=== PATIENT | male | born 1950 | race Caucasian/White ===

== ENCOUNTER 2017-02-02 16:06 | Outpatient (POV) | payer MEDICARE, SELFPAY | END 2017-02-02 16:52 | disposition home or self-care (01) | PROVIDERS: Visit Provider Podiatrist | DX: E11.621 Type 2 diabetes mellitus with foot ulcer (principal); E11.40 Type 2 diabetes mellitus with diabetic neuropathy, unspecified; M79.672 Pain in left foot; L97.522 Non-pressure chronic ulcer of other part of left foot with fat layer exposed | CPT/HCPCS: 11042; 99212 ==

== ENCOUNTER 2017-02-21 08:30 | Outpatient (RCR) | payer MEDICARE, SELFPAY | END 2017-02-21 23:59 | LOC: PT 08:30 | PROVIDERS: Visit Provider Podiatrist | DX: E11.621 Type 2 diabetes mellitus with foot ulcer (principal) | CPT/HCPCS: G8990; G8991; G8992; 97161; 97597; 97760 ==

== ENCOUNTER 2017-03-01 15:30 | Outpatient (RCR) | payer MEDICARE, SELFPAY | END 2017-03-01 23:59 | LOC: PT 15:30 | PROVIDERS: PCP Internal Medicine Adolescent Medicine; Visit Provider Podiatrist | DX: E11.621 Type 2 diabetes mellitus with foot ulcer (principal) ==

== ENCOUNTER → 2018-01-29 13:29 | Outpatient (CLI) | payer MEDICARE, SELFPAY ==
--- NOTE | 2018-01-29 13:33 | US_ITS ---
US Arterial Ankle Brachial Ind History: Rest pain, diabetes, previous smoker ITS.REASON: Skin Changes ORDERING PHYSICIAN: Sara Ruiz DPM PATIENT AGE: 67 years TECHNIQUE: Segmental pressures obtained of both right and left leg. These are compared to brachial blood pressure to yield index at each level sampled including summary LÁZARO. The data sheets from the procedure are available in PACS FINDINGS Rest study only performed today No prior studies available for comparison. Blood pressures reported are in millimeters mercury. RIGHT LEG LÁZARO = 1.27. RIGHT LEG TBI=1.06 Brachial BP: 150 Thigh BP: 176 Calf BP: 185 Ankle PT: 200 Ankle DP : 142 Digit =167 LEFT LEG LÁZARO = 1.16 LEFT LEG TBI= 0.87 Brachial BPD: 158 Thigh BP: 181 Calf BP: 181 Ankle PT:183 Ankle DP: 166 Digit = 137 Pulses and waveforms: Normal IMPRESSION: The ABIs as reported above are within normal limits. Waveforms and pulses are also unremarkable. TBI's are within normal limits
== END ==
PROVIDERS: PCP Internal Medicine Adolescent Medicine; Visit Provider Podiatrist
DX: R09.89 Other specified symptoms and signs involving the circulatory and respiratory systems (principal)
CPT/HCPCS: 93922

== ENCOUNTER → 2018-02-22 12:16 | Outpatient (CLI) | payer MEDICARE, SELFPAY | PROVIDERS: Visit Provider Urology | DX: R39.89 Other symptoms and signs involving the genitourinary system (principal) | CPT/HCPCS: 87086; 87088; 87186 ==

== ENCOUNTER 2019-05-22 12:16 | Observation (INO) ==
[2019-05-22 13:15] LABS: Basophils % 0.3 % (0.1-2.0); Eosinophils # 0.1 K/mm3 (0.0-0.4); Eosinophils % 0.6 % (0.1-12.0); Hematocrit 52.9 % (42.0-52.0); Hemoglobin 16.9 g/dL (14.1-18.0); Lymphocytes # 1.7 K/mm3 (0.7-4.5); Lymphocytes % 12.6 % (10-50); Mean Corpuscular HGB Conc 31.9 g/dL (31.8-35.4); Mean Platelet Volume 7.8 fl (7.4-10.4); Monocytes # 0.5 K/mm3 (0.1-1.0); Monocytes % 3.7 % (1.7-9.3); Neutrophils # 11.1 K/mm3 (1.8-7.8); Neutrophils % 82.6 % (37.0-80.0); Platelet Count 211 K/mm3 (142-424); Red Blood Count 5.24 M/mm3 (4.60-6.20); Red Cell Distribution Width 13.9 % (11.5-17.5); White Blood Count 13.4 K/mm3 (4.8-10.8)
[2019-05-22 13:24] LABS: Albumin/Globulin Ratio 1.3 (1.1-1.8); Bilirubin,Total 0.6 mg/dl (0.2-1.3); Calcium 9.2 mg/dl (8.4-10.2)
--- NOTE | 2019-05-22 15:50 | History & Physical Report ---
*Admission Date: 05/22/19 *Chief complaint: Fall on 05/21/19 with inability to walk *History of present illness: 69 yo M who presents with a chief complaint of left sided body pain after a fall from standing that occured last night when he tripped over a rug at his home. He states he syncopized after falling but "came to" shortly afterwards. He is currently complaining of left hip/groin and shoulder pain that is worse with movement and has not allowed him to do any weight bearing his LUE or LLE. He is accompanied by his daughter in law who states he is in his normal state of health other than his musculoskeletal complaints. Patient denies headache, vision changes, and focal neurologic signs. [facility] History I have reviewed the patient's past medical history: Yes Medical History: Reports:: Chronic Obstructive Pulmonary Disease (COPD), Diabetes Mellitus Type 2, Hypertension, MRSA (foot ulcer, unsure if it was mrsa) Denies:: Cancer *Have you ever received a pneumonia vaccine?: Yes *Have you received a flu vaccine this season?: Yes Other Medical History: Reports: Arthritis, Thyroid Disease Comment:: Chronic opiod use. Parkinsons Disease. Chronic peripheral neuropathy. 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 Laterality Cases: Left: Total Hip Replacement, Bilateral: Carpal Tunnel Release Other Surgeries: Yes: Cholecystectomy, Other Amputation: No Fractures: Yes - *Social History Educational Level: Completed High School Smoking Status: Current every day smoker # Packs/Day (cigarettes): 1 Alcohol Intake: never Alcohol Intake Frequency:: other Substance Use Type: denies use *Occupational Status:: retired Housing: apartment *Travel in the last 8 weeks: None Family Hx:: Heart Attack, Stroke Review of Systems - Review of Systems Review of systems:: pertinent systems reviewed and negative unless documented below - Constitutional Reports weakness - ENT Reports poor balance, Reports dizziness - *Cardiovascular Denies chest pain, Denies leg pain with activity, Denies shortness of breath with activity - *Respiratory Denies change in phlegm color, Denies shortness of breath Meds Home Medications Medication Instructions Recorded Confirmed Type dicyclomine 20 mg tablet PO 15 Days tab 01/23/18 05/03/18 History ferrous sulfate 325 mg (65 mg PO 30 Days tab 01/23/18 05/03/18 History iron) tablet fluoxetine 20 mg capsule PO 30 Days cap 01/23/18 05/03/18 History furosemide 40 mg tablet PO 30 Days tab 01/23/18 05/03/18 History gabapentin 300 mg capsule 900 mg PO TID 30 Days #270 cap 01/23/18 05/03/18 History loratadine 10 mg capsule 10 mg PO DAILY 01/23/18 05/03/18 History morphine 15 mg tablet,extended PO 30 Days tab 01/23/18 05/03/18 History release pantoprazole 40 mg tablet,delayed PO 30 Days tab 01/23/18 05/03/18 History release quetiapine 200 mg tablet PO 90 Days tab 01/23/18 05/03/18 History rasagiline 1 mg tablet PO 30 Days tab 01/23/18 05/03/18 History sucralfate 1 gram tablet PO 30 Days tab 01/23/18 05/03/18 History morphine 15 mg immediate release PO 30 Days tab 04/03/18 05/03/18 History tablet Allergies Allergy/AdvReac Type Severity Reaction Status Date / Time aspirin [ASPIRIN] Allergy Unknown S-DIFF. Verified 05/03/18 11:08 BREATHING Exam Vital signs and Labs for Last 24 Hours: Temp Pulse Resp BP Pulse Ox 98.2 F 74 18 124/73 94 L 05/22/19 15:17 05/22/19 15:17 05/22/19 15:17 05/22/19 15:17 05/22/19 15:17 Laboratory Results - last 24 hr 05/22/19 12:50: WBC 13.4 H, RBC 5.24, Hgb 16.9, Hct 52.9 H, MCV 101.0 H, MCH 32.3 H, MCHC 31.9, RDW 13.9, Plt Count 211, MPV 7.8, Neut % (Auto) 82.6 H, Lymph % (Auto) 12.6, [place] % (Auto) 3.7, Eos % (Auto) 0.6, Baso % (Auto) 0.3, Neut # (Auto) 11.1 H, Lymph # (Auto) 1.7, [place] # (Auto) 0.5, Eos # (Auto) 0.1, Baso # (Auto) 0.0 05/22/19 12:50: Sodium 140, Potassium 4.0, Chloride 107, Carbon Dioxide 29, Anion Gap 8.0, BUN 27 H, Creatinine 1.20, Estimated Creat Clear 79, Estimated GFR 60, Est GFR ( Amer) 72, Glucose 177 H, Calcium 9.2, Total Bilirubin 0.6, AST 23, ALT 19, Alkaline Phosphatase 75, Total Protein 7.0, Albumin 4.0, Globulin 3.0, Albumin/Globulin Ratio 1.3 I & O for Last 24 hours: Intake & Output 05/20/19 05/21/19 05/22/19 05/23/19 11:59 11:59 11:59 11:59 Output Total 625 / 625 Balance -625 / -625 Weight 214 lb 9 oz - Constitutional no acute distress - *Routine HEENT Exam Head: Present: normocephalic Eye: Present: EOMI, PERRL ENT: Present: mucous membranes moist - *Routine Neck Exam Present: supple. Absent: lymphadenopathy - *Routine Respiratory Exam Present: CTA bilaterally - *Routine Cardiovascular Exam Present: RRR - *Routine Abdominal Exam Present: soft, normoactive bowel sounds. Absent: tenderness - *Routine Extremities Exam Present: cyanosis, edema Comments: 1+ edema of bilateral lower extremities, pain with any movement of LLE, neurovascularly intact in LLE. Unable to abduct LUE past 90 degrees, mild vague tenderness to palpation of clavicle. Neurovascularly intact. - *Routine Skin Exam Present: warm. Absent: rash - *Routine Neurological Exam Present: alert Stiffness and rigidity from parkinsons. Face symmetric Assessment and Plan (1) Parkinson disease Current visit: Yes Status: Acute Category: Medical Code(s): G20 - Parkinson's disease (2) Fall at home Current visit: Yes Status: Acute Category: Medical Code(s): W19.XXXA - Unspecified fall, initial encounter; Y92.009 - Unspecified place in unspecified non-institutional (private) residence as the place of occurrence of the external cause (3) Ataxia Current visit: Yes Status: Acute Category: Medical Code(s): R27.0 - Ataxia, unspecified (4) Depression Current visit: Yes Status: Acute Category: Medical Code(s): F32.9 - Major depressive disorder, single episode, unspecified (5) Left hip pain Current visit: Yes Status: Acute Category: Medical Code(s): M25.552 - Pain in left hip (6) Diabetes mellitus Current visit: No Status: Acute Category: Medical Code(s): E11.9 - Type 2 diabetes mellitus without complications - Assessment and plan all Dx Assessment and Plan for all problems:: Fall with high risk of fx based on PE. Admt to [facility] - xrays, labs, ortho eval
--- NOTE | 2019-05-22 15:59 | Consult Report ---
*Admission Date: 05/22/19 *Reason for consult:: Left hip injury *History of present illness: Patient is a 69-year-old male admitted from Dr. Parker's office with LEFT hip pain and possible left hip fracture. Patient says he fell at home yesterday after tripping over a rug. He says following the injury he could not walk and crawled into bed. He was admitted to hospital for further evaluation and management. Patient says he lives by himself and normally walks a few miles every day independently. He says he did not have any pain in his hip prior to the fall yesterday. He is also complaining of some pain in his left shoulder. Patient denies any dizziness, headache, chest or neck pain. He denies loss of consciousness, chest pain and shortness of breath. He reports chronic paresthesias in both lower extremities secondary to diabetes. His past medical history includes diabetes mellitus, COPD, hypertension, Parkinson's disease, ataxia, peripheral neuropathy and depression. He says he previously fractured his left hip and had surgery in [place] about 9 years ago. Review of Systems - Review of Systems Review of systems:: pertinent systems reviewed and negative unless documented below - Constitutional Reports body ache(s), Reports weakness - Eyes Denies change in vision - ENT Reports poor balance, Reports dizziness - *Cardiovascular Denies chest pain, Denies chest pain with activity - *Respiratory Denies chest congestion, Denies cough, Denies shortness of breath - *Gastrointestinal Denies abdominal pain - *Musculoskeletal Reports abnormal walking, Reports joint pain - *Neurologic Reports dizziness [facility] History I have reviewed the patient's past medical history: Yes Medical History: Reports:: Chronic Obstructive Pulmonary Disease (COPD), Diabetes Mellitus Type 2, Hypertension, MRSA (foot ulcer, unsure if it was mrsa) Denies:: Cancer *Have you ever received a pneumonia vaccine?: Yes *Have you received a flu vaccine this season?: Yes Other Medical History: Reports: Arthritis Laterality Cases: Left: Total Hip Replacement, Bilateral: Carpal Tunnel Release Other Surgeries: Yes: No Previous Surgery, Cholecystectomy, Other Amputation: No Fractures: Yes - *Social History Educational Level: Completed High School Smoking Status: Current every day smoker # Packs/Day (cigarettes): 1 Alcohol Intake: never Alcohol Intake Frequency:: other Substance Use Type: denies use *Occupational Status:: retired Housing: apartment *Travel in the last 8 weeks: None Family Hx:: Heart Attack, Stroke Meds Home Medications Medication Instructions Recorded Confirmed Type dicyclomine 20 mg tablet PO 15 Days tab 01/23/18 05/03/18 History ferrous sulfate 325 mg (65 mg PO 30 Days tab 01/23/18 05/03/18 History iron) tablet fluoxetine 20 mg capsule PO 30 Days cap 01/23/18 05/03/18 History furosemide 40 mg tablet PO 30 Days tab 01/23/18 05/03/18 History gabapentin 300 mg capsule 900 mg PO TID 30 Days #270 cap 01/23/18 05/03/18 History loratadine 10 mg capsule 10 mg PO DAILY 01/23/18 05/03/18 History morphine 15 mg tablet,extended PO 30 Days tab 01/23/18 05/03/18 History release pantoprazole 40 mg tablet,delayed PO 30 Days tab 01/23/18 05/03/18 History release quetiapine 200 mg tablet PO 90 Days tab 01/23/18 05/03/18 History rasagiline 1 mg tablet PO 30 Days tab 01/23/18 05/03/18 History sucralfate 1 gram tablet PO 30 Days tab 01/23/18 05/03/18 History morphine 15 mg immediate release PO 30 Days tab 04/03/18 05/03/18 History tablet Allergies Allergy/AdvReac Type Severity Reaction Status Date / Time aspirin [ASPIRIN] Allergy Unknown S-DIFF. Verified 05/03/18 11:08 BREATHING Exam Vital signs and Labs for Last 24 Hours: Temp Pulse Resp BP Pulse Ox 98.2 F 74 18 124/73 94 L 05/22/19 15:17 05/22/19 15:17 05/22/19 15:17 05/22/19 15:17 05/22/19 15:17 Laboratory Results - last 24 hr 05/22/19 12:50: WBC 13.4 H, RBC 5.24, Hgb 16.9, Hct 52.9 H, MCV 101.0 H, MCH 32.3 H, MCHC 31.9, RDW 13.9, Plt Count 211, MPV 7.8, Neut % (Auto) 82.6 H, Lymph % (Auto) 12.6, [place] % (Auto) 3.7, Eos % (Auto) 0.6, Baso % (Auto) 0.3, Neut # (Auto) 11.1 H, Lymph # (Auto) 1.7, [place] # (Auto) 0.5, Eos # (Auto) 0.1, Baso # (Auto) 0.0 05/22/19 12:50: Sodium 140, Potassium 4.0, Chloride 107, Carbon Dioxide 29, Anion Gap 8.0, BUN 27 H, Creatinine 1.20, Estimated Creat Clear 79, Estimated GFR 60, Est GFR ( Amer) 72, Glucose 177 H, Calcium 9.2, Total Bilirubin 0.6, AST 23, ALT 19, Alkaline Phosphatase 75, Total Protein 7.0, Albumin 4.0, Globulin 3.0, Albumin/Globulin Ratio 1.3 I & O for Last 24 hours: Intake & Output 05/20/19 05/21/19 05/22/19 05/23/19 11:59 11:59 11:59 11:59 Output Total 625 / 625 Balance -625 / -625 Weight 214 lb 9 oz - Constitutional no acute distress, cooperative - *Routine HEENT Exam Head: Present: normocephalic, atraumatic Eye: Present: EOMI ENT: Present: mucous membranes moist - *Routine Neck Exam Present: supple, full ROM, trachea midline. Absent: lymphadenopathy - *Routine Respiratory Exam Present: CTA bilaterally. Absent: respiratory distress - *Routine Cardiovascular Exam Present: RRR, Normal S1, Normal S2 - *Routine Extremities Exam Comments: Left hip: On examination of the lower extremities, the limb lengths are equal and alignment is neutral. On examination of the LEFT hip the skin is intact. He has well-healed surgical scars over the lateral aspect of the hip, proximal and distal thigh from previous surgery. There is mild ecchymosis over the greater trochanteric area. He is tender over the is tender over the LEFT hip greater trochanter. Movements of the left hip are somewhat limited with pain. He is not able to actively straight leg raise. Nontender over the distal thigh and knee joint; nontender over the left leg, foot and ankle. Thigh and calf are soft and nontender. Dorsalis pedis and posterior tibial pulses are palpable 1+ bilaterally. Baseline decreased sensation over both feet secondary to peripheral neuropathy. He has good range of foot, ankle and toe movements. Diagnostic imaging: X-rays of his pelvis/left hip, left femur performed at [facility] reviewed along with radiologist report. PROCEDURE: XR HIP LT 2-3V W/PELVIS CLINICAL INDICATION: fall, hip pain COMPARISON: No exams were available for comparison FINDINGS: There is no acute fracture or dislocation. Intramedullary rudi with compression screw is seen in the proximal left femur. Bony hypertrophy is seen in the soft tissues superior to the greater trochanter. IMPRESSION: No acute findings. Dictated by: Akash Sales 05/22/2019 14:08 PROCEDURE: XR FEMUR LT 2V CLINICAL INDICATION: fall, leg pain COMPARISON: No exams were available for comparison FINDINGS: No fracture or dislocation. No lytic or blastic change. There is normal mineralization. Intramedullary rudi with distal transfixing screws is seen in the femur. Com pression screw is seen in the proximal femur. There is bony hypertrophy in the soft tissues superior to the greater trochanter. There is mild osteoarthritis at the medial compartment joint space of the knee. IMPRESSION: No acute findings. Dictated by: Akash Sales 05/22/2019 14:11 Left shoulder: On examination of the left shoulder, skin is intact; no ulcerations or lacerations evident. He has minimal tenderness over the glenohumeral and AC joints. He demonstrates good range of active and passive shoulder movements. No crepitation noted with shoulder movements. Clinically the clavicle is intact. Neurovascular status is grossly intact; radial and ulnar pulses 2+ distally. Capillary refill is brisk; intact sensation to light touch throughout. Axillary nerve is intact and deltoid is porfirio well. He has bilateral Dupuytren's contracture in the hands with fixed contracture of the left fifth digit. Diagnostic Imaging: X-rays of the left shoulder performed at [facility] reviewed along with the radiologist's report- PROCEDURE: XR SHOULDER LT MIN 2V CLINICAL INDICATION: fall, hip pain COMPARISON: No exams were available for comparison FINDINGS: There is no acute fracture or dislocation. Mild acromioclavicular joint arthropathy is noted. IMPRESSION: No acute findings. Dictated by: Akash Sales 05/22/2019 14:09 I have reviewed the x-rays myself and did not find evidence of any fracture, dislocation or other acute bony injury. - *Routine Skin Exam Present: intact, warm, normal turgor - *Routine Neurological Exam Present: alert, oriented X3 - Routine Psychiatric Exam Present: normal affect, cooperative Results - Labs Result Diagrams: 05/22/19 12:50 05/22/19 12:50 Labs: Abnormal lab results 05/22/19 05/22/19 Range/Units 12:50 12:50 WBC 13.4 H (4.8-10.8) K/mm3 Hct 52.9 H (42.0-52.0) % MCV 101.0 H (80-94) fl MCH 32.3 H (27.0-31.2) pg Neut % (Auto) 82.6 H (37.0-80.0) % Neut # (Auto) 11.1 H (1.8-7.8) K/mm3 BUN 27 H (9-20) mg/dl Glucose 177 H (74-100) mg/dl H & H 05/22/19 Range/Units 12:50 Hgb 16.9 (14.1-18.0) g/dL Hct 52.9 H (42.0-52.0) % Assessment and Plan (1) Fall at home Current visit: Yes Status: Acute Category: Medical Code(s): W19.XXXA - Unspecified fall, initial encounter; Y92.009 - Unspecified place in unspecified non-institutional (private) residence as the place of occurrence of the external cause (2) Left hip pain Current visit: Yes Status: Acute Category: Medical Code(s): M25.552 - Pain in left hip (3) Soft tissue injury of left hip Current visit: Yes Status: Acute Category: Medical Code(s): S79.912A - Unspecified injury of left hip, initial encounter (4) Soft tissue injury of left shoulder Current visit: Yes Status: Acute Category: Medical Code(s): S49.92XA - Unspecified injury of left shoulder and upper arm, initial encounter - Assessment and plan all Dx Assessment and Plan for all problems:: I have reviewed the clinical and x-ray findings with the patient. Clinically and radiologically there is no evidence of any acute fracture, dislocation or other bony injuries. He previously had a left hip fracture treated with a cephalo-medullary nailing and the nail is in place and appears stable. There is some heterotopic bone formation at the top of the greater trochanter and also there are minor degenerative changes in the hip joint. He is also complaining of pain in his left shoulder following the fall but x-rays again are not showing any acute injuries. Recommend conservative management for soft tissue injuries including rest, activity modification, regular icing, as needed pain medication and mobilization with physical therapy as comfortable. He can be mobilized with physical therapy using assistive devices as needed and weightbearing as tolerated. There is no need for any surgical intervention at this stage and patient can be discharged as appropriate from medical standpoint. I have explained the same to the patient and answered all his questions. Follow-up in my office in couple of weeks time as needed. Thank you for the opportunity to participate in the care of this very pleasant gentleman.
--- NOTE | 2019-05-22 16:36 | Electrocardiograph Report ---
APPROVED REPORT Exam: Resting ECG HR:77 bpm ECG Measurements Heart Rate 77 AXES AK 224 P 8 QRSd 150 QRS 66 QT 414 T246 QTc 468 <Conclusion> Sinus rhythm with 1st degree AV block Nonspecific intraventricular block Abnormal ECG Electronically signed by : Abel Parker, 05/22/2019 16:35:49
--- NOTE | 2019-05-23 07:24 | Pharmacy Consult Notes ---
[facility] Pharmacy VTE Monitoring - Patient Demographics Admission date: 05/23/19 Report Date: 05/23/19 Time: 07:23 Allergies/Adverse Reactions: Patient Allergies aspirin [ASPIRIN] Allergy (Unknown, Verified 05/03/18 11:08) S-DIFF. BREATHING Height: 1.88 m Weight: 96.36 kg Patient Problems: Current Active Problems Parkinson disease (Acute) Fall at home (Acute) Ataxia (Acute) Depression (Acute) Left hip pain (Acute) Soft tissue injury of left hip (Acute) Soft tissue injury of left shoulder (Acute) - VTE Risk Labs: VTE Related Lab Results Hgb 16.9 g/dL (14.1-18.0) 05/22/19 12:50 Hct 52.9 % (42.0-52.0) H 05/22/19 12:50 Plt Count 211 K/mm3 (142-424) 05/22/19 12:50 BUN 27 mg/dl (9-20) H 05/22/19 12:50 Creatinine 1.20 mg/dl (0.66-1.25) 05/22/19 12:50 Estimated Creat Clear 79 mL/min (50-200) 05/22/19 12:50 Was VTE Risk Assessment Performed: Yes VTE Score: 9 VTE Risk Level: Moderate Risk Clinical Trial Participant: No - Prophylaxis VTE Prophylaxis Ordered?: Yes Types of VTE Prophylaxis: TEDS Knee High (TO UNAFFECTED LEG)
--- NOTE | 2019-05-23 08:14 | Progress Note ---
Internal Medicine - PN: Subj *Date: 05/23/19 *Time: 08:12 Interval history: Patient continues to complain of pain. Nursing reports a cough but no fever. Patient is pleasant and alert. Exam Vital signs and Labs for Last 24 Hours: Temp Pulse Resp BP Pulse Ox 98.9 F 81 20 186/76 H 92 L 05/23/19 07:37 05/23/19 07:37 05/23/19 07:37 05/23/19 07:37 05/23/19 07:37 Laboratory Results - last 24 hr 05/22/19 12:50: WBC 13.4 H, RBC 5.24, Hgb 16.9, Hct 52.9 H, MCV 101.0 H, MCH 32.3 H, MCHC 31.9, RDW 13.9, Plt Count 211, MPV 7.8, Neut % (Auto) 82.6 H, Lymph % (Auto) 12.6, [place] % (Auto) 3.7, Eos % (Auto) 0.6, Baso % (Auto) 0.3, Neut # (Auto) 11.1 H, Lymph # (Auto) 1.7, [place] # (Auto) 0.5, Eos # (Auto) 0.1, Baso # (Auto) 0.0 05/22/19 12:50: Sodium 140, Potassium 4.0, Chloride 107, Carbon Dioxide 29, Anion Gap 8.0, BUN 27 H, Creatinine 1.20, Estimated Creat Clear 79, Estimated GFR 60, Est GFR ( Amer) 72, Glucose 177 H, Calcium 9.2, Total Bilirubin 0.6, AST 23, ALT 19, Alkaline Phosphatase 75, Total Protein 7.0, Albumin 4.0, Globulin 3.0, Albumin/Globulin Ratio 1.3 05/22/19 16:53: POC Glucose 141 H 05/22/19 20:06: POC Glucose 214 H 05/23/19 05:31: POC Glucose 168 H I & O for Last 24 hours: Intake & Output 05/20/19 05/21/19 05/22/19 05/23/19 11:59 11:59 11:59 11:59 Intake Total 1884 / 1884 Output Total 3500 / 3500 Balance -1616 / -1616 Weight 212 lb 7 oz Narrative: Loose rhonchi in the anterior and posterior lower lung polk. No crackles. Heart rate regular. Oropharynx clear. Patient is alert. Oriented. Neurologic exam noted for his parkinsonism features with masked facial features and rigidity but no cogwheeling. He is able to move his left leg slightly better than yesterday but continues to have significant pain when he flexes the hip on the left side. Warm and well-perfused extremities. Abdomen soft nontender. Assessment and Plan (1) Fall at home Current visit: Yes Status: Acute Category: Medical Code(s): W19.XXXA - Unspecified fall, initial encounter; Y92.009 - Unspecified place in unspecified non-institutional (private) residence as the place of occurrence of the external cause (2) Left hip pain Current visit: Yes Status: Acute Category: Medical Code(s): M25.552 - Pain in left hip (3) Soft tissue injury of left hip Current visit: Yes Status: Acute Category: Medical Code(s): S79.912A - Unspecified injury of left hip, initial encounter (4) Soft tissue injury of left shoulder Current visit: Yes Status: Acute Category: Medical Code(s): S49.92XA - Unspecified injury of left shoulder and upper arm, initial encounter (5) Cough Current visit: Yes Status: Acute Category: Medical Code(s): R05 - Cough - Assessment and plan all Dx Assessment and Plan for all problems:: Appreciate orthopedic consult. PT/OT evaluation today. Given patient's parkinsonism and significant mobility issues he would seemingly qualify for a short-term correction care stay depending on how he responds to physical therapy. Continue current pain regimen. Blood pressure is slightly high this morning but he has been normal otherwise. No change in management. Home medications have been restarted as reviewed by me. Cough is loose, without fever. Repeat chest x-ray today.
--- NOTE | 2019-05-24 08:02 | Discharge Summary ---
General - General Admission date:: 05/22/19 Discharge date: 05/24/19 HPI HPI: 69 yo M who presents with a chief complaint of left sided body pain after a fall from standing that occured last night when he tripped over a rug at his home. He states he syncopized after falling but "came to" shortly afterwards. He is currently complaining of left hip/groin and shoulder pain that is worse with movement and has not allowed him to do any weight bearing his LUE or LLE. He is accompanied by his daughter in law who states he is in his normal state of health other than his musculoskeletal complaints. Patient denies headache, vision changes, and focal neurologic signs. Hospital Course Hospital Course: Patient was admitted. Interestingly x-rays did not show any evidence of fracture. Patient was in significant pain over the next 12 hours, orthopedic consult was obtained, agreed with x-ray interpretation. Physical therapy was consulted and they worked well with the patient and enabled him to ambulate 25 feet with his walker with minimal pain. Over the next 24 hours his pain levels improved nicely. Injury pattern and response more consistent with sprain/strain. This morning patient is great, ambulating independently with his walker, and he will be discharged home. Objective Vital signs: Temp Pulse Resp BP Pulse Ox 98.3 F 77 18 144/74 H 93 L 05/24/19 04:00 05/24/19 04:00 05/24/19 04:00 05/24/19 04:00 05/24/19 04:00 Narrative: Patient is pleasant. Parkinsonism features of face and peripheral neurologic exam as previously noted. Extremities warm and well-perfused. Breathing easily, lungs clear, heart rate regular. Abdomen soft nontender. ENT exam clear. Results Labs on day of discharge: Labs from last 24 hours 05/24/19 05/23/19 05/23/19 05:21 21:13 16:07 POC Glucose 170 H 183 H 173 H NT-Pro-B Natriuret Pep 05/23/19 05/23/19 13:58 10:59 POC Glucose 192 H NT-Pro-B Natriuret Pep 426 H Preliminary micro results at discharge 05/23/19 12:30 Sputum Culture - Preliminary Sputum - Expectorated Sputum DS: Diagnosis - Discharge Diagnosis (1) Fall at home Status: Acute (2) Left hip pain Status: Acute (3) Soft tissue injury of left hip Status: Acute (4) Soft tissue injury of left shoulder Status: Acute (5) Cough Status: Acute Discharge Plan - Patient Discharge Instructions ACTIVITY: Continue current activity DIET: continue same diet Patient Instructions: How to Prevent Falls - Follow up Plan Follow up with: Abel Parker MD [Primary Care Provider] - 05/27/19 Unknown provider or service follow up:: 05/24/19 08:00 Care management evaluation for PT/OT evaluation for PT/OT/home health evaluation/medication safety. Please note I performed a [id number] examination today and patient is unable leave his home without a great deal of difficulty, pain and immobility. Disposition: Home Health Service Home Medications: Home Medications Medication Instructions Recorded Confirmed Type dicyclomine 20 mg tablet 10 - 20 mg PO QIDP PRN 15 Days tab 01/23/18 05/23/19 History ferrous sulfate 325 mg (65 mg 325 mg PO BIDWM 30 Days tab 01/23/18 05/23/19 History iron) tablet fluoxetine 20 mg capsule 20 mg PO DAILY 30 Days cap 01/23/18 05/23/19 History furosemide 40 mg tablet 40 mg PO BID 30 Days tab 01/23/18 05/23/19 History gabapentin 300 mg capsule 900 mg PO TID 30 Days #270 cap 01/23/18 05/23/19 History loratadine 10 mg capsule 10 mg PO DAILY 01/23/18 05/23/19 History pantoprazole 40 mg tablet,delayed 80 mg PO DAILY 30 Days tab 01/23/18 05/23/19 History release quetiapine 200 mg tablet 200 mg PO HS 90 Days tab 01/23/18 05/23/19 History sucralfate 1 gram tablet 1 gm PO ACHS 30 Days tab 01/23/18 05/23/19 History morphine 15 mg immediate release 15 mg PO BID 30 Days tab 04/03/18 05/23/19 History tablet Prescriptions/Medication Reconciliation: Continued furosemide 40 mg tablet 40 mg PO BID 30 Days tab dicyclomine 20 mg tablet 10 - 20 mg PO QIDP PRN 15 Days tab PRN Reason: Abdominal Pain ferrous sulfate 325 mg (65 mg iron) tablet 325 mg PO BIDWM 30 Days tab fluoxetine 20 mg capsule 20 mg PO DAILY 30 Days cap gabapentin 300 mg capsule 900 mg PO TID 30 Days #270 cap quetiapine 200 mg tablet 200 mg PO HS 90 Days tab loratadine 10 mg capsule 10 mg PO DAILY sucralfate 1 gram tablet 1 gm PO ACHS 30 Days tab pantoprazole 40 mg tablet,delayed release 80 mg PO DAILY 30 Days tab morphine 15 mg immediate release tablet 15 mg PO BID 30 Days tab - Problem Reconciliation Problems Reviewed?: Yes
--- NOTE | 2019-05-24 11:34 | Cardiology Report ---
APPROVED REPORT EXAM: Comprehensive 2D, Doppler, and color-flow Echocardiogram Autism Specialist: Adore Rock CRT Ht: 6 ft 2 in Wt: 212lbs BSA: 2.23 BP: 186/76 mmHg Indications: HIP FX,PLEURAL EFFUSION,PARKINSONS M-Mode Dimensions RVDd 2.65 cm (0.9-2.6)LVDd 5.21 cm (3.5-5.7) LVDs 4.12 cm (3.5-5.7)IVSd 1.73 cm (0.6-1.1) PWd 0.89 cm (0.6-1.1)EF (Teich) 42.30% FS 20.90% EDV (Teich) 130.10 mL ESV (Teich) 75.10 mL LV Diastology E/A Ratio 0.56 Mitral Valve MV A Velocity 67.00 (40-130 cm/s) Left Ventricle Left atrium is mildly enlarged, left ventricle is normal size, mild concentric left ventricular hypertrophy, visually estimated ejection fraction 55% with no regional wall motion abnormality. Grade 1 diastolic dysfunction seen without tissue Doppler evidence of raise left atrial pressure. Right Ventricle Right atrium right ventricular normal size and contractility. Aortic Valve Aortic valve is minimally thickened and fibrosed, there is no aortic stenosis or aortic insufficiency. Mitral Valve Mitral valve is grossly normal, there is mild mitral regurgitation. Tricuspid Valve Tricuspid valve is grossly normal, there is mild tricuspid regurgitation, tricuspid regurgitation jet velocity is inadequate for calculation of the right ventricular systolic pressure. Pulmonic Valve Pulmonic valve is poorly visualized. Great Vessels Aortic root is normal size. Pericardium No significant pericardial effusion noted. Conclusion 1. Mildly enlarged left atrium, normal left ventricular size, visually estimated ejection fraction 55% with no regional wall motion abnormality, grade 1 diastolic dysfunction seen without tissue Doppler evidence of raise left atrial pressure. 2. Mild mitral and tricuspid regurgitation. 3. No significant pericardial effusion noted. Electronically signed by : Mitesh Casey, 05/24/2019 11:33:43
== END 2019-05-24 09:55 | disposition home health service (06) ==
LOC: 2ND 12:18 → INTOOBSV 12:18
PROVIDERS: ADMIT Internal Medicine Adolescent Medicine; ATTEND Internal Medicine Adolescent Medicine
CPT/HCPCS: 36415; 71020; 71046; 73030; 73502; 73552; 80053; 82962; 83880; 85025; 87070; 87205; 93005; 93306; 97116; 97161; 97165; G0378

== ENCOUNTER → 2019-11-13 15:23 | Outpatient (CLI) | payer MEDICARE, SELFPAY ==
--- NOTE | 2019-11-13 15:29 | CA_ITS ---
APPROVED REPORT Left Lower Extremity Venous Study for DVT. Government Teacher: SAAD PrattT Indications Lower Extremity Pain: Left Lower Extremity Edema: Left SWELLING AND REDNESS LLE X SEVERAL WKS Vein Imaging CFV (L): Partially Compressible, Thrombus FEM (L): Non-Compressible, Thrombus POP (L): Thrombus, Non-Compressible PTV (L): Compressible GSV (L): Compressible Peroneals (L):Compressible GAS (L): Compressible Findings Study suggests DVT of the left common femoral, femoral and politeal vein. Remaining deep veins of the left lower extremity are normal. Study suggests no evidence of SVT of the left lower extremity. Conclusion Study suggests DVT of the left common femoral, femoral and politeal vein. Remaining deep veins of the left lower extremity are normal. Study suggests no evidence of SVT of the left lower extremity. Critical Notification Critical Value: Yes Physician Notified Date: 11/13/2019 Time: 15:54 Physician Name: Dr Parker Electronically signed by : Stanley Crystal MD 11/13/2019 17:20:18
[2019-11-13 16:36] LABS: Basophils % 0.3 % (0.1-2.0); Eosinophils # 0.3 K/mm3 (0.0-0.4); Eosinophils % 2.5 % (0.1-12.0); Hematocrit 46.6 % (42.0-52.0); Lymphocytes # 2.7 K/mm3 (0.7-4.5); Lymphocytes % 23.5 % (10-50); Mean Corpuscular HGB Conc 32.3 g/dL (31.8-35.4); Mean Corpuscular Hemoglobin 33.6 pg (27.0-31.2); Mean Corpuscular Volume 103.9 fl (80-94); Monocytes # 0.6 K/mm3 (0.1-1.0); Neutrophils # 7.9 K/mm3 (1.8-7.8); Neutrophils % 68.7 % (37.0-80.0); Platelet Count 231 K/mm3 (142-424); Red Blood Count 4.48 M/mm3 (4.60-6.20); Red Cell Distribution Width 15.5 % (11.5-17.5); White Blood Count 11.5 K/mm3 (4.8-10.8)
[2019-11-13 16:42] LABS: Chloride 105 mmol/L (98-107); Sodium 142 mmol/L (136-145)
[2019-11-13 16:43] LABS: Potassium 5.1 mmoL/L (3.5-5.1)
[2019-11-13 16:45] LABS: Alanine Aminotransferase 11 U/L (12-78); Albumin/Globulin Ratio 1.4 (1.1-1.8); Alkaline Phosphatase 92 U/L (38-126); Anion Gap 12.1 mEq/L (5-15); Aspartate Amino Transferase 18 U/L (17-59); Bilirubin,Total 0.3 mg/dl (0.2-1.3); Blood Urea Nitrogen 28 mg/dl (9-20); Calcium 9.8 mg/dl (8.4-10.2); Carbon Dioxide 30 mmol/L (22.0-30.0); Estimated Glomerular Filt Rate 55 ml/min (>60); GFR (African American) 66 ML/MIN (>60); Globulin 2.9 g/dL (1.3-3.2); Glucose 175 mg/dl (74-100); Total Protein,Serum 6.9 g/dl (6.3-8.2)
[2019-11-13 17:16] LABS: Thyroid Stimulating Hormone 1.42 uIU/mL (0.465-4.68)
== END ==
PROVIDERS: PCP Internal Medicine Adolescent Medicine; Visit Provider Internal Medicine Adolescent Medicine
DX: E03.9 Hypothyroidism, unspecified (principal); R60.0 Localized edema; M79.605 Pain in left leg
CPT/HCPCS: 36415; 80053; 84443; 85025; 85378; 93971

== ENCOUNTER 2020-10-17 16:29 | Inpatient (IN) | payer MEDICARE, SELFPAY ==
[2020-10-17 16:29] VITALS: BP 158/75; PULSE 88; RESP 18; TEMP 36.8; O2SAT 96; BMI 27.4
--- NOTE | 2020-10-17 16:43 | CT_ITS ---
PROCEDURE INFORMATION: Exam: CT Head Without Contrast Exam date and time: 10/17/2020 4:43 PM Age: 70 years old Clinical indication: Injury or trauma; Fall TECHNIQUE: Imaging protocol: Computed tomography of the head without contrast. Radiation optimization: All CT scans at this facility use at least one of these dose optimization techniques: automated exposure control; mA and/or kV adjustment per patient size (includes targeted exams where dose is matched to clinical indication); or iterative reconstruction. COMPARISON: HDWO CT HEAD W/O CONTRAST 07/17/2016 12:24 AM FINDINGS: Brain: No hemorrhage, mass effect or midline shift. Age-related atrophy and chronic white matter ischemic changes, with no evidence of an acute intracranial abnormality. Cerebral ventricles: No ventriculomegaly. Paranasal sinuses: Mucosal thickening noted within both maxillary sinuses. Mastoid air cells: Visualized mastoid air cells are well aerated. Vasculature: The vasculature demonstrates diffuse mild atherosclerotic calcification. Bones/joints: No acute fracture. Soft tissues: Right posterior parietal soft tissue swelling. IMPRESSION: 1. No hemorrhage, mass effect or midline shift. 2. Age-related atrophy and chronic white matter ischemic changes, with no evidence of an acute intracranial abnormality. 3. Right posterior parietal soft tissue swelling.
--- NOTE | 2020-10-17 16:43 | XR_ITS ---
PROCEDURE INFORMATION: Exam: XR Right Shoulder Exam date and time: 10/17/2020 4:43 PM Age: 70 years old Clinical indication: Injury or trauma; Fall; Blunt trauma (contusions or hematomas); Shoulder; Right TECHNIQUE: Imaging protocol: XR Right shoulder. Views: 2 or more views. COMPARISON: CR XR CHEST 2V 05/23/2019 8:52 AM FINDINGS: Bones/joints: There is a mildly displaced oblique fracture through the right clavicle. It extends from the mid clavicular shaft toward the sternum. Age indeterminate right lateral rib fractures are seen. Soft tissues: Normal. Other findings: No malalignment. IMPRESSION: Mildly displaced oblique fracture through the right clavicle
--- NOTE | 2020-10-17 16:43 | XR_ITS ---
PROCEDURE INFORMATION: Exam: XR Chest Exam date and time: 10/17/2020 4:43 PM Age: 70 years old Clinical indication: Injury or trauma; Fall; Blunt trauma (contusions or hematomas) TECHNIQUE: Imaging protocol: XR of the chest. Views: 1 view. COMPARISON: CR XR CHEST 2V 05/23/2019 8:52 AM FINDINGS: Lungs: Unremarkable. No consolidation. Pleural spaces: Costophrenic angle blunting on the left suggest possible effusion. Heart/Mediastinum: Unremarkable. No cardiomegaly. Bones/joints: Multiple age indeterminate rib fractures are seen on the right laterally. They were not present in May 2019. IMPRESSION: 1. Several age indeterminate nondisplaced rib fractures on the right. 2. Tiny left pleural effusion suspected.
--- NOTE | 2020-10-17 16:46 | PC.NURSE ---
Notified Rad of xray and CT
--- NOTE | 2020-10-17 16:53 | CT_ITS ---
PROCEDURE INFORMATION: Exam: CT Cervical Spine Without Contrast Exam date and time: 10/17/2020 4:53 PM Age: 70 years old Clinical indication: Injury or trauma; Fall TECHNIQUE: Imaging protocol: Computed tomography images of the cervical spine without contrast. Radiation optimization: All CT scans at this facility use at least one of these dose optimization techniques: automated exposure control; mA and/or kV adjustment per patient size (includes targeted exams where dose is matched to clinical indication); or iterative reconstruction. COMPARISON: CT HEAD/BRAIN WO CON 10/17/2020 5:03 PM FINDINGS: Bones/joints: The facet joints demonstrate mild degenerative hypertrophy and sclerosis. There is no evidence of acute fracture. Discs/Spinal canal/Neural foramina: The cervical spine demonstrates mild degenerative changes at multiple levels. Lungs: Mild apical pleural thickening noted on the right. Soft tissues: There are no soft tissue masses or fluid collections. IMPRESSION: 1. The cervical spine demonstrates mild degenerative changes at multiple levels. 2. No evidence of acute fracture.
--- NOTE | 2020-10-17 16:54 | XR_ITS ---
PROCEDURE INFORMATION: Exam: XR Pelvis Exam date and time: 10/17/2020 4:54 PM Age: 70 years old Clinical indication: Injury or trauma; Fall; Blunt trauma (contusions or hematomas); Bilateral; Hip TECHNIQUE: Imaging protocol: XR pelvis. Views: 1 or 2 view. COMPARISON: CR XR HIP LT 2-3V W/PELVIS 05/22/2019 1:24 PM FINDINGS: Bones/joints: Slight rotation. Left femoral hardware noted. Bilateral degenerative changes are seen. Soft tissues: Unremarkable. IMPRESSION: Limited study reveals no definite fracture. Follow-up with improved positioning to include additional views of the effected side is recommended. If there is high clinical concern for fracture, CT could be performed instead.
--- NOTE | 2020-10-17 16:58 | ECG_ITS ---
APPROVED REPORT Exam: Resting ECG HR:85 bpm ECG Measurements Heart Rate 85 AXES CA 228 P QRSd 150 QRS -7 QT 400 T 129 QTc 476 Conclusion Sinus rhythm with 1st degree AV block Left bundle branch block Abnormal ECG Electronically signed by : Abel Parker MD 10/18/2020 17:06:40
--- NOTE | 2020-10-17 17:25 | XR_ITS ---
PROCEDURE INFORMATION: Exam: XR Right Hip Exam date and time: 10/17/2020 5:25 PM Age: 70 years old Clinical indication: Injury or trauma; Fall; Blunt trauma (contusions or hematomas); Right; Hip TECHNIQUE: Imaging protocol: XR Right hip. Views: 2 or 3 views hip with pelvis when performed. COMPARISON: CR XR PELVIS 1-2V 10/17/2020 5:18 PM FINDINGS: Bones/joints: Suboptimal position. Right femoral neck fracture not excluded. Soft tissues: Unremarkable. IMPRESSION: A right femoral neck fracture is suspected. CT recommended for confirmation.
[2020-10-17 18:03] VITALS: BP 186/89; PULSE 86; RESP 18; O2SAT 93
[2020-10-17 18:15] LABS: Coronavirus 19, PCR Not Detected (NotDetected); Influenza A, PCR Not Detected (NotDetected); Influenza B, PCR Not Detected (NotDetected)
--- NOTE | 2020-10-17 18:19 | CT_ITS ---
PROCEDURE INFORMATION: Exam: CT Chest Without Contrast; Diagnostic Exam date and time: 10/17/2020 6:19 PM Age: 70 years old Clinical indication: Injury or trauma; Fall; Blunt trauma (contusions or hematomas); Injury date: 10/17/2020; Injury details: Fell FX RT ribs; Additional info: Fall rib FX TECHNIQUE: Imaging protocol: Diagnostic computed tomography of the chest without contrast. 3D rendering (Not supervised by radiologist): MIP and/or 3D reconstructed images were created by the technologist. Total images: 319 Radiation optimization: All CT scans at this facility use at least one of these dose optimization techniques: automated exposure control; mA and/or kV adjustment per patient size (includes targeted exams where dose is matched to clinical indication); or iterative reconstruction. COMPARISON: CR XR CHEST PORTABLE 10/17/2020 5:18 PM FINDINGS: Thyroid: The visualized thyroid gland is unremarkable. Lungs: Mild age indeterminate bilateral bronchial wall thickening suggesting an element of bronchitis or bronchial edema, with no evidence of bronchiectasis or bronchial occlusions. Patchy mild bilateral faint alveolar attenuation which is nonspecific but may be related to hypoventilatory changes, versus changes of chronic bronchitis/bronchiolitis with mild intermixed air trapping and subsegmental atelectasis, versus patchy mild edema or pneumonitis. 8 mm noncalcified pulmonary nodule in the juxtapleural posterior right base on series 3, image 69. This is unchanged from 09/08/2014 and does not require further evaluation. Pleural spaces: No pleural effusions. No pneumothorax. Heart: Heart size normal. Mediastinal space: Small hiatal hernia. Mild-moderate distal esophageal wall thickening suspicious for esophagitis. Consider follow-up esophagram or endoscopic assessment as clinically indicated. Granulomatous calcification and local scarring in the anterolateral left apex. Pulmonary arteries: Mildly dilated central pulmonary arteries suggesting mild pulmonary arterial hypertension. Aorta: Mild aortic ectasia/tortuosity and mild calcific atherosclerosis. No mediastinal hematoma. Lymph nodes: No supraclavicular or axillary adenopathy. No mediastinal or hilar adenopathy. Gallbladder and bile ducts: Prior cholecystectomy with no significant dilatation of the common bile duct. Pancreas: Moderate pancreatic atrophy without acute abnormality. No pancreatic ductal dilatation. Spleen: Granulomatous calcifications in the spleen without acute splenic abnormality. Kidneys and ureters: There is a low-density circumscribed left renal cortical lesion suggesting renal cyst. No further imaging evaluation is required. Bones/joints: Acute fracture of the right clavicle with longitudinal oblique fracture in the medial clavicle demonstrating about 5 mm superior displacement of the superior cortical fragment, with nondisplaced intra-articular extension at the sternoclavicular joint. The fracture extends laterally to the region of the conoid tubercle. The distal right clavicle is visualized. There are multiple chronic appearing right lateral rib fractures involving the 3rd, 4th, 5th, 6th, and 7th ribs with no definite acute rib fractures identified. Chronic fracture of the left anterolateral 2nd, 3rd, and 4th ribs, and chronic healed fractures of the left lateral 5th through 7th ribs. Soft tissues: Mild asymmetric subcutaneous soft tissue swelling/stranding in the right lateral chest wall suggesting soft tissue contusion. No hematoma or foreign body. IMPRESSION: 1. Acute right clavicle fracture. There is articular involvement at the sternoclavicul
--- NOTE | 2020-10-17 18:21 | CT_ITS ---
PROCEDURE INFORMATION: Exam: CT Right Lower Extremity Without Contrast, Hip Exam date and time: 10/17/2020 6:21 PM Age: 70 years old Clinical indication: Injury or trauma; Fall; Blunt trauma; Right; Injury date: 10/17/2020; Patient HX: Fell pain RT hip possible FX hip TECHNIQUE: Imaging protocol: CT of the Right lower extremity without contrast was performed. Exam focused on the hip. 3D rendering (Not supervised by radiologist): MIP and/or 3D reconstructed images were created by the technologist. Total images: 303 Radiation optimization: All CT scans at this facility use at least one of these dose optimization techniques: automated exposure control; mA and/or kV adjustment per patient size (includes targeted exams where dose is matched to clinical indication); or iterative reconstruction. COMPARISON: CR XR HIP RT 2-3V W/PELVIS 10/17/2020 5:27 PM FINDINGS: Bones/joints: Acute subcapital fracture of the right femoral neck with 12 mm impaction at the medial margin of the fracture interface producing mild varus angulation. There is also about 5 mm posterior displacement of the femoral head fragment on the axial images with mild apex anterior angulation. No intertrochanteric extension. No pelvic/acetabular fractures within the scan range. Soft tissues: Lateral subcutaneous soft tissue swelling at the level of the hip suggesting soft tissue contusion. No hematoma or foreign body. Bowel: Small fatty right inguinal hernia with no associated bowel herniation or evidence of strangulation. Moderate diverticulosis involving the distal colon without evidence of acute diverticulitis. Moderate stool throughout the visualized colon suggesting constipation. Urinary bladder: The urinary bladder is partially visualized without gross abnormality. IMPRESSION: 1. Acute subcapital fracture of the right femoral neck as detailed above. No intertrochanteric extension. No visualized pelvic/acetabular fractures within the scan range. 2. Soft tissue contusion in the right lateral subcutaneous fat. No hematoma or foreign body. 3. Additional nonemergent findings detailed above.
[2020-10-17 18:27] LABS: Microscopic, Urine URINE MICROSCOPIC (MICROSCOPIC)
[2020-10-17 18:29] LABS: Basophils # 0.1 K/mm3 (0-0.2); Basophils % 0.3 % (0.1-2.0); Eosinophils # 0.1 K/mm3 (0.0-0.4); Eosinophils % 0.5 % (0.1-12.0); Hematocrit 49.6 % (42.0-52.0); Hemoglobin 16.3 g/dL (14.1-18.0); Lymphocytes # 1.7 K/mm3 (0.7-4.5); Mean Corpuscular HGB Conc 32.8 g/dL (31.8-35.4); Mean Corpuscular Hemoglobin 34.7 pg (27.0-31.2); Mean Corpuscular Volume 105.7 fl (80-94); Mean Platelet Volume 8.6 fl (7.4-10.4); Monocytes # 0.6 K/mm3 (0.1-1.0); Monocytes % 3.6 % (1.7-9.3); Neutrophils # 14.2 K/mm3 (1.8-7.8); Neutrophils % 85.5 % (37.0-80.0); Platelet Count 207 K/mm3 (142-424); Red Blood Count 4.69 M/mm3 (4.60-6.20); Red Cell Distribution Width 13.7 % (11.5-17.5); White Blood Count 16.6 K/mm3 (4.8-10.8)
[2020-10-17 18:30] LABS: Appearance,Urine SL CLOUDY (Clear); Bilirubin,Urine Negative (Negative); Blood, Urine Negative (Negative); Color,Urine YELLOW (Yellow); Glucose,Urine (UA) Negative (Negative); Ketones,Urine Negative (Negative); Leukocyte Esterase,Urine Negative (Negative); Nitrate,Urine Negative (Negative); Protein,Urine Negative (Negative); Specific Gravity, Urine 1.015 (1.005-1.030); Urobilinogen,Urine 0.2 EU/dl (0.2)
[2020-10-17 18:35] LABS: Chloride 104 mmol/L (98-107); MANUAL DIFFERENTIAL MANUAL DIFFERENTIAL (MANUAL DIFF); Potassium 4.5 mmoL/L (3.5-5.1); Sodium 142 mmol/L (136-145)
[2020-10-17 18:38] LABS: Alanine Aminotransferase 26 U/L (12-78); Albumin Level 4.5 g/dl (3.5-5.0); Albumin/Globulin Ratio 1.4 (1.1-1.8); Alkaline Phosphatase 95 U/L (38-126); Anion Gap 13.5 mEq/L (5-15); Aspartate Amino Transferase 33 U/L (17-59); Bilirubin,Total 0.4 mg/dl (0.2-1.3); Blood Urea Nitrogen 31 mg/dl (9-20); Calcium 9.9 mg/dl (8.4-10.2); Carbon Dioxide 29 mmol/L (22.0-30.0); Creatinine Clearance Estimated 70 mL/min (50-200); Estimated Glomerular Filt Rate 54 ml/min (>60); GFR (African American) 66 ML/MIN (>60); Globulin 3.3 g/dL (1.3-3.2); Glucose 169 mg/dl (74-100); Total Protein,Serum 7.8 g/dl (6.3-8.2)
[2020-10-17 18:44] LABS: Squamous Epithelial Cell,Urine Occasional #/hpf (0-5); WBC,Urine Occasional #/hpf (0-3)
--- NOTE | 2020-10-17 18:48 | PC.NURSE ---
Dr ferris speaking with Dr Ruth
[2020-10-17 18:57] LABS: Eosinophils % 1 % (0-3); Hypersegmented Neutrophils 1+; Lymphocytes % 8 % (10-50); Macrocytosis 2+; Monocytes % 3 % (2-9); Neutrophils % 86 % (42-76); Platelet Estimate Normal; Total Cells Counted 100
--- NOTE | 2020-10-17 21:20 | PC.NURSE ---
Daughter called, gave update on admission status and POC.
[2020-10-17 21:50] VITALS: BP 154/74; PULSE 65; RESP 18; TEMP 37.3; O2SAT 94; BMI 27.6
--- NOTE | 2020-10-17 21:50 | PC.NURSE ---
PT ARRIVED TO FLOOR VIA STRETCHER FROM ED W/STAFF AT 2150
[2020-10-17 21:53] VITALS: BP 167/77; PULSE 87; RESP 20; TEMP 37.2; O2SAT 95
[2020-10-17 22:25] VITALS: O2SAT 98
--- NOTE | 2020-10-17 22:27 | PC.NURSE ---
UNABLE TO RECONCILE MEDS. PATIENT STATES LIST IS AT HOME.
[2020-10-18 04:00] VITALS: BP 136/66; PULSE 93; RESP 18; TEMP 37.2; O2SAT 90
--- NOTE | 2020-10-18 04:30 | PC.NURSE ---
A&OX4. PT HAS C/O CONTINUOUS PAIN TO R HIP, DOWN THROUGH LEG. MORPHINE WAS NOT TOUCHING PAIN. CONTACTED ON [facility] MD [facility]ANCO. GAVE DILAUDID PER APR. THIS HAD GOOD EFFECT. PT HAS BEEN RESTING IN BED SINCE, NO OTHER C/O. USING URINAL. DOES NEED ASSISTANCE MOVING. NO OTHER C/O AT THIS TIME, VSS WILL CONTINUE TO MONITOR.
[2020-10-18 05:37] VITALS: BMI 27.4
[2020-10-18 07:41] LABS: Basophils % 0.2 % (0.1-2.0); Chloride 103 mmol/L (98-107); Eosinophils # 0.2 K/mm3 (0.0-0.4); Hematocrit 47.7 % (42.0-52.0); Hemoglobin 15.8 g/dL (14.1-18.0); Lymphocytes # 1.8 K/mm3 (0.7-4.5); Lymphocytes % 11.7 % (10-50); Mean Corpuscular HGB Conc 33.1 g/dL (31.8-35.4); Mean Corpuscular Hemoglobin 34.9 pg (27.0-31.2); Mean Corpuscular Volume 105.4 fl (80-94); Mean Platelet Volume 8.4 fl (7.4-10.4); Monocytes # 0.7 K/mm3 (0.1-1.0); Monocytes % 4.7 % (1.7-9.3); Neutrophils # 12.9 K/mm3 (1.8-7.8); Neutrophils % 82.3 % (37.0-80.0); Platelet Count 213 K/mm3 (142-424); Red Blood Count 4.52 M/mm3 (4.60-6.20); Red Cell Distribution Width 13.7 % (11.5-17.5); Sodium 141 mmol/L (136-145); White Blood Count 15.7 K/mm3 (4.8-10.8)
[2020-10-18 07:42] LABS: Potassium 5.1 mmoL/L (3.5-5.1)
[2020-10-18 07:45] LABS: Anion Gap 12.1 mEq/L (5-15); Blood Urea Nitrogen 31 mg/dl (9-20); Calcium 9.4 mg/dl (8.4-10.2); Carbon Dioxide 31 mmol/L (22.0-30.0); Creatinine Clearance Estimated 69 mL/min (50-200); Estimated Glomerular Filt Rate 54 ml/min (>60); GFR (African American) 66 ML/MIN (>60); Glucose 166 mg/dl (74-100)
--- NOTE | 2020-10-18 07:53 | [facility].HP ---
*Admission Date: 10/17/20 *Chief complaint: fall, hip pain *History of present illness: Mr. Krueger is a 70-year-old male with multiple comorbidities including remote history of skin cancer, Parkinson's disease, history of DVT in left lower extremity, hypertension, chronic pain. Reports being at the [employer] yesterday when he fell. He was visiting the [place] from his [facility] ([facility]) where he lives in the assisted living quarters. On arrival to the ER, he was complaining of pain in his right upper chest and right hip. X-ray and exam noted to have right hip fracture, shortening of right leg. Also noted to have a right clavicle fracture. Some old rib fractures noted on x-ray. Patient admitted for management of pain, and orthopedic consult for right hip surgery. On assessment this morning, patient continues to complain of pain. Denies nausea, vomiting. Had a hard time sleeping last night. No shortness of breath or cardiac chest pain. [facility] History I have reviewed the patient's past medical history: Yes Medical History: Reports:: Chronic Obstructive Pulmonary Disease (COPD), Diabetes Mellitus Type 2, Hypertension, MRSA (foot ulcer, unsure if it was mrsa) Denies:: Cancer *Have you ever received a pneumonia vaccine?: Yes *Have you received a flu vaccine this season?: Yes Other Medical History: Reports: Arthritis, Thyroid Disease Laterality Cases: Left: Total Hip Replacement, Bilateral: Carpal Tunnel Release Other Surgeries: Yes: No Previous Surgery, Cholecystectomy, Other Amputation: No Fractures: Yes - *Social History Smoking Status: Current every day smoker # Packs/Day (cigarettes): 1 Alcohol Intake: never Alcohol Intake Frequency:: other Substance Use Type: denies use *Occupational Status:: retired Housing: apartment *Travel in the last 8 weeks: None Family Hx:: No significant family history Review of Systems - Review of Systems Review of systems:: pertinent systems reviewed and negative unless documented below (14 point review of systems performed, pertinent positives and negatives as per HPI) Meds Home Medications Medication Instructions Recorded Confirmed Type ferrous sulfate 325 mg (65 mg 325 mg PO BIDWM 30 Days tab 01/23/18 10/17/20 History iron) tablet furosemide 40 mg tablet 40 mg PO BID 30 Days tab 01/23/18 10/17/20 History loratadine 10 mg capsule 10 mg PO DAILY 01/23/18 10/17/20 History pantoprazole 40 mg tablet,delayed 40 mg PO BID 30 Days tab 01/23/18 10/18/20 History release quetiapine 200 mg tablet 200 mg PO HS 90 Days tab 01/23/18 10/17/20 History Apixaban [Eliquis 2.5mg tab] 2.5 mg PO BID 10/17/20 10/18/20 History Atorvastatin Calcium [Lipitor 40mg 40 mg PO HS 10/17/20 10/17/20 History Tab] Celecoxib [CeleBREX 100mg Capsule] 100 mg PO BID 10/18/20 10/18/20 History Fluoxetine HCl [Prozac] 40 mg PO DAILY 10/18/20 10/18/20 History Gabapentin [Neurontin 600mg 600 mg PO 5XDAY 10/18/20 History tablet] Oxycodone HCl/Acetaminophen 1 each PO QID 10/18/20 History [Oxycodone-Acetaminophn 7.5-325] Ropinirole HCl [Requip 1mg Tablet] 3 mg PO HS 10/18/20 10/18/20 History Allergies Allergy/AdvReac Type Severity Reaction Status Date / Time aspirin [ASPIRIN] Allergy Unknown S-DIFF. Verified 05/03/18 11:08 BREATHING Exam Vital signs and Labs for Last 24 Hours: Temp Pulse Resp BP Pulse Ox 99.0 F 93 H 18 136/66 90 L 10/18/20 04:00 10/18/20 04:00 10/18/20 04:00 10/18/20 04:00 10/18/20 04:00 Laboratory Results - last 24 hr 10/17/20 18:00: SARS-CoV-2 (PCR) Not detected, Influenza A Untype (PCR) Not detected, Influenza Type B (PCR) Not detected 10/17/20 18:20: WBC 16.6 H, RBC 4.69, Hgb 16.3, Hct 49.6, MCV 105.7 H, MCH 34.7 H, MCHC 32.8, RDW 13.7, Plt Count 207, MPV 8.6, Neut % (Auto) 85.5 H, Lymph % (Auto) 10.0, Kidder % (Auto) 3.6, Eos % (Auto) 0.5, Baso % (Auto) 0.3, Neut # (Auto) 14.2 H, Lymph # (Auto) 1.7, Kidder # (Auto) 0.6, Eos # (Auto) 0.1, Ba
[2020-10-18 08:00] VITALS: BP 143/70; PULSE 84; RESP 20; TEMP 36.8; O2SAT 90
[2020-10-18 08:12] LABS: MANUAL DIFFERENTIAL MANUAL DIFFERENTIAL (MANUAL DIFF)
[2020-10-18 10:50] LABS: Eosinophils % 3 % (0-3); Lymphocytes % 8 % (10-50); Macrocytosis 1+; Monocytes % 4 % (2-9); Neutrophils % 83 % (42-76); Platelet Estimate Normal; Total Cells Counted 100
--- NOTE | 2020-10-18 12:55 | HMH.EDFALL ---
ED Disposition Clinical Impression: Renal insufficiency, Esophagitis Hip fracture Qualifiers: Encounter type: initial encounter Fracture type: closed Laterality: right Qualified Code(s): S72.001A - Fracture of unspecified part of neck of right femur, initial encounter for closed fracture Clavicular fracture Qualifiers: Encounter type: initial encounter Clavicle location: unspecified part of clavicle Fracture type: closed Fracture alignment: nondisplaced Laterality: right Qualified Code(s): S42.001A - Fracture of unspecified part of right clavicle, initial encounter for closed fracture Rib fractures Qualifiers: Encounter type: initial encounter Fracture type: closed Laterality: bilateral Qualified Code(s): S22.43XA - Multiple fractures of ribs, bilateral, initial encounter for closed fracture Fall Qualifiers: Encounter type: initial encounter Qualified Code(s): W19.XXXA - Unspecified fall, initial encounter Concussion without loss of consciousness Qualifiers: Encounter type: initial encounter Qualified Code(s): S06.0X0A - Concussion without loss of consciousness, initial encounter Disposition: Admitted As Inpatient Condition on Discharge: Good - Critical Care Critical Care Time: No Attestation: On 10/17/20, the high probability of a clinically significant, sudden or life threatening deterioration of the following system(s) required my full and direct attention, intervention and personal management. The time I documented below is in addition to time spent performing reported procedures but includes the following listed in this critical care notation. Medical Decision Making - Medical Records Medical records reviewed: Yes: I reviewed the patient's medical records. - Waylon Inquiry Pt receiving controlled substance: No Vital Signs: 10/17/20 16:29 10/17/20 18:03 10/17/20 20:00 Temperature 98.3 F Temperature Source Oral Pulse Rate 86 Pulse Rate [Left Radial] 88 Respiratory Rate 18 18 Blood Pressure 186/89 H Blood Pressure [Left Arm] 158/75 H Blood Pressure Mean 121 Blood Pressure Mean [Left Arm] 102 Blood Pressure Source [Left Arm] Automatic Cuff Blood Pressure Position [Left Arm] Sitting 02 Sat by Pulse Oximetry 96 93 L Oxygen Delivery Method Room Air Room Air 10/17/20 21:50 10/17/20 21:53 Temperature 99.1 F 98.9 F Temperature Source Oral Oral Pulse Rate 87 Pulse Rate [Left Radial] 65 Respiratory Rate 18 20 Blood Pressure 167/77 H Blood Pressure [Left Arm] 154/74 H Blood Pressure Mean Blood Pressure Mean [Left Arm] 100 Blood Pressure Source [Left Arm] Automatic Cuff Blood Pressure Position [Left Arm] 02 Sat by Pulse Oximetry 94 L Oxygen Delivery Method Room Air Room Air - Lab Data Lab results reviewed: Yes: I reviewed the patient's lab results. Lab Results 10/17/20 18:00: SARS-CoV-2 (PCR) Not detected, Influenza A Untype (PCR) Not detected, Influenza Type B (PCR) Not detected 10/17/20 18:20: WBC 16.6 H, RBC 4.69, Hgb 16.3, Hct 49.6, MCV 105.7 H, MCH 34.7 H, MCHC 32.8, RDW 13.7, Plt Count 207, MPV 8.6, Neut % (Auto) 85.5 H, Lymph % (Auto) 10.0, Mclennan % (Auto) 3.6, Eos % (Auto) 0.5, Baso % (Auto) 0.3, Neut # (Auto) 14.2 H, Lymph # (Auto) 1.7, Mclennan # (Auto) 0.6, Eos # (Auto) 0.1, Baso # (Auto) 0.1, Total Counted 100, Neutrophils % (Manual) 86 H, Band Neutrophils % 2.0, Lymphocytes % (Manual) 8 L, Monocytes % (Manual) 3, Eosinophils % (Manual) 1, Hypersegmented Neuts 1+, Platelet Estimate Normal, Macrocytosis 2+ 10/17/20 18:20: Sodium 142, Potassium 4.5, Chloride 104, Carbon Dioxide 29, Anion Gap 13.5, BUN 31 H, Creatinine 1.30 H, Estimated Creat Clear 70, Estimated GFR 54 L, Est GFR ( Amer) 66, Glucose 169 H, Calcium 9.9, Total Bilirubin 0.4, AST 33, ALT 26, Alkaline Phosphatase 95, Total Protein 7.8, Albumin 4.5, Globulin 3.3 H, Albumin/Globulin Ratio 1.4 10/17/20 18:20: Urine Color Yellow, Urine Appearance Sl cloudy, Urine pH 6.0, Ur Specific [place] 1.015,
--- NOTE | 2020-10-18 13:39 | P.CONPHA_ITS ---
[facility] Pharmacy VTE Monitoring - Patient Demographics Admission date: 10/17/20 Report Date: 10/18/20 Time: 13:39 Allergies/Adverse Reactions: Patient Allergies aspirin [ASPIRIN] Allergy (Unknown, Verified 05/03/18 11:08) S-DIFF. BREATHING Height: 1.85 m Weight: 94.007 kg Patient Problems: Current Active Problems Parkinson disease (Acute) Depression (Acute) Hip fracture (Acute) Clavicular fracture (Acute) Rib fractures (Acute) History of DVT of lower extremity (Acute) Fall (Acute) Concussion without loss of consciousness (Acute) Renal insufficiency (Acute) Esophagitis (Acute) Diabetes mellitus (Acute) - VTE Risk Labs: VTE Related Lab Results Hgb 15.8 g/dL (14.1-18.0) 10/18/20 07:07 Hct 47.7 % (42.0-52.0) 10/18/20 07:07 Plt Count 213 K/mm3 (142-424) 10/18/20 07:07 BUN 31 mg/dl (9-20) H 10/18/20 07:07 Creatinine 1.30 mg/dl (0.66-1.25) H 10/18/20 07:07 Estimated Creat Clear 69 mL/min (50-200) 10/18/20 07:07 Was VTE Risk Assessment Performed: Yes VTE Risk Level: Moderate Risk Clinical Trial Participant: No - Prophylaxis VTE Prophylaxis Ordered?: Yes Types of VTE Prophylaxis: TEDS Knee High Location of Applied Device: Left Leg Pharmacologic Type: Other (WAS ON LOVENOX PRIOR TO SURGERY, PLAN PER DR. FRANCO IS TO RESTART ELIQUIS POST SURGERY.)
--- NOTE | 2020-10-18 13:40 | HMH.PHAINT ---
MEDICATION RECONCILIATION COMPLETE USING EXTERNAL PHARMACY FILL HISTORY. WILL FOLLOW UP WITH MD OFFICE TO CONFIRM PERCOCET AND GABAPENTIN DOSES 10/19/20
[2020-10-18 16:00] VITALS: BP 142/54; PULSE 73; RESP 22; TEMP 36.6; O2SAT 92
[2020-10-18 20:00] VITALS: BP 157/65; PULSE 75; RESP 20; TEMP 36.9; O2SAT 96
[2020-10-18 21:39] LABS: POC Glucose,Bedside 169 (70-110)
[2020-10-19] VITALS (19 sets, daily range): BP systolic 110–145; BP diastolic 54–66; PULSE 74–91; RESP 14–20; TEMP 36.2–43; O2SAT 90–96; BMI 27.4
[2020-10-19 01:01] LABS: POC Glucose,Bedside 151 (70-110)
[2020-10-19 01:01] LABS: POC Glucose,Bedside 234 (70-110)
--- NOTE | 2020-10-19 04:50 | PC.NURSE ---
Pt is A/O x4. Pt has c/o of pain in right hip t/o shift, gave meds per MAR with relief. Pt is using urinal to void clear, yellow, urine. Pt denies any N/V. call light within reach, will continue to monitor.
[2020-10-19 06:54] LABS: Basophils % 0.2 % (0.1-2.0); Eosinophils # 0.2 K/mm3 (0.0-0.4); Eosinophils % 1.1 % (0.1-12.0); Hematocrit 47.3 % (42.0-52.0); Hemoglobin 15.1 g/dL (14.1-18.0); Lymphocytes # 1.5 K/mm3 (0.7-4.5); Lymphocytes % 10.4 % (10-50); Mean Corpuscular Hemoglobin 34.3 pg (27.0-31.2); Mean Corpuscular Volume 107.3 fl (80-94); Mean Platelet Volume 8.9 fl (7.4-10.4); Monocytes # 0.6 K/mm3 (0.1-1.0); Monocytes % 4.4 % (1.7-9.3); Neutrophils # 11.7 K/mm3 (1.8-7.8); Neutrophils % 83.9 % (37.0-80.0); Platelet Count 197 K/mm3 (142-424); Red Blood Count 4.41 M/mm3 (4.60-6.20); Red Cell Distribution Width 13.6 % (11.5-17.5)
[2020-10-19 06:56] LABS: Chloride 100 mmol/L (98-107); Sodium 138 mmol/L (136-145)
[2020-10-19 06:59] LABS: Activated Partial Thrombo Time 28.7 seconds (22.8-30.6); Alanine Aminotransferase 23 U/L (12-78); Albumin Level 3.9 g/dl (3.5-5.0); Albumin/Globulin Ratio 1.3 (1.1-1.8); Alkaline Phosphatase 77 U/L (38-126); Aspartate Amino Transferase 46 U/L (17-59); Bilirubin,Total 0.9 mg/dl (0.2-1.3); Blood Urea Nitrogen 34 mg/dl (9-20); Calcium 9.2 mg/dl (8.4-10.2); Carbon Dioxide 29 mmol/L (22.0-30.0); Creatinine Clearance Estimated 75 mL/min (50-200); Estimated Glomerular Filt Rate 60 ml/min (>60); GFR (African American) 72 ML/MIN (>60); Glucose 213 mg/dl (74-100); Magnesium 2.2 mg/dl (1.6-2.3); Prothrombin Time 11.5 seconds (10.1-12.5); Total Protein,Serum 6.9 g/dl (6.3-8.2)
[2020-10-19 07:44] LABS: INR 0.97 (0.9-1.1)
--- NOTE | 2020-10-19 08:14 | HMH.ACPN2 ---
Internal Medicine - PN: Subj *Date: 10/19/20 *Time: 08:14 Interval history: Overnight patient did well. He is awake, anxiously awaiting his surgery and is insistent that he does not require skilled care or any kind of rehabilitation after surgery because several years ago I went home the next day after I had hip surgery. Exam Vital signs and Labs for Last 24 Hours: Temp Pulse Resp BP Pulse Ox 98.3 F 86 20 117/61 90 L 10/19/20 08:00 10/19/20 08:00 10/19/20 08:00 10/19/20 08:00 10/19/20 08:00 Laboratory Results - last 24 hr 10/18/20 07:07: Total Counted 100, Neutrophils % (Manual) 83 H, Band Neutrophils % 1.0, Lymphocytes % (Manual) 8 L, Atypical Lymphs % 1.0, Monocytes % (Manual) 4, Eosinophils % (Manual) 3, Platelet Estimate Normal, Macrocytosis 1+ 10/18/20 11:05: POC Glucose 151 H 10/18/20 16:26: POC Glucose 234 H 10/18/20 19:52: POC Glucose 169 H 10/19/20 06:08: WBC 14.0 H, RBC 4.41 L, Hgb 15.1, Hct 47.3, MCV 107.3 H, MCH 34.3 H, MCHC 32.0, RDW 13.6, Plt Count 197, MPV 8.9, Neut % (Auto) 83.9 H, Lymph % (Auto) 10.4, Stephenson % (Auto) 4.4, Eos % (Auto) 1.1, Baso % (Auto) 0.2, Neut # (Auto) 11.7 H, Lymph # (Auto) 1.5, Stephenson # (Auto) 0.6, Eos # (Auto) 0.2, Baso # (Auto) 0.0 10/19/20 06:08: PT 11.5, INR 0.97, APTT 28.7 10/19/20 06:08: Sodium 138, Potassium 4.0 D, Chloride 100, Carbon Dioxide 29, Anion Gap 13.0, BUN 34 H, Creatinine 1.20, Estimated Creat Clear 75, Estimated GFR 60, Est GFR ( Amer) 72, Glucose 213 H D, Calcium 9.2, Magnesium 2.2, Total Bilirubin 0.9, AST 46 D, ALT 23, Alkaline Phosphatase 77, Total Protein 6.9, Albumin 3.9 D, Globulin 3.0, Albumin/Globulin Ratio 1.3 I & O for Last 24 hours: Intake & Output 10/16/20 10/17/20 10/18/20 10/19/20 11:59 11:59 11:59 11:59 Intake Total 1080 / 1080 Output Total 1350 / 1350 880 / 880 Balance -1350 / -1350 200 / 200 Weight 207 lb 4 oz 207 lb Narrative: Patient is awake, alert. Fixated on going back to his apartment after surgery. Anterior lung polk are clear, heart rate regular, abdomen soft, leg is shortened as previously noted. Good distal pulses. No neurologic deficits other than his significant rigidity and previously noted parkinsonism problems Assessment and Plan (1) History of DVT of lower extremity Status: Acute Category: Medical Code(s): Z86.718 - Personal history of other venous thrombosis and embolism (2) Clavicular fracture Status: Acute Qualifiers: Encounter type: initial encounter Clavicle location: unspecified part of clavicle Fracture type: closed Fracture alignment: nondisplaced Laterality: right Qualified Code(s): S42.001A - Fracture of unspecified part of right clavicle, initial encounter for closed fracture Category: Medical Code(s): S42.009A - Fracture of unspecified part of unspecified clavicle, initial encounter for closed fracture (3) Hip fracture Status: Acute Qualifiers: Encounter type: initial encounter Fracture type: closed Laterality: right Qualified Code(s): S72.001A - Fracture of unspecified part of neck of right femur, initial encounter for closed fracture Category: Medical Code(s): S72.009A - Fracture of unspecified part of neck of unspecified femur, initial encounter for closed fracture (4) Rib fractures Status: Acute Qualifiers: Encounter type: initial encounter Fracture type: closed Laterality: bilateral Qualified Code(s): S22.43XA - Multiple fractures of ribs, bilateral, initial encounter for closed fracture Category: Medical Code(s): S22.49XA - Multiple fractures of ribs, unspecified side, initial encounter for closed fracture (5) Depression Status: Acute Category: Medical Code(s): F32.9 - Major depressive disorder, single episode, unspecified (6) Diabetes mellitus Status: Acute Category: Medical Code(s): E11.9 - Type 2 diabetes mellitus without complications (7) Parkinson disease Status: Acute Category
--- NOTE | 2020-10-19 08:27 | P.PN_ITS ---
[facility] Anesthesia Checklist - Patient Identification Patient Identification: Arm Band, Verbal (Name & ) - Structural Data Admitted From: Inpatient Planned Operative Procedure/s: hip Consent for Planned Operative Procedure(s) Verified: Yes Verified Documents: History and Physical - NPO Status Verified Time NPO: 00:00 - Additional verifications Patient : No Anesthesia Reactions: No Hx Blood Transfusions: No Blood Transfusion Reaction: No Cephalosporin Allergy: No Previous Colonoscopy: No - Cardiovascular Assessment Heart Sounds: S1 & S2 Pulse Strength: Baseline Pulse Rhythm: Regular Peripheral Edema: No - Airway Assessment C-Spine Mobility Assessed: Yes TMJ Mobility Assessed: Yes Dentition: Poor Dentition - Neurological Assessment Level of Consciousness: Awake, Alert, Appropriate Hx Seizures: No Numbness or tingling in extremities: No - Anesthesia Plan Anesthesia Risk discussed: Yes Anesthesia Plan: Verified ASA Class: III Anesthesia Type: General [facility] History I have reviewed the patient's past medical history: Yes Medical History: Reports:: Chronic Obstructive Pulmonary Disease (COPD), Diabetes Mellitus Type 2, Hypertension, MRSA (foot ulcer, unsure if it was mrsa) Denies:: Cancer *Have you ever received a pneumonia vaccine?: Yes *Have you received a flu vaccine this season?: Yes Other Medical History: Reports: Arthritis, Thyroid Disease Anesthesia experience/problems:: none Laterality Cases: Left: Total Hip Replacement, Bilateral: Carpal Tunnel Release Other Surgeries: Yes: No Previous Surgery, Cholecystectomy, Other Amputation: No Fractures: Yes - *Social History Smoking Status: Current every day smoker # Packs/Day (cigarettes): 1 Alcohol Intake: never Alcohol Intake Frequency:: other Substance Use Type: denies use *Occupational Status:: retired Housing: apartment *Travel in the last 8 weeks: None Family Hx:: No significant family history
--- NOTE | 2020-10-19 10:46 | HMH.ORTHOCON ---
*Admission Date: 10/17/20 *Reason for consult:: Fracture neck of femur, right hip *History of present illness: Mr. Krueger is a 70-year-old male with multiple comorbidities including remote history of skin cancer, Parkinson's disease, history of DVT in left lower extremity, hypertension, diabetes mellitus, ataxia and chronic pain with history with drug dependence. Patient fell down couple of days ago, from a standing height while visiting the rudi run from his senior living ([facility]) where he lives in the assisted living quarters. Evaluation in the ER confirmed a displaced right hip fracture and nondisplaced right clavicle fracture. Patient is admitted to medical services on 10/17/2020 and I was asked to see the patient on my return, for orthopedic management. He is also complaining of right shoulder pain and noted to have a nondisplaced clavicle fracture on the x-rays. He previously had cephalomedullary nailing for left proximal femur fracture few years ago. Patient says he normally mobilizes using a rolling walker. He says he is fairly independent. On assessment on the floor, patient is complaining of right hip and right shoulder pain. He says the pain is worse with any attempted movements of the right shoulder or right hip. No history of any distal tingling or numbness. No history of nausea, vomiting, chest pain or shortness of breath. [facility] History I have reviewed the patient's past medical history: Yes Medical History: Reports:: Chronic Obstructive Pulmonary Disease (COPD), Diabetes Mellitus Type 2, Hypertension, MRSA (foot ulcer, unsure if it was mrsa) Denies:: Cancer, Seizures *Have you ever received a pneumonia vaccine?: Yes *Have you received a flu vaccine this season?: Yes Other Medical History: Reports: Arthritis, Thyroid Disease. Denies: Blood Transfusion Reaction Anesthesia experience/problems:: none Laterality Cases: Left: Total Hip Replacement, Bilateral: Carpal Tunnel Release Other Surgeries: Yes: No Previous Surgery, Cholecystectomy, Other Amputation: No Fractures: Yes - *Social History Smoking Status: Current every day smoker # Packs/Day (cigarettes): 1 Alcohol Intake: never Alcohol Intake Frequency:: other Substance Use Type: denies use *Occupational Status:: retired Housing: apartment *Travel in the last 8 weeks: None Family Hx:: No significant family history Review of Systems - Review of Systems Review of systems:: pertinent systems reviewed and negative unless documented below - Constitutional Denies chills, Denies fever(s) - Eyes Denies change in vision - ENT Denies abnormal hearing - *Cardiovascular Denies chest pain, Denies shortness of breath - *Respiratory Denies chest congestion, Denies cough - *Gastrointestinal Denies abdominal pain - *Musculoskeletal Reports abnormal walking, Reports joint pain, Reports deformity, Reports limited joint movement - *Neurologic Reports abnormal walking, Reports abnormal movements, Reports frequent falls, Denies localized weakness, Denies seizure-like activity - Endocrine Denies cold intolerance, Denies heat intolerance Meds Home Medications Medication Instructions Recorded Confirmed Type ferrous sulfate 325 mg (65 mg 325 mg PO BIDWM 30 Days tab 01/23/18 10/19/20 History iron) tablet furosemide 40 mg tablet 40 mg PO BID 30 Days tab 01/23/18 10/19/20 History loratadine 10 mg capsule 10 mg PO DAILY 01/23/18 10/19/20 History pantoprazole 40 mg tablet,delayed 40 mg PO BID 30 Days tab 01/23/18 10/19/20 History release quetiapine 200 mg tablet 200 mg PO HS 90 Days tab 01/23/18 10/19/20 History Atorvastatin Calcium [Lipitor 40mg 40 mg PO HS 10/17/20 10/19/20 History Tab] RX: Apixaban [Eliquis 2.5mg tab] 2.5 mg PO BID 10/17/20 10/19/20 History Celecoxib [CeleBREX 100mg Capsule] 100 mg PO BID 10/18/20 10/19/20 History Fluoxetine HCl [Prozac] 40 mg PO DAILY 10/18/20 10/19/20 History Gabapentin [Neurontin 600mg 900 mg PO 0900,1
[2020-10-19 11:14] LABS: POC Glucose,Bedside 220 (70-110)
[2020-10-19 12:29] LABS: POC Glucose,Bedside 185 (70-110)
--- NOTE | 2020-10-19 17:06 | XR_ITS ---
PROCEDURE: XR HIP RT 2-3V W/PELVIS CLINICAL INDICATION: post surgery COMPARISON: No exams were available for comparison FINDINGS: S/p right hip hemiarthroplasty with good alignment of the femoral prosthesis. No evidence of dislocation. Postsurgical gas is present. There is a Tejada catheter noted. There has been a prior ORIF of the left hip with gamma nail and intramedullary rudi with heterotopic ossification along the superior aspect of the intramedullary rudi IMPRESSION: Good alignment status post right hip hemiarthroplasty Dictated by: Stanley Crystal MD 10/20/2020 08:06 Stanley Crystal MD in OV 10/20/2020 08:06
--- NOTE | 2020-10-19 17:12 | P.PN_ITS ---
[facility] Anesthesia Record Part I Intake, IV Amount: 1,000 Estimated blood loss (mL): 200 Urine output (mL): 400 Blood Products used (#): none Blood Pressure: 141/60 SaO2: 96 Pulse Rate: 85 Respiratory Rate: 16 Temperature: 97.2 F Patient is:: Drowsy, Nasal O2, Stable Stable to PACU at:: 17:04
[2020-10-19 17:42] LABS: POC Glucose,Bedside 275 (70-110)
--- NOTE | 2020-10-19 17:46 | HMH.OPNOTE ---
Date of procedure: 10/19/20 Pre-op Diagnosis:: Closed, displaced fracture neck of femur, right hip Post-op Diagnosis:: Same Procedure performed:: Uncemented bipolar hemiarthroplasty, right hip Surgeon:: Tin Lopez MD Packing And Final Assembly Supervisor(s):: Tiera Victor SENIOR ACCOUNTANT ANALYST:: Other (Benjie Hurtado) Anesthesia: GETA Estimated blood loss (mL): 200 Clinical Note:: Patient is a 70-year-old male who sustained a displaced intracapsular fracture neck of right femur following a fall. Patient has multiple medical comorbidities including remote history of skin cancer, Parkinson's disease, history of DVT in left lower extremity, hypertension, diabetes mellitus, depression, chronic pain with history of drug dependence. He lives in the assisted living quarters of a local [place] health care facility and uses a rolling walker to mobilize with. A hemiarthroplasty is indicated to relieve pain and restore function. The operation is clinically indicated and is the standard of care for this type of fracture. He also sustained a nondisplaced right clavicle fracture which is being treated nonoperatively. Please refer to my consult note for full details. Operative findings:: Displaced sub capital femoral neck fracture of the right hip as noted on the preoperative imaging. The articular cartilage of the acetabulum is well preserved without evidence of significant arthritis. The proximal femur bone quality is good. Operative note:: On the day of the procedure the patient was met on the floor, and a physical examination was performed. The operating side and site were marked and initialed by me. I reviewed the diagnosis, natural history and management options in detail including both the nonsurgical and surgical. Given the nature of the fracture, I have recommended surgery in the form of a hemiarthroplasty of the right hip. I have discussed the procedure, risks and benefits, alternatives, potential complications and expected outcomes with the patient. The complications discussed include but are not limited to infection, injury to nerves and blood vessels, DVT and PE, femur fracture, limb length inequality, dislocation, implant failure, loosening, acetabular wear, osteolysis, periprosthetic femur fracture, heterotopic ossification, abductor weakness and a limp, incomplete relief of pain, incomplete return of function or motion, likely need for further surgery in future including revision, anesthetic/medical complications including heart attack, stroke, transfusion reactions and even . We discussed how any of these events can be devastating. We have discussed nonsurgical alternatives as well. We also discussed the postoperative course including the rehab and physical therapy required. Patient understood the risks, agreed to proceed with surgery, signed the consent form and no guarantees or assurances were given or implied. The patient was brought to the operating room and a general anesthesia was administered by the window systems administrator. The patient was then transferred onto the operating table and positioned in the left lateral decubitus position with the right hip facing upwards. All the bony prominences were well-padded. The right lower extremity was then prepped and draped in the usual sterile fashion. The entire operative team used isolation suits and room traffic was controlled. The surgical landmarks and incision was marked over the skin with a marking pen. Ioban sterile drape was used to cover the operative site and isolate the perineum completely from the operative field. Administration of prophylactic IV antibiotics (Ancef and vancomycin) was confirmed with the window systems administrator. A preprocedure timeout was performed as per hospital protocol. A posterior approach was used to the hip joint. An electrocautery was used for hemostasis. The skin incision was made centering over the posterior border of the greater trochanter extending posteriorly in a curvilinear fashion across the buttock. The dissection was carried through sub
--- NOTE | 2020-10-19 18:07 | SUR.PHASEI ---
171- blood sugar via finger stick is 275. JASIEL Grimm notified of this result, and stated that he wanted the pt's primary doctor to be notified of this result. I passed this along to swapnil lopez on [facility] floor. 1739- detailed report called to swapnil lopez on [facility] by swapnil colmenares. 1743- pt left in stable condition with swapnil lopez on [facility] floor by swapnil colmenares.
[2020-10-19 18:31] LABS: Microscopic,Cath URINE MICROSCOPIC (MICROSCOPIC)
[2020-10-19 18:43] LABS: Appearance,Urine/Cath CLEAR (Clear); Bilirubin,Cath Negative (Negative); Blood, Urine/Cath Negative (Negative); Color,Urine/Cath YELLOW (Yellow); Glucose,Urine/Cath (UA) Negative (Negative); Ketones,Urine/Cath Negative (Negative); Leukocyte Esterase,Cath Negative (Negative); Nitrate,Cath Negative (Negative); Protein,Urine/Cath Negative (Negative); Urobilinogen,Cath 0.2 EU/dl (0.2)
[2020-10-19 19:20] LABS: Transitional Epi Cells,Ur/Cath OCC #/lpf (0-3)
[2020-10-19 21:20] LABS: POC Glucose,Bedside 248 (70-110)
[2020-10-20] VITALS (7 sets, daily range): BP systolic 115–137; BP diastolic 51–68; PULSE 74–90; RESP 16–20; TEMP 36.4–36.8; O2SAT 92–98; BMI 27.4
--- NOTE | 2020-10-20 07:10 | HMH.ACPN2 ---
Internal Medicine - PN: Subj *Date: 10/20/20 *Time: 08:32 Interval history: 70-year-old male, status post surgery to fix right hip fracture yesterday afternoon. Tolerated surgery well. Alert and oriented this morning on exam. Extensive discussion about placement needs and rehab to achieve independent living again. Patient is adamant about getting back to living by himself but amenable to referral to [facility], [facility], and may be seen to [place]. Continues to complain of pain, discussed how this is going to be hard to treat given his chronic opiate dependence and previous history of high-dose opiate use. We will continue to make slight adjustments for improvement in pain. Clear discussion that we cannot make the pain go away completely. Afebrile, normotensive. Tolerating p.o. intake. No bowel movement in over 24 hours. Exam Vital signs and Labs for Last 24 Hours: Temp Pulse Resp BP Pulse Ox 98.0 F 81 20 119/51 L 93 L 10/20/20 00:35 10/20/20 00:35 10/20/20 00:35 10/20/20 00:35 10/20/20 00:35 Laboratory Results - last 24 hr 10/19/20 06:08: PT 11.5, INR 0.97, APTT 28.7 10/19/20 06:17: POC Glucose 220 H 10/19/20 11:10: Blood Type O Negative, Antibody Screen Negative 10/19/20 11:58: POC Glucose 185 H 10/19/20 14:30: Urine Color Yellow, Urine Appearance Clear, Urine pH 6.0, Ur Specific [place] 1.020, Urine Protein Negative, Urine Glucose (UA) Negative, Urine Ketones Negative, Urine Blood Negative, Urine Nitrate Negative, Urine Bilirubin Negative, Urine Urobilinogen 0.2, Ur Leukocyte Esterase Negative, Urine RBC None, Urine WBC None, Ur Squamous Epith Cells None, Ur Transition Epith Cell Occ, Urine Bacteria None 10/19/20 17:28: POC Glucose 275 H 10/19/20 20:50: POC Glucose 248 H I & O for Last 24 hours: Intake & Output 10/17/20 10/18/20 10/19/20 10/20/20 23:59 23:59 23:59 23:59 Intake Total 720 / 1080 1360 / 1360 Output Total 1750 / 2230 480 / 480 Balance -1030 / -1150 880 / 880 Weight 94.517 kg 94.007 kg 94 kg 93.979 kg - Constitutional no acute distress, chronically ill appearing - *Routine HEENT Exam Head: Present: normocephalic Eye: Present: EOMI, PERRL ENT: Present: mucous membranes moist Comments: Right side temporal scar from history of skin cancer, lesion on posterior parietal region. - *Routine Neck Exam Present: supple. Absent: lymphadenopathy - *Routine Respiratory Exam Present: CTA bilaterally - *Routine Cardiovascular Exam Present: RRR - *Routine Abdominal Exam Present: soft, normoactive bowel sounds. Absent: tenderness - *Routine Extremities Exam Absent: cyanosis, clubbing, edema Comments: Right lower extremity equal length the left. Surgical site clean dry and intact, no significant bruising. - *Routine Skin Exam Present: warm. Absent: rash - *Routine Neurological Exam Present: alert, oriented X3 Assessment and Plan (1) Hip fracture Status: Acute Qualifiers: Encounter type: initial encounter Fracture type: closed Laterality: right Qualified Code(s): S72.001A - Fracture of unspecified part of neck of right femur, initial encounter for closed fracture Category: Medical Code(s): S72.009A - Fracture of unspecified part of neck of unspecified femur, initial encounter for closed fracture (2) History of DVT of lower extremity Status: Acute Category: Medical Code(s): Z86.718 - Personal history of other venous thrombosis and embolism (3) Clavicular fracture Status: Acute Qualifiers: Encounter type: initial encounter Clavicle location: unspecified part of clavicle Fracture type: closed Fracture alignment: nondisplaced Laterality: right Qualified Code(s): S42.001A - Fracture of unspecified part of right clavicle, initial encounter for closed fracture Category: Medical Code(s): S42.009A - Fracture of unspecified part of unspecified clavicle, initial encounter for closed fracture (4) Rib fracture
[2020-10-20 07:17] LABS: Basophils % 0.1 % (0.1-2.0); Eosinophils % 0.1 % (0.1-12.0); Hematocrit 40.5 % (42.0-52.0); Hemoglobin 13.1 g/dL (14.1-18.0); Lymphocytes # 1.2 K/mm3 (0.7-4.5); Lymphocytes % 8.4 % (10-50); Mean Corpuscular HGB Conc 32.3 g/dL (31.8-35.4); Mean Corpuscular Volume 108.5 fl (80-94); Mean Platelet Volume 8.8 fl (7.4-10.4); Monocytes # 0.6 K/mm3 (0.1-1.0); Monocytes % 4.1 % (1.7-9.3); Neutrophils # 12.3 K/mm3 (1.8-7.8); Neutrophils % 87.3 % (37.0-80.0); Platelet Count 157 K/mm3 (142-424); Red Blood Count 3.73 M/mm3 (4.60-6.20); Red Cell Distribution Width 13.7 % (11.5-17.5)
[2020-10-20 07:23] LABS: MANUAL DIFFERENTIAL MANUAL DIFFERENTIAL (MANUAL DIFF)
[2020-10-20 07:37] LABS: Chloride 104 mmol/L (98-107); Potassium 4.3 mmoL/L (3.5-5.1); Sodium 141 mmol/L (136-145)
[2020-10-20 07:39] LABS: Alanine Aminotransferase 29 U/L (12-78); Aspartate Amino Transferase 76 U/L (17-59); Blood Urea Nitrogen 37 mg/dl (9-20); Creatinine Clearance Estimated 75 mL/min (50-200); Estimated Glomerular Filt Rate 60 ml/min (>60); GFR (African American) 72 ML/MIN (>60)
[2020-10-20 07:40] LABS: Albumin Level 3.7 g/dl (3.5-5.0); Albumin/Globulin Ratio 1.3 (1.1-1.8); Alkaline Phosphatase 64 U/L (38-126); Anion Gap 12.3 mEq/L (5-15); Bilirubin,Total 0.5 mg/dl (0.2-1.3); Calcium 9.1 mg/dl (8.4-10.2); Carbon Dioxide 29 mmol/L (22.0-30.0); Globulin 2.8 g/dL (1.3-3.2); Glucose 198 mg/dl (74-100); Total Protein,Serum 6.5 g/dl (6.3-8.2)
[2020-10-20 07:49] LABS: Anisocytosis 1+; Lymphocytes % 10 % (10-50); Macrocytosis 1+; Monocytes % 4 % (2-9); Neutrophils % 86 % (42-76); Platelet Estimate Normal; Total Cells Counted 100
--- NOTE | 2020-10-20 09:05 | P.PN_ITS ---
[facility] Anesthesia Record Part II Discharge Time: 17:34 Destination: Surgical Day Care (OP Surgery) PACU nurse assessment reviewed?: Yes Patient Condition:: Good Anesthesia Complications:: None Swallowing reflex intact?: Yes Cyanosis?: No Blood Pressure: 115/55 Pulse Rate: 74 Temperature: 98.0 F Mental Status: Alert & Oriented Pain level:: 0 Nausea and/or vomitting:: None Intake, IV Amount: 50
--- NOTE | 2020-10-20 09:35 | PC.NURSE ---
Late entry: Pt. c/o several episodes of pain starting around 0000. No c/o n/v/d, dizziness or soa. Pt. on 1.5l nc with o2 sats 93-95%, attempted a ra sat with o2 88-90%. R hip dsg c/d/i with ice pack in place. bilat. pedal pulses, strength, temp and movement equal.
--- NOTE | 2020-10-20 09:52 | SW/DCPLANNER ---
Addendum entered by Shanita Duarte 10/21/20 07:53: PATIENT WAS APPROVED BY [employer] TO DISCHARGE TO [facility] FOR SKILLED REHAB SERVICES TODAY.. PATIENTS FAMILY IS AWARE AND IN AGREEMENT ALONG WITH PATIENT..PATIENT WILL NEED TO GO VIA AMBULANCE.. Original Note: PATIENT PRESENTED INTO THE ACUTE HOSPITAL AFTER BEING AT THE [facility] ON SAT AND SUSTAINING A FALL THAT RESULTED IN A RIGHT HIP AND CLAVICLE FRACTURE..PATIENT IS A RESIDENT OF THE ASSISTED LIVING COMPLEX AT [facility]...[facility] DOES NOT HAVE A CONTRACT WITH HIS [employer] SO I SENT IT TO [facility] PER HIS REQUEST.. WAITING TO HEAR BACK TO WHETHER HIS INSURANCE WILL DO A APPROVAL... ONCE MEDICALLY CLEARED BY MD AND INSURANCE APPROVAL PATIENT CAN DISCHARGE...
--- NOTE | 2020-10-20 09:55 | HMH.PTEV ---
Physical Therapy Evaluation Rehab PT IP Evaluation Start: 10/19/20 17:37 Freq: ONCE Status: Active Protocol: Document 10/20/20 09:31 [facility]ORCARMEN (Rec: 10/20/20 09:55 PHORNE [id number]) Subjective/History History History Pt is 70 year old male admitted to [facility] s/p R hip hemiarthroplasty. Pt also has R clavicle fracture and multiple fractured ribs secondary to fall. Pt reports living in an assisted living facility with no stairs and use of a rolling walker prior to admittance at [facility]. Subjective Subjective Pt reports having some pain in R hip and R clavicle this morning. Eval completed by ISRAEL Green. Rehab PT IP Eval Objective Appearance Patient Behavior Appropriate,Cooperative Patient Orientation Place,Name,Birthday Difficulty following instructions none Speech Pattern Clear,Appropriate,Coherent Ambulation Patient Able to Ambulate Yes Ambulation Observation IP General Gait Pattern Observation Wide Based Gait,Shuffling Step Ambulation Distance (feet) 3 Ambulation Assistive Device None Ambulation Ability Moderate x 2 (50% assist) Balance Ability to Arise Able, uses arms to help Sitting Balance Steady, safe Standing Balance Steady, wide stance Dynamic Sitting Balance Ability Good Dynamic Standing Balance Ability Fair Transfers Bed Transfer Ability Minimal x 2 (25% assist) Sit to Stand Bed Transfer Ability Minimal x 2 (25% assist) ROM All Extremities PT ROM Status WFL MMT All Extremities PT MMT WFL Rehab PT IP prob,goals,plan Problems Date of Evaluation: 10/20/20 PT IP Problems Bed Mobility,Transfers,Gait, Safety Rehab Potential Rehab Potential Good Equipment Needs Assistive Devices Rolling / Wheeled Walker Plan PT Intervention Plan Bed Mobility,Transfers,Gait, Therapeutic Exercise PT Plan Frequency BID Duration LOS Discharge Goals Bed Transfer Ability Minimal x 1 (25% assist) Sit to Stand Chair Transfer Ability Minimal x 1 (25% assist) Ambulation Assistive Device Rolling Walker Ambulation Distance (feet) 10 Discharge Plan PT Discharge Plan Pt would benefit from return to assisted living facility
--- NOTE | 2020-10-20 09:58 | HMH.OTEV ---
OT Inpatient Evaluation Rehab OT IP Evaluation Start: 10/19/20 17:37 Freq: ONCE Status: Complete Protocol: Document 10/20/20 09:50 [facility] (Rec: 10/20/20 09:58 [facility] [id number]) Rehab OT IP Assessment Subjective History Pt oriented x 3 on arrival. Pt agreeable to engage in therapy evaluation. Pt was admitted via ED on 10/17/20 after a fall with injury to right hip and shoulder. Pt was at the [facility] and was going up a hill with his walker when he tried to take a break and sit down on walker. He fell resulting in a right hip fx and right clavicle fx. Pt had an uncemented bipolar hemiarthroplasty to right hip on 10/19/20. Pt has a past medical history of Chronic Obstructive Pulmonary Disease (COPD), Diabetes Mellitus Type 2, Hypertension, MRSA (foot ulcer, unsure if it was mrsa). Pt reports he lived at [facility] prior to his fall. He claims he was independent with all ADLs. He was able to cook small meals in his microwave at his apartment. However, the facility does have meals for him when he wants them. Staff does his cleaning. He uses a rollator at all times. His daughter does his grocery shopping for him. Subjective I can do what I need to. Objective Patient Orientation Person,Place,Birthday Upper Extremity Gross ROM WFL Bed Mobility bed mobility-scooting,bed mobility - supine/sit,bed mobility - rolling Assist Level Contact Guard/Hand Hold Transfer Training Sit/Stand Transfer Assist Level Minimal x 2 (25% assist) Chair Transfer Ability Minimal x 2 (25% assist), Moderate x 2 (50% assist) Chair Transfer Technique Sit to/from Ambulatory Rehab OT IP prob,goals,plan Problems Date of Evaluation:
--- NOTE | 2020-10-20 13:32 | P.PN_ITS ---
Subjective Date: 10/20/20 Time: 10:00 Principal diagnosis: Status post hemiarthroplasty, right hip Interval history: Patient is status post right hip hemiarthroplasty, post op day #1. Patient is sitting out in the chair and says he is doing well. Patient has right hip pain and says it's well-controlled with as needed medication. No history of any nausea or vomiting. No history of any cough, chest pain, shortness of breath or palpitations. Patient says he is eating and drinking well. PN: Obj Ex Vital signs: Temp Pulse Resp BP Pulse Ox 98.0 F 74 18 115/55 L 93 L 10/20/20 09:09 10/20/20 09:09 10/20/20 12:17 10/20/20 09:09 10/20/20 00:35 Narrative: Laboratory Results - last 24 hr 10/20/20 06:54: Sodium 141, Potassium 4.3, Chloride 104, Carbon Dioxide 29, Anion Gap 12.3, BUN 37 H, Creatinine 1.20, Estimated Creat Clear 75, Estimated GFR 60, Est GFR ( Amer) 72, Glucose 198 H, Calcium 9.1, Total Bilirubin 0.5, AST 76 H D, ALT 29 D, Alkaline Phosphatase 64, Total Protein 6.5, Albumin 3.7, Globulin 2.8, Albumin/Globulin Ratio 1.3 10/20/20 06:54: WBC 14.0 H, RBC 3.73 L, Hgb 13.1 L, Hct 40.5 L, MCV 108.5 H, MCH 35.0 H, MCHC 32.3, RDW 13.7, Plt Count 157, MPV 8.8, Neut % (Auto) 87.3 H, Lymph % (Auto) 8.4 L, [place] % (Auto) 4.1, Eos % (Auto) 0.1, Baso % (Auto) 0.1, Neut # (Auto) 12.3 H, Lymph # (Auto) 1.2, [place] # (Auto) 0.6, Eos # (Auto) 0.0, Baso # (Auto) 0.0, Total Counted 100, Neutrophils % (Manual) 86 H, Lymphocytes % (Manual) 10, Monocytes % (Manual) 4, Platelet Estimate Normal, Anisocytosis 1+, Macrocytosis 1+ Exam: General appearance: alert, active, awake, no acute distress Cardiovascular: regular rate & rhythm, palpable peripheral pulses Respiratory: No respiratory distress noted, speaks in full sentences ABD: soft and non tender Neuro: alert, awake, oriented x 3 Psych: Appropriate mood and affect Genitourinary: Catheter in situ. On examination of the lower extremities the limb lengths are equal. Thigh and calf are soft and nontender. On examination of the LEFT hip the dressings are clean, dry and intact. No evidence of any bleeding noted. Distal pulses are 1+. Paresthesias in both lower extremities at baseline unchanged. No motor deficits noted distally. - Urinary Catheter Management Coude Cath placed during this visit: no Progress Note: A&P (1) Hip fracture Status: Acute (2) History of DVT of lower extremity Status: Acute (3) Clavicular fracture Status: Acute (4) Rib fractures Status: Acute (5) Depression Status: Acute (6) Diabetes mellitus Status: Acute (7) Parkinson disease Status: Acute (8) Chronic pain with drug dependence Status: Chronic Assessment and Plan for All Diagnoses:: I have reviewed the clinical findings and progress with the patient. Patient is doing well and reports no postoperative problems. Patient started mobilizing weightbearing as tolerated on the LEFT side with the help of physical therapy and to continue the same. His mobilization is going to be somewhat complicated because of right clavicle fracture which is being treated nonoperatively. Continue DVT prophylaxis-recommend DVT prophylaxis for 6 weeks postop. Continue abduction pillow when in bed and continue standard precautions for the posterior approach hip replacement. Discontinue IV fluids and the urinary catheter. Case management looking into discharge planning. Continue medical management as per Dr. Ruth.
--- NOTE | 2020-10-21 05:16 | PC.NURSE ---
Pt has slept well this shift. C/O discomfort x1 early in shift. Medicated per apr. VSS. Abductor pillow in place. No concerns at this time. Will continue to monitor.
[2020-10-21 05:39] VITALS: BMI 27.3
[2020-10-21 06:46] LABS: Basophils % 0.3 % (0.1-2.0); Eosinophils # 0.2 K/mm3 (0.0-0.4); Eosinophils % 1.3 % (0.1-12.0); Hematocrit 38.3 % (42.0-52.0); Hemoglobin 12.6 g/dL (14.1-18.0); Lymphocytes % 16.3 % (10-50); Mean Corpuscular Hemoglobin 34.7 pg (27.0-31.2); Mean Corpuscular Volume 105.1 fl (80-94); Mean Platelet Volume 8.7 fl (7.4-10.4); Monocytes # 0.7 K/mm3 (0.1-1.0); Neutrophils # 9.3 K/mm3 (1.8-7.8); Neutrophils % 76.1 % (37.0-80.0); Platelet Count 176 K/mm3 (142-424); Red Blood Count 3.64 M/mm3 (4.60-6.20); Red Cell Distribution Width 14.1 % (11.5-17.5); White Blood Count 12.3 K/mm3 (4.8-10.8)
[2020-10-21 07:04] LABS: Anion Gap 10.1 mEq/L (5-15); Blood Urea Nitrogen 34 mg/dl (9-20); Calcium 8.9 mg/dl (8.4-10.2); Carbon Dioxide 34 mmol/L (22.0-30.0); Chloride 101 mmol/L (98-107); Creatinine Clearance Estimated 90 mL/min (50-200); Estimated Glomerular Filt Rate 83 ml/min (>60); GFR (African American) 101 ML/MIN (>60); Glucose 183 mg/dl (74-100); Magnesium 2.2 mg/dl (1.6-2.3); Potassium 4.1 mmoL/L (3.5-5.1); Sodium 141 mmol/L (136-145)
[2020-10-21 07:52] VITALS: BP 158/84; PULSE 67; RESP 18; TEMP 37.2; O2SAT 95
--- NOTE | 2020-10-21 07:55 | HMH.DCSUM ---
General - General Admission date:: 10/17/20 Discharge date: 10/21/20 HPI HPI: Mr. Krueger is a 70-year-old male with multiple comorbidities including remote history of skin cancer, Parkinson's disease, history of DVT in left lower extremity, hypertension, chronic pain. Reports being at the [employer] yesterday when he fell. He was visiting the [facility] from his assisted [facility]) where he lives in the assisted living quarters. On arrival to the ER, he was complaining of pain in his right upper chest and right hip. X-ray and exam noted to have right hip fracture, shortening of right leg. Also noted to have a right clavicle fracture. Some old rib fractures noted on x-ray. Patient admitted for management of pain, and orthopedic consult for right hip surgery. On assessment this morning, patient continues to complain of pain. Denies nausea, vomiting. Had a hard time sleeping last night. No shortness of breath or cardiac chest pain. Hospital Course Hospital Course: Patient was admitted, hip fracture was repaired by Dr. Lopez. No complications ensued. Patient transitioned well out of the OR back to the floor. Clavicle fracture was deemed appropriate to heal by secondary intention. Patient's pain was fairly well controlled on his current dose of Percocet with very minimal adjunct p.o. medication. Patient was initially resistant to skilled placement but given his significant need, parkinsonism, neuropathy, clavicle fracture and hip fracture he finally realized his need for at least a couple of weeks of skilled care and care management promptly and professionally found a bed for the patient at [facility]. He will be transferred there today. He will need PT/OT evaluation. Speech therapy evaluation would be also a great idea given his Parkinson disease. He will need a CBC and BMP in 3 days. Ongoing medications are as noted on his discharge reconciliation form. Objective Vital signs: Temp Pulse Resp BP Pulse Ox 98.9 F 67 18 158/84 H 95 10/21/20 07:52 10/21/20 07:52 10/21/20 07:52 10/21/20 07:52 10/21/20 07:52 no acute distress - *Routine HEENT Exam Head: Present: normocephalic Eye: Present: EOMI, PERRL ENT: Present: mucous membranes moist - *Routine Neck Exam Present: supple - *Routine Respiratory Exam Present: CTA bilaterally - *Routine Cardiovascular Exam Present: RRR - *Routine Abdominal Exam Present: soft, normoactive bowel sounds. 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 This is baseline. Hip scar looks good. Perfusion is good. Sensory loss is noted from previous exams. - *Routine Skin Exam Present: warm. Absent: rash - *Routine Neurological Exam Present: alert, oriented X3 Patient has masked facies and rigidity from his parkinsonism. - Detailed Eye Exam Eyelids: Bilateral normal inspection Results Labs on day of discharge: Labs from last 24 hours 10/21/20 10/21/20 06:16 06:16 WBC 12.3 H RBC 3.64 L Hgb 12.6 L Hct 38.3 L MCV 105.1 H MCH 34.7 H MCHC 33.0 RDW 14.1 Plt Count 176 MPV 8.7 Neut % (Auto) 76.1 Lymph % (Auto) 16.3 [place] % (Auto) 6.0 Eos % (Auto) 1.3 Baso % (Auto) 0.3 Neut # (Auto) 9.3 H Lymph # (Auto) 2.0 [place] # (Auto) 0.7 Eos # (Auto) 0.2 Baso # (Auto) 0.0 Sodium 141 Potassium 4.1 Chloride 101 Carbon Dioxide 34 H Anion Gap 10.1 BUN 34 H Creatinine 0.90 D Estimated Creat Clear 90 Estimated GFR 83 Est GFR ( Amer) 101 D Glucose 183 H Calcium 8.9 Magnesium 2.2 DS: Diagnosis - Discharge Diagnosis (1) Hip fracture Status: Acute (2) History of DVT of lower extremity Status: Acute (3) Clavicular fracture Status: Acute (4) Rib fractures Status: Acute (5) Depression St
[2020-10-21 09:27] VITALS: O2SAT 93
== END 2020-10-21 10:30 | DRG 522 ==
LOC: ER 17:50 → 2ND 21:56
PROVIDERS: Emergency Medicine; Orthopaedic Surgery; Admitting Provider Internal Medicine Adolescent Medicine; Emergency Provider Emergency Medicine; PCP Internal Medicine Adolescent Medicine; Visit Provider Internal Medicine Adolescent Medicine
PROC: 0SRR0JA Replacement of Right Hip Joint, Femoral Surface with Synthetic Substitute, Uncemented, Open Approach (ICD-10-PCS; CPT 27130; principal; 2020-10-19 13:00)
DX: S72.011A Unspecified intracapsular fracture of right femur, initial encounter for closed fracture (principal); S22.43XA Multiple fractures of ribs, bilateral, initial encounter for closed fracture; F19.20 Other psychoactive substance dependence, uncomplicated; Z20.822 Contact with and (suspected) exposure to COVID-19; S42.001A Fracture of unspecified part of right clavicle, initial encounter for closed fracture; F32.9 Major depressive disorder, single episode, unspecified; G20 Parkinson's disease; G89.29 Other chronic pain; E11.40 Type 2 diabetes mellitus with diabetic neuropathy, unspecified; J44.9 Chronic obstructive pulmonary disease, unspecified; Z86.14 Personal history of Methicillin resistant Staphylococcus aureus infection; F17.210 Nicotine dependence, cigarettes, uncomplicated; Z85.828 Personal history of other malignant neoplasm of skin; M19.90 Unspecified osteoarthritis, unspecified site; Z96.642 Presence of left artificial hip joint; Z86.718 Personal history of other venous thrombosis and embolism; I12.9 Hypertensive chronic kidney disease with stage 1 through stage 4 chronic kidney disease, or unspecified chronic kidney disease; E11.22 Type 2 diabetes mellitus with diabetic chronic kidney disease; N18.9 Chronic kidney disease, unspecified
CPT/HCPCS: 27125; 36415; 70450; 71045; 71250; 72125; 72170; 73030; 73502; 73700; 80048; 80053; 81001; 82962; 83735; 85007; 85025; 85610; 85730; 86850; 93005; 97110; 97162; 97166; 97530; 99284; C1713; C1776; J2405; J3370; U0003

== ENCOUNTER → 2020-11-03 12:07 | Outpatient (CLI) | payer MEDICARE, SELFPAY ==
--- NOTE | 2020-11-03 12:12 | XR_ITS ---
PROCEDURE: XR CLAVICLE RT CLINICAL INDICATION: right clavicle fx COMPARISON: No exams were available for comparison FINDINGS: Severe osteoarthritic changes are present involving the acromioclavicular joint with loss of joint space and bony spurring. No fracture or dislocation. No lytic or blastic change. 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 Dictated by: Stanley Crystal MD 11/03/2020 14:05 Stanley Crystal MD in [place] 11/03/2020 14:05
--- NOTE | 2020-11-03 12:12 | XR_ITS ---
PROCEDURE: XR HIP RT 2-3V W/PELVIS CLINICAL INDICATION: sp right bipolar hemiarthroplasty, sx 10/19/20 COMPARISON: CR XR HIP RT 2-3V W/PELVIS from 10/19/2020 FINDINGS: AP view of the pelvis shows a bipolar prosthesis present in good position within the right hip. No prosthesis malfunction apparent. There is a left femoral decompression screw with I am rudi also noted. IMPRESSION: Postsurgical changes which appear stable as described above Dictated by: Stanley Crystal MD 11/03/2020 14:08 Stanley Crystal MD in [facility] 11/03/2020 14:08
== END ==
PROVIDERS: PCP Internal Medicine Adolescent Medicine; Visit Provider Orthopaedic Surgery
DX: Z09 Encounter for follow-up examination after completed treatment for conditions other than malignant neoplasm (principal); S42.001A Fracture of unspecified part of right clavicle, initial encounter for closed fracture; S72.001A Fracture of unspecified part of neck of right femur, initial encounter for closed fracture
CPT/HCPCS: 73000; 73502

== ENCOUNTER → 2020-12-01 13:25 | Outpatient (CLI) | payer MEDICARE, SELFPAY ==
--- NOTE | 2020-12-01 13:29 | XR_ITS ---
PROCEDURE: XR HIP RT 2-3V W/PELVIS CLINICAL INDICATION: sp bipolar hemiarthroplasty, SX 10/19/20 COMPARISON: CR XR HIP RT 2-3V W/PELVIS from 11/03/2020 FINDINGS: Status post right hip hemiarthroplasty with good alignment of the prosthesis and no evidence of orthopedic complication. No fracture or dislocation. No lytic or blastic change. Left hip gamma nail with I am rudi and heterotopic ossification along the superior aspect of the rudi once again noted. IMPRESSION: Status post right hip hemiarthroplasty with no acute finding Dictated by: Stanley Crystal MD 12/01/2020 14:30 Stanley Crystal MD in [facility] 12/01/2020 14:30
--- NOTE | 2020-12-01 13:29 | XR_ITS ---
PROCEDURE: XR CLAVICLE RT CLINICAL INDICATION: right clavicle fracture COMPARISON: CR XR SHOULDER RT MIN 2V from 10/17/2020 CR XR CLAVICLE RT from 11/03/2020 FINDINGS: The previously noted fracture involving the medial aspect and central aspect of the clavicle is not well delineated due to bony overlap the ribs. Moderate osteoarthritic changes are present at the acromioclavicular joint with osteophyte formation. There is subacromial stenosis. Other findings:None. IMPRESSION: The fracture of the central medial aspect of the right clavicle is not well delineated which in part could be due to healing but also may be related to the bony overlap of the ribs. Shoulder films may actually show the fracture better. Dictated by: Stanley Crystal MD 12/01/2020 14:26 Stanley Crystal MD in [facility] 12/01/2020 14:26
== END ==
PROVIDERS: PCP Internal Medicine Adolescent Medicine; Visit Provider Orthopaedic Surgery
DX: Z09 Encounter for follow-up examination after completed treatment for conditions other than malignant neoplasm (principal); S42.009A Fracture of unspecified part of unspecified clavicle, initial encounter for closed fracture
CPT/HCPCS: 73000; 73502

== ENCOUNTER → 2020-12-17 09:01 | Outpatient (CLI) | payer MEDICARE, SELFPAY ==
--- NOTE | 2020-12-17 09:02 | XR_ITS ---
PROCEDURE: XR DEXA AXIAL SKELETON CLINICAL HISTORY: screening for osteoporosis COMPARISON: No exams were available for comparison FINDINGS: Radius 33 percent density is 0.625 with a T-score of -3.6 The lumbar spine BMD is 1.107 with a T-score of 0.1. IMPRESSION: This patient is considered osteoporotic according to the World Health Organization criteria. Fracture risk is high. Treatment is advised. Based on these results a follow-up exam is recommended in 1 year. Dictated by: Stanley Crystal MD 12/21/2020 07:21 Stanley Crystal MD in [facility] 12/21/2020 07:21
== END ==
PROVIDERS: PCP Internal Medicine Adolescent Medicine; Visit Provider Orthopaedic Surgery
DX: M81.0 Age-related osteoporosis without current pathological fracture (principal); S42.009A Fracture of unspecified part of unspecified clavicle, initial encounter for closed fracture; S72.009A Fracture of unspecified part of neck of unspecified femur, initial encounter for closed fracture; Z13.820 Encounter for screening for osteoporosis
CPT/HCPCS: 77080

== ENCOUNTER → 2021-01-28 12:30 | Outpatient (CLI) | payer MEDICARE, SELFPAY ==
[2021-01-28 12:56] LABS: Basophils # 0.1 K/mm3 (0-0.2); Basophils % 0.6 % (0.1-2.0); Eosinophils # 0.2 K/mm3 (0.0-0.4); Eosinophils % 2.4 % (0.1-12.0); Hematocrit 46.5 % (42.0-52.0); Hemoglobin 15.6 g/dL (14.1-18.0); Lymphocytes # 2.1 K/mm3 (0.7-4.5); Lymphocytes % 22.3 % (10-50); Mean Corpuscular HGB Conc 33.5 g/dL (31.8-35.4); Mean Corpuscular Volume 101.6 fl (80-94); Mean Platelet Volume 8.1 fl (7.4-10.4); Monocytes # 0.6 K/mm3 (0.1-1.0); Monocytes % 6.3 % (1.7-9.3); Neutrophils # 6.3 K/mm3 (1.8-7.8); Neutrophils % 68.4 % (37.0-80.0); Platelet Count 198 K/mm3 (142-424); Red Blood Count 4.58 M/mm3 (4.60-6.20); Red Cell Distribution Width 14.4 % (11.5-17.5); White Blood Count 9.2 K/mm3 (4.8-10.8)
[2021-01-28 13:51] LABS: Alanine Aminotransferase 22 U/L (12-78); Albumin Level 4.3 g/dl (3.5-5.0); Albumin/Globulin Ratio 1.7 (1.1-1.8); Alkaline Phosphatase 97 U/L (38-126); Anion Gap 8.5 mEq/L (5-15); Aspartate Amino Transferase 27 U/L (17-59); Bilirubin,Total 0.2 mg/dl (0.2-1.3); Blood Urea Nitrogen 43 mg/dl (9-20); Calcium 9.8 mg/dl (8.4-10.2); Carbon Dioxide 32 mmol/L (22.0-30.0); Chloride 104 mmol/L (98-107); Estimated Glomerular Filt Rate 54 ml/min (>60); GFR (African American) 66 ML/MIN (>60); Globulin 2.5 g/dL (1.3-3.2); Glucose 168 mg/dl (74-100); Potassium 5.5 mmoL/L (3.5-5.1); Sodium 139 mmol/L (136-145); Total Protein,Serum 6.8 g/dl (6.3-8.2)
[2021-01-28 14:21] LABS: Thyroid Stimulating Hormone 1.73 uIU/mL (0.465-4.68)
[2021-01-28 14:59] LABS: Vitamin B12 716 pg/mL (239-931)
[2021-01-28 19:40] LABS: Hemoglobin A1C 7.2 % (4.0-6.0)
== END ==
PROVIDERS: Visit Provider Nurse Practitioner Family
DX: E11.40 Type 2 diabetes mellitus with diabetic neuropathy, unspecified (principal); Z79.84 Long term (current) use of oral hypoglycemic drugs
CPT/HCPCS: 36415; 80053; 82607; 83036; 84443; 85025

== ENCOUNTER 2022-06-01 02:45 | Emergency (ER) | payer MEDICARE, SELFPAY ==
[2022-06-01 02:44] VITALS: BMI 22.4
--- NOTE | 2022-06-01 02:44 | CT_ITS ---
PROCEDURE INFORMATION: Exam: CT Head Without Contrast Exam date and time: 06/01/2022 2:52 AM Age: 72 years old Clinical indication: Injury or trauma; Fall; Blunt trauma (contusions or hematomas) TECHNIQUE: Imaging protocol: Computed tomography of the head without contrast. Radiation optimization: All CT scans at this facility use at least one of these dose optimization techniques: automated exposure control; mA and/or kV adjustment per patient size (includes targeted exams where dose is matched to clinical indication); or iterative reconstruction. REPORTING DATA: Count of CT and Cardiac NM exams in prior 12 months: This patient has received [address] and 0 known cardiac nuclear medicine studies in the 12 months prior to the current study. COMPARISON: CT HEAD/BRAIN WO CON 10/17/2020 5:03 PM FINDINGS: Brain: There is no evidence of acute parenchymal hemorrhage, extra-axial collection, or acute infarction. There is no mass effect, midline shift, or downward herniation. Cerebral ventricles: No ventriculomegaly. Paranasal sinuses: There is mild paranasal sinus disease. Mastoid air cells: Visualized mastoid air cells are well aerated. Bones/joints: Unremarkable. No acute fracture. Soft tissues: Unremarkable. IMPRESSION: No evidence of acute intracranial process.
--- NOTE | 2022-06-01 02:44 | CT_ITS ---
PROCEDURE INFORMATION: Exam: CT Cervical Spine Without Contrast Exam date and time: 06/01/2022 2:52 AM Age: 72 years old Clinical indication: Injury or trauma; Fall; Blunt trauma TECHNIQUE: Imaging protocol: Computed tomography of the cervical spine without contrast. Radiation optimization: All CT scans at this facility use at least one of these dose optimization techniques: automated exposure control; mA and/or kV adjustment per patient size (includes targeted exams where dose is matched to clinical indication); or iterative reconstruction. REPORTING DATA: Count of CT and Cardiac NM exams in prior 12 months: This patient has received [address] and 0 known cardiac nuclear medicine studies in the 12 months prior to the current study. COMPARISON: CT CERVICAL SPINE WO CON 10/17/2020 5:06 PM FINDINGS: Bones/joints: No acute fracture. Normal alignment. There is mild multilevel degenerative disc disease and spondylosis. Lungs: Lung apices are normal. Soft tissues: Unremarkable. IMPRESSION: No acute findings.
--- NOTE | 2022-06-01 02:50 | PC.NURSE ---
PT TO CT SCAN
[2022-06-01 02:51] VITALS: BP 143/70; PULSE 78; RESP 14; TEMP 36.5; O2SAT 96; BMI 25.0
[2022-06-01 02:52] LABS: Basophils # 0.1 K/mm3 (0-0.2); Basophils % 0.3 % (0.1-2.0); Eosinophils # 0.3 K/mm3 (0.0-0.4); Hemoglobin 14.4 g/dL (14.1-18.0); Lymphocytes # 4.4 K/mm3 (0.7-4.5); Lymphocytes % 33.2 % (10-50); Mean Corpuscular HGB Conc 31.4 g/dL (31.8-35.4); Mean Corpuscular Hemoglobin 34.1 pg (27.0-31.2); Mean Corpuscular Volume 108.7 fl (80-94); Mean Platelet Volume 8.5 fl (7.4-10.4); Monocytes # 0.5 K/mm3 (0.1-1.0); Monocytes % 3.7 % (1.7-9.3); Neutrophils # 8.1 K/mm3 (1.8-7.8); Neutrophils % 60.7 % (37.0-80.0); Platelet Count 219 K/mm3 (142-424); Red Blood Count 4.23 M/mm3 (4.60-6.20); White Blood Count 13.3 K/mm3 (4.8-10.8)
[2022-06-01 02:58] LABS: Alanine Aminotransferase 16 U/L (12-78); Albumin Level 3.8 g/dl (3.5-5.0); Albumin/Globulin Ratio 1.5 (1.1-1.8); Alkaline Phosphatase 66 U/L (38-126); Anion Gap 6.3 mEq/L (5-15); Aspartate Amino Transferase 19 U/L (17-59); Bilirubin,Total 0.4 mg/dl (0.2-1.3); Blood Urea Nitrogen 41 mg/dl (9-20); Calcium 9.1 mg/dl (8.4-10.2); Carbon Dioxide 28 mmol/L (22.0-30.0); Chloride 106 mmol/L (98-107); Estimated Glomerular Filt Rate 50 ml/min (>60); GFR (African American) 60 ML/MIN (>60); Globulin 2.5 g/dL (1.3-3.2); Glucose 129 mg/dl (74-100); Potassium 4.3 mmoL/L (3.5-5.1); Sodium 136 mmol/L (136-145); Total Protein,Serum 6.3 g/dl (6.3-8.2)
--- NOTE | 2022-06-01 02:59 | PC.NURSE ---
PATIENT BACK FROM CT.
[2022-06-01 03:00] LABS: Creatinine Clearance Estimated 56 mL/min (50-200)
[2022-06-01 03:25] LABS: Troponin I < 0.01 ng/ml (0.00-0.034)
--- NOTE | 2022-06-01 03:55 | HMH.EDGENADL ---
Discharge Plan Disposition Patient Disposition: Home, Self-Care Condition: Good Chief Complaint: Fall Prescriptions Prescriptions: No Action furosemide 40 mg tablet 40 mg PO BID 30 Days quetiapine 200 mg tablet 200 mg PO HS 90 Days loratadine 10 mg capsule 10 mg PO DAILY ferrous sulfate 325 mg (65 mg iron) tablet 325 mg PO BIDWM 30 Days pantoprazole 40 mg tablet,delayed release (DR/EC) 40 mg PO BID 30 Days atorvastatin 40 MG tablet 40 mg PO HS apixaban 2.5 MG tablet 2.5 mg PO BID fluoxetine 40 MG capsule 40 mg PO DAILY gabapentin 600 MG tablet 900 mg PO 0900,1300 ropinirole 1 MG tablet 3 mg PO HS gabapentin 600 MG tablet 1,200 mg PO HS Referrals Follow up/Referrals: Andria Narayan APRN [Primary Care Provider] - See instructions Clinical Impressions Clinical Impression: Scalp lesion Instructions Patient Instructions: How to Prevent Falls Discharge ED Provider: Anahi (ED),Dwight Barber General Adult HPI General Chief complaint: Fall Stated complaint: weakness Time Seen by Provider: 06/01/22 03:00 Mode of Arrival: EMS Source of Information: Patient, EMS and Medical Record Limitations: No Limitations Description of Symptoms (Recalled from ER Triage Doc. by RN): 72 YO MALE PRESENTS AFTER BEING FOUND IN HIS ASSISTED LIVING APARTMENT WITH BLOOD AROUND HIS HEAD. ACCORDING TO EMS, HE WAS THOUGHT TO HAVE FALLEN BUT WAS UNWITNESSED IF SO. NSG STAFF ON SCENE OFFERED LITTLE INFORMATION. PATIENT STATES HE WOKE UP FROM SLEEP THINKING HE HAD VOIDED ON HIMSELF, AND CALLED OUT FOR ASSISTANCE AND NURSING FOUND HIM LAYING IN BED IN A PUDDLE OF BLOOD. PATIENT IS ALERT, AWARE OF HIS LOCATION, BUT APPEARS FOGGY OF SITUATION. MOVES EXTREMITIES APPROPRIATELY TO HIS BASELINE PER PAST MED HX NOTES. MED HX: PARKINSONS, MULTIPLE FALLS,DIABETES; NO NEW RECENT ILLNESS. AFEBRILE. PATIENT CURRENTLY TAKING ELIQUIS BID. PUPILS REACTIVE HOWEVER, LEFT PUPIL MEASURES 2 MM, AND RIGHT PUPIL MEASURES 4 MM. 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 - no fall reported Onset (ago): hour(s) Location: head Severity: moderate Associated symptoms: denies other symptoms Related Data Home Medications Medication Instructions Recorded Confirmed ferrous sulfate 325 mg (65 mg 325 mg PO BIDWM Supplement 30 days 01/23/18 06/01/22 iron) tablet furosemide 40 mg tablet 40 mg PO BID Fluid 30 days 01/23/18 06/01/22 loratadine 10 mg capsule 10 mg PO DAILY Allergy symptoms 01/23/18 06/01/22 pantoprazole 40 mg tablet,delayed 40 mg PO BID GERD 30 days 01/23/18 06/01/22 release quetiapine 200 mg tablet 200 mg PO HS Insomnia 90 days 01/23/18 06/01/22 apixaban 2.5 mg tablet 2.5 mg PO BID Blood thinner 10/17/20 06/01/22 atorvastatin 40 mg tablet 40 mg PO HS hld 10/17/20 06/01/22 fluoxetine 40 mg capsule 40 mg PO DAILY Depression 10/18/20 06/01/22 gabapentin 600 mg tablet 900 mg PO 0900,1300 Pain 10/18/20 06/01/22 ropinirole 1 mg tablet 3 mg PO HS Restless leg 10/18/20 06/01/22 gabapentin 600 mg tablet 1,200 mg PO HS NEUROPATHY 10/19/20 06/01/22 Allergies Allergy/AdvReac Type Severity Reaction Status Date / Time aspirin [ASPIRIN] Allergy Unknown S-DIFF. Verified 12/01/20 14:21 [facility] Disclaimer: The information contained in this section may have been updated after the patient was seen, as this information can be updated by other users. Social History Smoking Status: Current some day smoker alcohol intake: never substance use type: denies use current occupational status: retired Travel in the last 8 weeks: None housing: apartment ROS Obtained: Yes All systems reviewed & no additional complaints except as documented Physical Exam General General appearance: alert Head Head exam: normocephalic and
[2022-06-01 04:10] LABS: POC Glucose,Bedside 141 (70-110)
[2022-06-01 04:21] LABS: Ethyl Alcohol < 10 mg/dl (0-10)
[2022-06-01 05:04] VITALS: BP 142/70; PULSE 73; RESP 15; TEMP 36.8; O2SAT 98
== END 2022-06-01 05:16 | disposition home or self-care (01) ==
PROVIDERS: Emergency Provider Emergency Medicine; PCP Nurse Practitioner Family
DX: S01.00XA Unspecified open wound of scalp, initial encounter (principal); F17.200 Nicotine dependence, unspecified, uncomplicated; Z79.01 Long term (current) use of anticoagulants; W19.XXXA Unspecified fall, initial encounter
CPT/HCPCS: 70450; 72125; 80053; 82962; 84484; 85025; 93005; 99285

== ENCOUNTER → 2022-06-21 15:01 | Outpatient (POV) | payer MEDICARE, SELFPAY | PROVIDERS: Visit Provider Dermatology | DX: Z00.00 Encounter for general adult medical examination without abnormal findings (principal) ==

== ENCOUNTER 2022-07-03 15:39 | Observation (INO) | payer MEDICARE, SELFPAY ==
[2022-07-03] VITALS (7 sets, daily range): BP systolic 101–145; BP diastolic 58–76; PULSE 65–83; RESP 15–18; TEMP 36.6–37.1; O2SAT 94–98; BMI 29.7; BMI 25.2
--- NOTE | 2022-07-03 15:46 | PC.NURSE ---
seizure pads placed on bed rails
--- NOTE | 2022-07-03 16:05 | PC.NURSE ---
checked on pt he asleep in bed,tap suggs at bedside
--- NOTE | 2022-07-03 16:09 | CT_ITS ---
PROCEDURE INFORMATION: Exam: CT Head Without Contrast Exam date and time: 07/03/2022 4:23 PM Age: 72 years old Clinical indication: Other: Seizure TECHNIQUE: Imaging protocol: Computed tomography of the head without contrast. Radiation optimization: All CT scans at this facility use at least one of these dose optimization techniques: automated exposure control; mA and/or kV adjustment per patient size (includes targeted exams where dose is matched to clinical indication); or iterative reconstruction. REPORTING DATA: Count of CT and Cardiac NM exams in prior 12 months: This patient has received 2 known CTs and 0 known cardiac nuclear medicine studies in the 12 months prior to the current study. COMPARISON: CT HEAD/BRAIN WO CON 06/01/2022 2:52 AM FINDINGS: Brain: No intracranial hemorrhage. Generalized atrophic changes of the ventricles and subarachnoid spaces. Chronic small-vessel ischemic changes noted. No mass, mass effect or midline shift. Cerebral ventricles: See Brain finding. Paranasal sinuses: Mucous retention cysts in the maxillary sinuses redemonstrated. Mastoid air cells: Visualized mastoid air cells are well aerated. Bones/joints: Unremarkable. No acute fracture. Soft tissues: A nonspecific scalp soft tissue lesion noted superior to the calvarium in the midline measuring 20 mm on sagittal image 32 and is similar to previous.. IMPRESSION: 1. Stable noncontrast CT brain with chronic changes. No acute intracranial abnormality. 2. Incidental superior scalp soft tissue thickening or swelling in the midline of uncertain etiology and can be correlated clinically.
--- NOTE | 2022-07-03 16:09 | XR_ITS ---
PROCEDURE INFORMATION: Exam: XR Chest Exam date and time: 07/03/2022 4:32 PM Age: 72 years old Clinical indication: Condition or disease; Other: Concern for pneumonia TECHNIQUE: Imaging protocol: Radiologic exam of the chest. Views: 1 view. COMPARISON: CT CHEST WO CON 10/17/2020 6:28 PM and x-ray 10/09/2020 FINDINGS: Lungs: Unremarkable. No consolidation. Pleural spaces: Unremarkable. No pleural effusion. No pneumothorax. Heart/Mediastinum: Unremarkable. No cardiomegaly. Bones/joints: Unremarkable. IMPRESSION: Stable chest x-ray with no acute disease.
--- NOTE | 2022-07-03 16:09 | ECG_ITS ---
APPROVED REPORT Exam: Resting ECG HR:78 bpm ECG Measurements Heart Rate 78 AXES [place] 246 P 266 QRSd 154 QRS 4 QT 398 T 84 QTc 431 Conclusion ECTOPIC ATRIAL RHYTHM WITH FIRST DEGREE AV BLOCK LEFT BUNDLE BRANCH BLOCK [120+ ms QRS DURATION, 80+ ms Q/S IN V1/V2, 85+ ms R IN I/aVL/V5/V6] ABNORMAL ECG UNCONFIRMED REPORT Electronically signed by : Abel Parker MD 07/04/2022 21:17:20
[2022-07-03 16:24] LABS: Basophils % 0.3 % (0.1-2.0); Eosinophils # 0.2 K/mm3 (0.0-0.4); Eosinophils % 1.9 % (0.1-12.0); Hematocrit 45.6 % (42.0-52.0); Hemoglobin 14.5 g/dL (14.1-18.0); Lymphocytes # 2.9 K/mm3 (0.7-4.5); Lymphocytes % 29.7 % (10-50); Mean Corpuscular HGB Conc 31.8 g/dL (31.8-35.4); Mean Corpuscular Hemoglobin 34.7 pg (27.0-31.2); Mean Corpuscular Volume 108.8 fl (80-94); Mean Platelet Volume 8.4 fl (7.4-10.4); Monocytes # 0.5 K/mm3 (0.1-1.0); Monocytes % 4.8 % (1.7-9.3); Neutrophils # 6.1 K/mm3 (1.8-7.8); Neutrophils % 63.3 % (37.0-80.0); Platelet Count 238 K/mm3 (142-424); Red Blood Count 4.19 M/mm3 (4.60-6.20); Red Cell Distribution Width 13.5 % (11.5-17.5); White Blood Count 9.6 K/mm3 (4.8-10.8)
[2022-07-03 16:28] LABS: Alanine Aminotransferase 20 U/L (12-78); Albumin Level 4.1 g/dl (3.5-5.0); Albumin/Globulin Ratio 1.6 (1.1-1.8); Alkaline Phosphatase 82 U/L (38-126); Anion Gap 15.3 mEq/L (5-15); Aspartate Amino Transferase 32 U/L (17-59); Bilirubin,Total 0.3 mg/dl (0.2-1.3); Blood Urea Nitrogen 36 mg/dl (9-20); Calcium 9.6 mg/dl (8.4-10.2); Carbon Dioxide 33 mmol/L (22.0-30.0); Chloride 98 mmol/L (98-107); Creatinine Clearance Estimated 71 mL/min (50-200); Estimated Glomerular Filt Rate 54 ml/min (>60); GFR (African American) 65 ML/MIN (>60); Globulin 2.5 g/dL (1.3-3.2); Glucose 153 mg/dl (74-100); Potassium 4.3 mmoL/L (3.5-5.1); Sodium 142 mmol/L (136-145); Total Protein,Serum 6.6 g/dl (6.3-8.2)
[2022-07-03 16:33] LABS: C-Reactive Protein 0.6 mg/L (0-4)
--- NOTE | 2022-07-03 16:38 | PC.NURSE ---
pt given urinal for collection of sample
--- NOTE | 2022-07-03 16:45 | HMH.EDGENADL ---
Discharge Plan Disposition Patient Disposition: Admitted As Inpatient Clinical Impressions Clinical Impression: Seizure-like activity Discharge ED Provider: Jorge Huber General Adult HPI General Chief complaint: Seizure Stated complaint: weakness Time Seen by Provider: 07/03/22 15:45 Mode of Arrival: EMS Source of Information: Patient and EMS Limitations: No Limitations Description of Symptoms (Recalled from ER Triage Doc. by RN): 72 M presents to ED via EMS. EMS was called to pts apartment due to possible seizure. pt has hx of parkinsons but no history of seizures. pt was sitting outside with a friend, the friend told EMS pt hands flung up in the air and pt had seizure. pt reports that he does not remember what happened. seizure pads placed on bedrails for safety History of Present Illness HPI narrative: Patient is a 72-year-old male with a past medical history of Parkinson's who presents with concern for seizure-like activity. Reported that the patient was sitting outside of his apartment when a friend that was sitting with him reports that he brought his hands into the air and had 3 [id number] seizures. They report that he slowly returned to baseline following this. No history of seizure-like activity. He says that he has felt warm recently. Denies any chest or abdominal pain. No sputum production. Denies any headache. Denies any numbness or tingling to his extremities. Related Data Home Medications Medication Instructions Recorded Confirmed apixaban 2.5 mg tablet (Eliquis) 2.5 mg PO BID Blood thinner 07/03/22 07/03/22 atorvastatin 40 mg tablet 40 mg PO DAILY Cholesterol 07/03/22 07/03/22 celecoxib 100 mg capsule 100 mg PO BID Arthritis 07/03/22 07/03/22 duloxetine 30 mg capsule,delayed 30 mg PO DAILY Mood 07/03/22 07/03/22 release ferrous sulfate 325 mg (65 mg 325 mg PO DAILY Supplement 07/03/22 07/03/22 iron) tablet (FeroSul) furosemide 40 mg tablet 40 mg PO BID Fluid 07/03/22 07/03/22 gabapentin 600 mg tablet 600 mg PO 5XDAY Pain 07/03/22 07/03/22 metformin 1,000 mg tablet 1,000 mg PO BID Diabetes 07/03/22 07/03/22 oxycodone-acetaminophen 7.5 mg-325 1 tab PO QID Pain 07/03/22 07/03/22 mg tablet pantoprazole 40 mg tablet,delayed 40 mg PO AM Acid reflux 07/03/22 07/03/22 release quetiapine 200 mg tablet 200 mg PO DAILY Mood 07/03/22 07/03/22 ropinirole 1 mg tablet 2 mg PO HS RLS 07/03/22 07/03/22 Allergies Allergy/AdvReac Type Severity Reaction Status Date / Time aspirin [ASPIRIN] Allergy Unknown S-DIFF. Verified 12/01/20 14:21 [facility] Disclaimer: The information contained in this section may have been updated after the patient was seen, as this information can be updated by other users. Social History Smoking Status: Current every day smoker alcohol intake: never substance use type: denies use current occupational status: retired Travel in the last 8 weeks: None housing: apartment ROS Obtained: Yes All systems reviewed & no additional complaints except as documented Physical Exam General General appearance: alert and in no apparent distress Head Head exam: atraumatic, normocephalic and normal inspection Eye Eye exam: Present normal appearance and PERRL ENT ENT exam: Present normal exam, mucous membranes moist and normal external ear exam Neck Neck exam: Present normal inspection and trachea midline Chest Chest inspection: Present normal inspection and symmetric chest wall rise Respiratory Respiratory exam: Present normal lung sounds bilaterally; Absent respiratory distress Cardiovascular Cardiovascular exam: Present regular rate and normal rhythm Abdominal Exam Abdominal exam: Present soft; Absent distention, tenderness or guarding Extremities Exam Extremities exam: Present normal inspection and other (Left lower extremity swelling); Absent edema Neurological Exam Neurological exam: Present alert and oriented X3 Psychiatric Psychiatric ex
--- NOTE | 2022-07-03 16:56 | PC.NURSE ---
pt given meal tray
[2022-07-03 17:03] LABS: Microscopic, Urine URINE MICROSCOPIC (MICROSCOPIC)
[2022-07-03 17:23] LABS: Appearance,Urine CLEAR (Clear); Bilirubin,Urine Negative (Negative); Blood, Urine Negative (Negative); Color,Urine YELLOW (Yellow); Glucose,Urine (UA) Negative (Negative); Ketones,Urine Negative (Negative); Leukocyte Esterase,Urine Negative (Negative); Nitrate,Urine Negative (Negative); PH,Urine 6.5 (5.0-8.5); Protein,Urine Negative (Negative); Urobilinogen,Urine 0.2 EU/dl (0.2)
[2022-07-03 17:43] LABS: Squamous Epithelial Cell,Urine Occasional #/hpf (0-5)
[2022-07-03 17:44] LABS: WBC,Urine Occasional #/hpf (0-3)
--- NOTE | 2022-07-03 17:57 | PC.NURSE ---
pt is resting in bed, tap suggs at bedside
[2022-07-03 18:33] LABS: Lactic Acid 1.5 mmol/L (0.7-2.1)
--- NOTE | 2022-07-03 18:45 | PC.NURSE ---
HS aware of admission
--- NOTE | 2022-07-03 18:47 | PC.NURSE ---
covid swab sent to lab
--- NOTE | 2022-07-03 18:49 | PC.NURSE ---
checked on pt no complaints at this time,tap suggs at bedside
[2022-07-03 18:52] LABS: Coronavirus 19, PCR Not Detected (NotDetected); Influenza A, PCR Not Detected (NotDetected); Influenza B, PCR Not Detected (NotDetected)
--- NOTE | 2022-07-03 19:09 | PC.NURSE ---
Report to Yumiko ROUSE
--- NOTE | 2022-07-03 19:09 | EXP.HP ---
History of Present Illness *Admission Date: 07/03/22 *Reason for visit:: Passed out *History of present illness: This is a 72-year-old male that presents to [facility] emergency department after passing out this afternoon. He reports a similar experience back in 2020. His past medical history significant for Parkinson's disease, peripheral vascular disease, diabetes and chronic kidney disease 3A. He reports chronic pain and is chronically prescribed opioids. Currently he reports do not know what happened. My legs hurt and I need my pain medicine. ED MD evaluated the patient for possible seizure with no identified tonic-clonic movements, postictal state or loss of bowel or bladder function. CT imaging of the head identified no acute disease. His labs are stable. ECG identified a normal QTc. Echo from 2019 identified EF 55%. [facility] Medical History (Updated 07/03/22 @ 20:09 by Butch Castaneda MD) Chronic kidney disease, stage 3a Chronic pain with drug dependence Depression Diabetes mellitus Parkinson disease Peripheral vascular disease Surgical History (Updated 07/03/22 @ 20:03 by Butch Castaneda MD) History of total left hip replacement S/P carpal tunnel release S/P cholecystectomy Family History (Updated 07/03/22 @ 20:03 by Butch Castaneda MD) Other Coronary artery disease Diabetes Social History (Updated 07/03/22 @ 20:03 by Butch Castaneda MD) Smoking Status: Current every day smoker years smoked: 55 quit status: not considering quitting alcohol intake: never substance use type: denies use current occupational status: retired Travel in the last 8 weeks: None housing: apartment Review of Systems Review of Systems Review of systems:: pertinent systems reviewed and negative unless documented below Constitutional Constitutional: Reports frequent falls and Denies headache(s) Eyes Eyes: Denies blurry vision and Denies change in vision ENT Ears, Nose, Mouth, and Throat: Reports dizziness, Denies headache(s) and Reports vertigo *Cardiovascular Cardiovascular: Denies chest pain, Denies chest pain at rest, Denies dyspnea, Denies edema, Denies irregular heart rhythm and Denies palpitations *Respiratory Respiratory: Denies dyspnea and Denies hemoptysis *Gastrointestinal Gastrointestinal: Denies loose stools, Denies nausea and Denies vomiting *Genitourinary Genitourinary: Denies dysuria *Musculoskeletal Musculoskeletal: Reports back pain, Reports limited range of motion and Reports myalgias *Neurologic Neurologic: Denies abnormal speech, Denies confusion, Reports dizziness, Reports frequent falls, Denies headache(s) and Reports vertigo Psychiatric Psychiatric: Denies confusion Endocrine Endocrine: Denies palpitations Meds Home Medications and Allergies Home Medications Medication Instructions Recorded Confirmed Type apixaban 2.5 mg tablet (Eliquis) 2.5 mg PO BID Blood thinner 07/03/22 07/03/22 History atorvastatin 40 mg tablet 40 mg PO DAILY Cholesterol 07/03/22 07/03/22 History celecoxib 100 mg capsule 100 mg PO BID Arthritis 07/03/22 07/03/22 History duloxetine 30 mg capsule,delayed 30 mg PO DAILY Mood 07/03/22 07/03/22 History release ferrous sulfate 325 mg (65 mg 325 mg PO DAILY Supplement 07/03/22 07/03/22 History iron) tablet (FeroSul) furosemide 40 mg tablet 40 mg PO BID Fluid 07/03/22 07/03/22 History gabapentin 600 mg tablet 600 mg PO 5XDAY Pain 07/03/22 07/03/22 History metformin 1,000 mg tablet 1,000 mg PO BID Diabetes 07/03/22 07/03/22 History oxycodone-acetaminophen 7.5 mg-325 1 tab PO QID Pain 07/03/22 07/03/22 History mg tablet pantoprazole 40 mg tablet,delayed 40 mg PO AM Acid reflux 07/03/22 07/03/22 History release quetiapine 200 mg tablet 200 mg PO DAILY Mood 07/03/22 07/03/22 History ropinirole 1 mg tablet 2 mg PO HS RLS 07/03/22 07/03/22 History New Prescriptions to Start Prescriptions: Allergies Allergy/AdvReac Type Severity Maribel
--- NOTE | 2022-07-03 19:10 | PC.NURSE ---
Pt called out. When at BS pt stated that he wanted his night time medications. RN made aware.
[2022-07-03 19:17] LABS: Barbiturates Screen,Urine Negative ng/ml (<200)
[2022-07-03 19:18] LABS: Benzodiazepines Screen,Urine Negative ng/ml (<200)
[2022-07-03 19:19] LABS: Amphetamine/Metha Screen,Urine Negative ng/ml (<1000); Cannabinoid Screen,Urine Negative ng/ml (<50)
[2022-07-03 19:20] LABS: Cocaine Screen,Urine Negative ng/ml (<300); Methadone Screen,Urine Negative ng/ml (<300)
--- NOTE | 2022-07-03 19:20 | PC.NURSE ---
Pt called out. He advised at this time he wanted to go home. PADMA Root to BS at this time.
[2022-07-03 19:21] LABS: Opiate Screen,Urine Negative ng/ml (<300)
[2022-07-03 19:22] LABS: Phencyclidine Screen,Urine Negative ng/ml (<25)
--- NOTE | 2022-07-03 19:32 | PC.NURSE ---
Pt. arrived to floor at this time.
[2022-07-03 20:48] LABS: POC Glucose,Bedside 151 (70-110)
[2022-07-04 04:00] VITALS: BP 128/64; PULSE 68; RESP 16; TEMP 36.8; O2SAT 98; BMI 25.2
[2022-07-04 05:17] LABS: POC Glucose,Bedside 98 (70-110)
[2022-07-04 06:47] LABS: Blood Urea Nitrogen 31 mg/dl (9-20); Calcium 9.3 mg/dl (8.4-10.2); Carbon Dioxide 30 mmol/L (22.0-30.0); Chloride 102 mmol/L (98-107); Creatinine Clearance Estimated 79 mL/min (50-200); Estimated Glomerular Filt Rate 73 ml/min (>60); GFR (African American) 89 ML/MIN (>60); Glucose 88 mg/dl (74-100); Magnesium 2.1 mg/dl (1.6-2.3); Sodium 140 mmol/L (136-145)
[2022-07-04 07:34] VITALS: BP 134/71; PULSE 65; RESP 18; TEMP 37.1; O2SAT 97
--- NOTE | 2022-07-04 08:15 | HMH.PHAINT1 ---
Pharmacy Intervention Comments: HOME MEDICATION LIST VERIFIED BY LIST FROM OUTSIDE PHARMACY.
[2022-07-04 08:42] LABS: Hemoglobin A1C 5.7 % (4.0-6.0)
--- NOTE | 2022-07-04 09:56 | HMH.OTEV ---
OT Inpatient Evaluation Rehab OT IP Evaluation Start: 07/04/22 09:00 Freq: ONCE Status: Active Protocol: Document 07/04/22 09:52 [facility] (Rec: 07/04/22 09:56 [facility] [id number]) Rehab OT IP Assessment Subjective History Pt oriented x 4 on arrival. Pt agreeable to engage in therapy evaluation. Pt is a 72 year old male who was admitted on 07/03/22 due to syncope episode. Prior to being in the hospital, pt lived at home alone. Pt reports he was independent with all ADLs and IADLs prior to being in the hopsital. Pt did use a rollator during functional transfers. Pt no longer drives; family would do his grocery shopping for him. Pt has a past medical history of: Chronic kidney disease, stage 3a Chronic pain with drug dependence Depression Diabetes mellitus Parkinson disease Peripheral vascular disease Subjective I can do whatever I need to. Objective Patient Orientation Person,Place,Birthday,Year Upper Extremity Gross ROM WFL Transfer Training Sit/Stand Transfer Assist Level Supervision/Stand by Chair Transfer Ability Supervision/Stand by Chair Transfer Technique Sit to/from Ambulatory Chair Transfer Assistive Devices Rolling Walker Lower Body Dressing Ability Standby Assistance Performing Toilet Hygiene Ability Standby Assistance Overall Commode/Toilet Transfer Ability Standby Assistance Commode/Toilet Transfer Technique Sit to/from Ambulatory Rehab OT IP prob,goals,plan Problems Date of Evaluation: 07/04/22 Rehab Potential Rehab Potential Innapropriate for Skilled Therapy Equipment Needs Assistive Devices Rolling / Wheeled Walker Discharge Plan OT Discharge Plan At this time, pt appears to be at his baseline with functional transfers and ADL independence. Pt can return home once medically stable per physician. Eval Complexity Eval Charge Codes
--- NOTE | 2022-07-04 10:12 | HMH.PTEV ---
Physical Therapy Evaluation Rehab PT IP Evaluation Start: 07/04/22 09:00 Freq: ONCE Status: Active Protocol: Document 07/04/22 10:07 [facility] (Rec: 07/04/22 10:12 [facility] [id number]) Subjective/History History History [address] [facility] with syncopal event. Hx of parkinson's disease, PAD, DM, CKD. He reports he is generally independent with all mobility using RW and he lives alone without steps to enter the home. Subjective Subjective Currently he has no c/o other than baseline generalized LE pain. Rehab PT IP Eval Objective Appearance Patient Behavior Appropriate Patient Orientation Person,Place,Time Difficulty following instructions none Speech Pattern Clear Ambulation Patient Able to Ambulate Yes Ambulation Observation IP General Gait Pattern Observation No Deviations/Normal Ambulation Distance (feet) 100 Ambulation Assistive Device Rolling Walker Ambulation Ability Independent Balance Ability to Arise Able, uses arms to help Sitting Balance Steady, safe Standing Balance Steady, wide stance Dynamic Sitting Balance Ability Good Dynamic Standing Balance Ability Good Transfers Bed Transfer Ability Independent Chair Transfer Ability Independent Sit to Stand Bed Transfer Ability Independent Sit to Stand Chair Transfer Ability Independent ROM All Extremities PT ROM Status WFL MMT All Extremities PT MMT WFL Rehab PT IP prob,goals,plan Problems Date of Evaluation: 07/04/22 Discharge Plan PT Discharge Plan Pt is currently at baseline for all mobility, no inpatient therapy needs, he is appropriate to return home once medically stable. G -code Required No Eval Complexity Eval Charge Codes 42603 - Moderate Complexity PHYSICIAN CERTIFICATION: I certify the specified therapy services for Alan Krueger are required, authorized, and reviewed every 30 days.
--- NOTE | 2022-07-04 11:31 | EXP.DC.SUM ---
General Admission date:: 07/03/22 Discharge date: 07/04/22 HPI HPI HPI: This is a 72-year-old male that presents to [facility] emergency department after passing out this afternoon. He reports a similar experience back in 2020. His past medical history significant for Parkinson's disease, peripheral vascular disease, diabetes and chronic kidney disease 3A. He reports chronic pain and is chronically prescribed opioids. Currently he reports do not know what happened. My legs hurt and I need my pain medicine. ED MD evaluated the patient for possible seizure with no identified tonic-clonic movements, postictal state or loss of bowel or bladder function. CT imaging of the head identified no acute disease. His labs are stable. ECG identified a normal QTc. Echo from 2019 identified EF 55%. Hospital Course Hospital Course Hospital Course: 72-year-old male with history of chronic pain on chronic opioid therapy with concerns for seizure versus syncopal episode.? Prior hospital admissions for similar episodes noted.? Problems addressed as follows: Episode of syncope Parkinson's disease Chronic opioid therapy Admitted for observation. Monitored on telemetry. Orthostatic blood pressures obtained, no hypotension. EKG was obtained with normal QTc. CT of head with no acute abnormalities or signs of stroke. PT and OT evaluated patient, he is at baseline function and ambulatory. Monitored overnight. No further episodes. Given his creatinine was 1.3 on admission and BUN was elevated, suspect he was dry and had an event due to mild dehydration. Responded well to fluids and tolerating p.o. intake. Kidney function normalized by day of discharge. Recommend follow-up with PCP in the coming weeks for further evaluation. Patient's diuretic was held at discharge. Diabetes Routine blood sugar monitoring. A1c 5.7 on admission. Diabetic diet initiated. Continued home metformin. No issues during admission Peripheral vascular disease Continued home Eliquis and statin. Received ropinirole nightly for restless leg. Chronic kidney disease stage IIIa Baseline creatinine 1, patient was 1.3 on admission. Improved with fluids and monitoring. 1.0 on day of discharge. Caution with nephrotoxins. Stable for discharge home. Recommend close follow-up with reevaluation of medication regimen Exam Data for Last 24 hours Vital signs and Labs for Last 24 Hours: Temp Pulse Resp BP Pulse Ox 98.8 F 65 18 134/71 97 07/04/22 07:34 07/04/22 07:34 07/04/22 07:34 07/04/22 07:34 07/04/22 07:34 Laboratory Results - last 24 hr 07/03/22 15:45: WBC 9.6, RBC 4.19 L, Hgb 14.5, Hct 45.6, MCV 108.8 H, MCH 34.7 H, MCHC 31.8, RDW 13.5, Plt Count 238, MPV 8.4, Neut % (Auto) 63.3, Lymph % (Auto) 29.7, Park % (Auto) 4.8, Eos % (Auto) 1.9, Baso % (Auto) 0.3, Neut # (Auto) 6.1, Lymph # (Auto) 2.9, Park # (Auto) 0.5, Eos # (Auto) 0.2, Baso # (Auto) 0.0 07/03/22 15:45: Sodium 142, Potassium 4.3, Chloride 98, Carbon Dioxide 33 H, Anion Gap 15.3 H, BUN 36 H, Creatinine 1.30 H, Estimated Creat Clear 71, Estimated GFR 54 L, Est GFR ( Amer) 65, Glucose 153 H, Calcium 9.6, Total Bilirubin 0.3, AST 32, ALT 20, Alkaline Phosphatase 82, C-Reactive Protein 0.6, Total Protein 6.6, Albumin 4.1, Globulin 2.5, Albumin/Globulin Ratio 1.6 07/03/22 16:50: Urine Color Yellow, Urine Appearance Clear, Urine pH 6.5, Ur Specific Breeding 1.010, Urine Protein Negative, Urine Glucose (UA) Negative, Urine Ketones Negative, Urine Blood Negative, Urine Nitrate Negative, Urine Bilirubin Negative, Urine Urobilinogen 0.2, Ur Leukocyte Esterase Negative, Urine RBC None, Urine WBC Occasional, Ur Squamous Epith Cells Occasional, Urine Bacteria None 07/03/22 16:50: Urine Opiates Screen Negative, Urine Methadone Screen Negative, Ur Barbituates Screen Negative, Ur Phencyclidine Scrn Negative, Ur Amphetamines Screen Negative, U Benzodiazepines Scrn Negative, Urine Cocaine Screen Negative,
[2022-07-04 11:36] LABS: POC Glucose,Bedside 93 (70-110)
--- NOTE | 2022-07-04 11:58 | HMH.PHAINT1 ---
Pharmacy Intervention Comments: DISCHARGE MEDICATION COUNSELING PROVIDED. DISCUSSED CHANGE ON THE FUROSEMIDE FROM TWICE DAILY TO DAILY. PATIENT VERBALIZED UNDERSTANDING AND NO QUESTIONS AT THIS TIME.
[2022-07-04 12:00] VITALS: BP 119/66; PULSE 71; RESP 20; TEMP 36.6; O2SAT 97
--- NOTE | 2022-07-06 13:02 | CARE MANAGER ---
Attempted to contact patient related to hospital discharge x2 and left message.
== END 2022-07-04 12:34 | disposition home or self-care (01) ==
LOC: ER 16:06 → 2ND 19:29
PROVIDERS: Admitting Provider Family Medicine; Emergency Provider Student in an Organized Health Care Education/Training Program; PCP Internal Medicine Adolescent Medicine; Visit Provider Family Medicine
DX: R55 Syncope and collapse (principal); F17.210 Nicotine dependence, cigarettes, uncomplicated; Z79.899 Other long term (current) drug therapy; Z79.84 Long term (current) use of oral hypoglycemic drugs; Z79.01 Long term (current) use of anticoagulants; G20 Parkinson's disease; G89.29 Other chronic pain; E11.9 Type 2 diabetes mellitus without complications; N18.31 Chronic kidney disease, stage 3a; Z20.822 Contact with and (suspected) exposure to COVID-19
CPT/HCPCS: G0378; 36415; 70450; 71045; 80048; 80053; 80305; 81001; 82962; 83036; 83605; 83735; 85025; 86140; 87635; 87636; 93005; 97162; 97165; 99285; C9803; J1953; U0003; U0005

== ENCOUNTER → 2022-07-26 09:43 | Outpatient (CLI) | payer MEDICARE, SELFPAY ==
--- NOTE | 2022-07-26 09:45 | CA_ITS ---
FINAL REPORT CLINICAL HISTORY: SYNCOPE FINDINGS: RIGHT CAROTID: CCA PSV -84-93 cm/sec ICA PSV 71-120.8 cm/sec ICA/CCA PSV ratio 1.3 Comments: Mild plaque disease is noted. LEFTCAROTID: CCA PSV 67 - 71.6. cm/sec ICA PSV 70.6- 112.3. cm/sec ICA/CCA PSV ratio 1.6 Comments: Mild plaque disease is noted. Antegrade flow is seen within the vertebral arteries. IMPRESSION: No evidence of hemodynamically significant stenosis. Findings compatible with less than 50% stenosis bilaterally. Reviewed, Interpreted and Dictated by Jane Foreman MD Transcribed by Mecca Xiao Authenticated and [facility]
== END ==
PROVIDERS: PCP Nurse Practitioner Family; Visit Provider Nurse Practitioner Family
DX: R55 Syncope and collapse (principal)
CPT/HCPCS: 93880

== ENCOUNTER → 2022-08-16 11:04 | Outpatient (CLI) | payer MEDICARE, SELFPAY ==
--- NOTE | 2022-08-16 11:30 | ECG_ITS ---
APPROVED REPORT Exam: Resting ECG HR:67 bpm ECG Measurements Heart Rate 67 AXES [place] 236 P 58 QRSd 157 QRS -21 QT 439 T 120 QTc 454 Conclusion SINUS RHYTHM WITH FIRST DEGREE AV BLOCK WITH OCCASIONAL SUPRAVENTRICULAR PREMATURE COMPLEXES LEFT BUNDLE BRANCH BLOCK [120+ ms QRS DURATION, 80+ ms Q/S IN V1/V2, 85+ ms R IN I/aVL/V5/V6] ABNORMAL ECG UNCONFIRMED REPORT Electronically signed by : Abel Parker MD 08/25/2022 21:19:34
[2022-08-16 13:19] LABS: Thyroid Stimulating Hormone 1.67 uIU/mL (0.465-4.68)
--- NOTE | 2022-08-16 13:45 | CA_ITS ---
FINAL REPORT TECHNIQUE: Ultrasound images of the deep venous system were obtained from the left groin to the calf veins. CLINICAL HISTORY: eval for dvt, EDEMA, PT ON ELIQUIS, + SMOKER 11/19/19 LLE DVT CFV, SFV, POP vein. Edema in Left Leg > 1 year. FINDINGS: The deep venous system is normally compressible. Normal flow is identified. IMPRESSION: No evidence of left lower extremity DVT. Reviewed, Interpreted and Dictated by Obie Del Real III, MD Transcribed by Brett Peoples Authenticated and [facility]
[2022-08-16 13:54] LABS: Vitamin B12 681 pg/mL (239-931)
[2022-08-16 13:58] LABS: Folate > 20.00 ng/mL
[2022-08-16 15:34] LABS: Ferritin 51.7 ng/ml (17.9-464)
== END ==
PROVIDERS: PCP Nurse Practitioner Family; Visit Provider Nurse Practitioner Family
DX: R55 Syncope and collapse (principal); E11.9 Type 2 diabetes mellitus without complications; N18.31 Chronic kidney disease, stage 3a; M79.89 Other specified soft tissue disorders; Z79.84 Long term (current) use of oral hypoglycemic drugs
CPT/HCPCS: 36415; 82607; 82728; 82746; 84443; 93005; 93225; 93226; 93971

== ENCOUNTER → 2022-08-26 09:29 | Outpatient (CLI) | payer MEDICARE, SELFPAY ==
--- NOTE | 2022-08-26 09:29 | MR_ITS ---
FINAL REPORT CLINICAL HISTORY: eval 4 mets, atrophy, ischemia, cva 19 ML PROHANCE GIVEN FINDINGS: Multiplanar MR imaging of the brain was performed without and with contrast. There is mild age-appropriate atrophy. Scattered foci of increased T2 signal are seen in the cerebral white matter that have a nonspecific appearance but likely represent mild chronic ischemic/gliotic changes. There is no evidence of intracranial hemorrhage or mass. No abnormal ventricular dilatation is identified. There is no evidence of shift of the midline structures. No abnormal extra-axial fluid collection is seen. No area of abnormal restricted diffusion is identified. The posterior fossa and brainstem have an unremarkable appearance. No abnormal contrast enhancement is seen. Normal major vessel vascular flow voids are seen. Retention cyst or polyps are seen in the maxillary sinuses IMPRESSION: Mild atrophy and chronic ischemic/gliotic changes. No acute intracranial abnormality. Reviewed, Interpreted and Dictated by Obie Del Real III, MD Transcribed by Jeanine Pate Authenticated and [facility][1]
[2022-08-26 10:40] LABS: Blood Urea Nitrogen 28 mg/dl (9-20); Estimated Glomerular Filt Rate 54 ml/min (>60); GFR (African American) 65 ML/MIN (>60)
== END ==
LOC: RAD 09:29
PROVIDERS: PCP Nurse Practitioner Family; Visit Provider Nurse Practitioner Family
DX: R55 Syncope and collapse (principal); Z85.828 Personal history of other malignant neoplasm of skin
CPT/HCPCS: 36415; 70553; 82565; 84520; A9576

== ENCOUNTER 2022-08-29 04:29 | Emergency (ER) | payer MEDICARE, SELFPAY ==
[2022-08-29 04:30] VITALS: BP 161/84; PULSE 96; RESP 18; TEMP 37.4; O2SAT 94; BMI 27.0
[2022-08-29 04:48] VITALS: BMI 27.0
--- NOTE | 2022-08-29 04:49 | CT_ITS ---
PROCEDURE INFORMATION: Exam: CT Abdomen And Pelvis With Contrast Exam date and time: 08/29/2022 5:18 AM Age: 72 years old Clinical indication: Abdominal pain; Additional info: Abd pain TECHNIQUE: Imaging protocol: Computed tomography of the abdomen and pelvis with contrast. Radiation optimization: All CT scans at this facility use at least one of these dose optimization techniques: automated exposure control; mA and/or kV adjustment per patient size (includes targeted exams where dose is matched to clinical indication); or iterative reconstruction. Contrast material: ISOVUE; Contrast volume: 75 ml; Contrast route: IV; REPORTING DATA: Count of CT and Cardiac NM exams in prior 12 months: This patient has received 3 known CTs and 0 known cardiac nuclear medicine studies in the 12 months prior to the current study. COMPARISON: CR XR HIP RT 2-3V W/PELVIS 12/01/2020 1:43 PM FINDINGS: Lungs: Lingular atelectasis or fibrosis and gravity dependent subpleural ground-glass interstitial change is noted in the lower lobes. Mediastinal space: There is mild mural thickening of the visualized portion of the distal esophagus with slight distention just above the gastroesophageal junction. Please correlate endoscopically or fluoroscopically. Liver: Normal. No mass. Gallbladder and bile ducts: Surgical clips are noted in the gallbladder fossa compatible with a prior cholecystectomy. Pancreas: Normal. No ductal dilation. Spleen: Numerous tiny calcific granulomas are noted within the spleen. Adrenal glands: A too small to characterize 6 x 5 mm hypodense right adrenal nodule is noted. There may be a 7 x 8 mm left adrenal nodule, also too small to characterize. Kidneys and ureters: The kidneys enhance symmetrically and there is no hydronephrosis. The left kidney is diminutive with multifocal scarring and a punctate nonobstructing calculus near the lower pole. Tiny exophytic cortical cysts arise from lateral aspect of the left kidney measuring up to 11 x 12 mm for which no further imaging follow-up is necessary. Stomach and bowel: There is moderate to large stool noted throughout the colon with scattered diverticula noted. Appendix: No evidence of appendicitis. Intraperitoneal space: There is small ascites noted in the pelvis. Vasculature: Unremarkable. No abdominal aortic aneurysm. Lymph nodes: Shotty subcentimeter retroperitoneal lymph nodes are noted, nonspecific. No enlarged lymph nodes. Urinary bladder: The urinary bladder is moderately distended. Reproductive: The prostate is obscured by beam hardening artifact related to indwelling metallic orthopedic hardware. Bones/joints: The patient is post right total hip arthroplasty and internal fixation left proximal femur. Degenerative changes are noted bone. No acute fracture. Soft tissues: Unremarkable. IMPRESSION: Constipation. Colonic diverticulosis. Small ascites. Left renal atrophy, cortical scarring, nonobstructing nephrolithiasis, tiny cysts. Query subcentimeter adrenal nodules, too small to accurately characterize. Granulomatous disease, spleen. Query mild mural thickening/distention of the distal esophagus. Please correlate endoscopically or fluoroscopically with the esophagram.
[2022-08-29 04:55] LABS: Microscopic, Urine URINE MICROSCOPIC (MICROSCOPIC)
[2022-08-29 04:56] LABS: Basophils % 0.4 % (0.1-2.0); Eosinophils # 0.1 K/mm3 (0.0-0.4); Eosinophils % 1.2 % (0.1-12.0); Hemoglobin 13.8 g/dL (14.1-18.0); Lymphocytes # 2.4 K/mm3 (0.7-4.5); Lymphocytes % 22.4 % (10-50); Mean Corpuscular HGB Conc 30.7 g/dL (31.8-35.4); Mean Corpuscular Hemoglobin 31.4 pg (27.0-31.2); Mean Corpuscular Volume 102.2 fl (80-94); Mean Platelet Volume 8.5 fl (7.4-10.4); Monocytes # 0.5 K/mm3 (0.1-1.0); Monocytes % 4.8 % (1.7-9.3); Neutrophils # 7.4 K/mm3 (1.8-7.8); Neutrophils % 71.2 % (37.0-80.0); Platelet Count 272 K/mm3 (142-424); Red Blood Count 4.41 M/mm3 (4.60-6.20); Red Cell Distribution Width 14.2 % (11.5-17.5); White Blood Count 10.5 K/mm3 (4.8-10.8)
[2022-08-29 05:02] LABS: Appearance,Urine SL CLOUDY (Clear); Bilirubin,Urine Negative (Negative); Blood, Urine Negative (Negative); Color,Urine YELLOW (Yellow); Glucose,Urine (UA) Negative (Negative); Ketones,Urine Negative (Negative); Leukocyte Esterase,Urine Negative (Negative); Nitrate,Urine Negative (Negative); Occult Blood,Stool Positive (Negative); Protein,Urine Negative (Negative); Urobilinogen,Urine 0.2 EU/dl (0.2)
[2022-08-29 05:03] LABS: Alanine Aminotransferase 27 U/L (12-78); Albumin Level 4.1 g/dl (3.5-5.0); Albumin/Globulin Ratio 1.4 (1.1-1.8); Alkaline Phosphatase 87 U/L (38-126); Amylase 52 U/L (30-110); Anion Gap 12.4 mEq/L (5-15); Aspartate Amino Transferase 41 U/L (17-59); Bilirubin,Total 0.4 mg/dl (0.2-1.3); Blood Urea Nitrogen 24 mg/dl (9-20); Calcium 9.6 mg/dl (8.4-10.2); Carbon Dioxide 30 mmol/L (22.0-30.0); Chloride 104 mmol/L (98-107); Creatinine Clearance Estimated 67 mL/min (50-200); Estimated Glomerular Filt Rate 54 ml/min (>60); GFR (African American) 65 ML/MIN (>60); Glucose 151 mg/dl (74-100); Lipase 47 U/L (23-300); Potassium 4.4 mmoL/L (3.5-5.1); Sodium 142 mmol/L (136-145); Total Protein,Serum 7.1 g/dl (6.3-8.2)
[2022-08-29 05:12] LABS: Lactic Acid 2.4 mmol/L (0.7-2.1)
--- NOTE | 2022-08-29 05:15 | HMH.EDABDPAI ---
Discharge Plan Disposition Patient Disposition: Home, Self-Care Prescriptions Prescriptions: No Action atorvastatin 40 mg tablet 40 mg PO DAILY gabapentin 600 mg tablet 600 mg PO 5XDAY ropinirole 1 mg tablet 3 mg PO HS quetiapine 200 mg tablet 200 mg PO DAILY pantoprazole 40 mg tablet,delayed release (DR/EC) 40 mg PO BID ferrous sulfate [FeroSul] 325 mg (65 mg iron) tablet 325 mg PO BID metformin 1,000 mg tablet 1,000 mg PO BID oxycodone-acetaminophen 7.5-325 mg tablet 1 tab PO QID celecoxib 100 mg capsule 100 mg PO BID duloxetine 30 mg capsule,delayed release(DR/EC) 30 mg PO BID Eliquis 2.5 mg tablet 2.5 mg PO BID furosemide 40 mg tablet 40 mg PO DAILY 30 Days Qty: 0 0RF Referrals Follow up/Referrals: Andria Ryan APRN [Primary Care Provider] - See instructions Clinical Impressions Clinical Impression: PRB (rectal bleeding), Constipation, External hemorrhoids Instructions Patient Instructions: DI for Constipation Discharge ED Provider: Anahi (ED)Dwight Abdominal Pain HPI General Chief Complaint: Abdominal Pain Stated Complaint: abdominal pain Time Seen by Provider: 08/29/22 05:00 Mode of Arrival: Ambulatory Source of Information: Patient and Medical Record Limitations: No Limitations Description of Symptoms (Recalled from ER Triage Doc. by RN): pt c/o abd pain with constipation x 8 days but this am began having bright red blood from rectum. History of Present Illness HPI narrative: pt with feeling of abd pain and constipation magno - complaint: abdominal pain Onset (ago): day(s) Consistency: intermittent Severity: moderate Associated symptoms: denies other symptoms Related Data Home Medications Medication Instructions Recorded Confirmed apixaban 2.5 mg tablet (Eliquis) 2.5 mg PO BID Blood thinner/hx DVT 07/03/22 08/29/22 atorvastatin 40 mg tablet 40 mg PO DAILY Cholesterol 07/03/22 08/29/22 celecoxib 100 mg capsule 100 mg PO BID Arthritis 07/03/22 08/29/22 duloxetine 30 mg capsule,delayed 30 mg PO BID Mood 07/03/22 08/29/22 release ferrous sulfate 325 mg (65 mg 325 mg PO BID Supplement 07/03/22 08/29/22 iron) tablet (FeroSul) gabapentin 600 mg tablet 600 mg PO 5XDAY Pain 07/03/22 08/29/22 metformin 1,000 mg tablet 1,000 mg PO BID Diabetes 07/03/22 08/29/22 oxycodone-acetaminophen 7.5 mg-325 1 tab PO QID Pain 07/03/22 08/29/22 mg tablet pantoprazole 40 mg tablet,delayed 40 mg PO BID Acid reflux 07/03/22 08/29/22 release quetiapine 200 mg tablet 200 mg PO DAILY Mood 07/03/22 08/29/22 ropinirole 1 mg tablet 3 mg PO HS Restless leg syndrome 07/03/22 08/29/22 Previous Rx's Medication Instructions Recorded furosemide 40 mg tablet 40 mg PO DAILY Fluid 30 days #0 07/04/22 tabs Allergies Allergy/AdvReac Type Severity Reaction Status Date / Time aspirin [ASPIRIN] Allergy Unknown S-DIFF. Verified 08/16/22 09:14 [facility] Disclaimer: The information contained in this section may have been updated after the patient was seen, as this information can be updated by other users. Medical History (Updated 08/29/22 @ 06:25 by Dwight Christian MD (ED)) Chronic kidney disease, stage 3a Chronic pain with drug dependence Clavicular fracture Depression Diabetes mellitus Fall at home History of DVT of lower extremity Parkinson disease Peripheral vascular disease Rib fractures Surgical History (Updated 07/03/22 @ 20:03 by Butch Castaneda MD) History of total left hip replacement S/P carpal tunnel release S/P cholecystectomy Family History (Updated 07/03/22 @ 20:03 by Butch Castaneda MD) Other Coronary artery disease Diabetes Social History (Updated 08/16/22 @ 09:16 by Bambi Bolden) Smoking Status: Current every day smoker tobacco type: cigars years smoked: 55 quit status: not considering quitting alcohol intake: never substance use type: denies use
[2022-08-29 05:18] LABS: Amorphous Sediment,Urine 1+ /lpf; Bacteria,Urine 2+ /lpf
[2022-08-29 05:22] LABS: Procalcitonin 0.083 ng/mL (0.0-2.0)
[2022-08-29 05:30] VITALS: BP 143/70; PULSE 78; RESP 16; O2SAT 95
--- NOTE | 2022-08-29 05:32 | PC.NURSE ---
Dr. Christian at
[2022-08-29 05:46] LABS: Erythrocyte Sedimentation Rate 18 mm/hr (0-20)
[2022-08-29 06:12] VITALS: BP 161/81; PULSE 74; RESP 16; TEMP 37.1; O2SAT 96
--- NOTE | 2022-08-29 06:23 | PC.NURSE ---
contacted pt's daughter to notified that pt is ready for discharge.
[2022-08-29 08:53] LABS: Reflex Lactic Add Lactic Reflex
== END 2022-08-29 06:49 | disposition home or self-care (01) ==
PROVIDERS: Emergency Provider Emergency Medicine; PCP Nurse Practitioner Family
DX: R10.9 Unspecified abdominal pain (principal); K59.00 Constipation, unspecified; K64.4 Residual hemorrhoidal skin tags; E11.22 Type 2 diabetes mellitus with diabetic chronic kidney disease; E11.51 Type 2 diabetes mellitus with diabetic peripheral angiopathy without gangrene; G20 Parkinson's disease; F32.A Depression, unspecified; F17.290 Nicotine dependence, other tobacco product, uncomplicated
CPT/HCPCS: 74177; 80053; 81001; 82150; 82272; 83605; 83690; 84145; 85025; 85651; 86140; 87086; 96361; 96374; 96375; 99284; 99285; G0328; J2405; Q9967

== ENCOUNTER → 2022-10-12 14:55 | Outpatient (CLI) | payer MEDICARE, SELFPAY | PROVIDERS: PCP Internal Medicine Adolescent Medicine; Visit Provider Nurse Practitioner Family | DX: R06.02 Shortness of breath (principal) | CPT/HCPCS: 94762 ==

== ENCOUNTER 2022-10-22 18:01 | Inpatient (IN) | payer MEDICARE, SELFPAY ==
[2022-10-22] VITALS (28 sets, daily range): BP systolic 94–154; BP diastolic 43–99; PULSE 27–101; RESP 14–24; TEMP 36.7–36.8; O2SAT 90–100; BMI 25.7
--- NOTE | 2022-10-22 | ECG_ITS ---
APPROVED REPORT Exam: Resting ECG HR:97 bpm ECG Measurements Heart Rate 97 AXES CA 218 P -52 QRSd 154 QRS -48 QT 419 T 106 QTc 474 Conclusion SINUS RHYTHM WITH FIRST DEGREE AV BLOCK INTRAVENTRICULAR CONDUCTION DELAY [130+ ms QRS DURATION] ABNORMAL ECG UNCONFIRMED REPORT Electronically signed by : Abel Parker MD 10/24/2022 15:52:21
--- NOTE | 2022-10-22 18:01 | XR_ITS ---
PROCEDURE INFORMATION: Exam: XR Chest Exam date and time: 10/22/22 06:03 PM Age: 72 years old Clinical indication: Dyspnea TECHNIQUE: Imaging protocol: Radiologic exam of the chest. Views: 1 view. COMPARISON: CR XR CHEST PORTABLE 07/03/22 04:32 PM FINDINGS: Lungs: Unremarkable. No consolidation. Pleural spaces: Unremarkable. No pleural effusion. No pneumothorax. Heart/Mediastinum: Unremarkable. No cardiomegaly. Bones/joints: Unremarkable. IMPRESSION: No acute findings.
--- NOTE | 2022-10-22 18:05 | PC.NURSE ---
Dr. Craft paged. Advised Dr. Craft was not web production designer. Attempted to page Dr. Boucher who is web production designer for cardiology received no answer. I advised registration to continue trying to page [facility]
--- NOTE | 2022-10-22 18:08 | PC.NURSE ---
RAD At for CXR
--- NOTE | 2022-10-22 18:11 | ECG_ITS ---
APPROVED REPORT Exam: Resting ECG HR:39 bpm ECG Measurements Heart Rate 39 AXES QRSd 126 QRS 119 QT 450 T 148 QTc 376 Conclusion SINUS RHYTHM WITH HIGH GRADE AV BLOCK POSSIBLE RIGHT VENTRICULAR HYPERTROPHY [SOME/ALL OF: PROMINENT R IN V1, LATE TRANSITION, RAD, SIL, SSS] ST DEVIATION AND MODERATE T-WAVE ABNORMALITY, CONSIDER ANTEROLATERAL ISCHEMIA [-0.1+ mV T-WAVE IN V3-V6] CRITICAL TEST RESULT UNCONFIRMED REPORT Electronically signed by : Abel Parker MD 10/24/2022 15:53:02
--- NOTE | 2022-10-22 18:17 | HMH.EDGENADL ---
Discharge Plan Disposition Patient Disposition: Admitted Prescriptions Prescriptions: No Action atorvastatin 40 mg tablet 40 mg PO DAILY gabapentin 600 mg tablet 600 mg PO 5XDAY ropinirole 1 mg tablet 3 mg PO HS quetiapine 200 mg tablet 200 mg PO DAILY pantoprazole 40 mg tablet,delayed release (DR/EC) 40 mg PO BID ferrous sulfate [FeroSul] 325 mg (65 mg iron) tablet 325 mg PO BID metformin 1,000 mg tablet 1,000 mg PO BID oxycodone-acetaminophen 7.5-325 mg tablet 1 tab PO QID celecoxib 100 mg capsule 100 mg PO BID duloxetine 30 mg capsule,delayed release(DR/EC) 30 mg PO BID Eliquis 2.5 mg tablet 2.5 mg PO BID furosemide 40 mg tablet 40 mg PO DAILY 30 Days Qty: 0 0RF Referrals Follow up/Referrals: Abel Parker MD [Primary Care Provider] - See instructions Clinical Impressions Clinical Impression: Third degree heart block, AV dissociation Discharge ED Provider: Florentino Marrufo General Adult HPI General Chief complaint: Fall Stated complaint: Bradycardic Time Seen by Provider: 10/22/22 18:11 Mode of Arrival: Ambulatory Source of Information: Patient and EMS Limitations: No Limitations Description of Symptoms (Recalled from ER Triage Doc. by RN): PT BROUGHT VIA EMS FOR FALL AT HOME STRIKING HIS HEAD. EMS REPORTS HR IN 40'S . PT ALERT AND ORIENTED. C/O HEADACHE AND LEFT SHOULDER PAIN History of Present Illness HPI narrative: Patient is a 72-year-old man brought in by EMS for being altered and disoriented. He complains of headache and may have fallen and hit his head at home. He has a known history of a left bundle branch block with a first-degree AV block and was found to be bradycardic by EMS in the 30s and 40s. They gave him atropine without any significant improvement and then had him on transcutaneous pacing which they claimed improved his symptoms to some extent. The patient's daughter is also at the bedside and she states that his mental status is worse than normal. No other preceding symptoms that we are aware of. From chart review has a history of chronic kidney disease but is not on any beta-blockers or calcium channel blockers that we are aware of. Related Data Home Medications Medication Instructions Recorded Confirmed apixaban 2.5 mg tablet (Eliquis) 2.5 mg PO BID Blood thinner/hx DVT 07/03/22 10/22/22 atorvastatin 40 mg tablet 40 mg PO DAILY Cholesterol 07/03/22 08/29/22 celecoxib 100 mg capsule 100 mg PO BID Arthritis 07/03/22 08/29/22 duloxetine 30 mg capsule,delayed 30 mg PO BID Mood 07/03/22 10/22/22 release ferrous sulfate 325 mg (65 mg 325 mg PO BID Supplement 07/03/22 10/22/22 iron) tablet (FeroSul) gabapentin 600 mg tablet 600 mg PO 5XDAY Pain 07/03/22 10/22/22 metformin 1,000 mg tablet 1,000 mg PO BID Diabetes 07/03/22 10/22/22 oxycodone-acetaminophen 7.5 mg-325 1 tab PO QID Pain 07/03/22 10/22/22 mg tablet pantoprazole 40 mg tablet,delayed 40 mg PO BID Acid reflux 07/03/22 10/22/22 release quetiapine 200 mg tablet 200 mg PO DAILY Mood 07/03/22 08/29/22 ropinirole 1 mg tablet 3 mg PO HS Restless leg syndrome 07/03/22 10/22/22 Previous Rx's Medication Instructions Recorded furosemide 40 mg tablet 40 mg PO DAILY Fluid 30 days #0 07/04/22 tabs Allergies Allergy/AdvReac Type Severity Reaction Status Date / Time aspirin [ASPIRIN] Allergy Unknown S-DIFF. Verified 08/16/22 09:14 [facility] Disclaimer: The information contained in this section may have been updated after the patient was seen, as this information can be updated by other users. Medical History (Updated 10/22/22 @ 18:23 by Florentino Marrufo MD) Chronic kidney disease, stage 3a Chronic pain with drug dependence Clavicular fracture Depression Diabetes mellitus Fall at home History of DVT of lower extremity Parkinson disease Peripheral vascular disease Rib fractures Surgical History (Updated
--- NOTE | 2022-10-22 18:18 | CT_ITS ---
PROCEDURE INFORMATION: Exam: CT Head Without Contrast Exam date and time: 10/22/22 06:28 PM Age: 72 years old Clinical indication: Altered mental status/memory loss; Additional info: Fall, AMS, on eliquis TECHNIQUE: Imaging protocol: Computed tomography of the head without contrast. Radiation optimization: All CT scans at this facility use at least one of these dose optimization techniques: automated exposure control; mA and/or kV adjustment per patient size (includes targeted exams where dose is matched to clinical indication); or iterative reconstruction. REPORTING DATA: Count of CT and Cardiac NM exams in prior 12 months: This patient has received 4 known CTs and 0 known cardiac nuclear medicine studies in the 12 months prior to the current study. COMPARISON: MR HEAD/BRAIN WO/W CON 08/26/22 10:51 AM FINDINGS: Brain: Normal. No hemorrhage. Unremarkable white matter. No mass effect. Cerebral ventricles: No ventriculomegaly. Paranasal sinuses: Visualized sinuses are unremarkable. No fluid levels. Mastoid air cells: Visualized mastoid air cells are well aerated. Bones/joints: Unremarkable. No acute fracture. Soft tissues: Unremarkable. IMPRESSION: No acute traumatic intracranial abnormality.
--- NOTE | 2022-10-22 18:19 | PC.NURSE ---
called respiratory to let them know we had a vbg on pt and it was in the lab
--- NOTE | 2022-10-22 18:22 | PC.NURSE ---
Pt gone to RAD via stretcher. Carroll Pedro with pt.
[2022-10-22 18:27] LABS: Chloride 108 mmol/L (98-107); Sodium 141 mmol/L (136-145)
[2022-10-22 18:28] LABS: Basophils % 0.2 % (0.1-2.0); Eosinophils # 0.1 K/mm3 (0.0-0.4); Eosinophils % 1.1 % (0.1-12.0); Hematocrit 51.1 % (42.0-52.0); Hemoglobin 15.7 g/dL (14.1-18.0); Lymphocytes % 18.1 % (10-50); Mean Corpuscular HGB Conc 30.7 g/dL (31.8-35.4); Mean Corpuscular Hemoglobin 31.4 pg (27.0-31.2); Mean Corpuscular Volume 102.4 fl (80-94); Mean Platelet Volume 8.1 fl (7.4-10.4); Monocytes # 0.6 K/mm3 (0.1-1.0); Neutrophils # 8.5 K/mm3 (1.8-7.8); Neutrophils % 75.6 % (37.0-80.0); Platelet Count 176 K/mm3 (142-424); Potassium 5.2 mmoL/L (3.5-5.1); Red Blood Count 4.99 M/mm3 (4.60-6.20); Red Cell Distribution Width 16.4 % (11.5-17.5); White Blood Count 11.2 K/mm3 (4.8-10.8)
[2022-10-22 18:30] LABS: Alanine Aminotransferase 20 U/L (12-78); Albumin Level 3.9 g/dl (3.5-5.0); Albumin/Globulin Ratio 1.5 (1.1-1.8); Alkaline Phosphatase 76 U/L (38-126); Anion Gap 11.2 mEq/L (5-15); Aspartate Amino Transferase 24 U/L (17-59); Bilirubin,Total 0.4 mg/dl (0.2-1.3); Blood Urea Nitrogen 39 mg/dl (9-20); Calcium 10.1 mg/dl (8.4-10.2); Carbon Dioxide 27 mmol/L (22.0-30.0); Creatinine Clearance Estimated 65 mL/min (50-200); Estimated Glomerular Filt Rate 59 ml/min (>60); GFR (African American) 72 ML/MIN (>60); Globulin 2.6 g/dL (1.3-3.2); Glucose 169 mg/dl (74-100); Total Protein,Serum 6.5 g/dl (6.3-8.2)
--- NOTE | 2022-10-22 18:30 | PC.NURSE ---
on phone with DR. Boucher
[2022-10-22 18:31] LABS: Magnesium 2.2 mg/dl (1.6-2.3)
--- NOTE | 2022-10-22 18:31 | PC.NURSE ---
PT RETURNED FROM CT
[2022-10-22 18:32] LABS: VBG Base Excess -0.9 mmol/L (-2.4-2.3); VBG HCO3 24.8 mmol/L (23-30); VBG Oxygen Saturation 59.2 % (50-70); VBG PCO2 47.1 mmol/L (35-51); VBG PH 7.34 mmol/L (7.31-7.41); VBG PO2 26.4 mmol/L (28-40); VBG Total CO2 26.3 mmol/L (23-27)
--- NOTE | 2022-10-22 18:37 | PC.NURSE ---
PHP WEB DEVELOPER NOTIFIED THAT PT WILL BE GOING TO POWER CHISEL OPERATOR AT 2029, WILL NOTIFY POWER CHISEL OPERATOR STAFF
--- NOTE | 2022-10-22 18:48 | PC.NURSE ---
NC applied RA was 93, 2L NC oxygen at 97. Family at bs aware
[2022-10-22 18:49] LABS: Troponin I < 0.01 ng/ml (0.00-0.034)
--- NOTE | 2022-10-22 18:49 | PC.NURSE ---
Pt changed into a gown, groin and wrists shaved, all belongings placed in pt bag and label placed on bag.
--- NOTE | 2022-10-22 18:59 | PC.NURSE ---
Dr. Marrufo speaking with Dr. Reza
--- NOTE | 2022-10-22 19:01 | PC.NURSE ---
on the phone with
--- NOTE | 2022-10-22 19:03 | PC.NURSE ---
BSSR from Tiera Mejia RN
--- NOTE | 2022-10-22 19:19 | IR_ITS ---
APPROVED REPORT [facility] Community Relations: BELKIS Dewitt RT (R) PROCEDURES Left heart cath with left ventriculogram Right radial artery access Right internal jugular vein cannulation Temporary pacemaker insertion INDICATION Patient was admitted with symptomatic complete heart block. Patient is not on any AV sreedhar ta agent or antiarrhythmic medicines., Patient's heart rate dropped to 20s with blood pressure 80s and patient was unresponsive., He was being paced transcutaneously., He was taken to Gauge Controller urgently for temporary pacemaker insertion followed by left heart cath., Abnormal EKG suggestive of ischemia SCAI INDICATION As above Informed consent was obtained prior to the procedure. COMPLICATIONS None Estimated Blood Loss: Less than 10 ML TECHNIQUE Right neck was prepped and draped. Right internal jugular venous access was obtained with ultrasound guidance. 5 Burmese sheath was inserted in the right intrajugular vein. Temporary pacemaker was inserted as per standard technique. Temporary pacemaker parameters were set. Normal functioning temporary pacemaker. One percent lidocaine used to anesthetize the right anterior aspect of the wrist. The right radial artery was accessed via the Seldinger technique. A 6 Burmese sheath was placed in the right radial artery. 200 mcg of nitroglycerin and 5000 U Heparin were given through the arterial sheath. The Trap catheter was also used to perform left heart catheterization and selective coronary angiogram. Left ventriculogram was performed with pigtail catheter. At the end of the procedure the sheath was removed good hemostasis was achieved using Traclet band, patient was transferred to the postop holding area in stable condition. ANGIOGRAPHIC RESULTS The left main artery Patent The left anterior descending artery Proximal 30% stenosis. Rest of the vessel and diagonal branches seem patent The circumflex artery Codominant and patent The right coronary artery Codominant. Proximal right coronary artery has 40 to 50% stenosis. The VIERA ventriculogram reveals 40 to 45% The left ventricular end-diastolic pressure 22 mmHg IMPRESSION Nonobstructive coronary artery disease Mild to moderate LV dysfunction Complete heart block Status post temporary pacemaker insertion PLAN 1. Aspirin and statin 2. Scheduled for permanent pacemaker tomorrow 3. Close ICU monitoring for now Electronically signed by : Umberto Boucher, 10/22/2022 21:37:34
--- NOTE | 2022-10-22 19:23 | PC.NURSE ---
Rounded on patient and family; patient is mentating A&O x4. Family instructed to notify staff if patient begins to become altered or is unresponsive to notify staff immediately.
--- NOTE | 2022-10-22 21:45 | XR_ITS ---
PROCEDURE INFORMATION: Exam: XR Chest Exam date and time: 10/22/22 10:07 PM Age: 72 years old Clinical indication: Device placement; Cardiac pacemaker lead placement or adjustment; Additional info: Post transcutaneous pm TECHNIQUE: Imaging protocol: Radiologic exam of the chest. Views: 1 view. COMPARISON: CR XR CHEST PORTABLE 10/22/22 06:03 PM FINDINGS: Tubes, catheters and devices: Right IJ triple-lumen catheter over the SVC. Lungs: Unremarkable. No consolidation. Pleural spaces: Unremarkable. No pleural effusion. No pneumothorax. Heart/Mediastinum: Unremarkable. No cardiomegaly. Bones/joints: Unremarkable. IMPRESSION: Right IJ triple-lumen catheter over the SVC.
[2022-10-22 22:59] LABS: Troponin I 0.03 ng/ml (0.00-0.034)
[2022-10-22 23:29] LABS: POC Glucose,Bedside 111 (70-110)
[2022-10-23] VITALS (31 sets, daily range): BP systolic 123–161; BP diastolic 57–82; PULSE 63–750; RESP 12–25; TEMP 36.3–36.8; O2SAT 92–100; BMI 27.7
--- NOTE | 2022-10-23 | CA_ITS ---
APPROVED REPORT EXAM: Comprehensive 2D, Doppler, and color-flow Echocardiogram Breaker Engineer: Adore Rock CRT Ht: 5 ft 10 in Wt: 197lbs BSA: 2.07 BP: 110/56 mmHg Indications: 3rd degree block, pre pacer/AICD M-Mode Dimensions RVDd 2.66 cm (0.9-2.6) LVDd 4.79 cm (3.5-5.7) LVDs 4.14 cm (3.5-5.7) IVSd 1.90 cm (0.6-1.1) PWd 1.18 cm (0.6-1.1) EF (Teich) 29.10% FS 13.60% EDV (Teich) 107.00 mL ESV (Teich) 75.90 mL Other Information Study Quality: Fair Conclusion This is a limited TTE to evaluate for LVEF and gross cardiac abnormalities in the setting of complete heart block prior to device implant. Grossly, the LV appears normal in size and function. There is increased LV wall thickness. The basal to mid septal LV lindsey appear hypokinetic relative to the remaining lindsey. LVEF is 55%. The RV appears normal in size and function. The left and right atria appear normal in size. The mitral valve and aortic valve are opening well. The tricuspid valve appears thin and pliable. The pulmonic valve is not visualized. Electronically signed by : Erika Dotson, 10/23/2022 17:35:39
[2022-10-23 02:20] LABS: Troponin I 0.03 ng/ml (0.00-0.034)
--- NOTE | 2022-10-23 03:54 | PC.NURSE ---
Late Entry: Patient become unresponsive at 20:02 with MD and nursing at bedside with 20 seconds of sinus pause. No chest compressions began. Patient came back to and was oriented. Patient placed on external pacing pads at 20ma and titrated up to 74ma for capture. Patient tolerating this mostly okay. Verbal order for 25mcg of Fentanyl and 1mg of Atropine administered-- see MAR. Patient VSS after pacing capture. Patient transported with documenting RN, Adult Daycare Coordinator, Cary ROUSE, and Yasmani ROUSE at 202910/22/2022 and handed off to Special Agent In Charge staff with referral rn present.
--- NOTE | 2022-10-23 08:38 | PC.NURSE ---
Telephone consent received from pt daughter Shanita sadler by Babita Eason and Gabrielle Rich [phone]
--- NOTE | 2022-10-23 09:02 | PC.NURSE ---
0850 pt left unit with Vincenzo Caceres RN for pacemaker insertion
--- NOTE | 2022-10-23 09:05 | IR_ITS ---
APPROVED REPORT Patient Location: Inpatient Screw Down: BELKIS Dewitt RT (R) PROCEDURES 1. Pocket formation for biventricular pacemaker generator with cardiac resynchronization/defibrillator therapy. 2. Placement of atrial sensing and pacing lead into the right atrial appendage. 3. Placement of a right ventricular sensing, pacing and shocking lead in the right ventricular apex. 4. Placement of left ventricular sensing pacing lead via the coronary sinus. 5. Permanent cardiac resynchronization therapy with ICD implantation/biventricular pacemaker. 6. Removal of temporary pacemaker. INDICATION Third degree AV block., Systolic congestive heart failure., Ejection fraction 30-35% Informed consent was obtained prior to the procedure. COMPLICATIONS None Estimated Blood Loss: Less than 10 ML TECHNIQUE 1% Lidocaine with epinephrine used to anesthetized the left anterior aspect of the chest. Scalpel was used to make the initial cutaneous incision while electrocautery was used to dissect down tinto the fascia. The fascia was lifted off the pectoralis muscle and digitally manipulated creating a pocket for the defibrillator. The patient was then placed in Trendelenburg position and the subclavian vein was accessed 3 times via the Selinger technique. A 8 [place] sheath was placed under fluoroscopic guidance into the subclavian vein. The dilator was removed from the sheath. Using fluoroscopic guidance, the ventricular lead was placed into the right ventricular apex, screwed and secured into place. Electronic interrogation proved acceptable thresholds and voltage within the lead. Using 3-0 silk, the ventricular lead was then secured into place and sheath peeled away. Following this, a 9.5 [place] sheath and dilator was then placed over one of the wires while keeping the other wire in place within the subclavian vein. The dilator was removed from the sheath. Using fluoroscopic guidance, contrast was used to visualize the coronary sinus, the left ventricular lead was placed into the coronary sinus. Electronic interrogation proved acceptable thresholds and voltage within the lead. Using 3-0 silk, the left ventricular lead was then secured into place and sheath peeled away.An additional 6 [place] fresh sheath and dilator was placed over the existing wire. Using fluoroscopic guidance, the atrial lead was then placed into the right atrial appendage and screwed and secured in place. Electrical interrogation demonstrated acceptable thresholds and voltage number. The atrial lead was then secured into place using 3-0 silk and sheath peeled away. 1 gram of Ancef was used to flush the pocket. All 3 leads were connected to generator and tested via computer. The defibrillator then secured to the fascia. Monocryl was used to close the subcutaneous layers while gurinder were used to close the cutaneous layer. Temporary pacemaker removed. 5 FR sheath removed and hemostasis achieved with manual compression. Dressing applied to site. A pressure dressing was placed and the patient was transferred to the postop holding area in stable condition for postoperative care. INTERROGATION Generator Model number: IKOR METERING HF [id number] EMBOSSOGRAPH OPERATOR-D Generator Serial number: [id number] Atrial lead model number: Tendril STS [id number] Atrial lead serial number: [id number] P-wave: 4.5 mV Impedence: 460 Ohms Threshold: 1.25V@0.5ms Right Ventricular lead model number: Optisure [id number] Right Ventricular lead serial number: [id number] R-wave: 11.8 mV Impedence: 530 Ohms Threshold: 0.5V @ 0.5ms Left Ventricular lead model number: Quartet [id number] Left Ventricular lead serial number: [id number] R-wave: Impedence: 1625 Ohms Threshold: 3.75V @ 1.5ms Shock Impedence: 40 Ohms Pacing Parameters:
--- NOTE | 2022-10-23 09:14 | DIET.NUTRFU ---
RD consulted secondary to jacinda score of 13, nutrition inadequate due to NPO. Will reassess as diet advances
--- NOTE | 2022-10-23 09:32 | EXP.ANES.CKL ---
[facility] Disclaimer: The information contained in this section may have been updated after the patient was seen, as this information can be updated by other users. Medical History Chronic kidney disease, stage 3a Chronic pain with drug dependence Clavicular fracture Depression Diabetes mellitus Fall at home History of DVT of lower extremity Parkinson disease Peripheral vascular disease Rib fractures Surgical History History of total left hip replacement S/P carpal tunnel release S/P cholecystectomy Family History (Updated 07/03/22 @ 20:03 by Butch Castaneda MD) Other Coronary artery disease Diabetes Social History (Updated 08/16/22 @ 09:16 by Bambi Bolden) Smoking Status: Current every day smoker tobacco type: cigars years smoked: 55 quit status: not considering quitting alcohol intake: never substance use type: denies use current occupational status: retired Travel in the last 8 weeks: None household members: other housing: apartment marital status: [facility] Anesthesia Checklist Patient Identification Patient Identification: Arm Band Structural Data Admitted From: Inpatient Planned Operative Procedure/s: Dual Chamber Pacemaker Consent for Planned Operative Procedure(s) Verified: Yes Verified Documents: Surgical Consent and History and Physical NPO Status Verified Time NPO: 00:00 Additional verifications Anesthesia Reactions: No Hx Blood Transfusions: No Blood Transfusion Reaction: No Airway Assessment Mallampati Score:: Class III C-Spine Mobility Assessed: Yes TMJ Mobility Assessed: Yes Dentition: Edentulous Neurological Assessment Level of Consciousness: Awake and Alert Anesthesia Plan Anesthesia Risk discussed: Yes Anesthesia Plan: Verified ASA Class: IV Anesthesia Type: MAC
--- NOTE | 2022-10-23 11:11 | XR_ITS ---
PROCEDURE INFORMATION: Exam: XR Chest Exam date and time: 10/23/2022 12:19 PM Age: 72 years old Clinical indication: Other: Confirm pacemaker; Additional info: Confirm pacemaker/aid placement TECHNIQUE: Imaging protocol: Radiologic exam of the chest. Views: 1 view. COMPARISON: CR XR CHEST PORTABLE 10/22/2022 10:07 PM FINDINGS: Tubes, catheters and devices: Transvenous pacemaker leads in the heart . Curvilinear device overlying the left ventricle is newly seen Lungs: No focal consolidation.. Pleural spaces: Unremarkable. No pleural effusion. No pneumothorax. Heart/Mediastinum: Unremarkable. No cardiomegaly. Bones/joints: Healed right rib fractures IMPRESSION: No focal consolidation..
--- NOTE | 2022-10-23 11:37 | EXP.HP ---
[facility] Disclaimer: The information contained in this section may have been updated after the patient was seen, as this information can be updated by other users. Medical History Chronic kidney disease, stage 3a Chronic pain with drug dependence Clavicular fracture Depression Diabetes mellitus Fall at home History of DVT of lower extremity Parkinson disease Peripheral vascular disease Rib fractures Surgical History History of total left hip replacement S/P carpal tunnel release S/P cholecystectomy Family History (Updated 07/03/22 @ 20:03 by Butch Castaneda MD) Other Coronary artery disease Diabetes Social History (Updated 08/16/22 @ 09:16 by Bambi Bolden) Smoking Status: Current every day smoker tobacco type: cigars years smoked: 55 quit status: not considering quitting alcohol intake: never substance use type: denies use current occupational status: retired Travel in the last 8 weeks: None household members: other housing: apartment marital status: Meds Home Medications and Allergies Home Medications Medication Instructions Recorded Confirmed Type apixaban 2.5 mg tablet (Eliquis) 2.5 mg PO BID Blood thinner/hx DVT 07/03/22 10/22/22 History atorvastatin 40 mg tablet 40 mg PO DAILY Cholesterol 07/03/22 10/22/22 History celecoxib 100 mg capsule 100 mg PO BID Arthritis 07/03/22 10/22/22 History duloxetine 30 mg capsule,delayed 30 mg PO BID Mood 07/03/22 10/22/22 History release ferrous sulfate 325 mg (65 mg 325 mg PO BID Supplement 07/03/22 10/22/22 History iron) tablet (FeroSul) gabapentin 600 mg tablet 600 mg PO 5XDAY Pain 07/03/22 10/22/22 History metformin 1,000 mg tablet 1,000 mg PO BID Diabetes 07/03/22 10/22/22 History oxycodone-acetaminophen 7.5 mg-325 1 tab PO QID Pain 07/03/22 10/22/22 History mg tablet pantoprazole 40 mg tablet,delayed 40 mg PO BID Acid reflux 07/03/22 10/22/22 History release quetiapine 200 mg tablet 200 mg PO DAILY Mood 07/03/22 10/22/22 History ropinirole 1 mg tablet 3 mg PO HS Restless leg syndrome 07/03/22 10/22/22 History furosemide 40 mg tablet 40 mg PO DAILY Fluid 30 days #0 07/04/22 10/22/22 Rx tabs New Prescriptions to Start Prescriptions: Allergies Allergy/AdvReac Type Severity Reaction Status Date / Time aspirin [ASPIRIN] Allergy Unknown S-DIFF. Verified 08/16/22 09:14 BREATHING Exam Data for Last 24 hours Vital signs and Labs for Last 24 Hours: Temp Pulse Resp BP Pulse Ox O2 Del Method O2 Flow Rate 97.9 F 71 18 137/64 94 L Nasal Cannula 2 10/23/22 11:05 10/23/22 11:15 10/23/22 11:15 10/23/22 11:15 10/23/22 11:15 10/23/22 11:15 10/23/22 11:15 Laboratory Results - last 24 hr 10/22/22 18:04: WBC 11.2 H, RBC 4.99, Hgb 15.7, Hct 51.1, MCV 102.4 H, MCH 31.4 H, MCHC 30.7 L, RDW 16.4, Plt Count 176, MPV 8.1, Neut % (Auto) 75.6, Lymph % (Auto) 18.1, [place] % (Auto) 5.0, Eos % (Auto) 1.1, Baso % (Auto) 0.2, Neut # (Auto) 8.5 H, Lymph # (Auto) 2.0, [place] # (Auto) 0.6, Eos # (Auto) 0.1, Baso # (Auto) 0.0, Sodium 141, Potassium 5.2 H, Chloride 108 H, Carbon Dioxide 27, Anion Gap 11.2, BUN 39 H, Creatinine 1.20, Estimated Creat Clear 65, Estimated GFR 59, Est GFR ( Amer) 72, Glucose 169 H, Calcium 10.1, Magnesium 2.2, Total Bilirubin 0.4, AST 24, ALT 20, Alkaline Phosphatase 76, Troponin I < 0.01, Total Protein 6.5, Albumin 3.9, Globulin 2.6, Albumin/Globulin Ratio 1.5 10/22/22 18:12: VBG pH 7.34, VBG pCO2 47.1, VBG pO2 26.4 L, VBG HCO3 24.8, VBG Total CO2 26.3, VBG O2 Saturation 59.2, VBG Base Excess -0.9 10/22/22 22:30: Troponin I 0.03 10/22/22 23:22: POC Glucose 111 H 10/23/22 01:20: Troponin I 0.03 I & O for Last 24 hours: Intake & Output 10/20/22 10/21/22 10/22/22 10/23/22 23:59 23:59 23:59 23:59 Intake Total 360 / 360 Output Total 2425 / 2425 Balance -2064 / -
[2022-10-23 13:15] LABS: POC Glucose,Bedside 120 (70-110)
--- NOTE | 2022-10-23 13:50 | EXP.HP ---
History of Present Illness *Admission Date: 10/23/22 *Reason for visit:: shortness of breath *History of present illness: Mr. Krueger is a 72 year old male with a past medical history of LBBB, 1st degree AV block, Parkinson's disease, peripheral vascular disease, diabetes mellitus, CKD stage 3a and chronic opioid therapy for chronic pain. The patient was brought in by EMS yesterday after being found to be altered and with HR in the 30s and 40s; EMS provided atropine without any significant improvement and then started transcutaneous pacing. EKG obtained in the ER revealed HR of 39 and a complete heart block. The patient was taken to quality lab technician and had a temporary pacemaker inserted and a left heart catheterization with left ventriculogram which revealed nonobstructive CAD and mild to moderate LV dysfunction Earlier this morning the patient had a biventricular pacemaker and ICD placed. Currently he is asymptomatic. He denies chest pain and shortness of breath. [facility] Disclaimer: The information contained in this section may have been updated after the patient was seen, as this information can be updated by other users. Medical History Chronic kidney disease, stage 3a Chronic pain with drug dependence Clavicular fracture Depression Diabetes mellitus Fall at home History of DVT of lower extremity Parkinson disease Peripheral vascular disease Rib fractures Surgical History History of total left hip replacement S/P carpal tunnel release S/P cholecystectomy Family History (Updated 07/03/22 @ 20:03 by Butch Castaneda MD) Other Coronary artery disease Diabetes Social History (Updated 08/16/22 @ 09:16 by Bambi Bolden) Smoking Status: Current every day smoker tobacco type: cigars years smoked: 55 quit status: not considering quitting alcohol intake: never substance use type: denies use current occupational status: retired Travel in the last 8 weeks: None household members: other housing: apartment marital status: Review of Systems Review of Systems Review of systems:: pertinent systems reviewed and negative unless documented below Meds Home Medications and Allergies Home Medications Medication Instructions Recorded Confirmed Type apixaban 2.5 mg tablet (Eliquis) 2.5 mg PO BID Blood thinner/hx DVT 07/03/22 10/22/22 History atorvastatin 40 mg tablet 40 mg PO HS Cholesterol 07/03/22 10/23/22 History celecoxib 100 mg capsule 100 mg PO BID Arthritis 07/03/22 10/22/22 History duloxetine 30 mg capsule,delayed 30 mg PO BID Mood 07/03/22 10/22/22 History release ferrous sulfate 325 mg (65 mg 325 mg PO BID Supplement 07/03/22 10/22/22 History iron) tablet (FeroSul) gabapentin 600 mg tablet 600 mg PO 5XDAY Pain 07/03/22 10/22/22 History metformin 1,000 mg tablet 1,000 mg PO BID Diabetes 07/03/22 10/22/22 History oxycodone-acetaminophen 7.5 mg-325 1 tab PO QID Pain 07/03/22 10/22/22 History mg tablet pantoprazole 40 mg tablet,delayed 40 mg PO BID Acid reflux 07/03/22 10/22/22 History release quetiapine 200 mg tablet 200 mg PO HS Mood 07/03/22 10/23/22 History ropinirole 1 mg tablet 3 mg PO HS Restless leg syndrome 07/03/22 10/22/22 History furosemide 40 mg tablet 40 mg PO DAILY Fluid 30 days #0 07/04/22 10/22/22 Rx tabs New Prescriptions to Start Prescriptions: Allergies Allergy/AdvReac Type Severity Reaction Status Date / Time aspirin [ASPIRIN] Allergy Unknown S-DIFF. Verified 08/16/22 09:14 BREATHING Exam Data for Last 24 hours Vital signs and Labs for Last 24 Hours: Temp Pulse Resp BP Pulse Ox O2 Del Method O2 Flow Rate 97.9 F 63 20 142/77 H 97 Room Air 2 10/23/22 11:05 10/23/22 13:00 10/23/22 13:00 10/23/22 13:00 10/23/22 13:00 10/23/22 13:00 10/23/22 11:30 Laboratory Results - last 24 hr 10/22/22 18:04: WBC 11.2 H, RBC
--- NOTE | 2022-10-23 14:05 | PC.NURSE ---
1554 spoke face to face with ar Moya to transfer pt out of ICU to [facility]
--- NOTE | 2022-10-23 14:09 | PC.NURSE ---
[address] Benjamin face to face to order pt nicotine patch as he smokes several cigars a day. also notified md that pt needed VTE order
--- NOTE | 2022-10-23 15:28 | PC.NURSE ---
Pt has been stable since returning from cath lab technologist this am. temp pacer site is cdi. pacer site on l chest is cdi. lung sounds are clear throughout. bowel sounds are active in all quads. pt states last bm was day before yesterday (10/21). pt is alert to self place and time.unsure of situation. nad noted.
[2022-10-23 16:43] LABS: POC Glucose,Bedside 188 (70-110)
[2022-10-24] VITALS: PULSE 70
--- NOTE | 2022-10-24 03:44 | ECG_ITS ---
APPROVED REPORT Exam: Resting ECG HR:74 bpm ECG Measurements Heart Rate 74 AXES WI 207 P 57 QRSd 147 QRS 87 QT 407 T -9 QTc 435 Conclusion ELECTRONIC VENTRICULAR PACEMAKER ABNORMAL RHYTHM ECG UNCONFIRMED REPORT Electronically signed by : Abel Parker MD 10/24/2022 15:49:30
[2022-10-24 04:00] VITALS: BP 160/88; PULSE 70; PULSE 75; RESP 20; TEMP 36.7; O2SAT 95; BMI 28.2
--- NOTE | 2022-10-24 05:39 | PC.NURSE ---
Pt c/o leg pain r/t RLS this shift. Pt medicated PRN per APR. Pt has had no other complaints. Pt has been paced on telemetry in 70's. Remains on RA and tolerates well. All dressings/incision sites c/d/i. Pt voided per urinal this shift. Pt oriented to self, place, situation. Pt states overall he feels better, and is asking about being d/c from hospital. Was notified from desk of pts tele reading HR as 18 around 3:30 this morning. Documenting RN immediately assessed pt, no changes noted and pt had no complaints or change in mental status. Radial pulse 70. EKG performed and showed paced rhythm. Tele strip was printed and showed artifact.
[2022-10-24 07:40] LABS: POC Glucose,Bedside 139 (70-110)
[2022-10-24 07:40] LABS: POC Glucose,Bedside 107 (70-110)
[2022-10-24 08:00] VITALS: BP 174/79; PULSE 80; PULSE 82; RESP 20; TEMP 36.8; O2SAT 97
[2022-10-24 08:24] LABS: Basophils % 0.2 % (0.1-2.0); Eosinophils # 0.2 K/mm3 (0.0-0.4); Eosinophils % 1.9 % (0.1-12.0); Hematocrit 49.2 % (42.0-52.0); Hemoglobin 15.2 g/dL (14.1-18.0); Lymphocytes # 1.7 K/mm3 (0.7-4.5); Lymphocytes % 18.7 % (10-50); Mean Corpuscular HGB Conc 30.9 g/dL (31.8-35.4); Mean Corpuscular Hemoglobin 31.6 pg (27.0-31.2); Mean Platelet Volume 8.2 fl (7.4-10.4); Monocytes # 0.5 K/mm3 (0.1-1.0); Monocytes % 5.8 % (1.7-9.3); Neutrophils # 6.6 K/mm3 (1.8-7.8); Neutrophils % 73.4 % (37.0-80.0); Platelet Count 155 K/mm3 (142-424); Red Blood Count 4.82 M/mm3 (4.60-6.20); Red Cell Distribution Width 16.3 % (11.5-17.5); White Blood Count 9.1 K/mm3 (4.8-10.8)
[2022-10-24 08:39] LABS: Anion Gap 12.2 mEq/L (5-15); Blood Urea Nitrogen 27 mg/dl (9-20); Calcium 9.3 mg/dl (8.4-10.2); Carbon Dioxide 30 mmol/L (22.0-30.0); Chloride 102 mmol/L (98-107); Creatinine Clearance Estimated 77 mL/min (50-200); Estimated Glomerular Filt Rate 66 ml/min (>60); GFR (African American) 79 ML/MIN (>60); Glucose 158 mg/dl (74-100); Potassium 4.2 mmoL/L (3.5-5.1); Sodium 140 mmol/L (136-145)
--- NOTE | 2022-10-24 08:57 | EXP.DC.SUM ---
General Admission date:: 10/22/22 Discharge date: 10/24/22 HPI HPI HPI: Mr. Krueger is a 72 year old male with a past medical history of LBBB, 1st degree AV block, Parkinson's disease, peripheral vascular disease, diabetes mellitus, CKD stage 3a and chronic opioid therapy for chronic pain. The patient was brought in by EMS yesterday after being found to be altered and with HR in the 30s and 40s; EMS provided atropine without any significant improvement and then started transcutaneous pacing. EKG obtained in the ER revealed HR of 39 and a complete heart block. The patient was taken to kiln labourer and had a temporary pacemaker inserted and a left heart catheterization with left ventriculogram which revealed nonobstructive CAD and mild to moderate LV dysfunction. The following morning the patient had a biventricular pacemaker and ICD placed by Dr. Craft. Currently he is asymptomatic. He denies chest pain and shortness of breath. Hospital Course Hospital Course Hospital Course: The patient's HR ranged 60-80. On the day of discharge he did not have any chest pain, shortness of breath, lightheadedness, blurry vision or confusion. I discussed the case with Dr. Craft who agreed that the patient could be discharged with a follow up in 1 week. Exam Data for Last 24 hours Vital signs and Labs for Last 24 Hours: Temp Pulse Resp BP Pulse Ox O2 Del Method O2 Flow Rate 98.2 F 82 20 174/79 H 97 Room Air 2 10/24/22 08:00 10/24/22 08:00 10/24/22 08:00 10/24/22 08:00 10/24/22 08:00 10/24/22 08:53 10/23/22 11:30 Laboratory Results - last 24 hr 10/23/22 13:03: POC Glucose 120 H 10/23/22 16:19: POC Glucose 188 H 10/23/22 21:07: POC Glucose 139 H 10/24/22 05:29: POC Glucose 107 10/24/22 08:16: WBC 9.1, RBC 4.82, Hgb 15.2, Hct 49.2, MCV 102.0 H, MCH 31.6 H, MCHC 30.9 L, RDW 16.3, Plt Count 155, MPV 8.2, Neut % (Auto) 73.4, Lymph % (Auto) 18.7, [place] % (Auto) 5.8, Eos % (Auto) 1.9, Baso % (Auto) 0.2, Neut # (Auto) 6.6, Lymph # (Auto) 1.7, [place] # (Auto) 0.5, Eos # (Auto) 0.2, Baso # (Auto) 0.0, Sodium 140, Potassium 4.2, Chloride 102, Carbon Dioxide 30, Anion Gap 12.2, BUN 27 H D, Creatinine 1.10, Estimated Creat Clear 77, Estimated GFR 66, Est GFR ( Amer) 79, Glucose 158 H, Calcium 9.3 I & O for Last 24 hours: Intake & Output 10/21/22 10/22/22 10/23/22 10/24/22 23:59 23:59 23:59 23:59 Intake Total 600 / 600 240 / 240 Output Total 2725 / 2725 1600 / 1600 Balance -2125 / -2125 -1360 / -1360 Weight 83.915 kg 89.9 kg 91.535 kg Constitutional Constitutional: no acute distress *Routine HEENT Exam Head: Present normocephalic Eye: Present EOMI and PERRL ENT: Present mucous membranes moist *Routine Neck Exam Neck: Present supple; Absent lymphadenopathy *Routine Respiratory Exam Respiratory: Present CTA bilaterally *Routine Cardiovascular Exam Cardiovascular: Present RRR *Routine Abdominal Exam Abdominal: Present soft and normoactive bowel sounds; Absent tenderness *Routine Extremities Exam Extremities: Absent cyanosis, clubbing or edema *Routine Skin Exam Skin: Present warm; Absent rash Comments: dressing on left upper chest c/d/i *Routine Neurological Exam Neurological: Present alert and oriented X3 Results Data Completed and Pending Labs on day of discharge: Labs from last 24 hours 10/24/22 10/24/22 10/23/22 08:16 05:29 21:07 WBC 9.1 RBC 4.82 Hgb 15.2 Hct 49.2 MCV 102.0 H MCH 31.6 H MCHC 30.9 L RDW 16.3 Plt Count 155 MPV 8.2 Neut % (Auto) 73.4 Lymph % (Auto) 18.7 [place] % (Auto) 5.8 Eos % (Auto) 1.9 Baso % (Auto) 0.2 Neut # (Auto) 6.6 Lymph # (Auto) 1.7 [place] # (Auto) 0.5 Eos # (Auto) 0.2 Baso # (Auto) 0.0 Sodium 140 Potassium 4.2 Chloride 102 Carbon Dioxide 30 Anion Gap 12.2 BUN 27 H D Creatinine 1.10 Estimated Creat Clear 77 Estimated GFR 66 Est GFR ( Amer) 79 Glucose 158 H PO
--- NOTE | 2022-10-24 09:30 | PC.NURSE ---
Family notified of pt's DC orders
[2022-10-24 11:51] LABS: POC Glucose,Bedside 147 (70-110)
--- NOTE | 2022-10-27 11:11 | CARE MANAGER ---
Attempted to contact patient related to hospital dischage x2. No VM option. PADMA Morales
== END 2022-10-24 11:54 | disposition home or self-care (01) | DRG 225 ==
LOC: ER 18:23 → 2ND 19:40 → CATHLAB 20:51 → 2ND 21:43
PROVIDERS: Internal Medicine; Internal Medicine Interventional Cardiology; Admitting Provider Internal Medicine; Emergency Provider Student in an Organized Health Care Education/Training Program; PCP Internal Medicine Adolescent Medicine; Referring Provider Family Medicine; Visit Provider Internal Medicine
PROC: 0JH609Z Insertion of Cardiac Resynchronization Defibrillator Pulse Generator into Chest Subcutaneous Tissue and Fascia, Open Approach (ICD-10-PCS; principal; 2022-10-22 20:30)
DX: I44.2 Atrioventricular block, complete (principal); I50.20 Unspecified systolic (congestive) heart failure; I25.10 Atherosclerotic heart disease of native coronary artery without angina pectoris; E11.22 Type 2 diabetes mellitus with diabetic chronic kidney disease; E11.51 Type 2 diabetes mellitus with diabetic peripheral angiopathy without gangrene; Z86.718 Personal history of other venous thrombosis and embolism; F32.A Depression, unspecified; N18.31 Chronic kidney disease, stage 3a; G20 Parkinson's disease; Z96.642 Presence of left artificial hip joint; F17.290 Nicotine dependence, other tobacco product, uncomplicated; G89.29 Other chronic pain
CPT/HCPCS: 33249; 36415; 70450; 71045; 80048; 80053; 82803; 82962; 83735; 84484; 85025; 93005; 93308; 93458; 99291; C1725; C1769; C1882; C1894; C1895; C1898; C1900; J0131; J1610; J1644; J2405; Q9967

== ENCOUNTER → 2022-11-01 11:12 | Outpatient (CLI) | payer MEDICARE, SELFPAY ==
--- NOTE | 2022-11-01 | XR_ITS ---
FINAL REPORT CLINICAL HISTORY: SOA,recent heart attack COMPARISON: 10/23/2022 FINDINGS: CHEST 2 VIEWS PA AND LATERAL The heart is normal in size. The mediastinum is unremarkable. Left subclavian ICD is present. The lungs are clear. There is no pneumothorax. There are moderate degenerative changes of the thoracic spine. IMPRESSION: No acute process. Reviewed, Interpreted and Dictated by Obie Del Real III, MD Transcribed by Sylvia Marvin Authenticated and [facility]
--- NOTE | 2022-11-01 11:41 | XR_ITS ---
FINAL REPORT CLINICAL HISTORY: PAIN, no recent injury FINDINGS: RIGHT SHOULDER Three views were obtained. There is no fracture or dislocation. There is mild AC joint degenerative change. Multiple chronic right lateral rib fractures are identified. No soft tissue abnormality is identified. IMPRESSION: No acute process. Reviewed, Interpreted and Dictated by Obie Del Real III, MD Transcribed by Sylvia Marvin Authenticated and [facility]
--- NOTE | 2022-11-01 11:41 | XR_ITS ---
FINAL REPORT CLINICAL HISTORY: PAIN NECK, no recent injury FINDINGS: THORACIC SPINE Three views were obtained. There is no acute fracture. There are moderate degenerative changes of the thoracic spine with multilevel osteophytes. There is no malalignment. IMPRESSION: Moderate degenerative changes. Reviewed, Interpreted and Dictated by Obie Del Real III, MD Transcribed by Sylvia Marvin Authenticated and [facility]
--- NOTE | 2022-11-01 11:42 | XR_ITS ---
FINAL REPORT CLINICAL HISTORY: NECK PAIN, no recent injury FINDINGS: CERVICAL SPINE 5 views were obtained. There is no acute fracture. There is no malalignment. There are mild and moderate degenerative changes. IMPRESSION: Mild and moderate degenerative changes. Reviewed, Interpreted and Dictated by Obie Del Real III, MD Transcribed by Brett Peoples Authenticated and . [facility]
== END ==
PROVIDERS: PCP Internal Medicine Adolescent Medicine; Visit Provider Nurse Practitioner Family
DX: R06.02 Shortness of breath (principal); M54.2 Cervicalgia; M54.6 Pain in thoracic spine; M25.511 Pain in right shoulder
CPT/HCPCS: 71046; 72050; 72072; 73030

== ENCOUNTER → 2022-12-23 12:59 | Outpatient (POV) | payer MEDICARE, SELFPAY ==
[2022-12-23 13:03] VITALS: BP 105/64; PULSE 87; RESP 18; O2SAT 95; BMI 26.1
--- NOTE | 2022-12-23 13:26 | EXP.PAIN.OV ---
HPI Data of Consult Patient: new to practice Consult date: 12/23/22 Requesting Physician: Lizette Poe APRN Primary Care Provider: Abel Parker MD Consult Narrative Reason for consult: Low back pain, bilateral leg pain History of present illness: Mr. Krueger is a 72 year old male who presents today as a new patient. He is a referral from [facility]. He rates his pain today a 10 out of 10. Patient states his pain is all in his low back with radiating symptoms to his lower extremities. Patient states his pain has been going on for years and progressively worsened over time. Patient does state that he has a longstanding history of multiple falls and injuries however there is not one specific trauma that initially led to his symptoms. He does describe his symptoms as a constant achy sensation with numbness and tingling into his lower extremities. Patient has had previous left hip surgery with pins placed. Patient has tried [id number] Tylenol along with heat and ice and topicals with minimal improvement. Patient has had physical therapy however it did not make any additional change to his symptoms. He denies any previous back surgery or injection history. Patient is currently on morphine and being weaned off this medication along with gabapentin. He states this makes no difference to his pain symptoms. His Waylon does show gabapentin 600 mg 5 times a day and Percocet 7.5 mg 4 times a day. Patient did have a recent fall back on October 29 related to a third-degree heart block and was hospitalized with a pacemaker placed. Patient does see Dr. Craft for his cardiac needs. His Waylon has been reviewed and is appropriate. CC: Lizette Poe APRN [facility] Disclaimer: The information contained in this section may have been updated after the patient was seen, as this information can be updated by other users. Medical History Cardiac pacemaker in situ Cardiac resynchronization therapy defibrillator (SQUILGEER-D) in place Chronic kidney disease, stage 3a Chronic pain with drug dependence Clavicular fracture Coronary artery disease Depression Diabetes mellitus Fall at home HFrEF (heart failure with reduced ejection fraction) History of DVT of lower extremity HLD (hyperlipidemia) HTN (hypertension) Parkinson disease Paroxysmal A-fib Peripheral vascular disease Rib fractures Surgical History AICD (automatic cardioverter/defibrillator) present implant OCT 2022. History of total left hip replacement S/P carpal tunnel release S/P cholecystectomy Family History Other Coronary artery disease Diabetes Social History (Updated 12/23/22 @ 13:07 by Marylou Walter RN) Smoking Status: Current every day smoker tobacco type: cigars years smoked: 55 quit status: not considering quitting alcohol intake: never substance use type: denies use current occupational status: retired Travel in the last 8 weeks: None household members: other housing: apartment marital status: Review of Systems Review of Systems Review of systems:: pertinent systems reviewed and negative unless documented below Review of systems (narrative): Review of Systems: General: No recent weight changes, no fever, no sleep disturbances Respiratory: No cough, no shortness of air, no recurring pulmonary infections Cardiovascular/peripheral vascular: No chest pain, no palpitations, no edema, no shortness of breath Gastrointestinal: No new onset incontinence, normal bowel movements reported Genitourinary: No new onset incontinence Musculoskeletal: Low back pain, bilateral leg pain Psychiatric: [Normal mood/affect] Neurological: [Denies weakness in extremities], [denies balance issues] Meds Home Medications and Allergies Home Medications Medication Instructions R
== END ==
PROVIDERS: PCP Internal Medicine Adolescent Medicine; Visit Provider Nurse Practitioner Family
DX: M50.30 Other cervical disc degeneration, unspecified cervical region (principal); M51.34 Other intervertebral disc degeneration, thoracic region; M51.16 Intervertebral disc disorders with radiculopathy, lumbar region
CPT/HCPCS: 99202; G0463

== ENCOUNTER 2023-01-31 09:06 | Day surgery (SDC) | payer MEDICARE, SELFPAY ==
[2023-01-31 09:19] VITALS: BP 102/55; PULSE 77; RESP 16; TEMP 36.3; O2SAT 93; BMI 26.1
[2023-01-31 09:34] VITALS: BP 110/40; PULSE 76; RESP 20; O2SAT 93
[2023-01-31 09:36] VITALS: BP 110/40; PULSE 73; O2SAT 94
[2023-01-31 09:39] VITALS: BP 118/56; PULSE 74; RESP 16; O2SAT 93
--- NOTE | 2023-01-31 11:10 | EXP.PAIN.PRO ---
Procedure Date: 01/31/23 Time: 11:00 Anesthesiologist:: Corby Gonsalez CRNA Complications:: None Pre-procedure Diagnosis:: Degenerative disc lumbar spine multilevels. Lumbar radiculopathy. Post-procedure Diagnosis:: Same. Indications for Procedure:: Patient is a very pleasant 72-year-old male that comes our clinic today for lumbar epidural steroid injection at the L4-5 level. Patient complains of low back pain as well as bilateral hip and leg pain. He rates his pain 7/10. Patient presents today on a walker due to unstable gait. Procedure Details:: Procedure: Lumbar epidural steroid injection under fluoroscopy Informed consent was obtained and the risks and benefits of the procedure were explained to the patient. The patient was taken to the procedure room and noninvasive monitors placed, including noninvasive blood pressure cuff and pulse oximeter. The back was viewed using C-arm Fluoroscopy and prepped using Chloraprep as a cleansing solution and the L4-L5 interspace was palpated. Skin and subcutaneous tissues were anesthetized using lidocaine 1.5% and a 25-gauge needle. After this, an 18-gauge Touhy epidural needle was placed into the L4-L5 interspace and advanced using fluoroscopic guidance and loss of resistance to air until the epidural space was encountered. After confirmation of needle placement in the epidural space, with dye, a solution containing normal saline, 3 mL and Depo-Medrol 80 mg were incrementally injected into the lumbar epidural space. The patient tolerated the procedure well with no complications. The patient was observed in the Pain Clinic and then discharged home neurologically intact. Plan and Disposition:: Patient was discharged without incident.
== END 2023-01-31 09:39 | disposition home or self-care (01) ==
PROVIDERS: PCP Internal Medicine Adolescent Medicine; Visit Provider Nurse Anesthetist, Certified Registered
DX: M51.16 Intervertebral disc disorders with radiculopathy, lumbar region (principal)
CPT/HCPCS: 62323; J1040

== ENCOUNTER → 2023-02-23 13:31 | Outpatient (POV) | payer MEDICARE, SELFPAY ==
[2023-02-23 14:11] VITALS: BP 97/75; PULSE 86; RESP 18; O2SAT 96; BMI 27.0
--- NOTE | 2023-02-23 14:21 | A.OFFVIS_ITS ---
[facility] Pain Management SOAP Note Subjective:: Patient is a pleasant 72-year-old male who presents today for follow-up of lumbar epidural steroid injection on 01/31/2023 of L4-L5. We are currently treating the patient for low back pain with bilateral lower extremity pain, lumbar radiculopathy, degenerative disc disease of cervical and thoracic spine. Today he rates his pain a 10 out of 10. Patient states he had no improvement following this injection. He states he still continues to have constant achy pain with numbness and tingling into his lower extremities along with weakness. Patient states that he does have to use a walker to help with ambulation. Patient denies any recent imaging of his lumbar spine. Patient is currently managed with gabapentin 600 mg 5 times a day and Percocet 7.5 mg 4 times a day from his PCP. Patient denies have cardiac history and does see Dr. Craft. His Waylon has been reviewed and is appropriate. Review of Systems: General: No recent weight changes, no fever, no sleep disturbances Respiratory: No cough, no shortness of air, no recurring pulmonary infections Cardiovascular/peripheral vascular: No chest pain, no palpitations, no edema, no shortness of breath Gastrointestinal: No new onset incontinence, normal bowel movements reported Genitourinary: No new onset incontinence Musculoskeletal: Low back pain, bilateral leg pain/weakness Psychiatric: [Normal mood/affect] Neurological: [Denies weakness in extremities], [denies balance issues] Objective:: Physical Exam: General: Alert and oriented x3, no acute distress, pleasant and cooperative Lungs: Respirations even and unlabored, symmetrical chest expansion Eyes: PERRL Musculoskeletal: Flexion and extension of lumbar [spine] somewhat guarded secondary to pain, [antalgic gait noted] Neurological: Speech clear, no gross sensory deficit Assessment:: Low back pain with lumbar radiculopathy, degenerative disc disease of cervical and thoracic spine, chronic pain syndrome Plan:: Patient continues to experience significant pain in his low back and legs with weakness and limited range of motion. I have discussed with the patient that I will order updated imaging including x-ray of his lumbar spine and MRI without contrast. Patient does state that he had a new pacemaker placed in November from Dr. Craft's office. I have counseled the patient that I will call to confirm that this is a MRI conditional device and if so most likely he would still have to have the MRI imaging done at [place]. If this pacemaker is not MRI conditional then we will plan on changing the order to CT without contrast. Will also order the patient home health physical therapy for his low back and bilateral leg pain and weakness. Patient will return to clinic in 1 month for reevaluation of symptoms and plan of care. Patient did request pain medication however he is currently being prescribed Percocet 7.5 mg 4 times a day from Dr. Parker's office. I have counseled the patient that where he is a newer patient that we do not write scheduled medications for new patients. Patient does also have a heart history and is not recommended to be on any NSAIDs and I have counseled the patient regarding this. Patient has been instructed to contact the clinic with any concerns before the next appointment. Dr. Peace has reviewed this note and agrees with this plan of care. This note was dictated using voice recognition software and make contain errors or omissions. [facility] Disclaimer: The information contained in this section may have been updated after the patient was seen, as this information can be updated by other users. 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 History of total left hip replacement S/P carpal tunnel release S/P cholecystectomy Family History Other Coronary artery disease Diabetes Social History Smoking Status: Current every day smoker tobacco type: cigars years smoked: 55 quit status: not considering quitting alcohol intake: never substance use type: denies use current occupational status: retired Travel in the last 8 weeks: None household members: other housing: apartment marital status:
== END ==
LOC: SC.PAIN 13:31
PROVIDERS: PCP Internal Medicine Adolescent Medicine; Visit Provider Nurse Practitioner Family
DX: M54.16 Radiculopathy, lumbar region (principal); M50.30 Other cervical disc degeneration, unspecified cervical region; M51.34 Other intervertebral disc degeneration, thoracic region; G89.4 Chronic pain syndrome
CPT/HCPCS: 99212; G0463

== ENCOUNTER 2023-03-09 10:33 | Outpatient (CLI) | payer MEDICARE, SELFPAY ==
[2023-03-09 11:14] LABS: Basophils % 0.3 % (0.1-2.0); Eosinophils # 0.2 K/mm3 (0.0-0.4); Eosinophils % 2.9 % (0.1-12.0); Hematocrit 46.5 % (42.0-52.0); Hemoglobin 15.2 g/dL (14.1-18.0); Lymphocytes # 2.6 K/mm3 (0.7-4.5); Lymphocytes % 32.2 % (10-50); Mean Corpuscular HGB Conc 32.6 g/dL (31.8-35.4); Mean Corpuscular Hemoglobin 36.1 pg (27.0-31.2); Mean Corpuscular Volume 110.8 fl (80-94); Mean Platelet Volume 8.8 fl (7.4-10.4); Monocytes # 0.4 K/mm3 (0.1-1.0); Monocytes % 5.5 % (1.7-9.3); Neutrophils # 4.7 K/mm3 (1.8-7.8); Neutrophils % 59.2 % (37.0-80.0); Platelet Count 177 K/mm3 (142-424); Red Cell Distribution Width 13.6 % (11.5-17.5)
[2023-03-09 11:37] LABS: Chloride 106 mmol/L (98-107); Sodium 141 mmol/L (136-145)
[2023-03-09 11:38] LABS: Potassium 4.9 mmoL/L (3.5-5.1)
[2023-03-09 11:40] LABS: Alanine Aminotransferase 19 U/L (12-78); Albumin Level 4.3 g/dl (3.5-5.0); Alkaline Phosphatase 67 U/L (38-126); Anion Gap 10.9 mEq/L (5-15); Aspartate Amino Transferase 28 U/L (17-59); Bilirubin,Direct 0.2 mg/dl (0.0-0.4); Bilirubin,Indirect 0.3 mg/dL (0.0-0.9); Bilirubin,Total 0.5 mg/dl (0.2-1.3); Bilirubin,Unconjugated 0.4 mg/dL (0.0-1.1); Blood Urea Nitrogen 50 mg/dl (9-20); Calcium 10.1 mg/dl (8.4-10.2); Carbon Dioxide 29 mmol/L (22.0-30.0); Chol/HDL Ratio 4.3 (1-3.5); Cholesterol 108 mg/dl (140-200); Estimated Glomerular Filt Rate 37 ml/min (>60); GFR (African American) 45 ML/MIN (>60); Glucose 123 mg/dl (74-100); HDL Cholesterol 25 mg/dl (40-60); Magnesium 2.3 mg/dl (1.6-2.3); Total Protein,Serum 6.9 g/dl (6.3-8.2); Triglycerides 208 mg/dl (30-150); VLDL Cholesterol 42 mg/dL (0-40)
[2023-03-09 11:52] LABS: Direct LDL Cholesterol 55.24 mg/dL (100-129)
[2023-03-09 12:16] LABS: Thyroid Stimulating Hormone 2.42 uIU/mL (0.465-4.68)
[2023-03-09 12:44] LABS: Hemoglobin A1C 6.3 % (4.0-6.0)
[2023-03-09 14:30] LABS: Free T4 (Free Thyroxine) 0.91 ng/dl (0.78-2.19)
== END 2023-03-09 23:59 ==
LOC: LAB 10:34
PROVIDERS: PCP Nurse Practitioner Family; Visit Provider Nurse Practitioner Family
DX: R73.01 Impaired fasting glucose (principal); E78.5 Hyperlipidemia, unspecified; I11.0 Hypertensive heart disease with heart failure; I25.10 Atherosclerotic heart disease of native coronary artery without angina pectoris; I48.0 Paroxysmal atrial fibrillation; I50.20 Unspecified systolic (congestive) heart failure; I73.9 Peripheral vascular disease, unspecified; N18.31 Chronic kidney disease, stage 3a; Z95.810 Presence of automatic (implantable) cardiac defibrillator; F17.290 Nicotine dependence, other tobacco product, uncomplicated
CPT/HCPCS: 36415; 80048; 80061; 80076; 83036; 83735; 84439; 84443; 85025

== ENCOUNTER 2023-03-23 07:25 | Outpatient (CLI) | payer MEDICARE, SELFPAY ==
--- NOTE | 2023-03-23 07:28 | CT_ITS ---
FINAL REPORT CLINICAL HISTORY: H/O TOBACCO USE 1/2 ppd x 60 yrs COMPARISON: 10/17/2020 FINDINGS: CT CHEST LOW DOSE SCREENING HISTORY: Screening exam for lung cancer. 71-year-old male, Current smoker, 30 pack year smoking history DOSE: CTDIvol: 2.9 mGy, DLP: 98.73 mGy*cm COMPARISON: 10/17/2020. TECHNIQUE: Axial CT without IV contrast administration using low dose protocol FINDINGS: No acute lung disease is present . The 8 mm right lower lobe nodule in the posterior costophrenic angle seen on the prior CT examination of 2020 remained stable in appearance. Changes of emphysema are present. There is mild scarring in the left lung base. No pleural or pericardial effusion is seen . No adenopathy or mass lesion is present . IMPRESSION: Stable right lower lobe nodule in the posterior costophrenic angle since 2020. LUNG RADS CATEGORY 2 RECOMMENDATION: 12 month LDCT follow up Reviewed, Interpreted and Dictated by Jane Foreman MD Transcribed by Mecca Xiao Authenticated and [facility]
== END 2023-03-23 23:59 ==
LOC: RAD 07:25
PROVIDERS: PCP Nurse Practitioner Family; Visit Provider Nurse Practitioner Family
DX: Z12.2 Encounter for screening for malignant neoplasm of respiratory organs; Z87.891 Personal history of nicotine dependence
CPT/HCPCS: 71271

== ENCOUNTER 2023-08-29 12:53 | Outpatient (CLI) | payer MEDICARE, SELFPAY ==
--- NOTE | 2023-08-29 12:58 | XR_ITS ---
FINAL REPORT CLINICAL HISTORY: NON PRESSURE CHRONIC ULCER OF OTHER PART OF LEFT FOOT FINDINGS: Left foot Three views were obtained. There is no acute fracture or dislocation. There are moderate to severe degenerative changes. There is lateral subluxation of the 1st distal phalanx at the interphalangeal joint. Note is made of calcaneal spurs. IMPRESSION: Degenerative changes with subluxation as detailed above. Reviewed, Interpreted and Dictated by Obie Del Real III, MD Transcribed by Sylvia Marvin Authenticated and [facility]
== END 2023-08-29 23:59 | disposition home or self-care (01) ==
LOC: RAD 12:55
PROVIDERS: PCP Nurse Practitioner Family; Visit Provider Physician Assistant
DX: L97.529 Non-pressure chronic ulcer of other part of left foot with unspecified severity (principal)
CPT/HCPCS: 73630

== ENCOUNTER 2023-10-02 12:16 | Outpatient (CLI) | payer MEDICARE, SELFPAY ==
--- NOTE | 2023-10-02 12:19 | XR_ITS ---
FINAL REPORT CLINICAL HISTORY: edema, HFrEF FINDINGS: 2 views of the chest were obtained . The heart is normal in size. There is a left subclavian ICD. The mediastinum is within normal limits. The lungs are clear. There is no pneumothorax. Osseous structures demonstrate moderate degenerative changes of the thoracic spine. IMPRESSION: No acute cardiopulmonary process. Reviewed, Interpreted and Dictated by Obie Del Real III, MD Transcribed by Ranjana Hutton Authenticated and . [facility]
[2023-10-02 13:09] LABS: Basophils % 0.4 % (0.1-2.0); Eosinophils # 0.2 K/mm3 (0.0-0.4); Eosinophils % 2.2 % (0.1-12.0); Hematocrit 53.2 % (42.0-52.0); Hemoglobin 16.3 g/dL (14.1-18.0); Lymphocytes # 1.6 K/mm3 (0.7-4.5); Lymphocytes % 20.8 % (10-50); Mean Corpuscular HGB Conc 30.6 g/dL (31.8-35.4); Mean Corpuscular Volume 114.2 fl (80-94); Mean Platelet Volume 8.6 fl (7.4-10.4); Monocytes # 0.4 K/mm3 (0.1-1.0); Monocytes % 5.8 % (1.7-9.3); Neutrophils # 5.3 K/mm3 (1.8-7.8); Neutrophils % 70.7 % (37.0-80.0); Platelet Count 188 K/mm3 (142-424); Red Blood Count 4.66 M/mm3 (4.60-6.20); Red Cell Distribution Width 14.1 % (11.5-17.5); White Blood Count 7.5 K/mm3 (4.8-10.8)
[2023-10-02 13:45] LABS: Alanine Aminotransferase 19 U/L (12-78); Albumin Level 4.1 g/dl (3.5-5.0); Alkaline Phosphatase 70 U/L (38-126); Anion Gap 10.7 mEq/L (5-15); Aspartate Amino Transferase 25 U/L (17-59); Bilirubin,Direct 0.1 mg/dl (0.0-0.4); Bilirubin,Indirect 0.4 mg/dL (0.0-0.9); Bilirubin,Total 0.5 mg/dl (0.2-1.3); Bilirubin,Unconjugated 0.5 mg/dL (0.0-1.1); Blood Urea Nitrogen 56 mg/dl (9-20); Calcium 10.1 mg/dl (8.4-10.2); Carbon Dioxide 28 mmol/L (22.0-30.0); Chloride 107 mmol/L (98-107); Cholesterol 86 mg/dl (140-200); Estimated Glomerular Filt Rate 35 ml/min (>60); GFR (African American) 42 ML/MIN (>60); Glucose 106 mg/dl (74-100); HDL Cholesterol 29 mg/dl (40-60); Magnesium 2.4 mg/dl (1.6-2.3); Potassium 5.7 mmoL/L (3.5-5.1); Sodium 140 mmol/L (136-145); Total Protein,Serum 6.7 g/dl (6.3-8.2); Triglycerides 196 mg/dl (30-150); VLDL Cholesterol 39 mg/dL (0-40)
[2023-10-02 13:56] LABS: NT Pro Brain Natriuretic Pep. 533 pg/mL (0-125)
[2023-10-02 13:57] LABS: Direct LDL Cholesterol 31.71 mg/dL (100-129)
[2023-10-02 14:04] LABS: Free T4 (Free Thyroxine) 0.86 ng/dl (0.78-2.19)
[2023-10-02 14:17] LABS: Thyroid Stimulating Hormone 2.08 uIU/mL (0.465-4.68)
== END 2023-10-02 23:59 | disposition home or self-care (01) ==
LOC: LAB 15:35
PROVIDERS: PCP Nurse Practitioner Family; Visit Provider Physician Assistant
DX: R60.9 Edema, unspecified (principal); I50.20 Unspecified systolic (congestive) heart failure; I95.9 Hypotension, unspecified
CPT/HCPCS: 36415; 71046; 80048; 80061; 80076; 83735; 83880; 84439; 84443; 85025

== ENCOUNTER 2023-10-31 15:07 | Outpatient (CLI) | payer MEDICARE, SELFPAY ==
--- NOTE | 2023-10-31 15:11 | CA_ITS ---
APPROVED REPORT EXAM: Comprehensive 2D, Doppler, and color-flow Echocardiogram Wireless Communications Engineer: KASSIDY Manuel, RVS Ht: 6 ft 1 in Wt: 207lbs BSA: 2.18 BP: 107/55 mmHg Indications: HFrEF, AICD, Hx-CM=35%-10/22/22, Afib, CAD 2D Dimensions Left Atrium 2.85 cm M: 3.0 - 4.0 LA Volume 43.60 mL LA Volume Index 19.91 mL/m2 (M/F) 16-34 M-Mode Dimensions RVDd 2.54 cm (0.9-2.6) LA Diam 3.58 cm (1.9-4.0) LVDd 5.41 cm (3.5-5.7) LVDs 3.44 cm (3.5-5.7) IVSd 1.13 cm (0.6-1.1) PWd 0.93 cm (0.6-1.1) EF (Teich) 63.10% EPSs 1.29 cm FS 34.50% EDV (Teich) 132.40 mL TAPSE 1.70 (<1.7) ESV (Teich) 48.80 mL LV Diastology E Decel Time 113 (160-240 msec) E/A Ratio 0.73 MED A' 10.90 cm/s LAT A' 12.90 cm/s Aortic Valve JULIETA Index 1.19 cm2/m2 AoV Peak Abner. 101.0 (50-130 cm/s) AO Peak GR. 4.10 mmHg AO Mean GR. 2.00 (<5 mmHg) AO VTI 17.9 (18-25 cm) JULIETA (VTI) 2.66 (2.5-4.5 cm2) Mitral Valve MV A Velocity 62.0 (40-130 cm/s) E/A Ratio 0.73 Pulmonary Valve PV Peak Velocity 91.0 (50-150 cm/s) Tricuspid Valve TR P. Velocity 252.00 cm/s RAP Estimate 10.00 mmHg RVSP 35.40 mmHg Left Ventricle The left ventricle is normal size. The left ventricular systolic function is normal. The left ventricular ejection fraction is within the normal range. There is normal left ventricular wall thickness. There is normal LV segmental wall motion. The left ventricular diastolic function is normal. LVEF is 55%. Right Ventricle Right ventricle is mildly dilated. The right ventricular systolic function is normal. There is a device lead in the right ventricle. Atria The left atrium size is normal. Right atrium is mildly dilated. There is no Doppler evidence of interatrial shunt. Aortic Valve The aortic valve opens well. There is no aortic valvular stenosis. No aortic regurgitation is present. Mitral Valve The mitral valve is normal in structure. No evidence of mitral valve stenosis. Trace mitral regurgitation. Tricuspid Valve The tricuspid valve leaflets are thin and pliable. Mild tricuspid regurgitation. RVSP is 20???25 mmHg. Pulmonic Valve The pulmonary valve is normal in structure. Trace pulmonic regurgitation. Great Vessels The aortic root is normal in size. The ascending aorta is normal in size. IVC is normal in size and collapses >50% with inspiration. Pericardium There is no pericardial effusion. Other Information Study Quality: Fair Conclusion Normal biventricular systolic function. Mild RV dilation. Mild RA dilation. Mild TR. Compared to prior study from 2022, the LVEF is now normal. Electronically signed by : Erika Dotson MD 11/06/2023 13:22:14
== END 2023-10-31 23:59 | disposition home or self-care (01) ==
LOC: RT 15:08
PROVIDERS: PCP Nurse Practitioner Family; Visit Provider Physician Assistant
DX: I51.7 Cardiomegaly (principal); I50.20 Unspecified systolic (congestive) heart failure; R60.9 Edema, unspecified
CPT/HCPCS: 93306

== ENCOUNTER 2024-02-10 16:46 | Emergency (ER) | payer MEDICARE, SELFPAY ==
[2024-02-10 16:47] VITALS: BP 133/60; PULSE 97; RESP 20; TEMP 36.9; O2SAT 99; BMI 28.2
[2024-02-10 17:16] VITALS: BP 133/60; PULSE 99; O2SAT 90
--- NOTE | 2024-02-10 17:22 | XR_ITS ---
PROCEDURE INFORMATION: Exam: XR Right Knee Exam date and time: 02/10/2024 5:25 PM Age: 73 years old Clinical indication: Injury or trauma; Fall; Blunt trauma; Knee; Right; Additional info: Fell TECHNIQUE: Imaging protocol: Radiologic exam of the right knee. Views: 3 views. COMPARISON: CR XR ANKLE RT MIN 3V 02/10/2024 5:25 PM FINDINGS: Bones/joints: No fracture. Normal alignment. No effusion. Moderate degenerative changes of all 3 compartments. Osteopenia. Soft tissues: Normal. IMPRESSION: No acute findings.
--- NOTE | 2024-02-10 17:22 | XR_ITS ---
PROCEDURE INFORMATION: Exam: XR Left Ankle Exam date and time: 02/10/2024 5:25 PM Age: 73 years old Clinical indication: Injury or trauma; Fall; Blunt trauma; Ankle; Left; Additional info: Fell TECHNIQUE: Imaging protocol: Radiologic exam of the left ankle. Views: 3 or more views. COMPARISON: CR XR FOOT LT MIN 3V 08/29/2023 1:14 PM FINDINGS: Bones/joints: No fracture. Normal alignment. Inferior calcaneal spur. Osteopenia. Soft tissues: Normal. IMPRESSION: No acute findings.
--- NOTE | 2024-02-10 17:22 | XR_ITS ---
PROCEDURE INFORMATION: Exam: XR Left Knee Exam date and time: 02/10/2024 5:24 PM Age: 73 years old Clinical indication: Injury or trauma; Fall; Blunt trauma; Knee; Left; Additional info: Fell TECHNIQUE: Imaging protocol: Radiologic exam of the left knee. Views: 3 views. COMPARISON: CR XR KNEE LT 3V 02/10/2024 5:24 PM FINDINGS: Bones/joints: No fracture. Normal alignment. ORIF of distal fibula. Soft tissues: Normal. IMPRESSION: No acute findings.
--- NOTE | 2024-02-10 17:22 | XR_ITS ---
PROCEDURE INFORMATION: Exam: XR Right Ankle Exam date and time: 02/10/2024 5:25 PM Age: 73 years old Clinical indication: Injury or trauma; Fall; Blunt trauma; Ankle; Right; Additional info: Fell TECHNIQUE: Imaging protocol: Radiologic exam of the right ankle. Views: 3 or more views. COMPARISON: CR XR ANKLE RT MIN 3V 02/10/2024 5:25 PM FINDINGS: Bones/joints: No acute fracture. Normal alignment. No effusion. Osteopenia. Extensive dystrophic ossification of Achilles tendon. Soft tissues: Normal. IMPRESSION: 1. No acute findings. 2. Achilles tendinous ossification.
--- NOTE | 2024-02-10 17:27 | XR_ITS ---
PROCEDURE INFORMATION: Exam: XR Right Tibia and Fibula Exam date and time: 02/10/2024 5:25 PM Age: 73 years old Clinical indication: Injury or trauma; Fall; Blunt trauma; Lower leg; Right TECHNIQUE: Imaging protocol: Radiologic exam of the right tibia and fibula. Views: 2 views. COMPARISON: CR XR TIBIA FIBULA RT 2V 02/10/2024 5:25 PM FINDINGS: Bones/joints: No fracture. No dislocation. Osteopenia. Posterior calf tendinous ossification. Soft tissues: Normal. IMPRESSION: No acute findings. Dystrophic posterior calf tendinous ossification.
--- NOTE | 2024-02-10 17:52 | ED_ITS ---
<Statement entered by Florentino Marrufo MD - 02/10/24 23:24> I was consulted by the KAMRYN, and we discussed the complexity of the problems being addressed. I approved the treatment and management plan for this patient's care in the emergency department, thus performing a substantive portion of the medical decision making. Florentino Marrufo MD, KARUNA, FACEP Discharge Plan Disposition Patient Disposition: Home, Self-Care Condition: Good Prescriptions Prescriptions: No Action metoprolol succinate 25 mg tablet extended release 24 hr 25 mg PO QDAY Qty: 90 3RF furosemide 40 mg tablet 40 mg PO BID 30 Days Qty: 60 5RF valsartan 40 mg tablet See Rx Instructions .ROUTE .COMPLEX Qty: 180 3RF Dose Instruction: TAKE 1 TABLET BY MOUTH TWICE DAILY Rx Instructions: TAKE 1 TABLET BY MOUTH TWICE DAILY Eliquis 5 mg tablet See Rx Instructions .ROUTE .COMPLEX Qty: 180 3RF Dose Instruction: TAKE 1 TABLET BY MOUTH TWICE DAILY Rx Instructions: TAKE 1 TABLET BY MOUTH TWICE DAILY Jardiance 10 mg tablet See Rx Instructions .ROUTE .COMPLEX Qty: 90 3RF Dose Instruction: TAKE 1 TABLET BY MOUTH ONCE DAILY Rx Instructions: TAKE 1 TABLET BY MOUTH ONCE DAILY spironolactone 25 mg tablet See Rx Instructions .ROUTE .COMPLEX Qty: 90 3RF Dose Instruction: TAKE 1 TABLET BY MOUTH ONCE DAILY Rx Instructions: TAKE 1 TABLET BY MOUTH ONCE DAILY atorvastatin 40 mg tablet 40 mg PO HS quetiapine 200 mg tablet 200 mg PO HS pantoprazole 40 mg tablet,delayed release (DR/EC) 40 mg PO BID ferrous sulfate [FeroSul] 325 mg (65 mg iron) tablet 325 mg PO BID oxycodone-acetaminophen 7.5-325 mg tablet 1 tab PO QID celecoxib 100 mg capsule 100 mg PO BID duloxetine 30 mg capsule,delayed release(DR/EC) 30 mg PO BID metformin 1,000 mg tablet 500 mg PO BID ropinirole 1 mg tablet 3 mg PO TID gabapentin 600 mg tablet 600 mg PO TID Referrals Follow up/Referrals: Andria Ryan APRN [Primary Care Provider] - See instructions Activity Restrictions/Add. Instructions Additional Instructions/Restrictions: Please call your primary care on Monday morning. You may need further imaging including but not limited to an MRI. Take Tylenol for pain in your normal pain medications. If any worsening problems or concerns return to the ED Clinical Impressions Clinical Impression: Acute internal derangement of knee Instructions Patient Instructions: Sprain, DI for Knee Pain Print Language Print Language: Lao Discharge ED Provider: Florentino Marrufo General Adult HPI General Chief complaint: Extremity Injury, Lower Stated complaint: Fell one wk ago pain in both legs Time Seen by Provider: 02/10/24 17:14 Mode of Arrival: Wheelchair Source of Information: Patient Limitations: Physical Limitations Description of Symptoms (Recalled from ER Triage Doc. by RN): cristhian knee and leg pain after a fall. significant swelling noted to left leg History of Present Illness HPI narrative: This is a 73-year-old male who presents to the ED today for pain and both legs after a fall 1 week ago. He states that when he fell he fell with his right leg behind him injuring both legs. He has been walking with a rollator over the past week. He does have bruising on his right zhao area. He does have pain in both ankles and both knees. Right is worse than left. He does have swelling in his left leg and ankle but usually has swelling in that leg anyway. Daughter states that it is worse than it usually is. Related Data Home Medications ?Medication ?Instructions ?Recorded ?Confirmed atorvastatin 40 mg tablet 40 mg PO HS Cholesterol 07/03/22 10/02/23 celecoxib 100 mg capsule 100 mg PO BID Arthritis 07/03/22 10/02/23 duloxetine 30 mg capsule,delayed 30 mg PO BID Mood 07/03/22 10/02/23 release ferrous sulfate 325 mg (65 mg 325 mg PO BID Supplement 07/03/22 10/02/23 iron) tablet (FeroSul) oxycodone-acetaminophen 7.5 mg-325 1 tab PO QID Pain 07/03/22 10/02/23 mg tablet pantoprazole 40 mg tablet,delayed 40 mg PO BID Acid reflux 07/03/22 10/02/23 release quetiapine 200 mg tablet 200 mg PO HS Mood 07/03/22 10/02/23 metformin 1,000 mg tablet 500 mg PO BID Diabetes 11/23/22 10/02/23 ropinirole 1 mg tablet 3 mg PO TID Restless leg syndrome 11/23/22 10/02/23 gabapentin 600 mg tablet 600 mg PO TID Pain 02/22/23 10/02/23 Previous Rx's ?Medication ?Instructions ?Recorded metoprolol succinate 25 mg 25 mg PO QDAY #90 tabs 11/02/22 tablet,extended release 24 hr valsartan 40 mg tablet See Rx Instructions .Route 03/30/23 .COMPLEX #180 tabs apixaban 5 mg tablet (Eliquis) See Rx Instructions .Route 06/30/23 .COMPLEX #180 tabs furosemide 40 mg tablet 40 mg PO BID Fluid 30 days #60 tabs 10/02/23 empagliflozin 10 mg tablet See Rx Instructions .Route 01/29/24 (Jardiance) .COMPLEX #90 tabs spironolactone 25 mg tablet See Rx Instructions .Route 01/29/24 .COMPLEX #90 tabs Allergies Allergy/AdvReac Type Severity Reaction Status Date / Time aspirin (ASPIRIN) Allergy Unknown S-DIFF. Verified 10/02/23 11:26 [facility] Disclaimer: The information contained in this section may have been updated after the patient was seen, as this information can be updated by other users. Medical History (Updated 02/10/24 @ 19:34 by Aubrie August (ED), PATIENT SERVICES ASSISTANT) Dehydration Hypotension Edema Cardiac resynchronization therapy defibrillator (SALAD CHEF-D) in place HLD (hyperlipidemia) HTN (hypertension) HFrEF (heart failure with reduced ejection fraction) Paroxysmal A-fib Coronary artery disease Cardiac pacemaker in situ Chronic kidney disease, stage 3a Peripheral vascular disease Chronic pain with drug dependence History of DVT of lower extremity Rib fractures Clavicular fracture Depression Fall at home Parkinson disease Diabetes mellitus Surgical History AICD (automatic cardioverter/defibrillator) present S/P carpal tunnel release History of total left hip replacement S/P cholecystectomy Family History Other Coronary artery disease Diabetes Social History Smoking Status: Never smoker years smoked: 55 quit status: not considering quitting alcohol intake: never substance use type: denies use current occupational status: retired Travel in the last 8 weeks: None household members: other housing: apartment marital status: Have you lived/traveled outside [place] in past 30 days?: No Contact w/someone who lives/traveled outside US past 30 days?: No Exposure to someone with infectious disease in past 14 days?: No Do you have a fever (greater than 100.4 F or 38 C)?: No Have you tested positive for COVID-19: No Exposed to someone with COVID-19 in past 14 days?: No Do you have a sore throat?: No Do you have a cough?: No Do you have any weakness?: No Do you have any diarrhea?: No Are you experiencing any unusual bleeding?: No Do you have any muscle aches/pain?: No Do you have any abdominal pain?: No Are you experiencing loss of taste or smell?: No Other Medical History Have you received the Flu Vaccine for this season: No Have you received the Pneumonia Vaccine: Yes ROS Obtained: Yes Systems reviewed as appropriate & no additional complaints except as documented Constitutional Constitutional: Reports as per HPI Physical Exam General General appearance: alert Head Head exam: atraumatic and normocephalic Eye Eye exam: Present normal appearance, PERRL and EOMI ENT ENT exam: Present normal oropharynx and mucous membranes moist Neck Neck exam: Present normal inspection, full ROM and trachea midline Respiratory Respiratory exam: Present normal lung sounds bilaterally Cardiovascular Cardiovascular exam: Present regular rate, normal rhythm, normal heart sounds, +S1 and +S2 Extremities Exam Extremities exam: Present tenderness, normal capillary refill and edema (To left lower leg, +2 edema bilateral knees with edema) Neurological Exam Neurological exam: Present alert and oriented X3 Skin Skin exam: Present warm and erythema (To left leg and foot no drainage) Medical Decision Making Medical Records Screening: Per USPSTF and CDC recommendations, given the prevalence of disease in our region, it is our hospital?s policy to screen for HIV and viral Hepatitis for all patients aged 18 and over and those with ongoing risk factors. Waylon Inquiry Pt receiving controlled substance: No Waylon was queried for this patient: No Vital Signs: 02/10/24 16:47 02/10/24 17:16 02/10/24 18:00 Temperature 98.5 F Temperature Source Oral Pulse Rate 99 H 91 H Pulse Rate [Right] 97 H Respiratory Rate 20 Blood Pressure 133/60 112/64 Blood Pressure [Right Arm] 133/60 Blood Pressure Mean [Right Arm] 84 Blood Pressure Position 02 Sat by Pulse Oximetry 99 90 L 97 Oxygen Delivery Method Room Air Room Air 02/10/24 18:30 02/10/24 19:39 Temperature 98.2 F Temperature Source Pulse Rate 87 60 Pulse Rate [Right] Respiratory Rate 16 Blood Pressure 114/70 135/71 Blood Pressure [Right Arm] Blood Pressure Mean [Right Arm] Blood Pressure Position Supine 02 Sat by Pulse Oximetry 97 Oxygen Delivery Method Room Air Room Air Orders (Tests/Meds): ED MEDICATIONS Discontinued Medications Generic Name Dose Route Start Last Admin Trade Name Terryq PRN Reason Stop Dose Admin Hydrocodone Bitart/Acetaminophen 2 tab 02/10/24 19:15 02/10/24 19:38 Hydrocodone/Apap 5/325 Mg Tablet PO 02/10/24 19:16 2 tab ONCE ONE Administration ORDERS Category Date Time Status Knee XR right 3 views [XR knee RT 3V] Stat Exams 02/10/24 17:22 Completed Tibia/fibula XR right 2 views [XR tibia fibula RT 2V] Exams 02/10/24 17:27 Completed Stat XR ankle LT min 3V Stat Exams 02/10/24 17:22 Completed XR ankle RT min 3V Stat Exams 02/10/24 17:22 Completed XR knee LT 3V Stat Exams 02/10/24 17:22 Completed Medical Decision Narrative: Insert review patient is a 73-year-old male presenting to the emergency department for evaluation of bilateral knee pain. Patient is hemodynamically stable and nontoxic-appearing upon arrival, afebrile. Differential diagnosis includes sprain versus strain versus fractures among others. Workup will be conducted with specific imaging including plain films of bilateral knees and ankles. Initial inventions include pain medicine. Imaging informally interpreted by me and remarkable for no acute fractures Formal imaging read remarkable for calcifications but no acute injury or fractures. Upon repeat evaluation patient's pain is improved. Patient given pain medicine and asked to follow-up with his PCP which is Susan. Explained to patient that he may need an MRI or other imaging including but not limited to CT or MRI. He also may need physical therapy for his knee pain. All required before receiving an MRI. Explained to patient that he needs to follow-up with Susan this week. Patient is safe for discharge home using rollator Critical Care Critical Care Time Critical Care Time: No
[2024-02-10 18:00] VITALS: BP 112/64; PULSE 91; O2SAT 97
[2024-02-10 18:30] VITALS: BP 114/70; PULSE 87; O2SAT 97
[2024-02-10] MEDS: HYDROCODONE/APAP 5/325 MG TABLET 2 TAB PO (19:38)
[2024-02-10 19:39] VITALS: BP 135/71; PULSE 60; RESP 16; TEMP 36.8; O2SAT 92
== END 2024-02-10 19:46 | disposition home or self-care (01) ==
PROVIDERS: Emergency Provider Student in an Organized Health Care Education/Training Program; PCP Nurse Practitioner Family
DX: M23.90 Unspecified internal derangement of unspecified knee (principal); M79.604 Pain in right leg; M79.605 Pain in left leg; M25.561 Pain in right knee; M25.562 Pain in left knee; M25.571 Pain in right ankle and joints of right foot; M25.572 Pain in left ankle and joints of left foot; W19.XXXA Unspecified fall, initial encounter; Y93.9 Activity, unspecified; Y92.9 Unspecified place or not applicable
CPT/HCPCS: 73562; 73590; 73610; 99283

== ENCOUNTER 2024-04-14 17:45 | Emergency (ER) | payer MEDICARE, SELFPAY ==
[2024-04-14 17:45] VITALS: BP 126/78; PULSE 90; RESP 20; TEMP 37.2; O2SAT 98
--- NOTE | 2024-04-14 17:50 | ECG_ITS ---
APPROVED REPORT Exam: Resting ECG HR:91 bpm ECG Measurements Heart Rate 91 AXES HI 195 P 107 QRSd 150 QRS 135 QT 392 T 18 QTc 441 Conclusion ELECTRONIC VENTRICULAR PACEMAKER ABNORMAL RHYTHM ECG No STEMI Electronically signed by : HERBERT CASAS, 04/16/2024 06:47:20
--- NOTE | 2024-04-14 17:52 | CT_ITS ---
PROCEDURE INFORMATION: Exam: CTA Chest With Contrast Exam date and time: 04/14/2024 6:24 PM Age: 73 years old Clinical indication: Injury or trauma; Fall; Additional info: Syncope, confusion, cp TECHNIQUE: Imaging protocol: Computed tomographic angiography of the chest with contrast. Exam focused on the arteries. 3D rendering (Not supervised by radiologist): MIP and/or 3D reconstructed images were created by the technologist. Radiation optimization: All CT scans at this facility use at least one of these dose optimization techniques: automated exposure control; mA and/or kV adjustment per patient size (includes targeted exams where dose is matched to clinical indication); or iterative reconstruction. Contrast material: ISOVUE; Contrast volume: 80 ml; Contrast route: INTRAVENOUS (IV); COMPARISON: CT ANGIO CHEST 04/14/2024 6:24 PM FINDINGS: Limitations: Segmental and subsegmental pulmonary arteries are partially obscured by respiratory motion. Tubes, catheters and devices: Triple chamber pacemaker/cardioverter in appropriate position with lead tips in the right atrium, coronary sinus, and right ventricle. Pulmonary arteries: The pulmonary arteries are normal in course and caliber. Linear occlusive segmental and subsegmental pulmonary emboli in the left lower lobe (series 5, images 58-75). No other definitive pulmonary emboli, with the caveat that the segmental and subsegmental pulmonary arterial branches are partially obscured by motion. The pulmonary arteries are normal in course and caliber. Great vessels off aortic arch: Bovine aortic arch, with a common origin of the left common carotid and brachiocephalic arteries. Aorta: Mild diffuse calcific atherosclerosis of the aorta. No acute pathology in the aorta. No aortic aneurysms. Thyroid: The thyroid gland is normal. Trachea: Airways are patent. Lungs: Left lung calcified granuloma is benign. Subpleural atelectasis of the dependent portions of the lungs. No consolidations. Chronic lingular scarring/atelectasis. 7 mm nodule in the right lung base. Pleural spaces: No pleural effusions or pneumothorax. Heart: No cardiomegaly. No pericardial thickening or effusion. Heart RV/LV ratio: 0.8. Coronary arteries: There is no evidence of atherosclerotic coronary artery calcifications. Lymph nodes: There is no evidence of lymphadenopathy. Diaphragm: Small hiatal hernia. Bones/joints: Healed right mid clavicular fracture. There are healed right rib fractures. There are healed left rib fractures. Moderate multilevel degenerative changes of the spine. No acutely displaced fractures. No joint dislocation. Soft tissues: No acute soft tissue findings. IMPRESSION: 1. Linear occlusive segmental and subsegmental pulmonary emboli in the left lower lobe (series 5, images 58-75). 2. No evidence of right heart strain with an RV/LV ratio of less than 1. 3. 7 mm nodule in the right lung base. For patients at low risk (minimal or absent history of smoking and of other known risk factors), recommend CT Chest at 6-12 months, then consider CT Chest at 18-24 months. For patients at high risk (history of smoking or of other known risk factors), recommend CT Chest at 6-12 months, then CT Chest at 18-24 months. (Reference: An) 4. Incidental findings as above. COMMENTS: Please review abdomen and pelvic CT performed on the same date for other findings. REFERENCES: An Jc et al. Guidelines for Management of Incidental Pulmonary Nodules Detected on CT Images: From the Fleischner Society 2017. Radiology. 2017;284(1):228-243.
--- NOTE | 2024-04-14 17:53 | CT_ITS ---
PROCEDURE INFORMATION: Exam: CT Pelvis Without Contrast, Skeleton Exam date and time: 04/14/2024 6:18 PM Age: 73 years old Clinical indication: Injury or trauma; Fall; Additional info: Syncope, AMS, cp and abd pain. L hip pain TECHNIQUE: Imaging protocol: Computed tomography of the pelvis without contrast. Exam focused on the skeleton. Radiation optimization: All CT scans at this facility use at least one of these dose optimization techniques: automated exposure control; mA and/or kV adjustment per patient size (includes targeted exams where dose is matched to clinical indication); or iterative reconstruction. COMPARISON: 1. CT ABDOMEN PELVIS W CON 08/29/2022 5:18 AM 2. CR XR PELVIS 1-2V 04/14/2024 5:56 PM FINDINGS: Intestine: Diffuse colonic diverticulosis. Severe constipation. There is no evidence of intestinal obstruction. Appendix: A normal appendix is identified. Intraperitoneal space: There is no evidence of free intraperitoneal or pelvic fluid. No intraperitoneal fluid collections. Vasculature: Mild atherosclerotic calcification of the arterial vasculature. Bones/joints: Complete right hip arthroplasty without complications. Left femoral neck fixation. No evidence of hardware complications. Specifically, no evidence for hardware loosening or periprosthetic fractures. Mild osteoarthritis of the left hip joint. Stable chronic cortical irregularities in the left inferior pubic ramus since 2022. No acutely displaced fractures. No joint dislocation. No aggressive osseous lesions. No aggressive osseous lesions. Soft tissues: Nonobstructing fat containing right inguinal hernia. Nonobstructing fat containing left inguinal hernia. Fat containing umbilical hernia. Lymph nodes: 1.3 cm prominent left inguinal lymph node, and external left iliac chain lymph nodes with mild perivascular and anterior thigh fat stranding. IMPRESSION: 1. No acute skeletal pathology. 2. No hardware complications. Prior findings on the referenced pelvic x-ray were likely related to chronic changes or superimposition of structures. 3. 1.3 cm prominent left inguinal lymph node, and external left iliac chain lymph nodes with mild perivascular and anterior thigh fat stranding. Presumably reactive lymph nodes with mild adjacent perivascular and skin/subcutaneous inflammatory changes which are of unclear etiology. Chronic reactive nodes or distal acute left lower extremity pathology or DVT could present similar findings. Consider correlation with left lower extremity duplex ultrasound if warranted.
--- NOTE | 2024-04-14 17:53 | CT_ITS ---
PROCEDURE INFORMATION: Exam: CTA Head With Contrast, Arteriography Exam date and time: 04/14/2024 6:21 PM Age: 73 years old Clinical indication: Injury or trauma; Fall; Additional info: Syncope, confusion, cp TECHNIQUE: Imaging protocol: Computed tomographic angiography of the head with contrast. Exam focused on the arteries. 3D rendering (Not supervised by radiologist): MIP and/or 3D reconstructed images were created by the technologist. Radiation optimization: All CT scans at this facility use at least one of these dose optimization techniques: automated exposure control; mA and/or kV adjustment per patient size (includes targeted exams where dose is matched to clinical indication); or iterative reconstruction. Contrast material: ISOVUE; Contrast volume: 80 ml; Contrast route: INTRAVENOUS (IV); COMPARISON: CT HEAD/BRAIN WO CON 04/14/2024 6:09 PM FINDINGS: ANTERIOR CIRCULATION: Right internal carotid artery: Intracranial segment is patent with no significant stenosis. No aneurysm. Right middle cerebral artery: No occlusion or significant stenosis. No aneurysm. Right anterior cerebral artery: No occlusion or significant stenosis. No aneurysm. Left internal carotid artery: Moderate calcific atherosclerotic disease of the left intracranial ICA resulting in moderate stenosis of the cavernous segment. Left middle cerebral artery: No occlusion or significant stenosis. No aneurysm. Left anterior cerebral artery: No occlusion or significant stenosis. No aneurysm. POSTERIOR CIRCULATION: Right vertebral artery: No occlusion or significant stenosis. No aneurysm. Left vertebral artery: No occlusion or significant stenosis. No aneurysm. Basilar artery: No occlusion or significant stenosis. No aneurysm. Right posterior cerebral artery: No occlusion or significant stenosis. No aneurysm. Left posterior cerebral artery: No occlusion or significant stenosis. No aneurysm. Brain: No definite mass, mass effect, or midline shift. Cerebral ventricles: No ventriculomegaly. Bones/joints: Unremarkable. No acute fracture. Soft tissues: Unremarkable. IMPRESSION: Moderate calcific atherosclerotic disease of the left intracranial ICA resulting in moderate stenosis of the cavernous segment. PROCEDURE INFORMATION: Exam: CTA Neck With Contrast Exam date and time: 04/14/2024 6:21 PM Age: 73 years old Clinical indication: Injury or trauma; Fall; Additional info: Syncope, confusion, cp TECHNIQUE: Imaging protocol: Computed tomographic angiography of the neck with contrast. Exam focused on the cervical segments of the vasculature. 3D rendering (Not supervised by radiologist): MIP and/or 3D reconstructed images were created by the technologist. Radiation optimization: All CT scans at this facility use at least one of these dose optimization techniques: automated exposure control; mA and/or kV adjustment per patient size (includes targeted exams where dose is matched to clinical indication); or iterative reconstruction. COMPARISON: CT CERVICAL SPINE WO CON 04/14/2024 6:11 PM FINDINGS: Right common carotid artery: Mild calcific atherosclerotic disease of the right carotid bulb without stenosis. Right internal carotid artery: No stenosis of the extracranial segment. No dissection or occlusion. Right external carotid artery: No occlusion or stenosis of the origin. Left common carotid artery: Moderate mixed calcific and noncalcified atherosclerotic disease of the left carotid bulb resulting in moderate stenosis. Left internal carotid artery: No stenosis of the extracranial segment. No dissection or occlusion. Left external carotid artery: No occlusion or stenosis of the origin. Right vertebral artery: No stenosis. No dissection or occlusion. Left vertebral artery: No stenosis. No dissection or occlusion. Soft tissues: Normal. No significant soft tissue swelling. Bones/joints: Moderate loss of intervertebral disc space with degenerative changes involving C3 through C7. IMPRESSION: Moderate mixed calcific and noncalcified atherosclerotic disease of the left carotid bulb resulting in moderate stenosis. REFERENCES: NASCET CRITERIA. The degree of stenosis in the cervical segment of the internal carotid artery is based on NASCET criteria. Normal is no stenosis. Mild is less than 50% stenosis. Moderate is 50-69% stenosis. Severe is 70% to 99% stenosis. Total occlusion is no detectable patent lumen.
--- NOTE | 2024-04-14 17:53 | CT_ITS ---
PROCEDURE INFORMATION: Exam: CT Thoracic Spine Without Contrast Exam date and time: 04/14/2024 6:13 PM Age: 73 years old Clinical indication: Injury or trauma; Fall; Additional info: Syncope, AMS, cp and abd pain TECHNIQUE: Imaging protocol: Computed tomography of the thoracic spine without contrast. Radiation optimization: All CT scans at this facility use at least one of these dose optimization techniques: automated exposure control; mA and/or kV adjustment per patient size (includes targeted exams where dose is matched to clinical indication); or iterative reconstruction. COMPARISON: CT CERVICAL SPINE WO CON 04/14/2024 6:11 PM FINDINGS: Bones/joints: Mild and symmetric multilevel disc space narrowing. Large multilevel anterior osteophytes. Vertebral body heights are well preserved. Facet joints have mild degenerative hypertrophy and sclerosis. The spinal canal is patent. No bony neural foraminal stenosis is present. No acutely displaced fractures. No joint dislocation. Soft tissues: No acute soft tissue findings. Lungs: 7 mm solid nodule in the right lung base. Bilateral bronchial wall thickening. Gallbladder and biliary ducts: Cholecystectomy. Other findings: Small hiatal hernia. No acute findings in the included upper abdominal organs. IMPRESSION: 1. No acute skeletal pathology. 2. 7 mm solid nodule in the right lung base. For patients at low risk (minimal or absent history of smoking and of other known risk factors), recommend CT Chest at 6-12 months, then consider CT Chest at 18-24 months. For patients at high risk (history of smoking or of other known risk factors), recommend CT Chest at 6-12 months, then CT Chest at 18-24 months. (Reference: An) 3. Acute/chronic bronchitis or reactive airways disease. REFERENCES: An Jc et al. Guidelines for Management of Incidental Pulmonary Nodules Detected on CT Images: From the Fleischner Society 2017. Radiology. 2017;284(1):228-243.
--- NOTE | 2024-04-14 17:53 | CT_ITS ---
PROCEDURE INFORMATION: Exam: CT Cervical Spine Without Contrast Exam date and time: 04/14/2024 6:11 PM Age: 73 years old Clinical indication: Injury or trauma; Fall; Additional info: Syncope, AMS, cp and abd pain TECHNIQUE: Imaging protocol: Computed tomography of the cervical spine without contrast. Radiation optimization: All CT scans at this facility use at least one of these dose optimization techniques: automated exposure control; mA and/or kV adjustment per patient size (includes targeted exams where dose is matched to clinical indication); or iterative reconstruction. COMPARISON: CT CERVICAL SPINE WO CON 04/14/2024 6:11 PM FINDINGS: Bones: Moderate loss of intervertebral disc space with degenerative changes involving C3 through C7. The vertebral bodies are maintained in height and alignment. No evidence of acute osseous abnormality. Healed fracture of the right clavicle. Lungs: Lung apices are normal. Soft tissues: Unremarkable. IMPRESSION: No evidence of acute osseous abnormality.
--- NOTE | 2024-04-14 17:53 | CT_ITS ---
PROCEDURE INFORMATION: Exam: CT Lumbar Spine Without Contrast Exam date and time: 04/14/2024 6:16 PM Age: 73 years old Clinical indication: Injury or trauma; Fall; Additional info: Syncope, AMS, cp and abd pain TECHNIQUE: Imaging protocol: Computed tomography of the lumbar spine without contrast. Radiation optimization: All CT scans at this facility use at least one of these dose optimization techniques: automated exposure control; mA and/or kV adjustment per patient size (includes targeted exams where dose is matched to clinical indication); or iterative reconstruction. COMPARISON: CT THORACIC SPINE WO CON 04/14/2024 6:13 PM FINDINGS: Bones/joints: Mild and symmetric multilevel disc space narrowing. Large multilevel anterior osteophytes. Vertebral body heights are well preserved. Facet joints have moderate degenerative narrowing and sclerosis. The spinal canal is patent. Mild left bony neural foraminal stenosis at L5-S1. No acutely displaced fractures. No joint dislocation. No aggressive osseous lesions. There are mild degenerative changes of the sacroiliac joints. Lungs: 7 mm solid nodule in the right lung base. Soft tissues: Unremarkable. Other findings: No acute findings in the included segments of the retroperitoneum. IMPRESSION: 1. No acute skeletal pathology. 2. 7 mm solid nodule in the right lung base. For patients at low risk (minimal or absent history of smoking and of other known risk factors), recommend CT Chest at 6-12 months, then consider CT Chest at 18-24 months. For patients at high risk (history of smoking or of other known risk factors), recommend CT Chest at 6-12 months, then CT Chest at 18-24 months. (Reference: An)
[2024-04-14 17:54] LABS: Lactate Venous 1.7 mmol/L (0.4-2.0); VBG Base Excess 1.5 mmol/L (-2.4-2.3); VBG HCO3 27.3 mmol/L (23-30); VBG Oxygen Saturation 40.8 % (50-70); VBG PCO2 51.2 mmol/L (35-51); VBG PH 7.34 mmol/L (7.31-7.41); VBG PO2 22.2 mmol/L (28-40); VBG Total CO2 28.8 mmol/L (23-27)
--- NOTE | 2024-04-14 17:54 | XR_ITS ---
PROCEDURE INFORMATION: Exam: XR Pelvis Exam date and time: 04/14/2024 5:56 PM Age: 73 years old Clinical indication: Injury or trauma; Fall; Other: Pain; Additional info: Trauma, L hip pain TECHNIQUE: Imaging protocol: Radiologic exam of the pelvis. Views: 1 or 2 view. COMPARISON: 1. CT ABDOMEN PELVIS W CON 08/29/2022 5:18 AM 2. CR XR HIP RT 2-3V W/PELVIS 11/03/2020 12:20 PM FINDINGS: Bones/joints: Complete right hip arthroplasty without complications. Prior left femoral neck fixation. Periprosthetic lucency in the left femoral head superiorly, adjacent to the femoral neck screw head. No other acutely displaced skeletal fractures. No joint dislocation. There are mild degenerative changes of the sacroiliac joints. Soft tissues: No acute soft tissue findings. Vasculature: There are numerous benign phleboliths in the pelvis. IMPRESSION: Prior left femoral neck fixation. Periprosthetic lucency in the left femoral head superiorly, adjacent to the femoral neck screw head. Not previously present on October 2020, and raising concern for a acute periprosthetic fracture. Differential would include chronic changes. Correlation with noncontrast CT of the left hip (preferably with metal artifact reduction algorithm) is recommended for clarification.
--- NOTE | 2024-04-14 17:54 | CT_ITS ---
PROCEDURE INFORMATION: Exam: CTA Abdomen and Pelvis With Contrast Exam date and time: 04/14/2024 6:24 PM Age: 73 years old Clinical indication: Injury or trauma; Fall; Additional info: Syncope, AMS, cp and abd pain. L hip pain TECHNIQUE: Imaging protocol: Computed tomographic angiography of the abdomen and pelvis with contrast. Exam focused on the arteries. 3D rendering (Not supervised by radiologist): MIP and/or 3D reconstructed images were created by the technologist. Radiation optimization: All CT scans at this facility use at least one of these dose optimization techniques: automated exposure control; mA and/or kV adjustment per patient size (includes targeted exams where dose is matched to clinical indication); or iterative reconstruction. Contrast material: ISOVUE; Contrast volume: 80 ml; Contrast route: INTRAVENOUS (IV); COMPARISON: 1. CT BONY PELVIS 04/14/2024 6:[address] ABDOMEN PELVIS W CON 08/29/2022 5:18 AM FINDINGS: Limitations: Evaluation of the pelvis is significantly limited by streak artifact. Diaphragm: Moderate hiatal hernia. Aorta: Aorta is normal in course and caliber. No acute pathology in the aorta. Mild diffuse calcific atherosclerosis of the aorta. Celiac trunk and mesenteric arteries: Celiac trunk is patent and without stenosis, occlusion, or dissection. SMA is patent and without stenosis or occlusion. Inferior mesenteric artery is completely patent and without stenosis or occlusion. Renal arteries: No dissection, significant stenosis, or occlusion in the right renal artery. No dissection, significant stenosis, or occlusion in the left renal artery. Right iliac arteries: Right common iliac artery is patent and without stenosis or occlusion. Right external iliac artery is patent and without stenosis or occlusion. Right internal iliac artery is patent and without stenosis or occlusion. Right femoral/popliteal arteries: Right common femoral artery is patent and without stenosis or occlusion. Left iliac arteries: Left common iliac artery is patent and without stenosis or occlusion. Left external iliac artery is patent and without stenosis or occlusion. Left internal iliac artery is patent and without stenosis or occlusion. Fat stranding around the left iliac vessels. Left femoral/popliteal arteries: Left common femoral artery is patent and without stenosis or occlusion. Veins: Filling defect within the left common femoral vein. Liver: Liver is enlarged measuring 20 cm. Diffuse decrease in hepatic parenchymal density, consistent with fatty infiltration. Single calcified liver granuloma is benign. The liver is otherwise unremarkable. Gallbladder and biliary ducts: Cholecystectomy. There is no evidence of biliary ductal dilation. Pancreas: Benign fatty infiltration of the pancreas. There is no pancreatic duct dilation. Spleen: The spleen demonstrates punctate calcifications, consistent with remote granulomatous organism exposure. The spleen is otherwise unremarkable. Adrenal glands: Adrenal glands are normal. Kidneys and ureters: Multifocal areas of left renal cortical scarring. Multiple simple left renal cysts, largest measuring 1.5 cm. No follow-up recommended. The kidneys are otherwise unremarkable. No hydroureter. Stomach and bowel: Diffuse colonic diverticulosis. Severe constipation. No bowel thickening. There is no evidence of intestinal obstruction. Stomach is decompressed and difficult to evaluate. Duodenum is unremarkable. Appendix: A normal appendix is identified. Intraperitoneal space: There is no evidence of free intraperitoneal or pelvic fluid. No intraperitoneal fluid collections. Lymph nodes: 1.1 cm prominent left inguinal and external iliac chain lymph nodes. No other adenopathy. Urinary bladder: The bladder is normal. Reproductive: Reproductive organs are obscured by streak artifact. Bones/joints: Complete right hip arthroplasty and prior left femoral neck fixation hardware. No evidence of hardware complications. Specifically, no evidence for hardware loosening or periprosthetic fractures. Cortical irregularities in the left inferior pubic ramus have been stable since 2022 and are of chronic etiology. No acutely displaced fractures. No joint dislocation. No aggressive osseous lesions. Moderate multilevel degenerative changes of the spine. Soft tissues: Subcutaneous fat stranding in the anterior left thigh. Nonobstructing fat containing left inguinal hernia. Nonobstructing fat containing right inguinal hernia. Fat containing umbilical hernia. Remainder of the soft tissues are unremarkable. IMPRESSION: 1. Filling defect within the left common femoral vein. Could be related to artifact, however is very suspicious for DVT. Correlation with left lower extremity duplex ultrasound is recommended. 2. No acute arterial pathology. 3. 1.1 cm prominent left inguinal and external iliac chain lymph nodes. Presumably reactive. 4. No other acute pathology. 5. Incidental findings as above. COMMENTS: Please review chest CT performed concomitantly for other important findings.
--- NOTE | 2024-04-14 17:54 | CT_ITS ---
PROCEDURE INFORMATION: Exam: CT Head Without Contrast Exam date and time: 04/14/2024 6:09 PM Age: 73 years old Clinical indication: Injury or trauma; Fall; Additional info: Syncope, AMS, cp and abd pain TECHNIQUE: Imaging protocol: Computed tomography of the head without contrast. Radiation optimization: All CT scans at this facility use at least one of these dose optimization techniques: automated exposure control; mA and/or kV adjustment per patient size (includes targeted exams where dose is matched to clinical indication); or iterative reconstruction. COMPARISON: CT HEAD/BRAIN WO CON 04/14/2024 6:09 PM FINDINGS: Brain: There is moderate diffuse cerebral volume loss present. Multiple subcortical and deep hypoattenuating white matter foci are present, likely related to small vessel senescent changes and can also be seen with prior infectious / inflammatory insult, or prior traumatic events. No hyperattenuating foci are identified to suggest acute intracranial hemorrhage. Cerebral ventricles: No ventriculomegaly. Paranasal sinuses: Visualized sinuses are unremarkable. No fluid levels. Mastoid air cells: Visualized mastoid air cells are well aerated. Bones: Unremarkable. No acute fracture. Soft tissues: Unremarkable. IMPRESSION: 1. Multiple subcortical and deep hypoattenuating white matter foci are present, likely related to small vessel senescent changes and can also be seen with prior infectious / inflammatory insult, or prior traumatic events. 2. No hyperattenuating foci are identified to suggest acute intracranial hemorrhage.
--- NOTE | 2024-04-14 17:54 | XR_ITS ---
PROCEDURE INFORMATION: Exam: XR Chest Exam date and time: 04/14/2024 5:53 PM Age: 73 years old Clinical indication: Injury or trauma; Fall; Other: Pain; Additional info: Trauma, L chest wall pain TECHNIQUE: Imaging protocol: Radiologic exam of the chest. Views: 1 view. COMPARISON: CR XR CHEST 2V 10/02/2023 12:20 PM FINDINGS: Tubes, catheters and devices: Triple chamber pacemaker/cardioverter in appropriate position with lead tips in the right atrium, coronary sinus, and right ventricle. Airway: Airways are patent. Lungs: Lungs are clear. No consolidations. Pleural spaces: There is blunting of the left costophrenic angle. Right costophrenic angle is clear. There are no pleural effusions present. There is no evidence of pneumothorax. Heart/Mediastinum: No cardiomegaly. Bones/joints: There are healed right rib fractures. No acute skeletal abnormality or aggressive osseous lesion. IMPRESSION: There is blunting of the left costophrenic angle. Likely related to chronic scarring/atelectasis.
[2024-04-14 17:55] VITALS: BMI 29.5
[2024-04-14 18:02] LABS: Basophils % 0.1 % (0.1-2.0); Eosinophils % 0.2 % (0.1-12.0); Hematocrit 43.4 % (42.0-52.0); Hemoglobin 14.3 g/dL (14.1-18.0); Lymphocytes # 1.8 K/mm3 (0.7-4.5); Lymphocytes % 9.3 % (10-50); Mean Corpuscular HGB Conc 32.9 g/dL (31.8-35.4); Mean Corpuscular Hemoglobin 35.4 pg (27.0-31.2); Mean Corpuscular Volume 107.4 fl (80-94); Mean Platelet Volume 10.3 fl (7.4-10.4); Monocytes # 0.9 K/mm3 (0.1-1.0); Monocytes % 4.8 % (1.7-9.3); Neutrophils # 16.3 K/mm3 (1.8-7.8); Neutrophils % 85.2 % (37.0-80.0); Platelet Count 155 K/mm3 (142-424); Red Blood Count 4.04 M/mm3 (4.60-6.20); Red Cell Distribution Width 14.2 % (11.5-17.5); White Blood Count 19.2 K/mm3 (4.8-10.8)
--- NOTE | 2024-04-14 18:03 | ED_ITS ---
Discharge Plan Disposition Patient Disposition: Xfer Short-Term Hosp Prescriptions Prescriptions: No Action metoprolol succinate 25 mg tablet extended release 24 hr 25 mg PO QDAY Qty: 90 3RF furosemide 40 mg tablet 40 mg PO BID 30 Days Qty: 60 5RF Eliquis 5 mg tablet See Rx Instructions .ROUTE .COMPLEX Qty: 180 3RF Dose Instruction: TAKE 1 TABLET BY MOUTH TWICE DAILY Rx Instructions: TAKE 1 TABLET BY MOUTH TWICE DAILY Jardiance 10 mg tablet See Rx Instructions .ROUTE .COMPLEX Qty: 90 3RF Dose Instruction: TAKE 1 TABLET BY MOUTH ONCE DAILY Rx Instructions: TAKE 1 TABLET BY MOUTH ONCE DAILY spironolactone 25 mg tablet See Rx Instructions .ROUTE .COMPLEX Qty: 90 3RF Dose Instruction: TAKE 1 TABLET BY MOUTH ONCE DAILY Rx Instructions: TAKE 1 TABLET BY MOUTH ONCE DAILY valsartan 40 mg tablet See Rx Instructions .ROUTE .COMPLEX Qty: 180 2RF Dose Instruction: TAKE 1 TABLET BY MOUTH TWICE DAILY Rx Instructions: TAKE 1 TABLET BY MOUTH TWICE DAILY dicyclomine 20 mg tablet 20 mg PO QID montelukast 10 mg tablet 10 mg PO DAILY atorvastatin 40 mg tablet 40 mg PO HS quetiapine 200 mg tablet 200 mg PO HS pantoprazole 40 mg tablet,delayed release (DR/EC) 40 mg PO BID ferrous sulfate [FeroSul] 325 mg (65 mg iron) tablet 325 mg PO BID oxycodone-acetaminophen 7.5-325 mg tablet 1 tab PO QID celecoxib 100 mg capsule 100 mg PO BID duloxetine 30 mg capsule,delayed release(DR/EC) 30 mg PO BID metformin 1,000 mg tablet 500 mg PO BID ropinirole 1 mg tablet 3 mg PO TID gabapentin 600 mg tablet 600 mg PO TID Referrals Follow up/Referrals: Provider,Referral, MD [Primary Care Provider] - See instructions Clinical Impressions Clinical Impression: Sepsis, Cellulitis of left leg, Acute deep vein thrombosis (DVT) of femoral vein of left lower extremity, Pulmonary embolism with acute cor pulmonale, CHF exacerbation, BABAK (acute kidney injury), Rhabdomyolysis Print Language Print Language: Nicarag[place] Discharge ED Provider: Yared Suarez General Adult HPI General Stated complaint: Fall Time Seen by Provider: 04/14/24 17:52 History of Present Illness HPI narrative: Please note that above description of symptoms, in this electronic medical record under categorization of recalled from ER triage doctor by RN are reflective of an initial nursing assessment, however, is not reflective of my full history and physical exam that was personally taken and clarified. Consequentially, this preceding description of symptoms, which may include the patient's categorized chief complaint in the EMR, do not reflect my personal clinical impression, and the ultimate description of history of present illness and patient stated complaints should be deferred to this section of the note. Unless stated otherwise or congruent with this section of the note, additional signs, symptoms, or incongruence should be interpreted as inaccurate with my clinical impression. Related Data Home Medications ?Medication ?Instructions ?Recorded ?Confirmed atorvastatin 40 mg tablet 40 mg PO HS Cholesterol 07/03/22 04/14/24 celecoxib 100 mg capsule 100 mg PO BID Arthritis 07/03/22 04/14/24 duloxetine 30 mg capsule,delayed 30 mg PO BID Mood 07/03/22 04/14/24 release ferrous sulfate 325 mg (65 mg 325 mg PO BID Supplement 07/03/22 04/14/24 iron) tablet (FeroSul) oxycodone-acetaminophen 7.5 mg-325 1 tab PO QID Pain 07/03/22 04/14/24 mg tablet pantoprazole 40 mg tablet,delayed 40 mg PO BID Acid reflux 07/03/22 04/14/24 release quetiapine 200 mg tablet 200 mg PO HS Mood 07/03/22 04/14/24 metformin 1,000 mg tablet 500 mg PO BID Diabetes 11/23/22 04/14/24 ropinirole 1 mg tablet 3 mg PO TID Restless leg syndrome 11/23/22 04/14/24 gabapentin 600 mg tablet 600 mg PO TID Pain 02/22/23 04/14/24 dicyclomine 20 mg tablet 20 mg PO QID 04/14/24 04/14/24 montelukast 10 mg tablet 10 mg PO DAILY 04/14/24 04/14/24 Previous Rx's ?Medication ?Instructions ?Recorded metoprolol succinate 25 mg 25 mg PO QDAY #90 tabs 11/02/22 tablet,extended release 24 hr apixaban 5 mg tablet (Eliquis) See Rx Instructions .Route 06/30/23 .COMPLEX #180 tabs furosemide 40 mg tablet 40 mg PO BID Fluid 30 days #60 tabs 10/02/23 empagliflozin 10 mg tablet See Rx Instructions .Route 01/29/24 (Jardiance) .COMPLEX #90 tabs spironolactone 25 mg tablet See Rx Instructions .Route 01/29/24 .COMPLEX #90 tabs valsartan 40 mg tablet See Rx Instructions .Route 03/27/24 .COMPLEX #180 tabs Allergies Allergy/AdvReac Type Severity Reaction Status Date / Time aspirin (ASPIRIN) Allergy Unknown S-DIFF. Verified 10/02/23 11:26 BREATHING PFSH PFS Disclaimer: The information contained in this section may have been updated after the patient was seen, as this information can be updated by other users. Medical History (Updated 04/14/24 @ 20:54 by Yared Suarez MD) Dehydration Hypotension Edema Cardiac resynchronization therapy defibrillator (PRINTED CIRCUIT BOARDS STRIPPER ETCHER-D) in place HLD (hyperlipidemia) HTN (hypertension) HFrEF (heart failure with reduced ejection fraction) Paroxysmal A-fib Coronary artery disease Cardiac pacemaker in situ Chronic kidney disease, stage 3a Peripheral vascular disease Chronic pain with drug dependence History of DVT of lower extremity Rib fractures Clavicular fracture Depression Fall at home Parkinson disease Diabetes mellitus Surgical History AICD (automatic cardioverter/defibrillator) present S/P carpal tunnel release History of total left hip replacement S/P cholecystectomy Family History Other Coronary artery disease Diabetes Social History Smoking Status: Never smoker years smoked: 55 quit status: not considering quitting alcohol intake: never substance use type: denies use current occupational status: retired Travel in the last 8 weeks: None household members: other housing: apartment marital status: Have you lived/traveled outside US in past 30 days?: No Contact w/someone who lives/traveled outside US past 30 days?: No Exposure to someone with infectious disease in past 14 days?: No Do you have a fever (greater than 100.4 F or 38 C)?: No Have you tested positive for COVID-19: No Exposed to someone with COVID-19 in past 14 days?: No Do you have a sore throat?: No Do you have a cough?: No Do you have any weakness?: No Do you have any diarrhea?: No Are you experiencing any unusual bleeding?: No Do you have any muscle aches/pain?: No Do you have any abdominal pain?: No Are you experiencing loss of taste or smell?: No Other Medical History Have you received the Flu Vaccine for this season: No Have you received the Pneumonia Vaccine: Yes ROS Obtained: Yes unobtainable due to mental status Physical Exam General General appearance: alert Head Head exam: atraumatic and normocephalic Eye Eye exam: Present EOMI and other (Right pupil is ovoid, irregular, 4 mm and minimally reactive. Left pupil is 2 mm and reactive) ENT ENT exam: Present mucous membranes dry Neck Neck exam: Present trachea midline and other (C-collar in place) Chest Chest inspection: Present normal inspection and tenderness (Subjective tenderness on left side of chest wall with no outward signs of abnormality) Respiratory Respiratory exam: Present normal lung sounds bilaterally; Absent respiratory distress, wheezes, stridor, accessory muscle use or prolonged expiratory phase Cardiovascular Cardiovascular exam: Present regular rate, normal rhythm, Pacemaker/defibrillator and other (Pulses equal symmetric in upper and lower extremities) Abdominal Exam Abdominal exam: Present soft and tenderness; Absent distention, guarding, rebound, rigidity or pulsatile mass Abdominal tenderness: Present suprapubic and mild exam: Present normal inspection Extremities Exam Extremities exam: Present edema (Bilateral lower extremity edema, left greater than right. Right leg with chronic overlying skin changes, erythema and warmth.) Neurological Exam Neurological exam: Present alert and CN II-XII intact; Absent oriented X3 or motor sensory deficit Skin Skin exam: Present warm and dry; Absent diaphoresis Medical Decision Making Medical Records Medical records reviewed: Yes I reviewed the patient's medical records. Screening: Per USPSTF and CDC recommendations, given the prevalence of disease in our region, it is our hospital?s policy to screen for HIV and viral Hepatitis for all patients aged 18 and over and those with ongoing risk factors. [place] Inquiry Pt receiving controlled substance: No [place] was queried for this patient: No Vital Signs: 04/14/24 17:45 04/14/24 18:59 04/14/24 19:00 Temperature 98.9 F Temperature Source Oral Pulse Rate 59 L Pulse Rate [Right] 90 Respiratory Rate 20 13 13 Blood Pressure 113/63 119/57 L Blood Pressure [Right Arm] 126/78 Blood Pressure Mean Blood Pressure Mean [Right Arm] 94 Blood Pressure Source [Right Arm] Manual Cuff/ Doppler 02 Sat by Pulse Oximetry 98 96 96 Oxygen Delivery Method Nasal Cannula Oxygen Flow Rate (LPM) 2 04/14/24 19:30 04/14/24 20:01 Temperature Temperature Source Pulse Rate 88 90 Pulse Rate [Right] Respiratory Rate 14 15 Blood Pressure 130/70 143/69 H Blood Pressure [Right Arm] Blood Pressure Mean 91 Blood Pressure Mean [Right Arm] Blood Pressure Source [Right Arm] 02 Sat by Pulse Oximetry 100 98 Oxygen Delivery Method Nasal Cannula Oxygen Flow Rate (LPM) 2 Lab Data Lab Results 04/14/24 17:47: WBC 19.2 H, RBC 4.04 L, Hgb 14.3, Hct 43.4, MCV 107.4 H, MCH 35.4 H, MCHC 32.9, RDW 14.2, Plt Count 155, MPV 10.3, Neut % (Auto) 85.2 H, L ymph % (Auto) 9.3 L, [place] % (Auto) 4.8, Eos % (Auto) 0.2, Baso % (Auto) 0.1, N eut # (Auto) 16.3 H, Lymph # (Auto) 1.8, [place] # (Auto) 0.9, Eos # (Auto) 0.0, Baso # (Auto) 0.0, Total Counted 100, Neutrophils % (Manual) 85 H, Lymphocytes % (Manual) 10, Monocytes % (Manual) 4, Eosinophils % (Manual) 1, Platelet Estimate Normal, Macrocytosis 2+, PT 10.3, INR 0.93, APTT 27.5 04/14/24 17:47: APTT 27.3 L, Sodium 137, Potassium 5.3 H, Chloride 105, Carbon Dioxide 29, Anion Gap 8.3, BUN 57 H, Creatinine 2.70 H, Estimated Creat Clear 34, Estimated GFR 23 L, Est GFR ( Amer) 28 L, Glucose 120 H, Hemoglobin A1c 6.2 H, Lactate 1.5, Calcium 10.0, Magnesium 2.4 H, Total Bilirubin 0.7, AST 159 H, ALT 49, Alkaline Phosphatase 65, Total Creatine Kinase > 3200 H*, T roponin I 0.04 H, NT-Pro-B Natriuret Pep 2480 H, Total Protein 6.8, Albumin 4.0, Globulin 2.8, Albumin/Globulin Ratio 1.4, Lipase 35, Procalcitonin 1.72, TSH 0.61, Thyroxine (T4) 3.8 L, Salicylates < 1.0 L, Plasma/Serum Alcohol < 10 04/14/24 17:54: VBG pH 7.34, VBG pCO2 51.2 H, VBG pO2 22.2 L, VBG HCO3 27.3, VBG Total CO2 28.8 H, VBG O2 Saturation 40.8 L, VBG Base Excess 1.5, VBG Lactic Acid 1.7 04/14/24 17:55: Blood Type O Negative, Antibody Screen Negative 04/14/24 18:32: Ammonia < 9 L 04/14/24 17:47 04/14/24 17:47 Orders (Tests/Meds): ED MEDICATIONS Generic Name Dose Route Start Last Admin Trade Name Freq PRN Reason Stop Dose Admin Lactated Ringer's 2,960 mls @ 1,480 mls/hr 04/14/24 18:51 04/14/24 19:11 Lactated Ringer's 1000 Ml Bag 30 ml/kg infuse over 2 hr (2960 ml) 04/14/24 20:50 1,480 mls/hr IV Administration .Q2H ONE Vancomycin/PEG/NADA/Lysine/Water 1.75 gm in 350 mls @ 175 mls/hr 04/14/24 19:15 04/14/24 19:51 Vancomycin 1.75gm/350ml (Peg) Premix IV 04/14/24 21:14 175 mls/hr ONCE ONE Administration Heparin Sodium/Dextrose 500 mls @ 36 mls/hr 04/14/24 20:15 04/14/24 20:06 Heparin 25,000 Units In D5w 500ml Premix IV 05/14/24 20:14 36 mls/hr .[id number] LIZETH Administration 1,800 UNIT/HR Miscellaneous 1 each 04/14/24 19:00 04/14/24 19:11 Vancomycin Consult Request NOTAPPLIC 05/14/24 18:59 1 each CONSULT PHARMACY LIZETH Administration Miscellaneous 1 each 04/14/24 20:00 04/14/24 20:10 Heparin Drip Consult NOTAPPLIC 05/14/24 19:59 1 each CONSULT PHARMACY LIZETH Administration Discontinued Medications Generic Name Dose Route Start Last Admin Trade Name Freq PRN Reason Stop Dose Admin Heparin Sodium (Porcine) 5,000 unit 04/14/24 19:30 04/14/24 19:52 Heparin Sodium 5,000 Unit/Ml Vial IV 04/14/24 19:31 5,000 unit ONCE ONE Administration Cefepime HCl 2 gm/ Sodium 100 mls @ 200 mls/hr 04/14/24 18:52 04/14/24 19:17 Chloride IV 04/14/24 19:21 200 mls/hr ONCE ONE Administration Iopamidol 80 ml 04/14/24 18:10 04/14/24 18:21 Iopamidol-370 (76%);100ml Bottle IV 04/14/24 18:11 80 ml ONCE ONE Administration Iopamidol 80 ml 04/14/24 18:11 04/14/24 18:24 Iopamidol-370 (76%);100ml Bottle IV 04/14/24 18:12 80 ml ONCE ONE Administration Sodium Chloride 50 ml 04/14/24 18:10 04/14/24 18:21 0.9 % Sodium Chloride 50 Ml Vial IV 04/14/24 18:11 50 ml ONCE ONE Administration Sodium Chloride 10 ml 04/14/24 18:10 04/14/24 18:21 Sodium Chloride 0.9% 10ml Syr (Rad Only) IV 04/14/24 18:11 10 ml ONCE ONE Administration Sodium Chloride 50 ml 04/14/24 18:11 04/14/24 18:24 0.9 % Sodium Chloride 50 Ml Vial IV 04/14/24 18:12 50 ml ONCE ONE Administration Sodium Chloride 10 ml 04/14/24 18:11 04/14/24 18:24 Sodium Chloride 0.9% 10ml Syr (Rad Only) IV 04/14/24 18:12 10 ml ONCE ONE Administration ORDERS Category Date Time Status Type and Screen Stat BBK 04/14/24 17:[address] angio abdomen pelvis Stat Cat Scan 04/14/24 17:[address] angio head Stat Cat Scan 04/14/24 17:[address] angio neck Stat Cat Scan 04/14/24 17:[address] bony pelvis Stat Cat Scan 04/14/24 17:[address] cervical spine wo con Stat Cat Scan 04/14/24 17:[address] head/brain wo con Stat Cat Scan 04/14/24 17:[address] lumbar spine wo con Stat Cat Scan 04/14/24 17:[address] thoracic spine wo con Stat Cat Scan 04/14/24 17:53 Completed CTA Chest [CT angio chest - dissection] Stat Cat Scan 04/14/24 17:52 Completed POCUS Point of Care (ER Only) Stat Exams 04/14/24 17:54 Completed Pelvis XR 1-2 views [XR pelvis 1-2V] Stat Exams 04/14/24 17:54 Completed XR chest portable Stat Exams 04/14/24 17:54 Completed Ammonia Stat Lab 04/14/24 18:32 Completed CK [Creatine Kinase] Stat Lab 04/14/24 17:47 Completed Complete Blood Count Auto Diff Stat Lab 04/14/24 17:47 Completed Comprehensive Metabolic Panel Stat Lab 04/14/24 17:47 Completed Ethanol [Ethyl Alcohol] Stat Lab 04/14/24 17:47 Completed Hemoglobin A1C Stat Lab 04/14/24 17:47 Completed Heparin drip PTT [PTT Heparin (inpatient only)] Stat Lab 04/14/24 17:47 Completed Lactic Acid Stat Lab 04/14/24 17:47 Completed Lipase Stat Lab 04/14/24 17:47 Completed Magnesium Stat Lab 04/14/24 17:47 Completed NT Pro Brain Natriuretic Pep. Stat Lab 04/14/24 17:47 Completed PT INR [Prothrombin Time INR] Stat Lab 04/14/24 17:47 Completed PTT [Activated Partial Thrombo Time] Stat Lab 04/14/24 17:47 Completed Procalcitonin Stat Lab 04/14/24 17:47 Completed Salicylate Stat Lab 04/14/24 17:47 Completed T4 (Thyroxine) Stat Lab 04/14/24 17:47 Completed TSH [Thyroid Stimulating Hormone] Stat Lab 04/14/24 17:47 Completed Troponin I Q3H Lab 04/14/24 21:00 Ordered Troponin I Q3H Lab 04/15/24 00:00 Ordered Troponin I Stat Lab 04/14/24 17:47 Completed Urinalysis and Microscopic Stat Lab 04/14/24 17:55 Ordered Blood Culture Stat Micro 04/14/24 17:55 Received Venous Blood Gas Routine RT 04/14/24 17:54 Completed HEART Score History (anamnesis): Slightly suspicious ECG: Non-specific disturbance Age: >65 years Risk factors: 3 or more risk factors Troponin: 1-3x normal limit HEART Score: 6 Medical Decision Narrative: This is a 73-year-old male presenting as trauma alert after being found down. Patient has hypertension, hyperlipidemia, diabetes, Parkinson's disease, cardiomyopathy with pacemaker AICD in place and also on Eliquis, was found down short before arrival with last known normal around 3 PM today, 04/14. Patient arrived to the emergency department right around 5:45 PM. Confused, protecting airway, responding appropriately. Has complaints about left-sided chest wall pain, lower abdominal pain, left greater than right hip pain, lower extremity swelling. Oriented only to person, not place, time, or situation. On physical exam, patient has noted signs of outward trauma. Right pupil is 4 mm irregular and ovoid. Left pupil is 2 mm and normal. Left-sided chest wall tenderness, bilateral breath sounds. Patient has atraumatic upper and lower extremities. No abdominal tenderness on my exam, pelvis stable. Compartments are soft. Patient's lower extremities with 2+ pitting edema, left greater than right with chronic overlying skin changes. Red, warm. Differential includes intracranial hemorrhage, cervical spine injury, dissection, pneumonia, sepsis, soft tissue infection, intra-abdominal pathology, ACS, IN, rhabdomyolysis, kidney failure, among others Patient placed on continuous cardiac monitoring and continuous pulse ox with initial blood pressure 126/78, heart rate 90, saturation 98% on 2 L nasal cannula. [Independent interpretation of EKG shows] V paced rhythm 91 bpm with QRS 150, QTc 441. Rightward axis patient was given fluid bolus for symptomatic management[ and correction of underlying abnormalities]. Workup independently interpreted and significant for leukocytosis 19.2 with neutrophilia. Coags nonactionable, BG nonactionable. Patient's potassium level high at 5.3, creatinine elevated 2.7 and BUN 57 consistent with prerenal injury. Patient's CK undetectably high at greater than 3200. Troponin 0.04 and BNP nearly 2500. Tox labs negative. On independent interpretation of imaging, patient has no intracranial hemorrhage or cervical/thoracic/lumbar spine pathology. No traumatic abnormality in the chest abdomen or pelvis. However, patient does have subsegmental pulmonary emboli with what appears to be right heart strain right to left heart about 1-1. He does have lymphadenopathy in his left lower inguinal chain consistent with left lower extremity cellulitis. See radiology read for full review of final results. Radiology called to let me know that he also has left iliofemoral DVT. Patient already on heparin bolus and drip. Heart score 6. Patient was given fluid bolus, appears to be prerenal injury. [facility] contacted and case was discussed for transfer in the setting of DVT, submassive PE, sepsis, rhabdomyolysis and acute renal failure in the setting of prolonged downtime. Because patient high risk for clinical decompensation if discharged, deemed appropriate for transfer and inpatient admission. Results were relayed to patient who voiced understanding and patient was agreeable to transfer, inpatient admission, and management. Patient was graciously accepted and transferred to [facility] for further definitive management, under Dr. Mccartney. Electro Mechanical Solar Technician disclaimer Much of this encounter note is an electronic graduate assistant athletic trainer spoken language to printed text. Electronic graduate assistant athletic trainer of the spoken language may permit errors. Although I have reviewed the note, some errors may still exist. Procedures Limited Ultrasound Indication:: Limited EFAST ultrasound Indication: Found down, trauma Views: LUQ, RUQ, Pelvis, Limited Cardiac, Limited Thoracic Interpretation: Peritoneal Free Fluid: Absent Pericardial effusion: Absent Right thoracic free Fluid: Absent Left thoracic Free Fluid: Absent Right lung pneumothorax: Absent Left Lung pneumothorax: Absent Impression: Negative EFAST ultrasound Images were saved to permanent archive The study was technically adequate CPT 34812-58 (limited cardiac) 48676-90 (limited abdominal) 76171-53 (chest) This study was performed by me, and I personally interpreted all images/videos. Based on my clinical judgement, these images were adequate and did not necessitate further imaging Critical Care Critical Care Time Critical Care Time: Yes (traumatic, renal, ID, hematologic) Attestation: On 04/14/24, the high probability of a clinically significant, sudden or life threatening deterioration of the following system(s) required my full and direct attention, intervention and personal management. The time I documented below is in addition to time spent performing reported procedures but includes the following listed in this critical care notation. Total Time Total Critical Care Time: 120
[2024-04-14 18:04] LABS: MANUAL DIFFERENTIAL MANUAL DIFFERENTIAL (MANUAL DIFF)
--- NOTE | 2024-04-14 18:04 | PC.NURSE ---
BS IS 88 @6860.
--- NOTE | 2024-04-14 18:04 | PC.NURSE ---
MANUAL BLOOD PRESSURE WAS 126/78.
[2024-04-14 18:10] LABS: Activated Partial Thrombo Time 27.5 seconds (22.5-28.5)
[2024-04-14 18:11] LABS: INR 0.93 (0.9-1.1); Prothrombin Time 10.3 seconds (9.2-12.1)
[2024-04-14 18:13] LABS: Alanine Aminotransferase 49 U/L (12-78); Albumin/Globulin Ratio 1.4 (1.1-1.8); Alkaline Phosphatase 65 U/L (38-126); Anion Gap 8.3 mEq/L (5-15); Aspartate Amino Transferase 159 U/L (17-59); Bilirubin,Total 0.7 mg/dl (0.2-1.3); Blood Urea Nitrogen 57 mg/dl (9-20); Carbon Dioxide 29 mmol/L (22.0-30.0); Chloride 105 mmol/L (98-107); Creatinine Clearance Estimated 34 mL/min (50-200); Estimated Glomerular Filt Rate 23 ml/min (>60); GFR (African American) 28 ML/MIN (>60); Globulin 2.8 g/dL (1.3-3.2); Glucose 120 mg/dl (74-100); Potassium 5.3 mmoL/L (3.5-5.1); Sodium 137 mmol/L (136-145); Total Protein,Serum 6.8 g/dl (6.3-8.2)
[2024-04-14 18:14] LABS: Lactic Acid 1.5 mmol/L (0.7-2.1); Lipase 35 U/L (23-300); Magnesium 2.4 mg/dl (1.6-2.3)
[2024-04-14] MEDS: SODIUM CHLORIDE 0.9% 10ML SYR (RAD ONLY) 10 ML IV ×2 (18:21→18:24)
[2024-04-14] MEDS: 0.9 % SODIUM CHLORIDE 50 ML VIAL IV ×2 (18:21→18:24)
[2024-04-14] MEDS: IOPAMIDOL-370 (76%);100ML BOTTLE 80 ML IV ×2 (18:21→18:24)
[2024-04-14 18:22] LABS: Ethyl Alcohol < 10 mg/dl (0-10)
[2024-04-14 18:24] LABS: NT Pro Brain Natriuretic Pep. 2480 pg/mL (0-125)
[2024-04-14 18:26] LABS: Troponin I 0.04 ng/ml (0.00-0.034)
[2024-04-14 18:31] LABS: T4 (Thyroxine) 3.8 ug/dl (5.53-11.0)
[2024-04-14 18:32] LABS: Procalcitonin 1.72 ng/mL (0.0-2.0)
[2024-04-14 18:38] LABS: Hemoglobin A1C 6.2 % (4.0-6.0)
[2024-04-14 18:39] LABS: Creatine Kinase > 3200 U/L (55-170); Salicylate < 1.0 mg/dL (2.0-20.0)
[2024-04-14 18:44] LABS: Thyroid Stimulating Hormone 0.61 uIU/mL (0.465-4.68)
[2024-04-14 18:49] LABS: Ammonia < 9 umol/L (9-30)
--- NOTE | 2024-04-14 18:54 | PC.NURSE ---
1737hrs EMS contacted ED activating a trauma alert 1740hrs Trauma Alert paged overhead 1744hrs Arrival of patient 1748hrs 18ga IV established L AC 1750 EKG completed 1750hrs Type and Screen completed by pascual from lab 1752hrs RAD in room taking X-Rays 1803hrs patient to CT 1829hrs patient return from CT 1832hrs Ammonia collected and sent to lab.
--- NOTE | 2024-04-14 18:55 | PC.NURSE ---
ROUNDED ON THE PT. THE PT VOICES THAT HE DOES NOT NEED ANYTHING AT THIS TIME. CALL LIGHT IS WITHIN REACH OF THE PT. FAMILY MEMBER IS PRESENT AT THE BEDSIDE. MALE PW WAS PLACED FOR A URINE SAMPLE
[2024-04-14 18:59] VITALS: BP 113/63; RESP 13; O2SAT 96
[2024-04-14 19:00] VITALS: BP 119/57; PULSE 59; RESP 13; O2SAT 96
[2024-04-14] MEDS: VANCOMYCIN CONSULT REQUEST 1 EACH NOTAPPLIC (19:11)
--- NOTE | 2024-04-14 19:11 | PC.NURSE ---
1910hrs vancomycin consult on this patient, verified with christy from [facility]
[2024-04-14] MEDS: CEFEPIME HCL 2 GM in 0.9 % SODIUM CHLORIDE 100 ML IV (19:17)
--- NOTE | 2024-04-14 19:20 | PC.NURSE ---
Called [place] transfer center for a transfer to [facility]
[2024-04-14 19:30] VITALS: BP 130/70; PULSE 88; RESP 14; O2SAT 100
[2024-04-14 19:30] LABS: Eosinophils % 1 % (0-3); Lymphocytes % 10 % (10-50); Macrocytosis 2+; Monocytes % 4 % (2-9); Neutrophils % 85 % (42-76); Platelet Estimate Normal; Total Cells Counted 100
--- NOTE | 2024-04-14 19:30 | PC.NURSE ---
Called transfer center for a trauma transfer to
--- NOTE | 2024-04-14 19:43 | PC.NURSE ---
1940hrs secondary line administered for invasive treatment plan.
[2024-04-14] MEDS: VANCOMYCIN/WATER FOR INJ (PEG) 1.75 GM/350 ML PIGGYBACK IV (19:51)
[2024-04-14] MEDS: HEPARIN SODIUM 5,000 UNIT/ML VIAL 5000 UNIT IV (19:52)
--- NOTE | 2024-04-14 20:00 | PC.NURSE ---
1952hrs 5,000 units of heparin administered IV
[2024-04-14 20:01] VITALS: BP 143/69; PULSE 90; RESP 15; O2SAT 98
[2024-04-14 20:05] LABS: PTT Heparin (inpatient only) 27.3 Seconds (50-75)
[2024-04-14] MEDS: HEPARIN SODIUM,PORCINE/D5W 500 ML 36 UNIT IV (20:06)
[2024-04-14] MEDS: HEPARIN DRIP CONSULT 1 EACH NOTAPPLIC (20:10)
--- NOTE | 2024-04-14 20:11 | PC.NURSE ---
2009hrs As per the APR Heparin Drip started 1800units @ 36mL's/hr verified with Benjamin at [facility] and PADMA Freeman.
--- NOTE | 2024-04-14 20:26 | PC.NURSE ---
Contacted [facility] regarding status of this transfer Marisol stated that we would be the next case or potentially the case after that.
--- NOTE | 2024-04-14 20:36 | PC.NURSE ---
rounded on pt at this time. pt is Alert and oriented to person and place. Pt has no complaints at this time. remains on 2L NC. vanc, LR, and heparin gtt infusing. family at bedside. call light in reach.
--- NOTE | 2024-04-14 20:50 | PC.NURSE ---
[address] [facility] ED Dr. Mccartney
--- NOTE | 2024-04-14 20:53 | PC.NURSE ---
Attempted too contact [facility] twice with no answer, contacted [facility] dispatch for them to contact us.
--- NOTE | 2024-04-14 21:11 | PC.NURSE ---
report called to Gisele ROUSE at [facility]
[2024-04-14 21:42] VITALS: BP 143/69; PULSE 90; RESP 24; TEMP 36.9; O2SAT 98
--- NOTE | 2024-04-15 14:31 | PC.NURSE ---
faxed blood culture prelim to [place] where pt was [place]
--- NOTE | 2024-04-17 08:30 | PC.NURSE ---
BLOOD CULTURE RESULTS FAXED TO WHERE PT WAS TRANSFERRED,
== END 2024-04-14 21:43 | disposition short-term general hospital (02) ==
PROVIDERS: Emergency Provider Emergency Medicine
DX: A41.9 Sepsis, unspecified organism (principal); L03.116 Cellulitis of left lower limb; I82.412 Acute embolism and thrombosis of left femoral vein; I26.09 Other pulmonary embolism with acute cor pulmonale; I50.9 Heart failure, unspecified; N17.9 Acute kidney failure, unspecified; M62.82 Rhabdomyolysis; R41.82 Altered mental status, unspecified; R07.9 Chest pain, unspecified; R10.30 Lower abdominal pain, unspecified; M25.551 Pain in right hip; M25.552 Pain in left hip; R22.43 Localized swelling, mass and lump, lower limb, bilateral
CPT/HCPCS: 70450; 70496; 70498; 71045; 71275; 72125; 72128; 72131; 72170; 72192; 74174; 80053; 80320; 80329; 82140; 82550; 82803; 83036; 83605; 83690; 83735; 83880; 84145; 84436; 84443; 84484; 85007; 85025; 85027; 85610; 85730; 86850; 87040; 87077; 93005; 96361; 96365; 96366; 96374; 99291; 99292; G0480; J1644; J3372; J7120; Q9967

== ENCOUNTER 2024-05-22 10:22 | Outpatient (CLI) | payer MEDICARE, SELFPAY ==
[2024-05-22 11:11] LABS: PHA INR Fingerstick 2.5 (0.9-1.1)
== END 2024-05-22 11:15 ==
LOC: ACC 10:23
PROVIDERS: PCP Nurse Practitioner Family; Visit Provider Nurse Practitioner Family
DX: Z79.01 Long term (current) use of anticoagulants (principal); I48.0 Paroxysmal atrial fibrillation
CPT/HCPCS: 85610; G0463

== ENCOUNTER 2024-05-29 15:20 | Outpatient (CLI) | payer MEDICARE, SELFPAY ==
[2024-05-29 15:53] LABS: PHA INR Fingerstick 2.3 (0.9-1.1)
== END 2024-05-29 15:58 ==
PROVIDERS: PCP Nurse Practitioner Family; Visit Provider Nurse Practitioner Family
DX: Z79.01 Long term (current) use of anticoagulants (principal); Z86.711 Personal history of pulmonary embolism
CPT/HCPCS: 85610; 99211; G0463

== ENCOUNTER 2024-06-12 15:20 | Outpatient (CLI) | payer MEDICARE, SELFPAY ==
[2024-06-12 15:43] LABS: PHA INR Fingerstick 3.1 (0.9-1.1)
== END 2024-06-12 15:44 ==
LOC: ACC 15:21
PROVIDERS: PCP Nurse Practitioner Family; Visit Provider Nurse Practitioner Family
DX: Z79.01 Long term (current) use of anticoagulants (principal); Z95.2 Presence of prosthetic heart valve
CPT/HCPCS: 85610; 99211; G0463

== ENCOUNTER 2024-07-10 15:21 | Outpatient (CLI) | payer MEDICARE, SELFPAY ==
[2024-07-10 16:10] LABS: PHA INR Fingerstick 1.2 (0.9-1.1)
== END 2024-07-10 16:13 ==
LOC: ACC 15:21
PROVIDERS: PCP Nurse Practitioner Family; Visit Provider Nurse Practitioner Family
DX: Z79.01 Long term (current) use of anticoagulants (principal); Z86.711 Personal history of pulmonary embolism
CPT/HCPCS: 85610; 99211; G0463

== ENCOUNTER 2024-07-24 15:13 | Outpatient (CLI) | payer MEDICARE, SELFPAY ==
[2024-07-24 16:18] LABS: PHA INR Fingerstick 2.7 (0.9-1.1)
== END 2024-07-24 16:19 ==
LOC: ACC 15:13
PROVIDERS: PCP Nurse Practitioner Family; Visit Provider Nurse Practitioner Family
DX: Z79.01 Long term (current) use of anticoagulants (principal)
CPT/HCPCS: 85610; 99211; G0463

== ENCOUNTER 2024-08-21 15:21 | Outpatient (CLI) | payer MEDICARE, SELFPAY ==
--- OUTSIDE RECORDS SUMMARY | 2024-08-21 15:23 | XMS_ITS | Clinical Summary ---
Author Organization Healthcare Address [address] [place] [address] Care Team Providers Care Deicer Element Winder Machine Name Role Phone Abel Parker MD Primary Care Provider [phone] Allergies Active Allergy Reactions Criticality Noted Date Comments Aspirin Swelling High 10/20/2008 Medications atorvastatin (Lipitor) 40 MG tablet Take 1 tablet (40 mg) by mouth daily. 03/15/2024 Active DULoxetine (Cymbalta) [address] capsule Take 1 capsule (30 mg) by mouth 2 (two) times a day. 03/27/2024 Active Jardiance 10 MG Take 1 tablet (10 mg) by mouth daily. 03/13/2024 Active furosemide (Lasix) 40 MG tablet Take 0.5 tablets (20 mg) by mouth daily. 11/28/2023 Active levocetirizine (Xyzal) 5 MG tablet Take 1 tablet (5 mg) by mouth every evening. 03/27/2024 Active metFORMIN (Glucophage) 1000 MG tablet Take 0.5 tablets (500 mg) by mouth 2 (two) times a day with meals. 11/23/2023 Active montelukast (Singulair) 10 MG tablet Take 1 tablet (10 mg) by mouth nightly. 03/21/2024 Active valsartan (Diovan) 40 MG tablet Take 1 tablet (40 mg) by mouth 2 (two) times a day. 03/27/2024 Active spironolactone (Aldactone) 25 MG tablet Take 1 tablet (25 mg) by mouth daily. 01/29/2024 Active rOPINIRole (Requip) 1 MG tablet Take 1 tablet (1 mg) by mouth 3 (three) times a day. 03/27/2024 Active QUEtiapine (SEROquel) 200 MG tablet Take 1 tablet (200 mg) by mouth nightly. 01/29/2024 Active ferrous sulfate 325 (65 Fe) MG EC tablet Take 1 tablet (325 mg) by mouth 2 (two) times a day. Do not crush, chew, or split. Active pantoprazole (Protonix) 40 MG EC tablet Take 1 tablet (40 mg) by mouth daily. Do not crush, chew, or split. 04/20/2024 Active gabapentin (Neurontin) 600 MG tablet Take 1 tablet (600 mg) by mouth 3 (three) times a day for 7 days. 21 tablet 04/19/2024 Active Active Problems Problem Noted Date Diagnosed Date Multiple subsegmental pulmon kell emboli without acute cor pulmonale 04/17/2024 Acute kidney injury superimp osed on stage 3a chronic kidney disease 04/17/2024 Left leg cellulitis 04/15/2024 Social History Tobacco Use Types Packs/Day Years Used Date Smoking Tobacco: Never Assessed Humiliation, Afraid, Rape, and Kick questionnair e Answer Date Recorded Within the last year, have y ou been afraid of your partner or ex-partner? No 04/15/2024 Within the last year, have y ou been humiliated or emotionally abused in other ways by your partner or ex-partner? No Within the last year, have y ou been kicked, hit, slapped, or otherwise physically hurt by your partner or ex-partner? No 04/15/2024 Within the last year, have y ou been raped or forced to have any kind of sexual activity by your partner or ex-partner? No 04/15/2024 Overall Financial Resource Strain (CARDIA) Answe r Date Recorded How hard is it for you to pa y for the very basics like food, housing, medical care, and heating? Not hard at all 04/15/2024 Hunger Vital Sign Answer Date Recorded Within the past 12 months, y ou worried that your food would run out before you got the money to buy more. Never true 04/15/19 25 Within the past 12 months, t he food you bought just didn't last and you didn't have money to get more. Never true 04/15/2024 PRAPARE - Transportation Answer Date Re corded In the past 12 months, has l ack of transportation kept you from medical appointments or from getting medications? No 03/24 In the past 12 months, has l ack of transportation kept you from meetings, work, or from getting things needed for daily living? No 04/15/2024 Housing Stability Vital Sign Answer Rickey e Recorded In the last 12 months, was t here a time when you were not able to pay the mortgage or rent on time? No 04/15/2024 In the past 12 months, how m any times have you moved where you were living? 1 04/15/2024 At any time in the past 12 m [facility], were you homeless or living in a halfway (including now)? No 04/15/2024 Utilities Answer Date Recorded In the past 12 months has th e electric, gas, oil, or water company threatened to shut off services in your home? No 04/15/2024 Sex and Gender Information Value Date Recorded Sex Assigned at Not on file Legal Sex Male 8:04 PM EDT Gender Identity Not on file Sexual Orientation Not on file Last Filed Vital Signs Vital Sign Reading Time Taken Comments Blood Pressure 108/62 04/19/2024 12:17 PM EST Pulse 77 04/19/2024 12:17 PM EST Temperature 36.7 C (98.1 F) 04/19/2024 12:17 PM EST Respiratory Rate 16 04/19/2024 12:17 PM EST Oxygen Saturation 95% 04/19/2024 11:26 AM EST Inhaled Oxygen Concentration - - Weight 106 kg (234 lb 2.1 oz) 04/14/2024 10:53 P M EST Height 185.4 cm (6' 1 ) 04/14/2024 11:27 PM EST Body Mass Index 30.89 04/14/2024 10:53 PM EST Plan of Treatment Health Maintenance Due Date Last Done Comments [facility]-Depression Screening 1950 [facility]-Hepatitis C Screening 1950 [facility]-Medicare Annual Wellness (AWV) 1950 [facility]-/Child/Adol SDOH Screenings 1950 [facility]-DTaP,Tdap,and Td Vaccines (1 - Tdap) 1968 CT Colonography 1994 Colonoscopy 1994 FIT-DNA 1994 FIT 1994 FOBT 1994 Sigmoidoscopy 1994 [facility]-Colorectal Cancer Screening 1994 [facility]-Zoster Vaccines (1 of 2) 05/12/1999 [id number] Vaccine (2 - season) 2023 10/08/2020 [facility]-RSV Vaccine: 60+ Years or (1 - 1-dose 75+ series) 2024 [facility]- SDOH Screenings 10/13/2024 [facility]-Adult SDOH Screenings 10/13/2024 04/15/2024 [facility]-Pneumococcal Vaccine: 50+ Years Completed 01/26/2018, 01/11/2017 [facility]-Influenza Vaccine Completed 12/21/2023 , 01/28/2021, 11/13/2019, Additional history exists [facility]-Obesity Intervention Completed 04/14/2024 HPV Vaccines Aged Out No longer eligi ble based on patient's age to complete this topic [facility]-HIB Vaccines Aged Out No longer e ligible based on patient's age to complete this topic [facility]-Hepatitis A Vaccines Aged Out No longer eligible based on patient's age to complete this topic [facility]-IPV Vaccines Aged Out No longer e ligible based on patient's age to complete this topic [facility]Y-Rotavirus Vaccines Aged Out No lo nger eligible based on patient's age to complete this topic Additional Health Concerns Infection Onset Date Last Indicated MRSA 04/15/2024 04/15/2024 Insurance [address] [place], [place] [address] [facility] MEDICARE Advance Directives * Full Code (Latest Code Status on File) Date Activated Date Inactivated Comments 04/15/2024 4:26 AM 04/19/2024 3:59 PM Question Answer Comments Patient has decision-making capacity? Yes Care Teams Deicer Element Winder Machine Relationship Specialty Start Date End Date Abel Parker MD [address] [place] [address] PCP - General 07/03/20
--- OUTSIDE RECORDS SUMMARY | 2024-08-21 15:23 | XMS_ITS ---
Author Organization [facility] Care Team Providers Care Medical Transcription Name Role Phone Susan Narayan Unavailable Unavailable Keith Abel Unavailable Unavailable Allergies and adverse reactions Code CodeSystem Substance Reaction Severity StartDate Concern Status 1191 RXNORM Aspirin Unknown 10/21/2020 active Care Team Name Role Address Phone Organization Dates Abel Parker PCP [address], [address], [facility] (Office): : [place] 10/21/2020 - 11/06/2020 Susan Narayan [address], [address], [facility] (Office): : [place] 10/21/2020 - 11/06/2020 Goals Section Goals Description Status Target Date Resident psychosocial functi oning will not impair ability to interact with others. Active 11/05/2021 Resident will be free from s /sx of complications of poor circulation through the review date. Active 11/05/2021 Resident will have a normal bowel movement at least every 3rd day through the review date. Active 11/05/2021 Resident will maintain adequ ate nutrition AEB having a stable weight. Active 11/05/2021 Resident's Skin will remain intact through the n ext review. Active 11/05/2021 Residents Advanced Directive will be honored. Ac tive 11/05/2021 Skin Areas will heal and not display signs or symptoms of infection. Active 11/05/2021 The resident will be free fr om s/sx of complications of poor circulation through the review date. Active 11/05/2021 The resident will be free of injury through the review date. Active 11/05/2021 The resident will be free of signs and symptoms of COVID-19 through next review Active 11/05/2021 The resident will exhibit re duction of cardiac symptoms through the review date. Active 11/05/2021 The resident will have no co mplications related to diabetes through the review date. Active 11/05/2021 The resident will verbalize adequate relief of pain or ability to cope with incompletely relieved pain through the review date. Active 11/05/2021 Will have needs met by assistance of staff as camila leonardo. Active 11/05/2021 Immunizations Immunization Status Vaccine Details Vaccine Code CodeSystem Date Notes TB 2 Step Mantoux Skin Test completed tuberculin skin test; unspecified formulation Given 0.1 ml Left Forearm intradermally Step 2 of Multi-step with next step required 98 CVX created date: consent date: administe red date: info obtained from [facility] TB 2 Step Mantoux Skin Test completed tuberculin skin test; unspecified formulation Given 0.1 ml Left Forearm intradermally Step 1 of Multi-step with next step required 98 CVX created date: consent date: administe red date: 1 Educated by Carroll Montoya on 10/21/2020 info obtained from [facility] SARS-COV-2 (COVID-19) completed SARS-COV-2 (COVID-19) vaccine, vector non-replicating, recombinant spike protein-Ad26, preservative free, 0.5 mL lotNumber: [id number] Mfg: [employer] Step 1 of Multi-step 212 CVX created date: administe red date: 1 administered at [place] Mental Status Section Date Assessment Total Score Description 11/06/2020 BIMS 13 cognitively int act CAM 0 No delirium ind icated PHQ-9 12 moderate depres ning 10/23/2020 BIMS 15 cognitively int act CAM 0 No delirium ind icated PHQ-9 12 moderate depres ning Problems Problem # Description Date of onset Resolved Date Code CodeSystem Concern Status 1 AFTERCARE FOLLOWING JOINT REPLACEMENT SURGERY 10/21/[address] active 2 CARPAL TUNNEL SYNDROME, LEFT UPPER LIMB 10/21/[address] active 3 CARPAL TUNNEL SYNDROME, RIGHT UPPER LIMB 10/21/[address] active 4 CHRONIC KIDNEY DISEASE, UNSPECIFIED 10/21/[address] active 5 CHRONIC OBSTRUCTIVE PULMONARY DISEASE, UNSPECIFIED 10/21/[address] active 6 DISORDER OF THYROID, UNSPECIFIED 10/21/[address] active 7 ELEVATED WHITE BLOOD CELL COUNT, UNSPECIFIED 10/21/[address] active 8 ESOPHAGITIS, UNSPECIFIED WITHOUT BLEEDING 10/21/[address] active 9 ESSENTIAL (PRIMARY) HYPERTENSION 10/21/[address] active 10 FAMILY HISTORY OF MALIGNANT NEOPLASM OF OTHER ORGANS OR SYSTEMS 10/21/[address] active 11 FRACTURE OF UNSPECIFIED PART OF NECK OF RIGHT FEMUR, SUBSEQUENT ENCOUNTER FOR CLOSED FRACTURE WITH ROUTINE HEALING 10/21/[address] active 12 FRACTURE OF UNSPECIFIED PART OF RIGHT CLAVICLE, SUBSEQUENT ENCOUNTER FOR FRACTURE WITH ROUTINE HEALING 10/21/[address] active 13 CUSTODIAL (CURRENT) USE OF ANTICOAGULANTS 10/21/[address] active 14 CUSTODIAL (CURRENT) USE OF OPIATE ANALGESIC 10/21/[address] active 15 MAJOR DEPRESSIVE DISORDER, SINGLE EPISODE, UNSPECIFIED 10/21/[address] active 16 MULTIPLE FRACTURES OF RIBS, BILATERAL, SUBSEQUENT ENCOUNTER FOR FRACTURE WITH ROUTINE HEALING 10/21/[address] active 17 MUSCLE WEAKNESS (GENERALIZED) 10/21/[address] active 18 OTHER CHRONIC PAIN 10/21/[address] active 19 OTHER PSYCHOACTIVE SUBSTANCE DEPENDENCE, UNCOMPLICATED 10/21/[address] active 20 OTHER SPECIFIED ARTHRITIS, UNSPECIFIED SITE 10/21/[address] active 21 PARKINSON'S DISEASE 10/21/[address] T active 22 PERSONAL HISTORY OF OTHER VENOUS THROMBOSIS AND EMBOLISM 10/21/[address] active 23 PRESENCE OF LEFT ARTIFICIAL HIP JOINT 10/21/[address] active 24 PRESENCE OF RIGHT ARTIFICIAL HIP JOINT 10/21/[address] active 25 TYPE 2 DIABETES MELLITUS WITHOUT COMPLICATIONS 10/21/[address] active 26 UNSPECIFIED ABNORMALITIES OF GAIT AND MOBILITY 10/21/[address] active Reason for Referral No Reasons for Referral Entered Social History Social History Observation Description Start Date End Date Code Code System Current Smoking Status Tobacco smoking consumption unknown 363908943 SNOMED CT Sex Assigned At Male 1950 11507-7 [facility] Gender Identity Vital Signs Code Code System Vitals Name Values and Units Timing Information 93287-6 [facility] Pain Level Value=0.0 11/06/2020 9279-1 [facility] Respiratory Rate Value=16.0 Units=/m in 11/06/2020 8462-4 [facility] Blood Pressure-Diastolic Value=58 Un its=mmHg 11/06/2020 8480-6 [facility] Blood Pressure-Systolic Value=96 Uni ts=mmHg 11/06/2020 8310-5 [facility] Body Temperature Value=97.2 Units= F 11/06/2020 8867-4 [facility] Heart rate Value=80.0 Units=/min 79509-2 [facility] O2 % BldC Oximetry Value=93.0 Units= % 11/05/2020 82040-2 [facility] Weight Jcmct=384.0 Units=Lbs 12/2020 8302-2 [facility] Height Value=73.0 Units=Inches 10/22/2020
[2024-08-21 15:59] LABS: PHA INR Fingerstick 3.4 (0.9-1.1)
== END 2024-08-21 16:03 ==
LOC: ACC 15:21
PROVIDERS: PCP Nurse Practitioner Family; Visit Provider Nurse Practitioner Family
DX: Z79.01 Long term (current) use of anticoagulants (principal)
CPT/HCPCS: 85610; 99211; G0463

== ENCOUNTER 2024-09-17 15:27 | Outpatient (CLI) | payer MEDICARE, SELFPAY ==
--- OUTSIDE RECORDS SUMMARY | 2024-09-17 15:30 | XMS_ITS ---
Author Organization [facility] Care Team Providers Care Power Plant Mechanic Name Role Phone Susan Narayan Unavailable Unavailable Keith Abel Unavailable Unavailable Allergies and adverse reactions Code CodeSystem Substance Reaction Severity StartDate Concern Status 1191 RXNORM Aspirin Unknown 10/21/2020 active Care Team Name Role Address Phone Organization Dates Abel Parker PCP [address], [address], [facility] (Office): : [place] 10/21/2020 - 11/06/2020 Susan Narayan [address], [address], [facility] (Office): : [place] 10/21/2020 - 11/06/2020 Goals [...] date: administe red date: info obtained from [facility] TB 2 Step Mantoux Skin Test completed tuberculin skin test; unspecified formulation Given 0.1 ml Left Forearm intradermally Step 1 of Multi-step with next step required 98 CVX created date: consent date: administe red date: 1 Educated by Carroll Montoya on 10/21/2020 info obtained from [facility] SARS-COV-2 (COVID-19) completed SARS-COV-2 (COVID-19) vaccine, vector non-replicating, recombinant spike protein-Ad26, preservative free, 0.5 mL lotNumber: [id number] Mfg: [employer] Step 1 of Multi-step 212 CVX created date: administe red date: 1 administered at [place] Mental Status Section Date Assessment Total Score Description 11/06/2020 BIMS 13 cognitively int act CAM 0 No delirium ind icated PHQ-9 12 moderate depres ning 10/23/2020 BIMS 15 cognitively int act CAM 0 No delirium ind icated PHQ-9 12 moderate depres ning Problems Problem # Description Date of onset Resolved Date Code CodeSystem Concern Status 1 AFTERCARE FOLLOWING JOINT REPLACEMENT SURGERY 10/21/[address] active 2 CARPAL TUNNEL SYNDROME, LEFT UPPER LIMB 10/21/[address] active 3 CARPAL TUNNEL SYNDROME, RIGHT UPPER LIMB 10/21/[address] active 4 CHRONIC KIDNEY DISEASE, UNSPECIFIED 10/21/[address] active 5 CHRONIC OBSTRUCTIVE PULMONARY DISEASE, UNSPECIFIED 10/21/[address] active 6 DISORDER OF THYROID, UNSPECIFIED 10/21/[address] active 7 ELEVATED WHITE BLOOD CELL COUNT, UNSPECIFIED 10/21/[address] active 8 ESOPHAGITIS, UNSPECIFIED WITHOUT BLEEDING 10/21/[address] active 9 ESSENTIAL (PRIMARY) HYPERTENSION 10/21/[address] active 10 FAMILY HISTORY OF MALIGNANT NEOPLASM OF OTHER ORGANS OR SYSTEMS 10/21/[address] active 11 FRACTURE OF UNSPECIFIED PART OF NECK OF RIGHT FEMUR, SUBSEQUENT ENCOUNTER FOR CLOSED FRACTURE WITH ROUTINE HEALING 10/21/[address] active 12 FRACTURE OF UNSPECIFIED PART OF RIGHT CLAVICLE, SUBSEQUENT ENCOUNTER FOR FRACTURE WITH ROUTINE HEALING 10/21/[address] active 13 ASSISTED (CURRENT) USE OF ANTICOAGULANTS 10/21/[address] active 14 CLASS C DRIVER (CURRENT) USE OF OPIATE ANALGESIC 10/21/[address] active 15 MAJOR DEPRESSIVE DISORDER, SINGLE EPISODE, UNSPECIFIED 10/21/[address] active 16 MULTIPLE FRACTURES OF RIBS, BILATERAL, SUBSEQUENT ENCOUNTER FOR FRACTURE WITH ROUTINE HEALING 10/21/[address] active 17 MUSCLE WEAKNESS (GENERALIZED) 10/21/[address] active 18 OTHER CHRONIC PAIN 10/21/[address] active 19 OTHER PSYCHOACTIVE SUBSTANCE DEPENDENCE, UNCOMPLICATED 10/21/[address] active 20 OTHER SPECIFIED ARTHRITIS, UNSPECIFIED SITE 10/21/[address] active 21 PARKINSON'S DISEASE 10/21/[address] T active 22 PERSONAL HISTORY OF OTHER VENOUS THROMBOSIS AND EMBOLISM 10/21/[address] active 23 PRESENCE OF LEFT ARTIFICIAL HIP JOINT 10/21/[address] active 24 PRESENCE OF RIGHT ARTIFICIAL HIP JOINT 10/21/[address] active 25 TYPE 2 DIABETES MELLITUS WITHOUT COMPLICATIONS 10/21/[address] active 26 UNSPECIFIED ABNORMALITIES OF GAIT AND MOBILITY 10/21/[address] active Reason for Referral No Reasons for Referral Entered Social History Social History Observation Description Start Date End Date Code Code System Current Smoking Status Tobacco smoking consumption unknown 632808814 SNOMED CT Sex Assigned At Male 1950 29794-8 [facility] Gender Identity Vital Signs Code Code System Vitals Name Values and Units Timing Information 17273-2 [facility] Pain Level Value=0.0 11/06/2020 9279-1 [facility] Respiratory Rate Value=16.0 Units=/m in 11/06/2020 8462-4 [facility] Blood Pressure-Diastolic Value=58 Un its=mmHg 11/06/2020 8480-6 [facility] Blood Pressure-Systolic Value=96 Uni ts=mmHg 11/06/2020 8310-5 [facility] Body Temperature Value=97.2 Units= F 11/06/2020 8867-4 [facility] Heart rate Value=80.0 Units=/min 88083-0 [facility] O2 % BldC Oximetry Value=93.0 Units= % 11/05/2020 52823-8 [facility] Weight Lnrca=006.0 Units=Lbs 12/2020 8302-2 [facility] Height Value=73.0 Units=Inches 10/22/2020
--- OUTSIDE RECORDS SUMMARY | 2024-09-17 15:30 | XMS_ITS | Clinical Summary ---
Author Organization Healthcare Address [address] [place] [address] Care Team Providers Care Smoked Meat Preparer Name Role Phone Abel Parker MD Primary Care Provider [phone] Allergies Active Allergy Reactions Criticality Noted Date [...] any time in the past 12 m [facility], were you homeless or living in a longterm (including now)? No 04/15/2024 Utilities Answer Date [...] Screening 1950 [facility]-Medicare Annual Wellness (AWV) 1950 [facility]-Infant/Child/Adol SDOH Screenings 1950 [facility]-DTaP,Tdap,and Td Vaccines (1 - Tdap) 1968 CT Colonography 1994 Colonoscopy 1994 FIT-DNA 1994 FIT 1994 FOBT 1994 Sigmoidoscopy 1994 [facility]-Colorectal Cancer Screening 1994 [facility]-Zoster Vaccines (1 of 2) 05/12/1999 [id number] Vaccine (2 - season) 2023 10/08/2020 [facility]-RSV Vaccine: 60+ Years or (1 - 1-dose 75+ series) 2024 [facility]- SDOH Screenings 10/13/2024 [facility]-Adult SDOH Screenings 10/13/2024 04/15/2024 [facility]-Influenza Vaccine (#1) 10/21/202412/20, 01/28/2021, 11/13/2019, Additional history exists [facility]-Pneumococcal Vaccine: 50+ Years Completed 01/26/2018, 01/11/2017 [facility]-Obesity Intervention Completed 04/14/2024 HPV Vaccines Aged [...] 04/15/2024 04/15/2024 Insurance [address] [place] [address] [facility] MEDICARE Advance Directives * Full Code (Latest Code Status on File) Date Activated Date Inactivated Comments 04/15/2024 4:26 AM 04/19/2024 3:59 PM Question Answer Comments Patient has decision-making capacity? Yes Care Teams Smoked Meat Preparer Relationship Specialty Start Date End Date Abel Parker MD [address] [place] [address] PCP - General 07/03/20
--- OUTSIDE RECORDS SUMMARY | 2024-09-17 15:30 | XMS_ITS | Encounter Summary ---
[facility] Organization [facility] Address [address] [place] [address] Care Team Providers Care Parole Or Probation Officer Name Role Phone Provider, No Known Primary Care Provider Unavail able Encounter Details Date Type Department Care Team (Late st Contact Info) Description 10/31/2011 Conversion Encounter [facility] HISTORICAL CONV [address] [place] [address] Interface, See Report Social History Tobacco Use Types Packs/Day Years Used Date Smoking Tobacco: Never Assessed Sex and Gender Information Value Date Recorded Sex Assigned at Not on file Legal Sex Male 1:25 PM EDT Gender Identity Not on file Sexual Orientation Not on file documented as of this encounter H&P Notes * Interface, See Report - 10/31/2011 10:17 AM EDT Bhavin Stewart M.D. ' Yonathan Quick M.D. ' Berny Hall M.D. ' ZANA Hope M.D. ' Lucas Batres M.D. 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 HISTORY OF PRESENT ILLNESS: Mr. Krueger a very pleasant 61-year-old gentleman who I saw month ago with stage IIB superficial melanoma with 3.5 mm thickness with no lymph nodes involved. He had his parotid gland removed per Dr. Dodson at the time of the resection and clinically when I first saw him I was concerned about the weight loss that he was having. He was not a candidate for adjuvant interferon due to the size of the tumor and has considerable comorbidities and so he returns today four weeks after I initially saw him. He is actually doing remarkably well clinically. He is starting to eat better and his weight has actually increased. PHYSICAL EXAMINATION: VITAL SIGNS: Blood pressure 142/90, Pulse 107, pulse 98.9. Wt. 221. Respirations 20. GENERAL: A gentleman in no acute distress. Alert and oriented. His incision area appears to be healing fairly well with no areas of satellite lesions that I can see. CHEST: Clear. ABDOMEN: Soft, nontender. EXTREMITIES: Trace edema bilaterally. PASCALE KRUEGER : 1950 DATE OF VISIT: 11/22/2011 ASSESSMENT AND PLAN: 1. Stage IIB, superficial melanoma of the temporal region status post resection. He is doing remarkably well in the last month or so and I do not see a need to do imaging tests on him at this point. I will see him again in about in three months and he is to give me a call if there are any changes that occur at that time. Dameon Sorto M.D.* KATHARINE/jewell Doc. ID [id number] Rev. #0 cc: Michael Owens M.D.* . Asher Cruz Jr., M.D.* Page 2 of 2 Page 1 of 2 Authenticated by DAMEON SORTO MD On 11/23/2011 07:30:54 AM * Interface, See Report - 10/31/2011 10:17 AM EDT Bhavin Stewart M.D. ' Yonathan Quick M.D. ' Berny Hall M.D. ' Brooks Catherine, ZANA Salcedo M.D. ' Delmer Sorto M.D. ' Lucas Batres M.D. ' Rosa Zepeda APRN [facility], [facility] [address] [place] [address] [employer] OFFICE NOTE PASCALE KRUEGER : 1950 DATE OF VISIT: 02/27/2012 PROBLEM LIST: 1. 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 T3N0M0. HISTORY OF PRESENT ILLNESS: The patient is a 61 year old male with Stage IIB superficial melanoma with 3.5 mm thickness with no lymph node involvement. He returns today for follow up. He is doing well clinically. His scar looks well healed with no clinical sign of recurrence at this time. His appetite is good. He has had no focal areas of pain or other ongoing symptoms at this time. PHYSICAL EXAMINATION: Blood pressure 152/96, resp. 16, pulse 114, Temp. 98.6. GENERAL: No acute distress. Alert and oriented. He has a resting tremor. The right temporal area is well healed with no areas that would be concerning for recurrence. MEDICATIONS: Requip, Zofran, Percocet, trazodone, MS Contin, loratadine, baclofen, metformin, Lasix, Cymbalta. PASCALE KRUEGER : 1950 DATE OF VISIT: 02/27/2012 ASSESSMENT AND PLAN: 1. 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 Clinically doing well. No sign of recurrence at this time. He is being followed by Dr. Cruz and Dr. Owens. He does not need to follow up with me unless he is having significant symptoms or recurrence. I will leave a prn appointment open for him and if he needs to see me he can give us a call. Dameon Sorto M.D.* AP/rxteresa Doc. ID [id number] Rev. #0 cc: Michael Owens M.D.* Morris Cruz Jr., M.D.* Page 2 of 2 Page 1 of 2 Authenticated by DAMEON SORTO MD On 03/01/2012 11:18:20 AM documented in this encounter Plan of Treatment Not on file documented as of this encounter Visit Diagnoses Not on filedocumented in this encounter Care Teams Parole Or Probation Officer Relationship Specialty Start Date End Date Provider, [place] [address] PCP - General 11/18/16 documented as of this encounter
--- OUTSIDE RECORDS SUMMARY | 2024-09-17 15:30 | XMS_ITS | Clinical Summary ---
[facility] Address [address] [place] [address] Care Team Providers Care Trade Specialist Name Role Phone Provider, No Known Primary Care Provider Unavail able Social History Tobacco Use Types Packs/Day Years Used Date Smoking Tobacco: Never Assessed Abuse Screen Answer Date Recorded Unsafe at Home or Work/School Not on file Feels Threatened by Someone? Not on file 10/2022 Does Anyone Keep You from Co ntacting Others or Doint Things Outside the Home? Not on file 11/28/2022 Physical Sign of Abuse Present Not on file 1 Housing Stability Answer Date Recorded Current Living Arrangements Not on file 10/2022 Potentially Unsafe Housing Conditions Not on neeru e 11/28/2022 Family and Community Support Answer Rickey e Recorded Help with Day-to-Day Activities Not on file 11/28/2022 Lonely or Isolated Not on file 11/28/2022 Employment Answer Date Recorded Do you want help finding or keeping work or a otilia b? Not on file 11/28/2022 Disabilities Answer Date Recorded Concentrating, Remembering, or Making Decisions Difficulty Not on file 11/28/2022 Doing Errands Independently Difficulty Not on fi le 11/28/2022 Education Answer Date Recorded Help with school or training? Not on file Preferred Language Not on file 11/28/2022 Sex and Gender Information Value Date Recorded Sex Assigned at Not on file Legal Sex Male 1:25 PM EDT Gender Identity Not on file Sexual Orientation Not on file Plan of Treatment Health Maintenance Due Date Last Done Comments ANNUAL PHYSICAL 1950 HEPATITIS C SCREENING 1950 TDAP/TD VACCINES (1 - Tdap) 1968 COLOGUARD 1994 COLON CANCER SCREENING 5 YEAR SIGMOIDOSCOPY 1994 COLONOSCOPY [address] CANCER SCREENING 1994 CT COLONOGRAPHY 1994 FECAL OCCULT BLOOD TEST 1994 FIT Testing (1 year) 1994 Pneumococcal Vaccine 50+ (1 of 1 - PCV) 05/12/1999 ZOSTER VACCINE (1 of 2) 05/12/1999 AAA SCREEN ONCE 2014 COVID-19 Vaccine ( - 2023-25 season) 2023 RSV Vaccine - Adults (1 - 1-dose 75+ series) INFLUENZA VACCINE 11/20/2024 Insurance [employer] MEDICARE ADVANTAGE Care Teams Trade Specialist Relationship Specialty Start Date End Date Provider, No Known [facility] [place] [address] PCP - General 11/18/16
[2024-09-17 16:01] LABS: Hematocrit 49.0 % (42.0-52.0); Hemoglobin 16.5 g/dL (14.1-18.0); Immature Granulocytes % 0.8 %; Mean Corpuscular HGB Conc 33.7 g/dL (31.8-35.4); Mean Corpuscular Hemoglobin 34.2 pg (27.0-31.2); Mean Corpuscular Volume 101.4 fl (80-94); Nucleated Red Blood Cells % 0 %; Platelet Count 184 K/mm3 (142-424); Red Blood Count 4.83 M/mm3 (4.60-6.20); Red Cell Distribution Width-SD 51.4 fL; White Blood Count 8.5 K/mm3 (4.8-10.8)
[2024-09-17 16:07] LABS: INR 2.20 (0.9-1.1); Prothrombin Time 23.0 seconds (10.1-12.5)
[2024-09-17 16:14] LABS: Albumin Level 3.5 g/dl (3.5-5.0); Chloride 101 mmol/L (98-107); Potassium 4.6 mmoL/L (3.5-5.1); Sodium 133 mmol/L (136-145)
[2024-09-17 16:17] LABS: Alanine Aminotransferase 24 U/L (12-78); Albumin/Globulin Ratio 1.1 (1.1-1.8); Alkaline Phosphatase 95 U/L (38-126); Anion Gap 9.6 mEq/L (5-15); Aspartate Amino Transferase 25 U/L (17-59); Bilirubin,Total 0.3 mg/dl (0.2-1.3); Blood Urea Nitrogen 44 mg/dl (9-20); Calcium 9.7 mg/dl (8.4-10.2); Carbon Dioxide 27 mmol/L (22.0-30.0); Creatinine,Serum 1.50 mg/dl (0.66-1.25); Estimated Glomerular Filt Rate 46 ml/min (>60); GFR (African American) 55 ML/MIN (>60); Globulin 3.3 g/dL (1.3-3.2); Glucose 184 mg/dl (74-100); Total Protein,Serum 6.8 g/dl (6.3-8.2)
[2024-09-17 16:25] LABS: Hemoglobin A1C 7.3 % (4.0-6.0)
== END 2024-09-17 23:59 | disposition home or self-care (01) ==
LOC: LAB 15:28
PROVIDERS: PCP Nurse Practitioner Family; Visit Provider Nurse Practitioner Family
DX: E11.628 Type 2 diabetes mellitus with other skin complications (principal); I82.409 Acute embolism and thrombosis of unspecified deep veins of unspecified lower extremity
CPT/HCPCS: 36415; 80053; 83036; 85025; 85610

== ENCOUNTER 2024-10-08 15:56 | Outpatient (CLI) | payer MEDICARE, SELFPAY ==
--- OUTSIDE RECORDS SUMMARY | 2024-10-08 15:59 | XMS_ITS | Clinical Summary ---
Author Organization Healthcare Address [address] [place] [address] Care Team Providers Care Emergency Room Physician Assistant Name Role Phone Abel Parker MD Primary Care Provider [phone] Allergies Active Allergy Reactions Criticality Noted Date [...] any time in the past 12 m [facility], were you homeless or living in a fci (including now)? No 04/15/2024 Utilities Answer Date [...] 1994 UKY-Zoster Vaccines (1 of 2) 05/12/1999 [id number]-60 Vaccine (2 - season) 2023 10/08/2020 UKY-RSV [...] Insurance [address] [place] [address] [facility] MEDICARE Advance Directives * Full Code (Latest Code Status on File) Date Activated Date Inactivated Comments 04/15/2024 4:26 AM 04/19/2024 3:59 PM Question Answer Comments Patient has decision-making capacity? Yes Care Teams Emergency Room Physician Assistant Relationship Specialty Start Date End Date Abel Parker MD [address] [place] [address] PCP - General 07/03/20
--- OUTSIDE RECORDS SUMMARY | 2024-10-08 15:59 | XMS_ITS | Clinical Summary ---
[facility] Address [address] [place] [address] Care Team Providers Care Cellophane Tester Name Role Phone Provider, No Known Primary [...] 11/20/2024 Insurance [employer] MEDIC[employer] ADVANTAGE Care Teams Cellophane Tester Relationship Specialty Start Date End Date Provider, No Known [facility] [place] [address] PCP - General 11/18/16
--- OUTSIDE RECORDS SUMMARY | 2024-10-08 15:59 | XMS_ITS ---
Author Organization [facility] Care Team Providers Care Restaurant Maintenance Technician Name Role Phone Susan Narayan Unavailable Unavailable Keith Abel Unavailable Unavailable Allergies and adverse reactions Code CodeSystem Substance Reaction Severity StartDate Concern Status 1191 RXNORM Aspirin Unknown 10/21/2020 active Care Team Name Role Address Phone Organization Dates Abel Parker PCP [address], [address], [facility] (Office): : [place] 10/21/2020 - 11/06/2020 Susan Narayan [address], [address], [facility] (Office): : [place] 10/21/2020 - 11/06/2020 Goals [...] date: administe red date: info obtained from [facility] TB 2 Step Mantoux Skin Test completed tuberculin skin test; unspecified formulation Given 0.1 ml Left Forearm intradermally Step 1 of Multi-step with next step required 98 CVX created date: consent date: administe red date: 1 Educated by Carroll Montoya on 10/21/2020 info obtained from [facility] SARS-COV-2 (COVID-19) completed SARS-COV-2 (COVID-19) vaccine, vector non-replicating, recombinant spike protein-Ad26, preservative free, 0.5 mL lotNumber: [id number] Mfg: [employer] Step 1 of Multi-step 212 CVX created date: administe red date: 1 administered at [place] Mental Status Section Date Assessment Total Score Description 11/06/2020 BIMS 13 cognitively int act CAM 0 No delirium ind icated PHQ-9 12 moderate depres ning 10/23/2020 BIMS 15 cognitively int act CAM 0 No delirium ind icated PHQ-9 12 moderate depres ning Problems Problem # Description Date of onset Resolved Date Code CodeSystem Concern Status 1 AFTERCARE FOLLOWING JOINT REPLACEMENT SURGERY 10/21/[address] active 2 CARPAL TUNNEL SYNDROME, LEFT UPPER LIMB 10/21/[address] active 3 CARPAL TUNNEL SYNDROME, RIGHT UPPER LIMB 10/21/[address] active 4 CHRONIC KIDNEY DISEASE, UNSPECIFIED 10/21/[address] active 5 CHRONIC OBSTRUCTIVE PULMONARY DISEASE, UNSPECIFIED 10/21/[address] active 6 DISORDER OF THYROID, UNSPECIFIED 10/21/[address] active 7 ELEVATED WHITE BLOOD CELL COUNT, UNSPECIFIED 10/21/[address] active 8 ESOPHAGITIS, UNSPECIFIED WITHOUT BLEEDING 10/21/[address] active 9 ESSENTIAL (PRIMARY) HYPERTENSION 10/21/[address] active 10 FAMILY HISTORY OF MALIGNANT NEOPLASM OF OTHER ORGANS OR SYSTEMS 10/21/[address] active 11 FRACTURE OF UNSPECIFIED PART OF NECK OF RIGHT FEMUR, SUBSEQUENT ENCOUNTER FOR CLOSED FRACTURE WITH ROUTINE HEALING 10/21/[address] active 12 FRACTURE OF UNSPECIFIED PART OF RIGHT CLAVICLE, SUBSEQUENT ENCOUNTER FOR FRACTURE WITH ROUTINE HEALING 10/21/[address] active 13 EXECUTIVE SALES MANAGER (CURRENT) USE OF ANTICOAGULANTS 10/21/[address] active 14 EXECUTIVE SALES MANAGER (CURRENT) USE OF OPIATE ANALGESIC 10/21/[address] active 15 MAJOR DEPRESSIVE DISORDER, SINGLE EPISODE, UNSPECIFIED 10/21/[address] active 16 MULTIPLE FRACTURES OF RIBS, BILATERAL, SUBSEQUENT ENCOUNTER FOR FRACTURE WITH ROUTINE HEALING 10/21/[address] active 17 MUSCLE WEAKNESS (GENERALIZED) 10/21/[address] active 18 OTHER CHRONIC PAIN 10/21/[address] active 19 OTHER PSYCHOACTIVE SUBSTANCE DEPENDENCE, UNCOMPLICATED 10/21/[address] active 20 OTHER SPECIFIED ARTHRITIS, UNSPECIFIED SITE 10/21/[address] active 21 PARKINSON'S DISEASE 10/21/[address] 211967[address] SNOM[address] C T active 22 PERSONAL HISTORY OF OTHER VENOUS THROMBOSIS AND EMBOLISM 10/21/[address] active 23 PRESENCE OF LEFT ARTIFICIAL HIP JOINT 10/21/[address] active 24 PRESENCE OF RIGHT ARTIFICIAL HIP JOINT 10/21/[address] active 25 TYPE 2 DIABETES MELLITUS WITHOUT COMPLICATIONS 10/21/[address] active 26 UNSPECIFIED ABNORMALITIES OF GAIT AND MOBILITY 10/21/[address] active Reason for Referral No Reasons for Referral Entered Social History Social History Observation Description Start Date End Date Code Code System Current Smoking Status Tobacco smoking consumption unknown 546001018 SNOMED CT Sex Assigned At Male 1950 [address]03-4 [facility] Gender Identity Vital Signs Code Code System Vitals Name Values and Units Timing Information 76075-9 [facility] Pain Level Value=0.0 11/06/2020 9279-1 [facility] Respiratory Rate Value=16.0 Units=/m in 11/06/2020 8462-4 [facility] Blood Pressure-Diastolic Value=58 Un its=mmHg 11/06/2020 8480-6 [facility] Blood Pressure-Systolic Value=96 Uni ts=mmHg 11/06/2020 8310-5 [facility] Body Temperature Value=97.2 Units= F 11/06/2020 8867-4 [facility] Heart rate Value=80.0 Units=/min 52782-3 [facility] O2 % BldC Oximetry Value=93.0 Units= % 11/05/2020 70939-8 [facility] Weight Qnujw=458.0 Units=Lbs 12/2020 8302-2 [facility] Height Value=73.0 Units=Inches 10/22/2020
--- OUTSIDE RECORDS SUMMARY | 2024-10-08 15:59 | XMS_ITS | Encounter Summary ---
[facility] Address [address] [place] [address] Care Team Providers Care Molder Operator Name Role Phone Provider, No Known Primary Care Provider Unavail able Encounter Details Date Type Department Care Team (Late st Contact Info) Description 10/31/2011 Conversion Encounter [facility] HISTORICAL CONV [address] [place] [address] Interface, See Report Social History [...] Lucas Batres M.D. ' Rosa Zepeda APRN [facility]9 [facility], [address] OFFICE NOTE PASCALE KRUEGER : 1950 DATE [...] time. Dameon Sorto M.D.* KATHARINE/jewell Doc. ID [id number] Rev. #0 cc: Michael Owens M.D.* . [...] Lucas Batres M.D. ' Rosa Zepeda APRN [facility]1 [facility], [facility] [address] [place] [address] [employer] OFFICE NOTE PASCALE KRUEGER : 1950 DATE [...] call. Dameon Sorto M.D.* AP/rxteresa Doc. ID [id number] Rev. #0 cc: Michael Owens M.D.* Morris Cruz Jr., M.D.* Page 2 of 2 Page 1 of 2 Authenticated by DAMEON SORTO MD On 03/01/2012 11:18:20 AM documented in this encounter Plan of Treatment Not on file documented as of this encounter Visit Diagnoses Not on filedocumented in this encounter Care Teams Molder Operator Relationship Specialty Start Date End Date Provider, [place] [address] PCP - General 11/18/16 documented as of this encounter
--- NOTE | 2024-10-08 16:01 | XR_ITS ---
FINAL REPORT CLINICAL HISTORY: cp pacemaker placed x 2 years ago COMPARISON: 04/14/2024 FINDINGS: CHEST 2 VIEWS PA AND LATERAL The heart is normal in size. The mediastinum is unremarkable. The lungs are clear. Biventricular pacemaker is identified. There is no pneumothorax. IMPRESSION: No acute process. Reviewed, Interpreted and Dictated by Kwesi Cummins MD Transcribed by Sylvia Marvin Authenticated and [facility]
[2024-10-08 17:10] LABS: Chloride 105 mmol/L (98-107); Sodium 140 mmol/L (136-145)
[2024-10-08 17:13] LABS: Anion Gap 17.4 mEq/L (5-15); Blood Urea Nitrogen 54 mg/dl (9-20); Calcium 9.8 mg/dl (8.4-10.2); Carbon Dioxide 24 mmol/L (22.0-30.0); Creatinine,Serum 1.80 mg/dl (0.66-1.25); Estimated Glomerular Filt Rate 37 ml/min (>60); GFR (African American) 45 ML/MIN (>60); Glucose 155 mg/dl (74-100)
--- NOTE | 2024-10-08 19:06 | PC.NURSE ---
Lab called this nurse and stated Dr. Craft wants patient to be called and instructed to come to ED. Spoke with Shanita, patients daughter and instructed that patient needed to come to ED per Dr. Craft and be evaluated due to his potassium of 6.4.
[2024-10-08 19:09] LABS: Potassium 6.4 mmoL/L (3.5-5.1)
== END 2024-10-08 23:59 | disposition home or self-care (01) ==
LOC: LAB 15:57
PROVIDERS: PCP Nurse Practitioner Family; Visit Provider Physician Assistant
DX: I10 Essential (primary) hypertension (principal); R07.89 Other chest pain; Z95.0 Presence of cardiac pacemaker
CPT/HCPCS: 36415; 71046; 80048

== ENCOUNTER 2024-10-08 19:39 | Emergency (ER) | payer MEDICARE, SELFPAY ==
[2024-10-08 21:24] VITALS: BP 111/70; PULSE 90; RESP 16; TEMP 36.6; O2SAT 97; BMI 29.4
--- OUTSIDE RECORDS SUMMARY | 2024-10-08 21:36 | XMS_ITS | Clinical Summary ---
Author Organization Healthcare Address [address] [place] [address] Care Team Providers Care Information Security Officer Name Role Phone Abel Parker MD Primary Care Provider [phone] Allergies Active Allergy Reactions Criticality Noted Date [...] any time in the past 12 m [facility], were you homeless or living in a detention (including now)? No 04/15/2024 Utilities Answer Date [...] 1994 UKY-Zoster Vaccines (1 of 2) 05/12/1999 [id number] Vaccine (2 - season) 2023 10/08/2020 UKY-RSV [...] Insurance [address] [place] [address] [facility] MEDICARE Advance Directives * Full Code (Latest Code Status on File) Date Activated Date Inactivated Comments 04/15/2024 4:26 AM 04/19/2024 3:59 PM Question Answer Comments Patient has decision-making capacity? Yes Care Teams Information Security Officer Relationship Specialty Start Date End Date Abel Parker MD [address] [place] [address] PCP - General 07/03/20
--- OUTSIDE RECORDS SUMMARY | 2024-10-08 21:36 | XMS_ITS ---
Author Organization [facility] Care Team Providers Care Med Spa Manager Name Role Phone Susan Narayan Unavailable Unavailable Keith Abel Unavailable Unavailable Allergies and adverse reactions Code CodeSystem Substance Reaction Severity StartDate Concern Status 1191 RXNORM Aspirin Unknown 10/21/2020 active Care Team Name Role Address Phone Organization Dates Abel Parker PCP [address], [address], [facility] (Office): : [place] 10/21/2020 - 11/06/2020 Susan Narayan [address], [address], [facility] (Office): : [place] 10/21/2020 - 11/06/2020 [...] date: administe red date: info obtained from [facility] TB 2 Step Mantoux Skin Test completed tuberculin skin test; unspecified formulation Given 0.1 ml Left Forearm intradermally Step 1 of Multi-step with next step required 98 CVX created date: consent date: administe red date: 1 Educated by Carroll Montoya on 10/21/[address] info obtained [address] [facility] SARS-COV-2 (COVID-19) completed SARS-COV-2 (COVID-19) vaccine, vector non-replicating, recombinant spike protein-Ad26, preservative free, 0.5 mL lotNumber: [id number] Mfg: [employer] Step 1 of Multi-step 212 CVX created date: administe red date: 1 administered at [place] Mental Status Section Date Assessment Total Score Description 11/06/2020 BIMS 13 cognitively int act CAM 0 No delirium ind icated PHQ-9 12 moderate depres ning 10/23/2020 BIMS 15 cognitively int act CAM 0 No delirium ind icated PHQ-9 12 moderate depres ning Problems Problem # Description Date of onset Resolved Date Code CodeSystem Concern Status 1 AFTERCARE FOLLOWING JOINT REPLACEMENT SURGERY 10/21/[address] active 2 CARPAL TUNNEL SYNDROME, LEFT UPPER LIMB 10/21/[address] active 3 CARPAL TUNNEL SYNDROME, RIGHT UPPER LIMB 10/21/[address] active 4 CHRONIC KIDNEY DISEASE, UNSPECIFIED 10/21/[address] active 5 CHRONIC OBSTRUCTIVE PULMONARY DISEASE, UNSPECIFIED 10/21/[address] active 6 DISORDER OF THYROID, UNSPECIFIED 10/21/[address] active 7 ELEVATED WHITE BLOOD CELL COUNT, UNSPECIFIED 10/21/[address] active 8 ESOPHAGITIS, UNSPECIFIED WITHOUT BLEEDING 10/21/[address] active 9 ESSENTIAL (PRIMARY) HYPERTENSION 10/21/[address] active 10 FAMILY HISTORY OF MALIGNANT NEOPLASM OF OTHER ORGANS OR SYSTEMS 10/21/[address] active 11 FRACTURE OF UNSPECIFIED PART OF NECK OF RIGHT FEMUR, SUBSEQUENT ENCOUNTER FOR CLOSED FRACTURE WITH ROUTINE HEALING 10/21/[address] active 12 FRACTURE OF UNSPECIFIED PART OF RIGHT CLAVICLE, SUBSEQUENT ENCOUNTER FOR FRACTURE WITH ROUTINE HEALING 10/21/[address] active 13 SIMULATION SOFTWARE ENGINEER (CURRENT) USE OF ANTICOAGULANTS 10/21/[address] active 14 SIMULATION SOFTWARE ENGINEER (CURRENT) USE OF OPIATE ANALGESIC 10/21/[address] active 15 MAJOR DEPRESSIVE DISORDER, SINGLE EPISODE, UNSPECIFIED 10/21/[address] active 16 MULTIPLE FRACTURES OF RIBS, BILATERAL, SUBSEQUENT ENCOUNTER FOR FRACTURE WITH ROUTINE HEALING 10/21/[address] active 17 MUSCLE WEAKNESS (GENERALIZED) 10/21/[address] active 18 OTHER CHRONIC PAIN 10/21/[address] active 19 OTHER PSYCHOACTIVE SUBSTANCE DEPENDENCE, UNCOMPLICATED 10/21/[address] active 20 OTHER SPECIFIED ARTHRITIS, UNSPECIFIED SITE 10/21/[address] active 21 PARKINSON'S DISEASE 10/21/[address] T active 22 PERSONAL HISTORY OF OTHER VENOUS THROMBOSIS AND EMBOLISM 10/21/[address] active 23 PRESENCE OF LEFT ARTIFICIAL HIP JOINT 10/21/[address] active 24 PRESENCE OF RIGHT ARTIFICIAL HIP JOINT 10/21/[address] active 25 TYPE 2 DIABETES MELLITUS WITHOUT COMPLICATIONS 10/21/[address] active 26 UNSPECIFIED ABNORMALITIES OF GAIT AND MOBILITY 10/21/[address] active Reason for Referral No Reasons for Referral Entered Social History Social History Observation Description Start Date End Date Code Code System Current Smoking Status Tobacco smoking consumption unknown 551950205 SNOMED CT Sex Assigned At Male 1950 [address]30-2 [facility] Gender Identity Vital Signs Code Code System Vitals Name Values and Units Timing Information 52114-7 [facility] Pain Level Value=0.0 11/06/2020 9279-1 [facility] Respiratory Rate Value=16.0 Units=/m in 11/06/2020 8462-4 [facility] Blood Pressure-Diastolic Value=58 Un its=mmHg 11/06/2020 8480-6 [facility] Blood Pressure-Systolic Value=96 Uni ts=mmHg 11/06/2020 8310-5 [facility] Body Temperature Value=97.2 Units= F 11/06/2020 8867-4 [facility] Heart rate Value=80.0 Units=/min 99887-3 [facility] O2 % BldC Oximetry Value=93.0 Units= % 11/05/2020 67112-8 [facility] Weight Nfksx=311.0 Units=Lbs 12/2020 8302-2 [facility] Height Value=73.0 Units=Inches 10/22/2020
--- OUTSIDE RECORDS SUMMARY | 2024-10-08 21:36 | XMS_ITS | Clinical Summary ---
[facility] Address [address] [place] [address] Care Team Providers Care Paper Colorer Name Role Phone Provider, No Known Primary [...] 11/20/2024 Insurance [employer] MEDICARE ADVANTAGE Care Teams Paper Colorer Relationship Specialty Start Date End Date Provider, No Known [facility] [place] [address] PCP - General 11/18/16
--- OUTSIDE RECORDS SUMMARY | 2024-10-08 21:36 | XMS_ITS | Encounter Summary ---
[facility] Address [address] [place] [address] Care Team Providers Care Business Partner Name Role Phone Provider, No Known Primary Care Provider Unavail able Encounter Details Date Type Department Care Team (Late st Contact Info) Description 10/31/2011 Conversion Encounter [facility] [address] [place] [address] Interface, See Report Social History [...] Lucas Batres M.D. ' Rosa Zepeda APRN [facility], [address] M[address] OFF[address] NOTE PASCALE KREUGER : 1950 DATE OF VISIT: 11/22/2011 PROBLEM [...] time. Dameon Sorto M.D.* KATHARINE/jewell Doc. ID [id number] Rev. #0 cc: Michael Owens M.D.* . [...] Lucas Batres M.D. ' Rosa Zepeda APRN [facility], [facility] [address] [place] [address] [employer] OFFICE NOTE PASCALE KRUEGER : 1950 DATE [...] call. Dameon Sorto M.D.* AP/rxteresa Doc. ID [id number] Rev. #0 cc: Michael Owens M.D.* Morris Cruz Jr., M.D.* Page 2 of 2 Page 1 of 2 Authenticated by DAMEON SORTO MD On 03/01/2012 11:18:20 AM documented in this encounter Plan of Treatment Not on file documented as of this encounter Visit Diagnoses Not on filedocumented in this encounter Care Teams Business Partner Relationship Specialty Start Date End Date Provider, [place] [address] PCP - General 11/18/16 documented as of this encounter
--- NOTE | 2024-10-08 21:41 | ECG_ITS ---
APPROVED REPORT Exam: Resting ECG HR:92 bpm ECG Measurements Heart Rate 92 AXES KS 196 P 58 QRSd 147 QRS 147 QT 381 T 12 QTc 430 Conclusion ELECTRONIC VENTRICULAR PACEMAKER ABNORMAL RHYTHM ECG UNCONFIRMED REPORT Ventricularly paced rhythm. Normal sinus rhythm. No ST elevation or depression. No peaked T waves. Electronically signed by : CARIE SAGASTUME, 10/09/2024 00:25:34
--- NOTE | 2024-10-08 22:39 | HMH.EDGENADL ---
Discharge Plan Disposition Patient Disposition: Home, Self-Care Prescriptions Prescriptions: New Lokelma 10 gram powder in packet 10 g PO TID Qty: 11 0RF No Action metoprolol succinate 25 mg tablet extended release 24 hr 25 mg PO QDAY Qty: 90 3RF furosemide [Lasix] 40 mg tablet 40 mg PO DAILY Qty: 30 2RF ranolazine 500 mg tablet extended release 12 hr 500 mg PO BID Qty: 60 2RF gabapentin 300 mg capsule 300 mg PO TID Qty: 90 2RF Jardiance 25 mg tablet 25 mg PO DAILY Qty: 30 2RF warfarin 5 mg tablet 7.5 mg PO DAILY Qty: 30 2RF losartan 25 mg tablet 25 mg PO DAILY ropinirole 1 mg tablet 1 mg PO TID spironolactone 25 mg tablet 50 mg PO DAILY Qty: 90 3RF omeprazole 20 mg capsule,delayed release(DR/EC) 20 mg PO DAILY mupirocin 2 % ointment topical fluticasone propionate 50 mcg/actuation spray,suspension 2 spray intranasal DAILYP PRN (Reason: ALLERGIES) colestipol 1 gram tablet 1 g PO BID enoxaparin 100 mg/mL syringe 100 mg SQ BID levocetirizine 5 mg tablet 5 mg PO DAILY dicyclomine 20 mg tablet 20 mg PO QID montelukast 10 mg tablet 10 mg PO DAILY atorvastatin 40 mg tablet 40 mg PO HS quetiapine 200 mg tablet 200 mg PO HS ferrous sulfate [FeroSul] 325 mg (65 mg iron) tablet 325 mg PO BID oxycodone-acetaminophen 7.5-325 mg tablet 1 tab PO QID celecoxib 100 mg capsule 100 mg PO BID duloxetine 30 mg capsule,delayed release(DR/EC) 30 mg PO BID metformin 1,000 mg tablet 500 mg PO BID Referrals Follow up/Referrals: Andria Ryan APRN [Primary Care Provider, Medical] - See instructions Activity Restrictions/Add. Instructions Additional Instructions/Restrictions: Your potassium here is mildly elevated at 5.6. I am starting you on a medication called Lokelma that will slowly bring down your potassium over the next few days. Take this as prescribed. It is very important you follow-up with your primary care doctor over the next 2 days for recheck of your labs. If you develop any new or worsening symptoms, such as chest pain, heart palpitations, difficulty breathing, or if you become concerned for your health for any reason, return to the emergency department for evaluation. Clinical Impressions Clinical Impression: Acute hyperkalemia Print Language Print Language: Bhutanese Discharge ED Provider: Dl Hong General Adult HPI General Chief complaint: Weakness Stated complaint: Abnormal labs sent by Dr Zamora Time Seen by Provider: 10/08/24 22:39 Mode of Arrival: Ambulatory Source of Information: Patient and Relative Description of Symptoms (Recalled from ER Triage Doc. by RN): Patient was sent by dr. zamora for lab work; labs today show potassium of 6.4 History of Present Illness HPI narrative: Alan Krueger is a 74y male with a history of Parkinsons, HFrEF, hypertension, hyperlipidemia, CKD, diabetes mellitus, AICD, cholecystectomy who presents to the emergency department for complaints of abnormal labs. Patient is here with family who provides additional details of the history. Reports that he was getting routine labs via Dr. Zamora today and was instructed to come to the emergency department due to his potassium being elevated. Patient states that overall he does not feel well, describing chronic bilateral lower extremity weakness. He does state that he will intermittently have chest pain but does not have chest pain currently. He does state that he has a history of COPD and feels somewhat short of breath. Family states that he has had elevated potassium levels in the past but is not on any medication to keep his potassium low. Patient denies any palpitations. Related Data Home Medications ?Medication ?Instructions ?Recorded ?Confirmed atorvastatin 40 mg tablet 40 mg PO HS Cholesterol 07/03/22 10/08/24 celecoxib 100 mg capsule 100 mg PO BID Arthritis 07/03/22 10/08/24 duloxetine 30 mg capsule,delayed 30 mg PO BID Mood 07/03/22 10/08/24 release ferrous sulfate 325 mg (65 mg 325 mg PO BID Supplement 07/03/22 10/08/24 iron) tablet (FeroSul) oxycodone-acetaminophen 7.5 mg-325 1 tab PO QID Pain 07/03/22 10/08/24 mg tablet quetiapine 200 mg tablet 200 mg PO HS Mood 07/03/22 10/08/24 metformin 1,000 mg tablet 500 mg PO BID Diabetes 11/23/22 10/08/24 dicyclomine 20 mg tablet 20 mg PO QID 04/14/24 10/08/24 montelukast 10 mg tablet 10 mg PO DAILY 04/14/24 10/08/24 colestipol 1 gram tablet 1 g PO BID 05/14/24 10/08/24 enoxaparin 100 mg/mL subcutaneous 100 mg SQ BID 05/14/24 10/08/24 syringe fluticasone propionate 50 2 spray intranasal DAILYP PRN 05/14/24 10/08/24 mcg/actuation nasal ALLERGIES spray,suspension levocetirizine 5 mg tablet 5 mg PO DAILY 05/14/24 10/08/24 mupirocin 2 % topical ointment topical 05/14/24 10/08/24 losartan 25 mg tablet 25 mg PO DAILY 10/09/24 10/09/24 omeprazole 20 mg capsule,delayed 20 mg PO DAILY 10/09/24 10/09/24 release ropinirole 1 mg tablet 1 mg PO TID Restless leg syndrome 10/09/24 10/09/24 Previous Rx's ?Medication ?Instructions ?Recorded metoprolol succinate 25 mg 25 mg PO QDAY #90 tabs 11/02/22 tablet,extended release 24 hr Held on 10/02/23. Instructions: hypotension furosemide 40 mg tablet (Lasix) 40 mg PO DAILY #30 tabs 10/08/24 ranolazine 500 mg tablet,extended 500 mg PO BID #60 tabs 10/08/24 release,12 hr empagliflozin 25 mg tablet 25 mg PO DAILY #30 tabs 10/09/24 (Jardiance) gabapentin 300 mg capsule 300 mg PO TID #90 caps 10/09/24 sodium zirconium cyclosilicate 10 10 g PO TID 3 doses #11 ea 10/09/24 gram oral powder packet (Lokelma) spironolactone 25 mg tablet 50 mg (2 x 25 mg) PO DAILY #90 tabs 10/09/24 warfarin 5 mg tablet 7.5 mg (1.5 x 5 mg) PO DAILY #30 10/09/24 tabs Allergies Allergy/AdvReac Type Severity Reaction Status Date / Time aspirin (ASPIRIN) Allergy Unknown S-DIFF. Verified 10/08/24 15:19 BREATHING [facility] Disclaimer: The information contained in this section may have been updated after the patient was seen, as this information can be updated by other users. Medical History Dehydration Hypotension Edema Cardiac resynchronization therapy defibrillator (CENTRAL SUPPLY AIDE-D) in place HLD (hyperlipidemia) HTN (hypertension) HFrEF (heart failure with reduced ejection fraction) Paroxysmal A-fib Coronary artery disease Cardiac pacemaker in situ Chronic kidney disease, stage 3a Peripheral vascular disease Chronic pain with drug dependence History of DVT of lower extremity Rib fractures Clavicular fracture Depression Fall at home Parkinson disease Diabetes mellitus Surgical History AICD (automatic cardioverter/defibrillator) present implant OCT 2022. S/P carpal tunnel release History of total left hip replacement S/P cholecystectomy Family History Other Coronary artery disease Diabetes Social History Smoking Status: Current every day smoker tobacco type: cigars years smoked: 55 quit status: not considering quitting alcohol intake: never substance use type: denies use current occupational status: retired Travel in the last 8 weeks?: None household members: other housing: apartment marital status: Have you lived/traveled outside US in past 30 days?: No Contact w/someone who lives/traveled outside US past 30 days?: No Exposure to someone with infectious disease in past 14 days?: No Do you have a fever (greater than 100.4 F or 38 C)?: No Have you tested positive for COVID-19?: No Exposed to someone with COVID-19 in past 14 days?: No Do you have a sore throat?: No Do you have a cough?: No Do you have any weakness?: No Do you have any diarrhea?: No Are you experiencing any unusual bleeding?: No Do you have any muscle aches/pain?: No Do you have any abdominal pain?: No Are you experiencing loss of taste or smell?: No Other Medical History Have you received the Flu Vaccine for this season: No Have you received the Pneumonia Vaccine: Yes ROS Obtained: Yes Systems reviewed as appropriate & no additional complaints except as documented Physical Exam General General appearance: alert and in no apparent distress Head Head exam: atraumatic Eye Eye exam: Present normal appearance ENT ENT exam: Present normal external ear exam Neck Neck exam: Present full ROM Chest Chest inspection: Present symmetric chest wall rise Respiratory Respiratory exam: Present normal lung sounds bilaterally and wheezes (end expiratory wheezing); Absent respiratory distress, stridor or accessory muscle use Cardiovascular Cardiovascular exam: Present regular rate and normal rhythm Abdominal Exam Abdominal exam: Present soft; Absent tenderness or guarding exam: Present deferred Extremities Exam Extremities exam: Present normal inspection Back Exam Back exam: Present normal inspection Neurological Exam Neurological exam: Present alert and oriented X3 Psychiatric Psychiatric exam: Present normal affect Skin Skin exam: Present warm and dry Medical Decision Making Medical Records Screening: Per USPSTF and CDC recommendations, given the prevalence of disease in our region, it is our hospital?s policy to screen for HIV and viral Hepatitis for all patients aged 18 and over and those with ongoing risk factors. [place] Inquiry Pt receiving controlled substance: No Vital Signs: 10/08/24 21:24 10/09/24 00:12 Temperature 97.9 F 98.1 F Temperature Source Oral Pulse Rate 92 H Pulse Rate [Right Radial] 90 Respiratory Rate 16 19 Blood Pressure 142/69 H Blood Pressure [Right Arm] 111/70 Blood Pressure Mean [Right Arm] 83 Blood Pressure Source [Right Arm] Manual Cuff/ Doppler Blood Pressure Position [Right Arm] Sitting 02 Sat by Pulse Oximetry 97 Oxygen Delivery Method Room Air Room Air Lab Data Lab Results 10/08/24 22:43: WBC 11.3 H, RBC 4.89, Hgb 16.2, Hct 49.4, MCV 101.0 H, MCH 33.1 H, MCHC 32.8, RDW 14.3, Plt Count 199, MPV 9.9, Neut % (Auto) 64.9, Lymph % (Auto) 23.6, Clark % (Auto) 8.8, Eos % (Auto) 1.2, Baso % (Auto) 0.4, Neut # (Auto) 7.3, Lymph # (Auto) 2.7, Clark # (Auto) 1.0, Eos # (Auto) 0.1, Baso # (Auto) 0.1, Sodium 138, Potassium 5.6 H, Chloride 104, Carbon Dioxide 26, Anion Gap 13.6, BUN 54 H, Creatinine 2.00 H, Estimated Creat Clear 44, Estimated GFR 33 L, Est GFR ( Amer) 40 L, Glucose 155 H, Calcium 9.6, Magnesium 2.0, Total Bilirubin 0.4, AST 27, ALT 19, Alkaline Phosphatase 98, Troponin I < 0.01, NT-Pro-B Natriuret Pep 599 H, Total Protein 7.4, Albumin 4.3, Globulin 3.1, Albumin/Globulin Ratio 1.4 10/08/24 22:43 10/08/24 22:43 Orders (Tests/Meds): ED MEDICATIONS Discontinued Medications Generic Name Dose Route Start Last Admin Trade Name Freq PRN Reason Stop Dose Admin Albuterol/Ipratropium 3 ml 10/08/24 22:44 10/08/24 22:59 Ipratropium/Albuterol 3 Ml Neb IH 10/08/24 22:45 3 ml ONCE ONE Administration ORDERS Category Date Time Status CXR --portable [XR chest portable] Stat Exams 10/08/24 22:44 Completed BNP [NT Pro Brain Natriuretic Pep.] Stat Lab 10/08/24 22:43 Completed CBC w/Auto Diff [Complete Blood Count Auto Diff] Stat Lab 10/08/24 22:43 Completed Comprehensive Metabolic Panel Stat Lab 10/08/24 22:43 Completed Magnesium Stat Lab 10/08/24 22:43 Completed Troponin I Stat Lab 10/08/24 22:43 Completed ECG Data Tracing #1: I reviewed this ECG and interpreted as documented below: Ventricularly paced rhythm at 92 bpm. No peaked T waves. No ST elevation or depression. QTc normal at 430. Medical Decision Narrative: Alan Krueger is a 74y male with a history of Parkinsons, HFrEF, hypertension, hyperlipidemia, CKD, diabetes mellitus, AICD, cholecystectomy who presents to the emergency department for complaints of abnormal labs. Patient is here with family who provides additional details of the history. Reports that he was getting routine labs via Dr. Zamora today and was instructed to come to the emergency department due to his potassium being elevated. Patient states that overall he does not feel well, describing chronic bilateral lower extremity weakness. He does state that he will intermittently have chest pain but does not have chest pain currently. He does state that he has a history of COPD and feels somewhat short of breath. Family states that he has had elevated potassium levels in the past but is not on any medication to keep his potassium low. Patient denies any palpitations. On arrival, patient is hemodynamically stable with initial blood pressure 111/70, heart rate within normal limits, afebrile, oxygen saturation 97% on room air. Physical exam, as stated above, revealed male in no distress. Cardiopulmonary exam revealed no murmurs or rubs. Patient does have end expiratory wheezing bilaterally. Abdomen soft, nontender nondistended. He has some pitting edema in the bilateral lower extremities. The right lower extremity does appear somewhat more swollen than the left, however patient states that this is normal for him. Differential diagnosis includes, but is not limited to: Hyperkalemia, cardiac arrhythmia, ACS, pericarditis, COPD exacerbation, pneumonia, among others. The most morbid conditions were considered and workup was based on these. Given patient's wheezing, patient was given a DuoNeb treatment but prior to this lab work was obtained. EKG was obtained and does not show any evidence of peaked T waves. No ST elevation or depressions. See interpretation above. Patient's workup showed mild leukocytosis of 11.3, potassium earlier today was 6.4, however repeat potassium at this time is 5.6. Patient's creatinine is chronically elevated and is near baseline of 2.0. Initial troponin less than 0.01. BUN chronically elevated and near baseline at 599. Previous records indicate that patient has had elevated potassiums in the past and his baseline appears to be around 4.5-5.2. Given the patient has no EKG changes, and is otherwise having no cardiac symptoms such as chest pain or palpitations, no calcium or rapid reduction in potassium is indicated at this time. It is felt that patient would likely benefit from Lokelma to help gradually reduce potassium over the next several days. Will prescribe Lokelma to begin taking tomorrow. I did encourage patient to follow-up closely with his primary care physician over the next couple of days to have labs redrawn and was given strict return precautions. He and family demonstrated understanding and were in agreement with this plan. Patient is eager to get home at this time. He was then discharged from the emergency department in stable condition. Critical Care Critical Care Time Critical Care Time: No
--- NOTE | 2024-10-08 22:44 | XR_ITS ---
PROCEDURE INFORMATION: Exam: XR Chest Exam date and time: 10/08/2024 10:51 PM Age: 74 years old Clinical indication: Shortness of breath TECHNIQUE: Imaging protocol: Radiologic exam of the chest. Views: 1 view. COMPARISON: CR XR CHEST 2V 10/08/2024 4:04 PM FINDINGS: Tubes, catheters and devices: Multilead AICD. Lungs: No acute infiltrates.. Pleural spaces: There is no evidence for pneumothorax. Heart/Mediastinum: The heart size is within normal limits. Bones/joints: Unremarkable. IMPRESSION: 1. Multilead AICD. 2. No acute infiltrates.. 3. There is no evidence for pneumothorax.
[2024-10-08 22:56] LABS: Hematocrit 49.4 % (42.0-52.0); Hemoglobin 16.2 g/dL (14.1-18.0); Immature Granulocytes % 1.1 %; Mean Corpuscular HGB Conc 32.8 g/dL (31.8-35.4); Mean Corpuscular Hemoglobin 33.1 pg (27.0-31.2); Mean Corpuscular Volume 101.0 fl (80-94); Nucleated Red Blood Cells % 0 %; Platelet Count 199 K/mm3 (142-424); Red Blood Count 4.89 M/mm3 (4.60-6.20); Red Cell Distribution Width-SD 53.6 fL; White Blood Count 11.3 K/mm3 (4.8-10.8)
[2024-10-08] MEDS: IPRATROPIUM/ALBUTEROL 3 ML NEB IH (22:59)
[2024-10-08 23:17] LABS: Alanine Aminotransferase 19 U/L (12-78); Albumin Level 4.3 g/dl (3.5-5.0); Albumin/Globulin Ratio 1.4 (1.1-1.8); Alkaline Phosphatase 98 U/L (38-126); Anion Gap 13.6 mEq/L (5-15); Aspartate Amino Transferase 27 U/L (17-59); Bilirubin,Total 0.4 mg/dl (0.2-1.3); Blood Urea Nitrogen 54 mg/dl (9-20); Calcium 9.6 mg/dl (8.4-10.2); Carbon Dioxide 26 mmol/L (22.0-30.0); Chloride 104 mmol/L (98-107); Creatinine Clearance Estimated 44 mL/min (50-200); Creatinine,Serum 2.00 mg/dl (0.66-1.25); Estimated Glomerular Filt Rate 33 ml/min (>60); GFR (African American) 40 ML/MIN (>60); Globulin 3.1 g/dL (1.3-3.2); Glucose 155 mg/dl (74-100); Magnesium 2.0 mg/dl (1.6-2.3); Potassium 5.6 mmoL/L (3.5-5.1); Sodium 138 mmol/L (136-145); Total Protein,Serum 7.4 g/dl (6.3-8.2)
[2024-10-08 23:26] LABS: NT Pro Brain Natriuretic Pep. 599 pg/mL (0-450)
[2024-10-08 23:34] LABS: Troponin I < 0.01 ng/ml (0.00-0.034)
[2024-10-09 00:12] VITALS: BP 142/69; PULSE 92; RESP 19; TEMP 36.7; O2SAT 94
== END 2024-10-09 00:18 | disposition home or self-care (01) ==
PROVIDERS: Emergency Provider Student in an Organized Health Care Education/Training Program; PCP Nurse Practitioner Family
DX: E87.5 Hyperkalemia (principal); Z95.0 Presence of cardiac pacemaker; J44.9 Chronic obstructive pulmonary disease, unspecified; F17.290 Nicotine dependence, other tobacco product, uncomplicated
CPT/HCPCS: 71045; 80053; 83735; 83880; 84484; 85025; 93005; 99282; 99284

== ENCOUNTER 2024-10-11 15:30 | Outpatient (CLI) | payer MEDICARE, SELFPAY ==
--- OUTSIDE RECORDS SUMMARY | 2024-10-11 15:33 | XMS_ITS | Clinical Summary ---
[facility] Address [address] [place] [address] Care Team Providers Care Salon Customer Experience Specialist Name Role Phone Provider, No Known [...] 11/20/2024 Insurance [employer] Care Teams Salon Customer Experience Specialist Relationship Specialty Start Date End Date Provider, No Known [facility] [place] [address] PCP - General 11/18/16
--- OUTSIDE RECORDS SUMMARY | 2024-10-11 15:33 | XMS_ITS ---
Author Organization [facility] Care Team Providers Care Weapons Officer [employer] Name Role Phone Susan Narayan Unavailable Unavailable Keith Abel Unavailable Unavailable Allergies and adverse reactions Code CodeSystem Substance Reaction Severity StartDate Concern Status 1191 RXNORM Aspirin Unknown 10/21/2020 active Care Team Name Role Address Phone Organization Dates Abel Parker PCP [address], [address], [facility] (Office): : [place] 10/21/2020 - 11/06/2020 Susan Narayan [address], [address], [facility] (Office): : [place] 10/21/2020 - 11/06/2020 [...] date: administe red date: info obtained from [facility] TB 2 Step Mantoux Skin Test completed tuberculin skin test; unspecified formulation Given 0.1 ml Left Forearm intradermally Step 1 of Multi-step with next step required 98 CVX created date: consent date: administe red date: 1 Educated by Carroll Montoya on 10/21/2020 info obtained from [facility] SARS-COV-2 (COVID-19) completed SARS-COV-2 (COVID-19) vaccine, vector non-replicating, recombinant spike protein-Ad26, preservative free, 0.5 mL lotNumber: [id number] Mfg: Screenhero Step 1 of Multi-step 212 CVX created date: administe red date: 1 administered at [facility] Mental Status Section Date Assessment Total Score Description 11/06/2020 BIMS 13 cognitively int act CAM 0 No delirium ind icated PHQ-9 12 moderate depres ning 10/23/2020 BIMS 15 cognitively int act CAM 0 No delirium ind icated PHQ-9 12 moderate depres ning Problems Problem # Description Date of onset Resolved Date Code CodeSystem Concern Status 1 AFTERCARE FOLLOWING JOINT REPLACEMENT SURGERY 10/21/[address] active 2 CARPAL TUNNEL SYNDROME, LEFT UPPER LIMB 10/21/[address] active 3 CARPAL TUNNEL SYNDROME, RIGHT UPPER LIMB 10/21/[address] active 4 CHRONIC KIDNEY DISEASE, UNSPECIFIED 10/21/[address] active 5 CHRONIC OBSTRUCTIVE PULMONARY DISEASE, UNSPECIFIED 10/21/[address] active 6 DISORDER OF THYROID, UNSPECIFIED 10/21/[address] active 7 ELEVATED WHITE BLOOD CELL COUNT, UNSPECIFIED 10/21/[address] active 8 ESOPHAGITIS, UNSPECIFIED WITHOUT BLEEDING 10/21/[address] active 9 ESSENTIAL (PRIMARY) HYPERTENSION 10/21/[address] active 10 FAMILY HISTORY OF MALIGNANT NEOPLASM OF OTHER ORGANS OR SYSTEMS 10/21/[address] active 11 FRACTURE OF UNSPECIFIED PART OF NECK OF RIGHT FEMUR, SUBSEQUENT ENCOUNTER FOR CLOSED FRACTURE WITH ROUTINE HEALING 10/21/[address] active 12 FRACTURE OF UNSPECIFIED PART OF RIGHT CLAVICLE, SUBSEQUENT ENCOUNTER FOR FRACTURE WITH ROUTINE HEALING 10/21/[address] active 13 STORAGE AND BACKUP ADMINISTRATOR (CURRENT) USE OF ANTICOAGULANTS 10/21/[address] active 14 STORAGE AND BACKUP ADMINISTRATOR (CURRENT) USE OF OPIATE ANALGESIC 10/21/[address] active 15 MAJOR DEPRESSIVE DISORDER, SINGLE EPISODE, UNSPECIFIED 10/21/[address] active 16 MULTIPLE FRACTURES OF RIBS, BILATERAL, SUBSEQUENT ENCOUNTER FOR FRACTURE WITH ROUTINE HEALING 10/21/[address] active 17 MUSCLE WEAKNESS (GENERALIZED) 10/21/[address] active 18 OTHER CHRONIC PAIN 10/21/[address] active 19 OTHER PSYCHOACTIVE SUBSTANCE DEPENDENCE, UNCOMPLICATED 10/21/[address] active 20 OTHER SPECIFIED ARTHRITIS, UNSPECIFIED SITE 10/21/[address] active 21 PARKINSON'S DISEASE 10/21/[address] T active 22 PERSONAL HISTORY OF OTHER VENOUS THROMBOSIS AND EMBOLISM 10/21/[address] active 23 PRESENCE OF LEFT ARTIFICIAL HIP JOINT 10/21/[address] active 24 PRESENCE OF RIGHT ARTIFICIAL HIP JOINT 10/21/[address] active 25 TYPE 2 DIABETES MELLITUS WITHOUT COMPLICATIONS 10/21/[address] active 26 UNSPECIFIED ABNORMALITIES OF GAIT AND MOBILITY 10/21/[address] active Reason for Referral No Reasons for Referral Entered Social History Social History Observation Description Start Date End Date Code Code System Current Smoking Status Tobacco smoking consumption unknown 640392628 SNOMED CT Sex Assigned At Male 1950 07894-0 [facility] Gender Identity Vital Signs Code Code System Vitals Name Values and Units Timing Information 24401-5 [facility] Pain Level Value=0.0 11/06/2020 9279-1 [facility] Respiratory Rate Value=16.0 Units=/m in 11/06/2020 8462-4 [facility] Blood Pressure-Diastolic Value=58 Un its=mmHg 11/06/2020 8480-6 [facility] Blood Pressure-Systolic Value=96 Uni ts=mmHg 11/06/2020 8310-5 [facility] Body Temperature Value=97.2 Units= F 11/06/2020 8867-4 [facility] Heart rate Value=80.0 Units=/min 47891-9 [facility] O2 % BldC Oximetry Value=93.0 Units= % 11/05/2020 78539-6 [facility] Weight Xrpgd=575.0 Units=Lbs 12/2020 8302-2 [facility] Height Value=73.0 Units=Inches 10/22/2020
--- OUTSIDE RECORDS SUMMARY | 2024-10-11 15:33 | XMS_ITS | Clinical Summary ---
Author Organization Healthcare Address [address] [place] [address] Care Team Providers Care Field Applications Specialist Name Role Phone Abel Parker MD Primary Care Provider [phone] Allergies Active Allergy Reactions Criticality Noted Date [...] [facility] time in the [facility] were you [facility] or living in a intermediate (including now)? No 04/15/2024 Utilities Answer Date [...] 1994 [facility]-Zoster Vaccines (1 of 2) 05/12/1999 [id number] Vaccine (2 - season) 2023 10/08/2020 UKY-RSV [...] Insurance [address] [place] [address] [facility] MEDICARE Advance Directives * Full Code (Latest Code Status on File) Date Activated Date Inactivated Comments 04/15/2024 4:26 AM 04/19/2024 3:59 PM Question Answer Comments Patient has decision-making capacity? Yes Care Teams Field Applications Specialist Relationship Specialty Start Date End Date Abel Parker MD [address] [place] [address] PCP - General 07/03/20
--- OUTSIDE RECORDS SUMMARY | 2024-10-11 15:33 | XMS_ITS | Encounter Summary ---
[facility] Address [address] [place] [address] Care Team Providers Care Security Systems Sales Representative Name Role Phone Provider, No Known Primary Care Provider Unavail able Encounter Details Date Type Department Care Team (Late st Contact Info) Description 10/31/2011 Conversion Encounter [facility] HISTORICAL CONV [address] [place] [address] Interface, See Report Social History [...] Lucas Batres M.D. ' Rosa Zepeda APRN [facility], [address] (InsideTracker) OFFICE NOTE PASCALE KRUEGER : 1950 DATE [...] time. Dameon Sorto M.D.* KATHARINE/jewell Doc. ID [id number] Rev. #0 cc: Michael Owens M.D.* . [...] Lucas Batres M.D. ' Rosa Zepeda APRN [facility]4 [facility], [facility] [address] [place] [address] [employer] OFFICE NOTE PASCALE KRUEGER : 1950 DATE [...] call. Dameon Sorto M.D.* AP/rxteresa Doc. ID [id number] Rev. #0 cc: Michael Owens M.D.* Morris Cruz Jr., M.D.* Page 2 of 2 Page 1 of 2 Authenticated by DAMEON SORTO MD On 03/01/2012 11:18:20 AM documented in this encounter Plan of Treatment Not on file documented as of this encounter Visit Diagnoses Not on filedocumented in this encounter Care Teams Security Systems Sales Representative Relationship Specialty Start Date End Date Provider, [place] [address] PCP - General 11/18/16 documented as of this encounter
[2024-10-11 18:00] LABS: Chloride 105 mmol/L (98-107)
[2024-10-11 18:01] LABS: Potassium 5.3 mmoL/L (3.5-5.1); Sodium 138 mmol/L (136-145)
[2024-10-11 18:05] LABS: Anion Gap 15.3 mEq/L (5-15); Blood Urea Nitrogen 56 mg/dl (9-20); Calcium 9.3 mg/dl (8.4-10.2); Carbon Dioxide 23 mmol/L (22.0-30.0); Creatinine,Serum 2.00 mg/dl (0.66-1.25); Estimated Glomerular Filt Rate 33 ml/min (>60); GFR (African American) 40 ML/MIN (>60); Glucose 193 mg/dl (74-100)
== END 2024-10-11 23:59 | disposition home or self-care (01) ==
LOC: LAB 15:31
PROVIDERS: PCP Nurse Practitioner Family; Visit Provider Physician Assistant
DX: E87.5 Hyperkalemia (principal)
CPT/HCPCS: 36415; 80048

== ENCOUNTER 2024-10-29 09:04 | Outpatient (CLI) | payer MEDICARE, SELFPAY ==
--- NOTE | 2024-10-29 | CA_ITS ---
APPROVED REPORT Exam: Pharmacologic Technologist: Lulu Garcia Ht: 6 ft 0 in Wt: 217 lbs BSA: 2.21 m2 HR: 88 bpm BP: 99/59 mmHg Stress Test Details Test: Lexiscan HR Resting HR: 88 bpm Max Heart Rate (APMHR): 145.432427 bpm Max HR Achieved: 96 bpm Target HR (85% APMHR): 123.257272 bpm % of APMHR: 66.21 Recovery HR: 91 bpm BP Resting BP: 99.0/59.0 mmHg Max BP: 117.0/68.0 mmHg Recovery BP: 91.0/52.0 mmHg ECG Stress ECG Conclusion Symptoms: Hypotension/nausea - resolved prior to discharge. Arrhythmias/Ectopy: None ST-T Changes: Less than 0.[address] segment changes. Conclusion: Non-diagnostic ECG/Lexiscan. Electronically signed by : Erika Dotson MD 10/29/2024 20:57:13
--- OUTSIDE RECORDS SUMMARY | 2024-10-29 09:13 | XMS_ITS ---
Author Organization [facility] Care Team Providers Care Floor Finisher Helper Name Role Phone Susan Narayan Unavailable Unavailable Keith Abel Unavailable Unavailable Allergies and adverse reactions Code CodeSystem Substance Reaction Severity StartDate Concern Status 1191 RXNORM Aspirin Unknown 10/21/2020 active Care Team Name Role Address Phone Organization Dates Abel Parker PCP [address], [address], [facility] (Office): : [place] 10/21/2020 - 11/06/2020 Susan Narayan [address], [address], [facility] (Office): : [place] 10/21/2020 - 11/06/2020 Goals [...] date: administe red date: info obtained from [facility] TB 2 Step Mantoux Skin Test completed tuberculin skin test; unspecified formulation Given 0.1 ml Left Forearm intradermally Step 1 of Multi-step with next step required 98 CVX created date: consent date: administe red date: 1 Educated by Carroll Montoya on 10/21/2020 info obtained from [facility] SARS-COV-2 (COVID-19) completed SARS-COV-2 (COVID-19) vaccine, vector non-replicating, recombinant spike protein-Ad26, preservative free, 0.5 mL lotNumber: [id number] Mfg: [employer]hunt Step 1 of Multi-step 212 CVX created date: administe red date: 1 administered at [place] Mental Status Section Date Assessment Total Score Description 11/06/2020 BIMS 13 cognitively int act CAM 0 No delirium ind icated PHQ-9 12 moderate depres ning 10/23/2020 BIMS 15 cognitively int act CAM 0 No delirium ind icated PHQ-9 12 moderate depres ning Problems Problem # Description Date of onset Resolved Date Code CodeSystem Concern Status 1 AFTERCARE FOLLOWING JOINT REPLACEMENT SURGERY 10/21/[address] active 2 CARPAL TUNNEL SYNDROME, LEFT UPPER LIMB 10/21/[address] active 3 CARPAL TUNNEL SYNDROME, RIGHT UPPER LIMB 10/21/[address] active 4 CHRONIC KIDNEY DISEASE, UNSPECIFIED 10/21/[address] active 5 CHRONIC OBSTRUCTIVE PULMONARY DISEASE, UNSPECIFIED 10/21/[address] active 6 DISORDER OF THYROID, UNSPECIFIED 10/21/[address] active 7 ELEVATED WHITE BLOOD CELL COUNT, UNSPECIFIED 10/21/[address] active 8 ESOPHAGITIS, UNSPECIFIED WITHOUT BLEEDING 10/21/[address] active 9 ESSENTIAL (PRIMARY) HYPERTENSION 10/21/[address] active 10 FAMILY HISTORY OF MALIGNANT NEOPLASM OF OTHER ORGANS OR SYSTEMS 10/21/[address] active 11 FRACTURE OF UNSPECIFIED PART OF NECK OF RIGHT FEMUR, SUBSEQUENT ENCOUNTER FOR CLOSED FRACTURE WITH ROUTINE HEALING 10/21/[address] active 12 FRACTURE OF UNSPECIFIED PART OF RIGHT CLAVICLE, SUBSEQUENT ENCOUNTER FOR FRACTURE WITH ROUTINE HEALING 10/21/[address] active 13 [facility] (CURRENT) USE OF ANTICOAGULANTS 10/21/[address] active 14 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 10/21/[address] active 15 MAJOR DEPRESSIVE DISORDER, SINGLE EPISODE, UNSPECIFIED 10/21/[address] active 16 MULTIPLE FRACTURES OF RIBS, BILATERAL, SUBSEQUENT ENCOUNTER FOR FRACTURE WITH ROUTINE HEALING 10/21/[address] active 17 MUSCLE WEAKNESS (GENERALIZED) 10/21/[address] active 18 OTHER CHRONIC PAIN 10/21/[address] active 19 OTHER PSYCHOACTIVE SUBSTANCE DEPENDENCE, UNCOMPLICATED 10/21/[address] active 20 OTHER SPECIFIED ARTHRITIS, UNSPECIFIED SITE 10/21/[address] active 21 PARKINSON'S DISEASE 10/21/[address] T active 22 PERSONAL HISTORY OF OTHER VENOUS THROMBOSIS AND EMBOLISM 10/21/[address] active 23 PRESENCE OF LEFT ARTIFICIAL HIP JOINT 10/21/[address] active 24 PRESENCE OF RIGHT ARTIFICIAL HIP JOINT 10/21/[address] active 25 TYPE 2 DIABETES MELLITUS WITHOUT COMPLICATIONS 10/21/[address] active 26 UNSPECIFIED ABNORMALITIES OF GAIT AND MOBILITY 10/21/[address] active Reason for Referral No Reasons for Referral Entered Social History Social History Observation Description Start Date End Date Code Code System Current Smoking Status Tobacco smoking consumption unknown 223394110 SNOMED CT Sex Assigned At Male 1950 93245-1 [facility] Gender Identity Vital Signs Code Code System Vitals Name Values and Units Timing Information 65930-0 [facility] Pain Level Value=0.0 11/06/2020 9279-1 [facility] Respiratory Rate Value=16.0 Units=/m in 11/06/2020 8462-4 [facility] Blood Pressure-Diastolic Value=58 Un its=mmHg 11/06/2020 8480-6 [facility] Blood Pressure-Systolic Value=96 Uni ts=mmHg 11/06/2020 8310-5 [facility] Body Temperature Value=97.2 Units= F 11/06/2020 8867-4 [facility] Heart rate Value=80.0 Units=/min 02637-1 [facility] O2 % BldC Oximetry Value=93.0 Units= % 11/05/2020 77071-2 [facility] Weight Buiph=911.0 Units=Lbs 12/2020 8302-2 [facility] Height Value=73.0 Units=Inches 10/22/2020
--- OUTSIDE RECORDS SUMMARY | 2024-10-29 09:13 | XMS_ITS | Clinical Summary ---
[facility] [address] [place] [address] Care Team Providers Care Dock Operator Name Role Phone Provider, No Known [...] of 2) 05/12/1999 AAA SCREEN ONCE 2014 RSV Vaccine - Adults (1 - 1-dose 75+ series) COVID-19 Vaccine (1 - 2023- season) 2024 INFLUENZA VACCINE 11/20/2024 Insurance [employer] MEDICARE ADVANTAGE Care Teams Dock Operator Relationship Specialty Start Date End Date Provider, No Known [facility] [place] [address] PCP - General 11/18/16
--- OUTSIDE RECORDS SUMMARY | 2024-10-29 09:13 | XMS_ITS | Clinical Summary ---
Author Organization Healthcare Address [address] [place] [address] Care Team Providers Care Freight Team Associate Name Role Phone Abel Parker MD Primary Care Provider [phone] Allergies Active Allergy Reactions Criticality Noted Date [...] any time in the past 12 m [facility], were you homeless or living in a [facility] (including now)? No 04/15/2024 Utilities Answer Date [...] 1994 [facility]-Zoster Vaccines (1 of 2) 05/12/1999 [facility]-RSV Vaccine: 60+ Years or (1 - 1-dose 75+ series) 2024 [facility]- SDOH Screenings 10/13/2024 [facility]-Adult SDOH Screenings 10/13/2024 04/15/2024 [id number] Vaccine (2 - season) 2024 10/08/2020 [facility]-Influenza Vaccine (#1) 10/21/202412/20, 01/28/2021, 11/13/2019, Additional [...] Insurance [address] [place] [address] [facility] MEDIC[facility] Advance Directives * Full Code (Latest Code Status on File) Date Activated Date Inactivated Comments 04/15/2024 4:26 AM 04/19/2024 3:59 PM Question Answer Comments Patient has decision-making capacity? Yes Care Teams Freight Team Associate Relationship Specialty Start Date End Date Abel Parker MD [address] [place] [address] PCP - General 07/03/20
--- OUTSIDE RECORDS SUMMARY | 2024-10-29 09:13 | XMS_ITS | Encounter Summary ---
[facility] Address [address] [place] [address] Care Team Providers Care Flight Mechanic Name Role Phone Provider, No Known Primary Care Provider Unavail able Encounter Details Date Type Department Care Team (Late st Contact Info) Description 10/31/2011 Conversion Encounter [facility] HISTORICAL CONV [address] [place] [address] Interface, See Report Social History [...] Lucas Batres M.D. ' Rosa Zepeda APRN [facility]1 [facility], [address] OFF[address] NOTE PASCALE KRUEGER : 1950 DATE [...] time. Dameon Sorto M.D.* KATHARINE/jewell Doc. ID [id number] Rev. #0 cc: Michael Owens M.D.* . [...] Lucas Batres M.D. ' Rosa Zepeda APRN [facility]5 [facility], [address] [place] [address] [employer] OFFICE NOTE PASCALE KRUEGER : 1950 DATE [...] call. Dameon Sorto M.D.* AP/rxteresa Doc. ID [id number] Rev. #0 cc: Michael Owens M.D.* Morris Cruz Jr., M.D.* Page 2 of 2 Page 1 of 2 Authenticated by DAMEON SORTO MD On 03/01/2012 11:18:20 AM documented in this encounter Plan of Treatment Not on file documented as of this encounter Visit Diagnoses Not on filedocumented in this encounter Care Teams Flight Mechanic Relationship Specialty Start Date End Date Provider, [place] [address] PCP - General 11/18/16 documented as of this encounter
--- NOTE | 2024-10-29 09:15 | CA_ITS ---
APPROVED REPORT EXAM: Comprehensive 2D, Doppler, and color-flow Echocardiogram Strong Nitric Operator: Serina Chavez RDCS Ht: 6 ft 0 in Wt: 217lbs BSA: 2.21 BP: 100/64 mmHg Indications: CP M-Mode Dimensions RVDd 2.09 cm (0.9-2.6) LA Diam 3.51 cm (1.9-4.0) LVDd 5.85 cm (3.5-5.7) LVDs 3.72 cm (3.5-5.7) IVSd 0.87 cm (0.6-1.1) PWd 0.87 cm (0.6-1.1) EF (Teich) 65.30% FS 36.40% EDV (Teich) 169.90 mL ESV (Teich) 58.90 mL LV Diastology E Decel Time 93 (160-240 msec) E/A Ratio 1.7 Mitral Valve MV E Max Abner. 68.0 (40-130 cm/s) MV A Velocity 39.0 (40-130 cm/s) E/A Ratio 1.76 MV PHT 27.0 ms Left Ventricle The left ventricle is normal size. Left ventricular systolic function is normal. The left ventricular ejection fraction is within the normal range. There is increased left ventricular wall thickness. There is normal LV segmental wall motion. The left ventricular diastolic function is indeterminate. LVEF is 55% Right Ventricle The right ventricle is mildly to moderately dilated. The right ventricular systolic function is mildly reduced. Is a device in the right ventricle. Atria The left atrium size is normal. The right atrium is mildly dilated. The interatrial septum is not well-visualized. Aortic Valve The aortic valve is mildly thickened. There is no hemodynamically significant aortic valvular stenosis. Trace aortic regurgitation is present. Mitral Valve The mitral valve is normal in structure. No evidence of mitral valve stenosis. Trace mitral regurgitation is present. Tricuspid Valve The tricuspid valve leaflets are thin and pliable. Mild tricuspid regurgitation. RVSP is 20-25 mmHg. Pulmonic Valve The pulmonary valve is not well-visualized. Great Vessels The aortic root is normal in size. IVC is normal in size and collapses >50% with inspiration. Pericardium There is no pericardial effusion. Other Information Study Quality: Technically Difficult Conclusion Technically difficult study. Normal LV systolic function. Mild to moderate RV dilation with mild reduction in RV function. Mild RA dilation. Mild TR. Electronically signed by : Erika Dotson MD 10/29/2024 15:29:28
[2024-10-29] MEDS: SODIUM CHLORIDE 0.9% 10ML SYR (RAD ONLY) 10 ML IV ×2 (10:15→11:25)
[2024-10-29 11:00] VITALS: BP 99/59; PULSE 88; RESP 16
--- NOTE | 2024-10-29 11:30 | NM_ITS ---
APPROVED REPORT Exam: Nuclear Stress Test Indication: htn, diabetes, hyperlipidemia, tob use, fm hx, c.p., sob, syncope Patient Location: Outpatient Stress Tech: Lulu Garcia MT Tech:BELKIS Lin RT (R)(N)(M) Ht: 6 ft 1 in Wt: 217 lbs HR: 88 bpm BP: 99/59 mmHg BSA: 2.23 m2 TID: 1.15 BMI: 28.6 History: htn, diabetes, hyperlipidemia, tob use, fm hx, c.p., sob, syncope patient could not lay on stomach for prone images Procedure: Patient received 0.4 mg of intravenous Lexiscan, resting heart rate 88 bpm, resting blood pressure 99/59 mmHg, with Lexiscan maximum heart rate achieved was 89 bpm which is % of the maximum predicted heart rate and blood pressure was 81/44 mmHg. With Lexiscan, patient denied any complaint of chest pain. Cardiac Stress and Resting SPECT Images: Cardiac Stress and Resting SPECT images were obtained using technetium 99m Myoview 29.9 mCi stress and 10.80 mCi at rest. The patient is unable to lie on his abdomen. Therefore, prone stress imaging could not be performed. This may affect diagnostic interpretation of the study findings. Resting and stress imaging in supine positions demonstrate a small-sized, mild, partially reversible perfusion defect in the apical LV wall. Gated imaging demonstrates normal global LV systolic function. LVEF is calculated at 56%. Conclusion: Small sized, mild, partially reversible perfusion defect in the apical LV wall. Findings are suggestive of partial reversible ischemia. Gated imaging demonstrates normal global LV systolic function. LVEF is calculated at 56%. Electronically signed by : Erika Dotson MD 10/29/2024 15:33:44
[2024-10-29] MEDS: ISOTOPE MYOVIEW (PER STUDY) 1 DOSE IV (13:33)
[2024-10-29 16:47] LABS: Anion Gap 13.7 mEq/L (5-15); Blood Urea Nitrogen 55 mg/dl (9-20); Calcium 9.9 mg/dl (8.4-10.2); Carbon Dioxide 25 mmol/L (22.0-30.0); Chloride 100 mmol/L (98-107); Creatinine,Serum 2.20 mg/dl (0.66-1.25); Estimated Glomerular Filt Rate 29 ml/min (>60); GFR (African American) 35 ML/MIN (>60); Glucose 172 mg/dl (74-100); Potassium 5.7 mmoL/L (3.5-5.1); Sodium 133 mmol/L (136-145)
== END 2024-10-29 23:59 | disposition home or self-care (01) ==
PROVIDERS: PCP Nurse Practitioner Family; Visit Provider Physician Assistant
DX: I07.1 Rheumatic tricuspid insufficiency (principal); I11.0 Hypertensive heart disease with heart failure; I50.20 Unspecified systolic (congestive) heart failure; I48.0 Paroxysmal atrial fibrillation; I25.10 Atherosclerotic heart disease of native coronary artery without angina pectoris; E78.5 Hyperlipidemia, unspecified; E11.9 Type 2 diabetes mellitus without complications; R55 Syncope and collapse; R94.39 Abnormal result of other cardiovascular function study; Z72.0 Tobacco use
CPT/HCPCS: 36415; 78452; 80048; 93017; 93018; 93306; A9502; J2785

== ENCOUNTER 2024-10-30 15:18 | Outpatient (CLI) | payer MEDICARE, SELFPAY ==
--- OUTSIDE RECORDS SUMMARY | 2024-10-30 15:22 | XMS_ITS | Clinical Summary ---
[facility] Organization [facility] Address [address] [place] [address] Care Team Providers Care Commissioning Manager Name Role Phone Provider, No Known Primary [...] 11/20/2024 Insurance [employer] MED[employer] ADV[employer]AGE Care Teams Commissioning Manager Relationship Specialty Start Date End Date Provider, No Known [facility] [place] [address] PCP - General 11/18/16
--- OUTSIDE RECORDS SUMMARY | 2024-10-30 15:22 | XMS_ITS | Encounter Summary ---
[facility] [address] [place] [address] Care Team Providers Care Director Of Marketing Analytics Name Role Phone Provider, No Known Primary Care Provider Unavail able Encounter Details Date Type Department Care Team (Late st Contact Info) Description 10/31/2011 Conversion Encounter [facility] HISTORICAL CONV [address] [place] [address] Interface, See Report Social History [...] Lucas Batres M.D. ' Rosa Zepeda APRN [facility]8 [facility], [address] OFF[address] NOTE PASCALE KRUEGER : 1950 DATE [...] time. Dameon Sorto M.D.* KATHARINE/jewell Doc. ID [id number] Rev. #0 cc: Michael Owens M.D.* . [...] Lucas Batres M.D. ' Rosa Zepeda APRN [facility]6 [facility], [facility] [address] [place] [address] [employer] OFFICE NOTE PASCALE KRUEGER : 1950 DATE [...] call. Dameon Sorto M.D.* AP/rxteresa Doc. ID [id number] Rev. #0 cc: Michael Owens M.D.* Morris Cruz Jr., M.D.* Page 2 of 2 Page 1 of 2 Authenticated by DAMEON SORTO MD On 03/01/2012 11:18:20 AM documented in this encounter Plan of Treatment Not on file documented as of this encounter Visit Diagnoses Not on filedocumented in this encounter Care Teams Director Of Marketing Analytics Relationship Specialty Start Date End Date Provider, [place] [address] PCP - General 11/18/16 documented as of this encounter
--- OUTSIDE RECORDS SUMMARY | 2024-10-30 15:22 | XMS_ITS ---
Author Organization [facility] Care Team Providers Care Refueling Ramp Supervisor Name Role Phone Susan Narayan Unavailable Unavailable Keith Abel Unavailable Unavailable Allergies and adverse reactions Code CodeSystem Substance Reaction Severity StartDate Concern Status 1191 RXNORM Aspirin Unknown 10/21/2020 active Care Team Name Role Address Phone Organization Dates Abel Parker PCP [address], [address], [facility] (Office): : [place] 10/21/2020 - 11/06/2020 Susan Narayan [address], [address], [facility] (Office): : [place] 10/21/2020 - [...] date: administe red date: info obtained from [facility] TB 2 Step Mantoux Skin Test completed tuberculin skin test; unspecified formulation Given 0.1 ml Left Forearm intradermally Step 1 of Multi-step with next step required 98 CVX created date: consent date: administe red date: 1 Educated by Carroll Montoya on 10/21/2020 info obtained from [facility] SARS-COV-2 (COVID-19) completed SARS-COV-2 (COVID-19) vaccine, vector non-replicating, recombinant spike protein-Ad26, preservative free, 0.5 mL lotNumber: [id number] Mfg: [employer] Step 1 of Multi-step 212 CVX created date: administe red date: 1 administered at [place] Mental Status Section Date Assessment Total Score Description 11/06/2020 BIMS 13 cognitively int act CAM 0 No delirium ind icated PHQ-9 12 moderate depres ning 10/23/2020 BIMS 15 cognitively int act CAM 0 No delirium ind icated PHQ-9 12 moderate depres ning Plan of Treatment Section Interventions Intervention Code Code System Display Name Proposed D ate Problems Problem # Description Date of onset Resolved Date Code CodeSystem Concern Status 1 AFTERCARE FOLLOWING JOINT REPLACEMENT SURGERY 10/21/[address] active 2 CARPAL TUNNEL SYNDROME, LEFT UPPER LIMB 10/21/[address] active 3 CARPAL TUNNEL SYNDROME, RIGHT UPPER LIMB 10/21/[address] active 4 CHRONIC KIDNEY DISEASE, UNSPECIFIED 10/21/[address] active 5 CHRONIC OBSTRUCTIVE PULMONARY DISEASE, UNSPECIFIED 10/21/[address] active 6 DISORDER OF THYROID, UNSPECIFIED 10/21/[address] active 7 ELEVATED WHITE BLOOD CELL COUNT, UNSPECIFIED 10/21/[address] active 8 ESOPHAGITIS, UNSPECIFIED WITHOUT BLEEDING 10/21/[address] active 9 ESSENTIAL (PRIMARY) HYPERTENSION 10/21/[address] active 10 FAMILY HISTORY OF MALIGNANT NEOPLASM OF OTHER ORGANS OR SYSTEMS 10/21/[address] active 11 FRACTURE OF UNSPECIFIED PART OF NECK OF RIGHT FEMUR, SUBSEQUENT ENCOUNTER FOR CLOSED FRACTURE WITH ROUTINE HEALING 10/21/[address] active 12 FRACTURE OF UNSPECIFIED PART OF RIGHT CLAVICLE, SUBSEQUENT ENCOUNTER FOR FRACTURE WITH ROUTINE HEALING 10/21/[address] active 13 [facility] (CURRENT) USE OF ANTICOAGULANTS 10/21/[address] active 14 [facility] (CURRENT) USE OF OPIATE ANALGESIC 10/21/[address] active 15 MAJOR DEPRESSIVE DISORDER, SINGLE EPISODE, UNSPECIFIED 10/21/[address] active 16 MULTIPLE FRACTURES OF RIBS, BILATERAL, SUBSEQUENT ENCOUNTER FOR FRACTURE WITH ROUTINE HEALING 10/21/[address] active 17 MUSCLE WEAKNESS (GENERALIZED) 10/21/[address] active 18 OTHER CHRONIC PAIN 10/21/[address] active 19 OTHER PSYCHOACTIVE SUBSTANCE DEPENDENCE, UNCOMPLICATED 10/21/[address] active 20 OTHER SPECIFIED ARTHRITIS, UNSPECIFIED SITE 10/21/[address] active 21 PARKINSON'S DISEASE 10/21/[address]946040 SNOMED C T active 22 PERSONAL HISTORY OF OTHER VENOUS THROMBOSIS AND EMBOLISM 10/21/[address] active 23 PRESENCE OF LEFT ARTIFICIAL HIP JOINT 10/21/[address] active 24 PRESENCE OF RIGHT ARTIFICIAL HIP JOINT 10/21/[address] active 25 TYPE 2 DIABETES MELLITUS WITHOUT COMPLICATIONS 10/21/[address] active 26 UNSPECIFIED ABNORMALITIES OF GAIT AND MOBILITY 10/21/[address] active Reason for Referral No Reasons for Referral Entered Social History Social History Observation Description Start Date End Date Code Code System Current Smoking Status Tobacco smoking consumption unknown 474653997 SNOMED CT Sex Assigned At Male 1950 [address]-7 [facility] Gender Identity Sexual Orientation Vital Signs Code Code System Vitals Name Values and Units Timing Information 78295-6 [facility] Pain Level Value=0.0 11/06/2020 9279-1 [facility] Respiratory Rate Value=16.0 Units=/m in 11/06/2020 8462-4 [facility] Blood Pressure-Diastolic Value=58 Un its=mmHg 11/06/2020 8480-6 [facility] Blood Pressure-Systolic Value=96 Uni ts=mmHg 11/06/2020 8310-5 [facility] Body Temperature Value=97.2 Units= F 11/06/2020 8867-4 [facility] Heart rate Value=80.0 Units=/min 21087-0 [facility] O2 % BldC Oximetry Value=93.0 Units= % 11/05/2020 29033-6 [facility] Weight Oqlin=782.0 Units=Lbs 12/2020 8302-2 [facility] Height Value=73.0 Units=Inches 10/22/2020
--- OUTSIDE RECORDS SUMMARY | 2024-10-30 15:22 | XMS_ITS | Clinical Summary ---
Author Organization Healthcare Address [address] [place] [address] Care Team Providers Care Certified Income Tax Preparer Name Role Phone Abel Parker MD Primary Care Provider [phone] Allergies Active Allergy Reactions Criticality Noted Date [...] any time in the past 12 m [facility], were you homeless or living in [...] Screenings 10/13/2024 [facility]-Adult SDOH Screenings 10/13/2024 04/15/2024 [id number] Vaccine (2 - season) 2024 10/08/2020 [facility]-Influenza [...] Insurance [address] [place] [address] [facility] MEDICARE Advance Directives * Full Code (Latest Code Status on File) Date Activated Date Inactivated Comments 04/15/2024 4:26 AM 04/19/2024 3:59 PM Question Answer Comments Patient has decision-making capacity? Yes Care Teams Certified Income Tax Preparer Relationship Specialty Start Date End Date Abel Parker MD [address] [place] [address] PCP - General 07/03/20
[2024-10-30 16:00] LABS: PHA INR Fingerstick 3.0 (0.9-1.1)
== END 2024-10-30 16:04 ==
LOC: ACC 15:18
PROVIDERS: PCP Internal Medicine Adolescent Medicine; Visit Provider Nurse Practitioner Family
DX: Z79.01 Long term (current) use of anticoagulants (principal)
CPT/HCPCS: 85610; 99211; G0463

== ENCOUNTER 2024-11-11 20:48 | Observation (INO) | payer MEDICARE, SELFPAY ==
[2024-11-11] VITALS (10 sets, daily range): BP systolic 124–151; BP diastolic 68–97; PULSE 78–86; RESP 13–19; TEMP 37.1; O2SAT 84–99; BMI 31.1; BMI 29.0
--- OUTSIDE RECORDS SUMMARY | 2024-11-11 20:51 | XMS_ITS ---
Author Organization [facility] Care Team Providers Care Tip Stretcher Name Role Phone Susan Narayan Unavailable Unavailable Keith Abel Unavailable Unavailable Allergies and adverse reactions Code CodeSystem Substance Reaction Severity StartDate Concern Status 1191 RXNORM Aspirin Unknown 10/21/2020 active Care Team Name Role Address Phone Organization Dates Abel Parker PCP [address], [address], [facility] (Office): : [place] 10/21/2020 - 11/06/2020 Susan Narayan [address], [address], [facility] (Office): : [place] 10/21/2020 - 11/06/2020 [...] administe red date: info obtained from [facility] TB 2 Step Mantoux Skin Test completed tuberculin skin test; unspecified formulation Given 0.1 ml Left Forearm intradermally Step 1 of Multi-step with next step required 98 CVX created date: consent date: administe red date: 1 Educated by Carroll Montoya on 10/21/2020 info obtained from [facility] SARS-COV-2 (COVID-19) completed SARS-COV-2 (COVID-19) vaccine, vector non-replicating, recombinant spike protein-Ad26, preservative free, 0.5 mL lotNumber: [id number] Mfg: [employer] Step 1 of Multi-step 212 CVX created date: administe red date: 1 administered at [place] Mental Status Section Date Assessment Total [...] 1 AFTERCARE FOLLOWING JOINT REPLACEMENT SURGERY 10/21/[address] active 2 CARPAL TUNNEL SYNDROME, LEFT UPPER LIMB 10/21/[address] active 3 CARPAL TUNNEL SYNDROME, RIGHT UPPER LIMB 10/21/[address] active 4 CHRONIC KIDNEY DISEASE, UNSPECIFIED 10/21/[address] active 5 CHRONIC OBSTRUCTIVE PULMONARY DISEASE, UNSPECIFIED 10/21/[address] active 6 DISORDER OF THYROID, UNSPECIFIED 10/21/[address] active 7 ELEVATED WHITE BLOOD CELL COUNT, UNSPECIFIED 10/21/[address] active 8 ESOPHAGITIS, UNSPECIFIED WITHOUT BLEEDING 10/21/[address] active 9 ESSENTIAL (PRIMARY) HYPERTENSION 10/21/[address] active 10 FAMILY HISTORY OF MALIGNANT NEOPLASM OF OTHER ORGANS OR SYSTEMS 10/21/[address] active 11 FRACTURE OF UNSPECIFIED PART OF NECK OF RIGHT FEMUR, SUBSEQUENT ENCOUNTER FOR CLOSED FRACTURE WITH ROUTINE HEALING 10/21/[address] active 12 FRACTURE OF UNSPECIFIED PART OF RIGHT CLAVICLE, SUBSEQUENT ENCOUNTER FOR FRACTURE WITH ROUTINE HEALING 10/21/[address] active 13 ASSISTED (CURRENT) USE OF ANTICOAGULANTS 10/21/[address] active 14 ASSISTED (CURRENT) USE OF OPIATE ANALGESIC 10/21/[address] active 15 MAJOR DEPRESSIVE DISORDER, SINGLE EPISODE, UNSPECIFIED 10/21/[address] active 16 MULTIPLE FRACTURES OF RIBS, BILATERAL, SUBSEQUENT ENCOUNTER FOR FRACTURE WITH ROUTINE HEALING 10/21/[address] active 17 MUSCLE WEAKNESS (GENERALIZED) 10/21/[address] active 18 OTHER CHRONIC PAIN 10/21/[address] active 19 OTHER PSYCHOACTIVE SUBSTANCE DEPENDENCE, UNCOMPLICATED 10/21/[address] active 20 OTHER SPECIFIED ARTHRITIS, UNSPECIFIED SITE 10/21/[address] active 21 PARKINSON'S DISEASE 10/21/[address] T active 22 PERSONAL HISTORY OF OTHER VENOUS THROMBOSIS AND EMBOLISM 10/21/[address] active 23 PRESENCE OF LEFT ARTIFICIAL HIP JOINT 10/21/[address] active 24 PRESENCE OF RIGHT ARTIFICIAL HIP JOINT 10/21/[address] active 25 TYPE 2 DIABETES MELLITUS WITHOUT COMPLICATIONS 10/21/[address] active 26 UNSPECIFIED ABNORMALITIES OF GAIT AND MOBILITY 10/21/[address] active Reason for Referral No Reasons for Referral Entered Social History Social History Observation Description Start Date End Date Code Code System Current Smoking Status Tobacco smoking consumption unknown 713935606 SNOMED CT Sex Assigned At Male 1950 68196-1 [facility] Gender Identity Sexual Orientation Vital Signs Code Code System Vitals Name Values and Units Timing Information 30756-7 [facility] Pain Level Value=0.0 11/06/2020 9279-1 [facility] Respiratory Rate Value=16.0 Units=/m in 11/06/2020 8462-4 [facility] Blood Pressure-Diastolic Value=58 Un its=mmHg 11/06/2020 8480-6 [facility] Blood Pressure-Systolic Value=96 Uni ts=mmHg 11/06/2020 8310-5 [facility] Body Temperature Value=97.2 Units= F 11/06/2020 8867-4 [facility] Heart rate Value=80.0 Units=/min 86898-3 [facility] O2 % BldC Oximetry Value=93.0 Units= % 11/05/2020 26073-7 [facility] Weight [place]=746.0 Units=Lbs 12/2020 8302-2 [facility] Height Value=73.0 Units=Inches 10/22/2020
--- OUTSIDE RECORDS SUMMARY | 2024-11-11 20:51 | XMS_ITS | Encounter Summary ---
[facility] Address [address] [place] [address] Care Team Providers Care Precision Assembly Inspector Name Role Phone Provider, No Known Primary Care Provider Unavail able Encounter Details Date Type Department Care Team (Late st Contact Info) Description 10/31/2011 Conversion Encounter [facility]ISTOR[facility]V [address] [place] [address] Interface, See Report Social History [...] Lucas Batres M.D. ' Rosa Zepeda APRN [facility], [address] [place] OFFICE NOTE PASCALE KRUEGER : 1950 DATE [...] time. Dameon Sorto M.D.* KATHARINE/jewell Doc. ID [id number] Rev. #0 cc: Michael Owens M.D.* . [...] Lucas Batres M.D. ' Rosa Zepeda APRN [facility], [facility] [address] [place] [address] [place] OFFICE NOTE PASCALE KRUEGER : 1950 DATE [...] call. Dameon Sorto M.D.* AP/rxteresa Doc. ID [id number] Rev. #0 cc: Michael Owens M.D.* Morris Cruz Jr., M.D.* Page 2 of 2 Page 1 of 2 Authenticated by DAMEON SORTO MD On 03/01/2012 11:18:20 AM documented in this encounter Plan of Treatment Not on file documented as of this encounter Visit Diagnoses Not on filedocumented in this encounter Care Teams Precision Assembly Inspector Relationship Specialty Start Date End Date Provider, [place] [address] PCP - General 11/18/16 documented as of this encounter
--- OUTSIDE RECORDS SUMMARY | 2024-11-11 20:51 | XMS_ITS | Clinical Summary ---
[facility] Address [address] [place] [address] Care Team Providers Care Youth Program Director Name Role Phone Provider, No Known Primary [...] (1 - 1-dose 75+ series) INFLUENZA VACCINE 09/20/2024 COVID-19 Vaccine ( - 2023- season) 2024 Insurance [employer] Care Teams Youth Program Director Relationship Specialty Start Date End Date Provider, No Known [facility] [place] [address] PCP - General 11/18/16
--- NOTE | 2024-11-11 20:52 | CT_ITS ---
PROCEDURE INFORMATION: Exam: CTA Chest With Contrast Exam date and time: 11/11/2024 9:20 PM Age: 74 years old Clinical indication: Shortness of breath TECHNIQUE: Imaging protocol: Computed tomographic angiography of the chest with contrast. Exam focused on the arteries. 3D rendering (Not supervised by radiologist): MIP and/or 3D reconstructed images were created by the technologist. Radiation optimization: All CT scans at this facility use at least one of these dose optimization techniques: automated exposure control; mA and/or kV adjustment per patient size (includes targeted exams where dose is matched to clinical indication); or iterative reconstruction. Contrast material: ISO 370; Contrast volume: 70 ml; Contrast route: INTRAVENOUS (IV); COMPARISON: CT ANGIO CHEST 04/14/2024 6:24 PM FINDINGS: Tubes, catheters and devices: A 2 lead internal cardiac device implanted at the left chest with leads extending to the right heart. Pulmonary arteries: Filling defects involving the posterior and lateral left basilar pulmonary arteries compatible with pulmonary embolism. Aorta: Unremarkable. No aortic aneurysm. No aortic dissection. Lungs: Dependent bilateral lung base opacities favor atelectasis. Pleural spaces: Unremarkable. No pneumothorax. No pleural effusion. Heart: Unremarkable. No cardiomegaly. No pericardial effusion. Coronary arteries: Moderate three-vessel calcific atherosclerotic disease of the coronary arteries. Lymph nodes: Unremarkable. No enlarged lymph nodes. Bones/joints: Unremarkable. No acute fracture. Soft tissues: Unremarkable. IMPRESSION: Filling defects involving the posterior and lateral left basilar pulmonary arteries compatible with pulmonary embolism. RV/LV = 1.0. No evidence of right heart strain. THIS REPORT CONTAINS FINDINGS THAT MAY BE CRITICAL TO PATIENT CARE. The findings were verbally communicated via telephone conference with Dl Hong at 9:46 PM EDT on 11/11/2024. The findings were acknowledged and understood.
--- NOTE | 2024-11-11 20:54 | ECG_ITS ---
APPROVED REPORT Exam: Resting ECG HR:84 bpm ECG Measurements Heart Rate 84 AXES ID 200 P 57 QRSd 170 QRS -88 QT 414 T -64 QTc 455 Conclusion ELECTRONIC VENTRICULAR PACEMAKER MARKED ST DEPRESSION, CONSIDER SUBENDOCARDIAL INJURY [0.2+ mV ST DEPRESSION] ACUTE GA UNCONFIRMED REPORT Ventricularly paced rhythm. No significant ST elevation or depression. Electronically signed by : CARIE SAGASTUME, 11/11/2024 23:51:20
--- NOTE | 2024-11-11 20:57 | [facility].EDCP ---
Discharge Plan Disposition Patient Disposition: Admitted Condition: Fair Clinical Impressions Clinical Impression: Pulmonary embolism Discharge ED Provider: Dl Hong HPI General Chief Complaint: Shortness of Breath/Dyspnea Stated Complaint: difficulty breathing Time Seen by Provider: 11/11/24 20:48 Mode of Arrival: EMS Source of Information: Patient and EMS Limitations: No Limitations History of Present Illness HPI narrative: Alan Krueger is a 74-year-old male with a past medical history of Parkinson disease, hypertension, hyperlipidemia, HFrEF, cardiac pacemaker, COPD not on oxygen at baseline, tobacco use Who presents to the emergency department via EMS for shortness of breath and difficulty walking. Per EMS, he has chronic tremors but states that they are worse today especially in his lower extremities. He states that this caused him to fall. He denies hitting his head. He does note that he is on blood thinning medications. He also states he has felt more short of breath today. When EMS arrived, said that his oxygen levels were in the low 80s. He received a DuoNeb treatment. This improved his oxygenation some. They do note that he had a cough. Patient does report some chest pain currently. He does feel short of breath. Related Data Home Medications ?Medication ?Instructions ?Recorded ?Confirmed atorvastatin 40 mg tablet 40 mg PO HS Cholesterol 07/03/22 10/29/24 celecoxib 100 mg capsule 100 mg PO BID Arthritis 07/03/22 10/29/24 duloxetine 30 mg capsule,delayed 30 mg PO BID Mood 07/03/22 10/29/24 release ferrous sulfate 325 mg (65 mg 325 mg PO BID Supplement 07/03/22 10/29/24 iron) tablet (FeroSul) oxycodone-acetaminophen 7.5 mg-325 1 tab PO QID Pain 07/03/22 10/29/24 mg tablet quetiapine 200 mg tablet 200 mg PO HS Mood 07/03/22 10/29/24 metformin 1,000 mg tablet 500 mg PO BID Diabetes 11/23/22 10/29/24 dicyclomine 20 mg tablet 20 mg PO QID 04/14/24 10/29/24 montelukast 10 mg tablet 10 mg PO DAILY 04/14/24 10/29/24 colestipol 1 gram tablet 1 g PO BID 05/14/24 10/29/24 enoxaparin 100 mg/mL subcutaneous 100 mg SQ BID 05/14/24 10/29/24 syringe fluticasone propionate 50 2 spray intranasal DAILYP PRN 05/14/24 10/29/24 mcg/actuation nasal ALLERGIES spray,suspension levocetirizine 5 mg tablet 5 mg PO DAILY 05/14/24 10/29/24 mupirocin 2 % topical ointment topical 05/14/24 10/29/24 losartan 25 mg tablet 25 mg PO DAILY 10/09/24 10/29/24 omeprazole 20 mg capsule,delayed 20 mg PO DAILY 10/09/24 10/29/24 release ropinirole 1 mg tablet 1 mg PO TID Restless leg syndrome 10/09/24 10/29/24 Previous Rx's ?Medication ?Instructions ?Recorded metoprolol succinate 25 mg 25 mg PO QDAY #90 tabs 11/02/22 tablet,extended release 24 hr Held on 10/02/23. Instructions: hypotension empagliflozin 25 mg tablet 25 mg PO DAILY #30 tabs 10/09/24 (Jardiance) gabapentin 300 mg capsule 300 mg PO TID #90 caps 10/09/24 warfarin 5 mg tablet 7.5 mg (1.5 x 5 mg) PO DAILY #30 10/09/24 tabs furosemide 40 mg tablet (Lasix) See Rx Instructions PO DAILY PRN 10/29/24 edema #30 tabs ranolazine 1,000 mg 1,000 mg PO BID #60 tabs 10/29/24 tablet,extended release,12 hr spironolactone 25 mg tablet 25 mg PO DAILY #90 tabs 10/29/24 Allergies Allergy/AdvReac Type Severity Reaction Status Date / Time aspirin (ASPIRIN) Allergy Unknown S-DIFF. Verified 10/29/24 15:26 [facility] Disclaimer: The information contained in this section may have been updated after the patient was seen, as this information can be updated by other users. Medical History Dehydration Hypotension Edema Cardiac resynchronization therapy defibrillator ([employer]-D) in place HLD (hyperlipidemia) HTN (hypertension) HFrEF (heart failure with reduced ejection fraction) Paroxysmal A-fib Coronary artery disease Cardiac pacemaker in situ Chronic kidney disease, stage 3a Peripheral vascular disease Chronic pain with drug dependence History of DVT of lower extremity Rib fractures Clavicular fracture Depression Fall at home Parkinson disease Diabetes mellitus Surgical History AICD (automatic cardioverter/defibrillator) present implant OCT 2022. S/P carpal tunnel release History of total left hip replacement S/P cholecystectomy Family History Other Coronary artery disease Diabetes Social History (Updated 11/11/24 @ 22:51 by Sofia Augustin RN) Smoking Status: Current every day smoker tobacco type: cigars years smoked: 55 quit status: not considering quitting alcohol intake: never substance use type: denies use current occupational status: retired Travel in the last 8 weeks?: None household members: other housing: apartment marital status: Have you lived/traveled outside [place] in past 30 days?: No Contact w/someone who lives/traveled outside US past 30 days?: No Exposure to someone with infectious disease in past 14 days?: No Do you have a fever (greater than 100.4 F or 38 C)?: No Have you tested positive for COVID-19?: No Exposed to someone with COVID-19 in past 14 days?: No Do you have a sore throat?: No Do you have a cough?: No Do you have any weakness?: No Are you experiencing any nausea/vomitting?: No Do you have any diarrhea?: No Are you experiencing any unusual bleeding?: No Do you have any muscle aches/pain?: No Do you have any abdominal pain?: No Are you experiencing loss of taste or smell?: No Other Medical History Have you received the Flu Vaccine for this season: No Have you received the Pneumonia Vaccine: Yes ROS Obtained: Yes Systems reviewed as appropriate & no additional complaints except as documented Physical Exam General General appearance: alert and in no apparent distress Head Head exam: atraumatic Eye Eye exam: Present normal appearance ENT ENT exam: Present normal external ear exam Neck Neck exam: Present full ROM Chest Chest inspection: Present symmetric chest wall rise Respiratory Respiratory exam: Present respiratory distress (mild increase work with breathing); Absent normal lung sounds bilaterally (diminished breath sounds bilaterally) Cardiovascular Cardiovascular exam: Present regular rate and normal rhythm Abdominal Exam Abdominal exam: Present soft; Absent tenderness or guarding exam: Present deferred Extremities Exam Extremities exam: Present normal inspection Back Exam Back exam: Present normal inspection Neurological Exam Neurological exam: Present alert and oriented X3 Psychiatric Psychiatric exam: Present normal affect Skin Skin exam: Present warm and dry HEART Score HEART Score HEART Score assessment performed?: Yes HEART Score: 4 Procedures Limited Ultrasound Interpretation:: Limited cardiac ultrasound performed by me, Dl Hong MD Indication: Shortness of breath, hypoxia Identified cardiac views: -Cardiac parasternal long axis -Cardiac parasternal short axis -Cardiac apical four-chamber -Cardiac subxiphoid Findings: -Cardiac activity present -Wall motion grossly normal -Pericardial effusion absent -Positive Ndiaye sign, No RV dilation, No D sign Impression: -From above Images were saved to permanent archive The study was technically adequate CPT: 20000 This study was performed by nv, and I personally interpreted all images/videos. Based on my clinical judgement, these images were adequate and did necessitate further imaging. Limited lung ultrasound performed by Dl Hong MD A focused ultrasound exam of the pleural spaces was performed to evaluate for pneumothorax, pulmonary edema, pleural effusion and/or consolidation. The ultrasound was performed with the following indications, as noted in the H&P: Hypoxia Identified structures: Right and left thoracic cavities were examined. Findings: Lung sliding: - Left present - Right present B-lines: - Left absent - Right absent Pleural effusion: - Left absent - Right absent Consolidation: - Left absent - Right absent Impression: - Pneumothorax absent - Pleural effusion absent - B-lines absent - Consolidation absent Images were saved to permanent archive The study was technically adequate CPT 49261-22 This study was performed by nv, and I personally interpreted all images/videos. Based on my clinical judgement, these images were adequate and did not necessitate further imaging. Critical Care Critical Care Time Critical Care Time: Yes Attestation: On 11/11/24, the high probability of a clinically significant, sudden or life threatening deterioration of the following system(s) required my full and direct attention, intervention and personal management. The time I documented below is in addition to time spent performing reported procedures but includes the following listed in this critical care notation. Total Time Total Critical Care Time: 35 Medical Decision Making Waylon Inquiry Pt receiving controlled substance: No Vital Signs Vital Signs: 11/11/24 20:51 11/11/24 20:54 11/11/24 21:00 Temperature Temperature Source Pulse Rate 84 86 Pulse Rate [Right] 84 Respiratory Rate 17 19 Blood Pressure 151/97 H 132/76 Blood Pressure [Right Arm] 151/97 H Blood Pressure Mean Blood Pressure Mean [Right Arm] 115 Blood Pressure Source Blood Pressure Source [Right Arm] Automatic Cuff 02 Sat by Pulse Oximetry 84 L 97 88 L Oxygen Delivery Method Oxygen Flow Rate (LPM) 11/11/24 21:02 11/11/24 21:11 11/11/24 21:30 Temperature Temperature Source Pulse Rate 81 85 Pulse Rate [Right] Respiratory Rate 16 13 Blood Pressure 137/78 149/73 H Blood Pressure [Right Arm] Blood Pressure Mean Blood Pressure Mean [Right Arm] Blood Pressure Source Blood Pressure Source [Right Arm] 02 Sat by Pulse Oximetry 94 L 86 L 99 Oxygen Delivery Method Room Air Oxygen Flow Rate (LPM) 11/11/24 21:38 11/11/24 22:00 11/11/24 22:12 Temperature 98.8 F Temperature Source Oral Pulse Rate 80 79 78 Pulse Rate [Right] Respiratory Rate 16 18 18 Blood Pressure 142/71 H 124/68 147/89 H Blood Pressure [Right Arm] Blood Pressure Mean 86 Blood Pressure Mean [Right Arm] Blood Pressure Source Automatic Cuff Blood Pressure Source [Right Arm] 02 Sat by Pulse Oximetry 99 99 Oxygen Delivery Method Nasal Cannula Oxygen Flow Rate (LPM) 11/11/24 22:15 Temperature Temperature Source Pulse Rate Pulse Rate [Right] Respiratory Rate Blood Pressure Blood Pressure [Right Arm] Blood Pressure Mean Blood Pressure Mean [Right Arm] Blood Pressure Source Blood Pressure Source [Right Arm] 02 Sat by Pulse Oximetry Oxygen Delivery Method Nasal Cannula Oxygen Flow Rate (LPM) 2 Lab Data Labs: Lab Results 11/11/24 20:47: WBC 10.4, RBC 4.72, Hgb 15.8, Hct 47.4, MCV 100.4 H, MCH 33.5 H, MCHC 33.3, RDW 14.6, Plt Count 193, MPV 9.8, Neut % (Auto) 77.5, Lymph % (Auto) 13.8, Ralls % (Auto) 7.2, Eos % (Auto) 0.7, Baso % (Auto) 0.3, Neut # (Auto) 8.1 H, Lymph # (Auto) 1.4, Ralls # (Auto) 0.8, Eos # (Auto) 0.1, Baso # (Auto) 0.0, VBG pH 7.31, VBG pCO2 57.6 H, VBG pO2 36.0, VBG HCO3 28.1, VBG Total CO2 29.9 H, VBG O2 Saturation 70.0, VBG Base Excess 1.8, VBG Lactic Acid 1.8, Sodium 136, Potassium 5.6 H, Chloride 97 L, Carbon Dioxide 29, Anion Gap 15.6 H, BUN 54 H, Creatinine 2.10 H, Estimated Creat Clear 45, Estimated GFR 31 L, Est GFR ( Amer) 37 L, Glucose 218 H, Calcium 9.8, Magnesium 2.4 H, Total Bilirubin 0.8, AST 32, ALT 20, Alkaline Phosphatase 78, Troponin I 0.02, NT-Pro-B Natriuret Pep 433, Total Protein 7.8, Albumin 4.5, Globulin 3.3 H, Albumin/Globulin Ratio 1.4 11/11/24 21:26: Chlamy pneumoniae PCR Not detected, Adenovirus (PCR) Not detected, B. pertussis DNA (PCR) Not detected, Coronavirus OC43 (PCR) Not detected, Coronavirus HKU1 (PCR) Not detected, Coronavirus 229E (PCR) Not detected, SARS-CoV-2 (PCR) Not detected, Coronavirus NL63 (PCR) Not detected, Human Metapneumovir PCR Not detected, Influenza A (H1) PCR Not detected, Influ A (H1N1/09) PCR Not detected, Influenza A (H3) PCR Not detected, Influenza Type A (PCR) Not detected, Influenza Type B (PCR) Not detected, M. pneumoniae (PCR) Not detected, Parainfluenza 1 (PCR) Not detected, Parainfluenza 2 (PCR) Not detected, Parainfluenza 3 (PCR) Not detected, Parainfluenza 4 (PCR) Not detected, RSV (PCR) Not detected, Entero/Rhino (PCR) Not detected 11/11/24 21:47: PT 27.9 H, INR 2.71 H, APTT 38.0 H 11/11/24 20:47 11/11/24 20:47 Response Orders (Tests/Meds): ED MEDICATIONS Generic Name Dose Route Start Last Admin Trade Name Freq PRN Reason Stop Dose Admin Acetaminophen 650 mg 11/11/24 22:05 Acetaminophen 325mg Tab PO 12/11/24 22:04 Q4HP PRN Fever or Mild Pain (1-3) Enoxaparin Sodium 100 mg 11/11/24 22:00 11/11/24 22:15 Enoxaparin 100mg/Ml Syringe SUBCUT 12/11/24 21:59 100 mg Q12H LIZETH Administration Gabapentin 300 mg 11/12/24 01:10 11/12/24 01:50 Gabapentin 300mg Capsule PO 12/12/24 01:09 300 mg HS LIZETH Administration Insulin Human Lispro 0 unit 11/12/24 06:00 Humalog 100 Units/Ml 10ml Vial (Ssi) SUBCUT 12/12/24 05:59 ACHS LIZETH Protocol Iopamidol 75 ml 11/12/24 01:53 11/12/24 01:55 Iopamidol-370 (76%);100ml Bottle IV 11/12/24 01:54 75 ml ONCE ONE Administration Melatonin 5 mg 11/12/24 00:55 11/12/24 01:04 Melatonin 5mg Tablet PO 12/12/24 00:54 5 mg HS LIZETH Administration Ondansetron HCl 4 mg 11/11/24 22:05 Ondansetron 4mg/2ml Vial IV 12/11/24 22:04 Q8HP PRN Nausea Sodium Chloride 10 ml 11/12/24 01:53 11/12/24 01:55 Sodium Chloride 0.9% 10ml Syr (Rad Only) IV 11/12/24 01:54 10 ml ONCE ONE Administration Sodium Zirconium Cyclosilicate 10 gm 11/12/24 01:05 11/12/24 01:50 Lokelma 5gm Packet PO 11/13/24 01:04 10 gm TID LIZETH Administration Discontinued Medications Generic Name Dose Route Start Last Admin Trade Name Freq PRN Reason Stop Dose Admin Albuterol/Ipratropium 9 ml 11/11/24 20:52 11/11/24 21:19 Ipratropium/Albuterol 3 Ml Neb IH 11/11/24 20:53 9 ml ONCE ONE Administration Magnesium Sulfate 2 gm in 50 mls @ 50 mls/hr 11/11/24 20:52 11/12/24 02:06 Magnesium Sulfate 2gm/50ml Premix IV 11/11/24 21:51 Infused ONCE ONE Infusion Iopamidol 70 ml 11/11/24 21:20 11/11/24 21:21 Iopamidol-370 (76%);100ml Bottle IV 11/11/24 21:21 70 ml ONCE ONE Administration Methylprednisolone Sodium Succinate 80 mg 11/11/24 20:52 11/11/24 21:05 Methylprednisolone Sod Succ 125mg Vial IV 11/11/24 20:53 80 mg ONCE ONE Administration Sodium Chloride 50 ml 11/11/24 21:20 11/11/24 21:21 0.9 % Sodium Chloride 50 Ml Vial IV 11/11/24 21:21 50 ml ONCE ONE Administration Sodium Chloride 10 ml 11/11/24 21:20 11/11/24 21:21 Sodium Chloride 0.9% 10ml Syr (Rad Only) IV 11/11/24 21:21 10 ml ONCE ONE Administration ORDERS Category Date Time Status CT angio chest PE protocol Stat Cat Scan 11/11/24 20:52 Completed POCUS Point of Care (ER Only) Stat Exams 11/11/24 20:44 Completed BNP [NT Pro Brain Natriuretic Pep.] Stat Lab 11/11/24 20:47 Completed CBC w/Auto Diff [Complete Blood Count Auto Diff] Stat Lab 11/11/24 20:47 Completed CMP [Comprehensive Metabolic Panel] Stat Lab 11/11/24 20:47 Completed Complete Blood Count Auto Diff AMLAB Lab 11/12/24 06:00 Ordered Complete Blood Count Auto Diff AMLAB Lab 11/13/24 06:00 Ordered Complete Blood Count Auto Diff AMLAB Lab 11/14/24 06:00 Ordered Complete Blood Count Auto Diff AMLAB Lab 11/15/24 06:00 Ordered Complete Blood Count Auto Diff AMLAB Lab 11/16/24 06:00 Ordered Comprehensive Metabolic Panel AMLAB Lab 11/12/24 06:00 Ordered Comprehensive Metabolic Panel AMLAB Lab 11/13/24 06:00 Ordered Comprehensive Metabolic Panel AMLAB Lab 11/14/24 06:00 Ordered Comprehensive Metabolic Panel AMLAB Lab 11/15/24 06:00 Ordered Comprehensive Metabolic Panel AMLAB Lab 11/16/24 06:00 Ordered Full Resp Panel w/COVID ([facility]) Routine Lab 11/11/24 21:26 Completed Lipid Panel AMLAB Lab 11/12/24 06:00 Ordered Magnesium AMLAB Lab 11/12/24 06:00 Ordered Magnesium AMLAB Lab 11/13/24 06:00 Ordered Magnesium AMLAB Lab 11/14/24 06:00 Ordered Magnesium AMLAB Lab 11/15/24 06:00 Ordered Magnesium AMLAB Lab 11/16/24 06:00 Ordered Magnesium Stat Lab 11/11/24 20:47 Completed PT INR [Prothrombin Time INR] Stat Lab 11/11/24 21:47 Completed PTT [Activated Partial Thrombo Time] Stat Lab 11/11/24 21:47 Completed Troponin I Q3H Lab 11/11/24 23:53 Completed Troponin I Stat Lab 11/11/24 20:47 Completed VBG [Venous Blood Gas] Stat RT 11/11/24 20:47 Completed ECG Data Tracing #1: Attestation: I reviewed this ECG and interpreted as documented below: ECG Narrative: Ventricularly paced rhythm. No STEMI. HR 84bpm. QTC 455 MDM Narrative Medical Decision Narrative: Alan Krueger is a 74-year-old male with a past medical history of Parkinson disease, hypertension, hyperlipidemia, HFrEF, cardiac pacemaker, COPD not on oxygen at baseline, tobacco use Who presents to the emergency department via EMS for shortness of breath and difficulty walking. Per EMS, he has chronic tremors but states that they are worse today especially in his lower extremities. He states that this caused him to fall. He denies hitting his head. He does note that he is on blood thinning medications. He also states he has felt more short of breath today. When EMS arrived, said that his oxygen levels were in the low 80s. He received a DuoNeb treatment. This improved his oxygenation some. They do note that he had a cough. Patient does report some chest pain currently. He does feel short of breath. On arrival, patient is mildly hypertensive, oxygen saturation 84% on room air and started on a continuous DuoNeb treatment, 80 mg of IV Solu-Medrol, and 2 g IV magnesium sulfate for probable COPD exacerbation. He is not tachycardic. He is not febrile. Physical exam, stated above, revealed an ill-appearing male in mild respiratory distress. He has diminished breath sounds bilaterally. Abdomen is soft, nontender nondistended. He does not appear volume overloaded. Differential diagnosis includes, but is not limited to: COPD exacerbation, pulmonary embolism, pneumonia, ACS, CHF exacerbation, electrolyte derangement, among others. The most morbid conditions were considered and workup was based on these. Upon my initial evaluation, I performed a [id number] cardiac and lung ultrasound on the patient. Patient's cardiac ultrasound showed some findings concerning for right heart strain with Ndiaye sign as well as mild diastolic right ventricular collapse. No pericardial effusion. No evidence of pericardial effusion or tamponade. Tamponade. Lung sliding is present bilaterally with no B-lines. See procedure note for details. Based on this with concern for pulmonary embolism, patient's workup included: CT pulmonary embolism protocol, CBC, CMP, troponin, BNP, magnesium level, VBG, full respiratory panel, PT/INR, PTT Laboratory workup shows no leukocytosis, hemoglobin normal, platelets within normal limits. Coagulation studies pending. VBG without acidosis. Mild hypercapnia at 57.6. Bicarb normal at 20.1. Lactate normal at 1.8. Electrolytes showed mild hyperkalemia at 5.6 (patient appears to be hyperkalemic at baseline based on previous workups), mildly elevated anion gap of 15.6, creatinine at baseline at 2.10 with BUN of 54. Glucose elevated at 218. Liver enzymes bilirubin within normal limits. Initial troponin of 0.02 (which appears to be at patient's baseline), BNP within normal limits at 433. Full respiratory panel is pending at this time. CT images interpreted by me personally. I did receive a call from Dr. Youngblood with radiology who noted filling defects involving the posterior and lateral left basilar pulmonary arteries compatible with pulmonary embolism but no evidence of right heart strain. Given patient's hypoxia in the setting of pulmonary embolism, will treat patient with 1 mg/kg of enoxaparin (patient's creatinine clearance is above 30). Also discussed the patient's case with Dr. Rodriguez with the hospital medicine service for admission and he was in agreement to admit the patient at this time.
[2024-11-11 20:59] LABS: Hematocrit 47.4 % (42.0-52.0); Hemoglobin 15.8 g/dL (14.1-18.0); Immature Granulocytes % 0.5 %; Mean Corpuscular HGB Conc 33.3 g/dL (31.8-35.4); Mean Corpuscular Hemoglobin 33.5 pg (27.0-31.2); Mean Corpuscular Volume 100.4 fl (80-94); Nucleated Red Blood Cells % 0 %; Platelet Count 193 K/mm3 (142-424); Red Blood Count 4.72 M/mm3 (4.60-6.20); Red Cell Distribution Width-SD 54.9 fL; White Blood Count 10.4 K/mm3 (4.8-10.8)
[2024-11-11 21:03] LABS: Albumin Level 4.5 g/dl (3.5-5.0); Chloride 97 mmol/L (98-107); Sodium 136 mmol/L (136-145)
[2024-11-11 21:04] LABS: Potassium 5.6 mmoL/L (3.5-5.1)
[2024-11-11] MEDS: METHYLPREDNISOLONE SOD SUCC 125MG VIAL 80 MG IV (21:05)
[2024-11-11] MEDS: MAGNESIUM SULFATE IN WATER 2 GM/50 ML PIGGYBACK IV (21:05)
[2024-11-11 21:06] LABS: Alanine Aminotransferase 20 U/L (12-78); Albumin/Globulin Ratio 1.4 (1.1-1.8); Alkaline Phosphatase 78 U/L (38-126); Anion Gap 15.6 mEq/L (5-15); Aspartate Amino Transferase 32 U/L (17-59); Bilirubin,Total 0.8 mg/dl (0.2-1.3); Blood Urea Nitrogen 54 mg/dl (9-20); Carbon Dioxide 29 mmol/L (22.0-30.0); Creatinine Clearance Estimated 45 mL/min (50-200); Creatinine,Serum 2.10 mg/dl (0.66-1.25); Estimated Glomerular Filt Rate 31 ml/min (>60); GFR (African American) 37 ML/MIN (>60); Globulin 3.3 g/dL (1.3-3.2); Lactate Venous 1.8 mmol/L (0.4-2.0); Total Protein,Serum 7.8 g/dl (6.3-8.2); VBG HCO3 28.1 mmol/L (23-30); VBG PCO2 57.6 mmol/L (35-51); VBG PH 7.31 mmol/L (7.31-7.41); VBG PO2 36.0 mmol/L (28-40)
[2024-11-11 21:07] LABS: Calcium 9.8 mg/dl (8.4-10.2); Glucose 218 mg/dl (74-100); Magnesium 2.4 mg/dl (1.6-2.3)
[2024-11-11 21:16] LABS: NT Pro Brain Natriuretic Pep. 433 pg/mL (0-450)
[2024-11-11 21:18] LABS: Troponin I 0.02 ng/ml (0.00-0.034)
[2024-11-11] MEDS: IPRATROPIUM/ALBUTEROL 3 ML NEB 9 ML IH (21:19)
[2024-11-11] MEDS: SODIUM CHLORIDE 0.9% 10ML SYR (RAD ONLY) 10 ML IV (21:21)
[2024-11-11] MEDS: IOPAMIDOL-370 (76%);100ML BOTTLE 70 ML IV (21:21)
[2024-11-11] MEDS: 0.9 % SODIUM CHLORIDE 50 ML VIAL IV (21:21)
[2024-11-11 21:30] LABS: Adenovirus,PCR Not Detected (NotDetected); Chlamydophila Pneumoniae, PCR Not Detected (NotDetected); Coronavirus 19, PCR Not Detected (NotDetected); Coronovirus HKU1,PCR Not Detected (NotDetected); Influenza A, PCR Not Detected (NotDetected); Influenza AH1, 2009 Not Detected (NotDetected); Influenza AH1, PCR Not Detected (NotDetected); Influenza AH3,PCR Not Detected (NotDetected); Influenza B, PCR Not Detected (NotDetected); Mycoplasma Pneumoniae, PCR Not Detected (NotDetected); Parainfluenza 1, PCR Not Detected (NotDetected); Parainfluenza 2, PCR Not Detected (NotDetected); Parainfluenza 3, PCR Not Detected (NotDetected); Parainfluenza 4, PCR Not Detected (NotDetected)
--- NOTE | 2024-11-11 22:00 | EXP.HP ---
History of Present Illness *Admission Date: 11/11/24 *Reason for visit:: Weakness, fall *History of present illness: Alan Krueger is a 74-year-old male with medical history significant for Parkinson's disease with tremors tremors, CAD, history of DVT on Coumadin, hypertension, HFpEF, AICD, paroxysmal A-fib, anxiety/depression, type 2 diabetes presents with multiple complaints but primarily progressive lower extremity weakness/unsteadiness/tremors and fall today. Patient states he has been having upper and lower extremity tremors to a point where he is having a hard time walking steadily, and fell after feeling lightheaded walking out of the bathroom today. This prompted daughter to call EMS. Upon arrival, patient was hypoxic to the low 80s which slightly improved with DuoNeb treatment. He was placed on 2 L nasal cannula. Patient also reports several week onset of shortness of breath, chest pain, abdominal pain. He states he has not been following other than today. Workup in the ED significant for MCV 100.4, potassium 5.6, creatinine 2.1 around baseline, magnesium 2.4, normal full respiratory panel, CTA chest showing left lower lobe pulmonary embolism without evidence of RV strain. He was given Lovenox 100 mg. Troponin 0.02. Given these findings, ED provider discussed case with me I decided admit patient for acute hypoxic respiratory failure secondary to pulmonary embolism, lower extremity weakness, fall. [facility] Disclaimer: The information contained in this section may have been updated after the patient was seen, as this information can be updated by other users. Medical History Dehydration Hypotension Edema Cardiac resynchronization therapy defibrillator ([employer]-D) in place HLD (hyperlipidemia) HTN (hypertension) HFrEF (heart failure with reduced ejection fraction) Paroxysmal A-fib Coronary artery disease Cardiac pacemaker in situ Chronic kidney disease, stage 3a Peripheral vascular disease Chronic pain with drug dependence History of DVT of lower extremity Rib fractures Clavicular fracture Depression Fall at home Parkinson disease Diabetes mellitus Surgical History AICD (automatic cardioverter/defibrillator) present implant OCT 2022. S/P carpal tunnel release History of total left hip replacement S/P cholecystectomy Family History Other Coronary artery disease Diabetes Social History (Updated 11/11/24 @ 22:51 by Sofia Augustin RN) Smoking Status: Current every day smoker tobacco type: cigars years smoked: 55 quit status: not considering quitting alcohol intake: never substance use type: denies use current occupational status: retired Travel in the last 8 weeks?: None household members: other housing: apartment marital status: Have you lived/traveled outside US in past 30 days?: No Contact w/someone who lives/traveled outside US past 30 days?: No Exposure to someone with infectious disease in past 14 days?: No Do you have a fever (greater than 100.4 F or 38 C)?: No Have you tested positive for COVID-19?: No Exposed to someone with COVID-19 in past 14 days?: No Do you have a sore throat?: No Do you have a cough?: No Do you have any weakness?: No Are you experiencing any nausea/vomitting?: No Do you have any diarrhea?: No Are you experiencing any unusual bleeding?: No Do you have any muscle aches/pain?: No Do you have any abdominal pain?: No Are you experiencing loss of taste or smell?: No Other Medical History Have you received the Flu Vaccine for this season: No Have you received the Pneumonia Vaccine: Yes Meds Home Medications and Allergies Home Medications ?Medication ?Instructions ?Recorded ?Confirmed ?Type atorvastatin 40 mg tablet 40 mg PO HS Cholesterol 07/03/22 10/29/24 History celecoxib 100 mg capsule 100 mg PO BID Arthritis 07/03/22 10/29/24 History duloxetine 30 mg capsule,delayed 30 mg PO BID Mood 07/03/22 10/29/24 History release ferrous sulfate 325 mg (65 mg 325 mg PO BID Supplement 07/03/22 10/29/24 History iron) tablet (FeroSul) oxycodone-acetaminophen 7.5 mg-325 1 tab PO QID Pain 07/03/22 10/29/24 History mg tablet quetiapine 200 mg tablet 200 mg PO HS Mood 07/03/22 10/29/24 History metoprolol succinate 25 mg 25 mg PO QDAY #90 tabs 11/02/22 10/29/24 Rx tablet,extended release 24 hr Held on 10/02/23. Instructions: hypotension metformin 1,000 mg tablet 500 mg PO BID Diabetes 11/23/22 10/29/24 History dicyclomine 20 mg tablet 20 mg PO QID 04/14/24 10/29/24 History montelukast 10 mg tablet 10 mg PO DAILY 04/14/24 10/29/24 History colestipol 1 gram tablet 1 g PO BID 05/14/24 10/29/24 History enoxaparin 100 mg/mL subcutaneous 100 mg SQ BID 05/14/24 10/29/24 History syringe fluticasone propionate 50 2 spray intranasal DAILYP PRN 05/14/24 10/29/24 History mcg/actuation nasal ALLERGIES spray,suspension levocetirizine 5 mg tablet 5 mg PO DAILY 05/14/24 10/29/24 History mupirocin 2 % topical ointment topical 05/14/24 10/29/24 History empagliflozin 25 mg tablet 25 mg PO DAILY #30 tabs 10/09/24 10/29/24 Rx (Jardiance) gabapentin 300 mg capsule 300 mg PO TID #90 caps 10/09/24 10/29/24 Rx losartan 25 mg tablet 25 mg PO DAILY 10/09/24 10/29/24 History omeprazole 20 mg capsule,delayed 20 mg PO DAILY 10/09/24 10/29/24 History release ropinirole 1 mg tablet 1 mg PO TID Restless leg syndrome 10/09/24 10/29/24 History warfarin 5 mg tablet 7.5 mg (1.5 x 5 mg) PO DAILY #30 10/09/24 10/29/24 Rx tabs furosemide 40 mg tablet (Lasix) See Rx Instructions PO DAILY PRN 10/29/24 10/29/24 Rx edema #30 tabs ranolazine 1,000 mg 1,000 mg PO BID #60 tabs 10/29/24 10/29/24 Rx tablet,extended release,12 hr spironolactone 25 mg tablet 25 mg PO DAILY #90 tabs 10/29/24 10/29/24 Rx New Prescriptions to Start Prescriptions: Allergies Allergy/AdvReac Type Severity Reaction Status Date / Time aspirin (ASPIRIN) Allergy Unknown S-DIFF. Verified 10/29/24 15:26 BREATHING Exam Data for Last 24 hours Vital signs and Labs for Last 24 Hours: Pulse Resp BP Pulse Ox O2 Del Method 80 16 142/71 H 99 Room Air 11/11/24 21:38 11/11/24 21:38 11/11/24 21:38 11/11/24 21:38 11/11/24 21:02 Laboratory Results - last 24 hr 11/11/24 20:47: WBC 10.4, RBC 4.72, Hgb 15.8, Hct 47.4, MCV 100.4 H, MCH 33.5 H, MCHC 33.3, RDW 14.6, Plt Count 193, MPV 9.8, Neut % (Auto) 77.5, Lymph % (Auto) 13.8, Barnwell % (Auto) 7.2, Eos % (Auto) 0.7, Baso % (Auto) 0.3, Neut # (Auto) 8.1 H, Lymph # (Auto) 1.4, Barnwell # (Auto) 0.8, Eos # (Auto) 0.1, Baso # (Auto) 0.0, VBG pH 7.31, VBG pCO2 57.6 H, VBG pO2 36.0, VBG HCO3 28.1, VBG Total CO2 29.9 H, VBG O2 Saturation 70.0, VBG Base Excess 1.8, VBG Lactic Acid 1.8, Sodium 136, Potassium 5.6 H, Chloride 97 L, Carbon Dioxide 29, Anion Gap 15.6 H, BUN 54 H, Creatinine 2.10 H, Estimated Creat Clear 45, Estimated GFR 31 L, Est GFR ( Amer) 37 L, Glucose 218 H, Calcium 9.8, Magnesium 2.4 H, Total Bilirubin 0.8, AST 32, ALT 20, Alkaline Phosphatase 78, Troponin I 0.02, NT-Pro-B Natriuret Pep 433, Total Protein 7.8, Albumin 4.5, Globulin 3.3 H, Albumin/Globulin Ratio 1.4 I & O for Last 24 hours: Intake & Output 11/08/24 11/09/24 11/10/24 11/11/24 23:59 23:59 23:59 23:59 Weight 104.326 kg Constitutional Constitutional: no acute distress and chronically ill appearing *Routine HEENT Exam Head: Present normocephalic Eye: Present EOMI and PERRL ENT: Present mucous membranes moist *Routine Neck Exam Neck: Present supple; Absent lymphadenopathy *Routine Respiratory Exam Respiratory: Present CTA bilaterally *Routine Cardiovascular Exam Cardiovascular: Present RRR *Routine Abdominal Exam Abdominal: Present soft, normoactive bowel sounds, tenderness and distended *Routine Rectal Exam Rectal:: deferred *Routine Genitalia Exam Genitalia:: deferred *Routine Extremities Exam Extremities: Present edema; Absent cyanosis or clubbing Comments: Lower extremity motor strength 1/5. Upper extremity tremors. *Routine Skin Exam Skin: Present warm; Absent rash *Routine Neurological Exam Neurological: Present alert and oriented X3 Assessment and Plan *Assessment and plan (1) Pulmonary embolism: Status: Acute Category: Medical Code(s): I26.99 - Other pulmonary embolism without acute cor pulmonale (2) Acute hyperkalemia: Status: Acute Category: Medical Code(s): E87.5 - Hyperkalemia (3) Fall: Status: Resolved Qualifiers: Encounter type: initial encounter Qualified Code(s): W19.XXXA - Unspecified fall, initial encounter Category: Medical Code(s): W19.XXXA - Unspecified fall, initial encounter Plan Alan Krueger is a 74-year-old male with medical history significant for Parkinson's disease with tremors tremors, CAD, history of DVT on Coumadin, hypertension, HFpEF, AICD, paroxysmal A-fib, anxiety/depression, type 2 diabetes presents with multiple complaints but primarily progressive lower extremity weakness/unsteadiness/tremors and fall today. Patient states he has been having upper and lower extremity tremors to a point where he is having a hard time walking steadily, and fell after feeling lightheaded walking out of the bathroom today. This prompted daughter to call EMS. Upon arrival, patient was hypoxic to the low 80s which slightly improved with DuoNeb treatment. He was placed on 2 L nasal cannula. Patient also reports several week onset of shortness of breath, chest pain, abdominal pain. He states he has not been following other than today. Workup in the ED significant for MCV 100.4, potassium 5.6, creatinine 2.1 around baseline, magnesium 2.4, normal full respiratory panel, CTA chest showing left lower lobe pulmonary embolism without evidence of RV strain. He was given Lovenox 100 mg. Troponin 0.02. Given these findings, ED provider discussed case with me I decided admit patient for acute hypoxic respiratory failure secondary to pulmonary embolism, lower extremity weakness, fall. #Acute hypoxic respiratory failure #Left lower pulmonary embolism #History of left lower extremity DVT ? Presented with several week onset of chest pain, shortness of breath. CTA chest positive for left lobar pulmonary embolism without evidence of RV strain. ? Unclear etiology of pulmonary embolism at this time, patient does have a history of left lower extremity DVT on warfarin. PT/INR 28/2.71, at goal. ? Patient is not a great historian at this time, will follow-up further history tomorrow. ? Follow-up ECHO. ? Continue therapeutic Lovenox 100 mg twice daily. ? Follow-up in a comprehensive panel, factor V Leiden, protein S/C for hypercoagulable workup. #Bilateral lower extremity weakness #History of Parkinson's disease #Fall ? Presented with progressive lower extremity weakness, tremors. ? Follow-up stat head CT. ? Follow-up carotid duplex as patient felt lightheaded before fall. ? Follow-up UA, TSH, B12, folate, iron panel, ferritin. ? Symptoms may be sequela of worsening Parkinson's disease. ? PT/OT consulted, pending further recommendations. #Abdominal pain, distention ? Mild diffuse abdominal pain, distention. Follow-up CT abdomen/pelvis. WBC normal. Having regular bowel movements, urinary frequency. #Lower extremity pain/claudication ? Follow-up lower extremity arterial duplex. Faint dorsal pedal pulses. ? Could be related to hyperkalemia. See below. #CKD stage IIIA #Hyperkalemia ? Creatinine 2.1, GFR 31. Stable. ? Initial potassium 5.6. Started Lokelma 10 mg 3 times daily, follow-up potassium in the morning. ? Reconsider GDMT for heart failure, likely contributing to hyperkalemia. #CAD #HFpEF #Bilateral lower extremity venous sufficiency ? Stable, BNP normal. Slightly edematous lower extremities, likely related to venous insufficiency. ? Continue aspirin 81 mg. Resume other home medications once reconciled. #Paroxysmal A-fib ? Currently rate controlled. Continue therapeutic Lovenox. ? Continue home warfarin once reconciled. Consider switching to DOAC if amenable to cost. #Anxiety/depression ? Continue home medications once reconciled. #Type 2 diabetes #Suspected neuropathy ? Hemoglobin A1c 7.3%. Follow-up repeat A1c. ? Patient states his upper and lower extremities often feel like sandpaper, painful. Started gabapentin 300 mg nightly. Follow response. Full code DVT prophylaxis: Therapeutic Lovenox
--- NOTE | 2024-11-11 22:33 | PC.NURSE ---
pt arrived to floor by stretcher at this time
[2024-11-11 22:37] LABS: Activated Partial Thrombo Time 38.0 seconds (22.8-30.6); INR 2.71 (0.9-1.1); Prothrombin Time 27.9 seconds (10.1-12.5)
--- NOTE | 2024-11-11 23:14 | PC.NURSE ---
Pt doesn't know which home meds he takes at home. Unable to complete med rec.
--- NOTE | 2024-11-12 00:12 | CT_ITS ---
FINAL REPORT TECHNIQUE: Thin section axial images are obtained through the abdomen and pelvis after intravenous contrast. Reconstruction images were obtained from the axial data. Exam was performed using dose reduction techniques. CLINICAL HISTORY: Lower abdominal pain with distention FINDINGS: LUNG BASES: There is bilateral lower lobe atelectasis and lingular atelectasis. Trace right pleural effusion is present. Heart size is normal. LIVER: Homogeneous. No focal lesion. GALLBLADDER/BILIARY SYSTEM: Gallbladder is present. No gallstones. No biliary dilatation. SPLEEN: Unremarkable. PANCREAS: Unremarkable. ADRENALS: Unremarkable. KIDNEYS/URETERS/BLADDER: The left kidney is small. There is no hydronephrosis. Several hypodense left renal lesions are seen which are too small to accurately characterize. Unremarkable urinary bladder. GI TRACT: There is a small hiatal hernia. No small bowel obstruction or dilatation. Normal appendix. No acute colon abnormality. There is a large amount of retained stool in the colon. There is diverticulosis without evidence of diverticulitis. PELVIC ORGANS: Unremarkable for age. LYMPH NODES/RETROPERITONEUM/MESENTERY: No lymphadenopathy. No abdominal aortic aneurysm. ABDOMINAL WALL: The abdominal wall is intact. There is a fat-containing umbilical hernia. FREE FLUID: No ascites. BONES: No acute osseous abnormality. Postoperative changes are seen of the hips bilaterally. IMPRESSION: Constipation. Otherwise, no acute process of the abdomen or pelvis. Reviewed, Interpreted and Dictated by Leanne Barbosa MD Transcribed by Ranjana Hutton Authenticated and [facility]
--- NOTE | 2024-11-12 00:12 | CT_ITS ---
PROCEDURE INFORMATION: Exam: CT Head Without Contrast Exam date and time: 11/12/2024 1:34 AM Age: 74 years old Clinical indication: Weakness, extremity; Bilateral; Additional info: Acute bilateral lower extremity weakness TECHNIQUE: Imaging protocol: Computed tomography of the head without contrast. Radiation optimization: All CT scans at this facility use at least one of these dose optimization techniques: automated exposure control; mA and/or kV adjustment per patient size (includes targeted exams where dose is matched to clinical indication); or iterative reconstruction. COMPARISON: CT ANGIO HEAD 04/14/2024 6:21 PM FINDINGS: Brain: There is diffuse prominence of the cerebral sulci, cisterns, and ventricles consistent with atrophy. No intra or extra-axial fluid collections are noted. No mass or mass effect is seen. Periventricular white matter hypoattenuation is seen consistent with small vessel disease. Cerebral ventricles: No ventriculomegaly. Paranasal sinuses: Bilateral maxillary mucous retention cysts. Mastoid air cells: Visualized mastoid air cells are well aerated. Bones: Unremarkable. No acute fracture. Soft tissues: Unremarkable. IMPRESSION: No acute process identified.
--- NOTE | 2024-11-12 00:17 | CA_ITS ---
FINAL REPORT CLINICAL HISTORY: PAD, Leg pain FINDINGS: Spectral and color Doppler waveform evaluation of the left and right lower extremity was performed. Spectral analysis was performed. Right lower extremity: Velocities cm/sec: NAILHEAD OPERATOR: 147 Profunda: 74 SFA proximal: 107 SFA mid: 94 SFA dist: 116 POP proximal: 92 POP distal: 71: PRE ASSEMBLY WIRER mid: 63 ROSSI mid: 47 Peroneal proximal: 66 Left lower extremity: Velocities cm/sec: NAILHEAD OPERATOR: 162 Profunda: 86 SFA proximal: 136 SFA mid: 122 SFA dist: 151 Pop proximal: 107 Pop distal: 92 PRE ASSEMBLY WIRER mid: 142 ROSSI mid: 79 Peroneal proximal: 136 No significant plaque identified. Multiphasic waveforms bilaterally. IMPRESSION: No significant peripheral vascular disease. Reviewed, Interpreted and Dictated by Leanne Barbosa MD Transcribed by Sylvia Marvin Authenticated and [facility]
[2024-11-12 00:42] LABS: Microscopic, Urine URINE MICROSCOPIC (MICROSCOPIC)
[2024-11-12] MEDS: MELATONIN 5MG TABLET 5 MG PO (01:04)
--- NOTE | 2024-11-12 01:10 | CA_ITS ---
FINAL REPORT TECHNIQUE: Arambula scale, color and spectral doppler images of the bilateral carotid arteries were obtained. CLINICAL HISTORY: dizziness s/p Fall FINDINGS: Peak systolic velocity in the right internal carotid artery is 83 cm/sec. The internal carotid to common carotid artery ratio is 1.0. There is no significant carotid artery stenosis and no significant plaque formation. The right vertebral artery is normal in direction. Peak systolic velocity in the left internal carotid artery is 71 cm/sec. The internal carotid to common carotid artery ratio is 1.2. There is no significant carotid artery stenosis and no significant plaque formation. The left vertebral artery is normal in direction. IMPRESSION: No ultrasound evidence of hemodynamically significant carotid artery stenosis. Normal peak systolic velocities and normal internal to common carotid artery ratios bilaterally. Reviewed, Interpreted and Dictated by Leanne Barbosa MD Transcribed by Sylvia Marvin Authenticated and [facility]
--- NOTE | 2024-11-12 01:11 | CA_ITS ---
APPROVED REPORT EXAM: Limited 2D Echocardiogram with contrast Control Clerk: Adore Rock CRT Ht: 6 ft 0 in Wt: 214lbs BSA: 2.19 BP: 142/71 mmHg Indications: PE, CP, SOB, AFIB, pacer Echo Enhancing Agent Indication: Endocardial border delineation Agent(s) / Amount(s) Used: Definity 2 cc Comments: Definity given M-Mode Dimensions RVDd 3.13 cm (0.9-2.6) LA Diam 3.19 cm (1.9-4.0) LVDd 4.09 cm (3.5-5.7) LVDs 2.92 cm (3.5-5.7) IVSd 1.17 cm (0.6-1.1) PWd 1.25 cm (0.6-1.1) EF (Teich) 55.60% FS 28.60% EDV (Teich) 73.80 mL TAPSE 2.92 (<1.7) ESV (Teich) 32.80 mL Tricuspid Valve TR P. Velocity 209.00 cm/s RAP Estimate 10.00 mmHg RVSP 27.40 mmHg Other Information Study Quality: Technically Difficult Conclusion This is a limited TTE to evaluate for biventricular systolic function. Limited windows were obtained. Ultrasound enhancing agent is administered. Left ventricle is normal in size. There is increased wall thickness. There is normal global LV systolic function. No regional wall motion abnormalities are noted. LVEF is 55%. The right ventricle is mildly dilated. There is normal RV systolic function. A device lead is present in the right ventricle. Electronically signed by : Erika Dotson MD 11/12/2024 11:18:24
[2024-11-12 01:14] LABS: Troponin I 0.02 ng/ml (0.00-0.034)
[2024-11-12] MEDS: LOKELMA 5GM PACKET 10 GM PO ×3 (01:50→12:12)
[2024-11-12] MEDS: GABAPENTIN 300MG CAPSULE 300 MG PO ×3 (01:50→12:12)
[2024-11-12] MEDS: IOPAMIDOL-370 (76%);100ML BOTTLE 75 ML IV (01:55)
[2024-11-12] MEDS: SODIUM CHLORIDE 0.9% 10ML SYR (RAD ONLY) 10 ML IV (01:55)
[2024-11-12 02:29] LABS: Bilirubin,Urine Negative (Negative); Color,Urine YELLOW (Yellow); Glucose,Urine (UA) 3+ (Negative); Ketones,Urine Negative (Negative); Leukocyte Esterase,Urine Negative (Negative); PH,Urine 5.5 (5.0-8.5); Protein,Urine Negative (Negative); Specific Gravity, Urine 1.010 (1.005-1.030); Urobilinogen,Urine 0.2 EU/dl (0.2)
[2024-11-12 02:51] LABS: RBC,Urine Occasional #/hpf (0-3)
[2024-11-12 02:52] LABS: Bacteria,Urine 3+ /lpf; Squamous Epithelial Cell,Urine Occasional #/hpf (0-5)
[2024-11-12 03:51] LABS: Thyroid Stimulating Hormone 0.69 uIU/mL (0.465-4.68)
[2024-11-12 03:55] LABS: Ferritin 178 ng/ml (17.9-464)
[2024-11-12 04:00] VITALS: BP 105/55; PULSE 78; RESP 16; TEMP 36.4; O2SAT 95; BMI 29.0
[2024-11-12 04:03] LABS: Iron 79 ug/dL (49-181)
[2024-11-12 04:20] LABS: Total Iron Binding Capacity 289 ug/dL (261-462)
[2024-11-12 04:32] LABS: C-Reactive Protein 21.2 mg/L (0-4)
[2024-11-12 05:17] LABS: Vitamin B12 534 pg/mL (239-931)
[2024-11-12] MEDS: humaLOG 100 UNITS/ML 10ML VIAL (SSI) SUBCUT ×2 (05:48→12:17)
[2024-11-12 05:55] LABS: POC Glucose,Bedside 289 gm/dL (70-110)
[2024-11-12 06:12] LABS: Hematocrit 45.8 % (42.0-52.0); Hemoglobin 15.4 g/dL (14.1-18.0); Immature Granulocytes % 0.6 %; Mean Corpuscular HGB Conc 33.6 g/dL (31.8-35.4); Mean Corpuscular Hemoglobin 33.6 pg (27.0-31.2); Mean Corpuscular Volume 99.8 fl (80-94); Nucleated Red Blood Cells % 0 %; Platelet Count 181 K/mm3 (142-424); Red Blood Count 4.59 M/mm3 (4.60-6.20); Red Cell Distribution Width-SD 53.2 fL; White Blood Count 9.3 K/mm3 (4.8-10.8)
[2024-11-12 06:22] LABS: Albumin Level 4.2 g/dl (3.5-5.0)
[2024-11-12 06:23] LABS: Chloride 97 mmol/L (98-107); Potassium 5.3 mmoL/L (3.5-5.1); Sodium 132 mmol/L (136-145)
[2024-11-12 06:25] LABS: Alanine Aminotransferase 19 U/L (12-78); Albumin/Globulin Ratio 1.6 (1.1-1.8); Alkaline Phosphatase 88 U/L (38-126); Anion Gap 13.3 mEq/L (5-15); Aspartate Amino Transferase 29 U/L (17-59); Bilirubin,Total 0.5 mg/dl (0.2-1.3); Blood Urea Nitrogen 48 mg/dl (9-20); Carbon Dioxide 27 mmol/L (22.0-30.0); Creatinine Clearance Estimated 42 mL/min (50-200); Creatinine,Serum 2.10 mg/dl (0.66-1.25); Estimated Glomerular Filt Rate 31 ml/min (>60); GFR (African American) 37 ML/MIN (>60); Globulin 2.7 g/dL (1.3-3.2); Total Protein,Serum 6.9 g/dl (6.3-8.2)
[2024-11-12 06:26] LABS: Calcium 9.5 mg/dl (8.4-10.2); Cholesterol 110 mg/dl (140-200); Glucose 260 mg/dl (74-100); HDL Cholesterol 36 mg/dl (40-60); Magnesium 2.9 mg/dl (1.6-2.3); Triglycerides 269 mg/dl (30-150)
--- NOTE | 2024-11-12 07:28 | CA_ITS ---
FINAL REPORT CLINICAL HISTORY: PE, Abnormal CT 03/2024 FINDINGS: DUPLEX VENOUS SONOGRAPHY OF THE BILATERAL LOWER EXTREMITIES Multiple transverse and longitudinal scans were performed of the femoropopliteal deep venous systems, with augmentation and compression maneuvers. There is echogenic material in the left femoral vein which is noncompressible consistent with left femoral vein thrombus. The remaining veins are patent and compressible. IMPRESSION: Left femoral vein thrombus. No evidence of DVT on the right. Reviewed, Interpreted and Dictated by Leanne Barbosa MD Transcribed by Sylvia Marvin Authenticated and [facility]
[2024-11-12 08:00] VITALS: BP 122/66; PULSE 72; RESP 16; TEMP 36.8; O2SAT 96
[2024-11-12] MEDS: DEFINITY US ECHO CONTRAST 2ML INJ 2 MG IV (08:31)
--- NOTE | 2024-11-12 09:31 | HMH.OTEV ---
OT Evaluation Rehab OT IP Evaluation Start: 11/12/24 01:10 Freq: ONCE Status: Active Protocol: [facility]24 09[facility] (Rec: 11/12/24 09:[address] [facility] [id number]) Rehab OT IP Assessment Subjective History Pt oriented x 2 on arrival. Pt agreeable to engage in therapy evaluation. Pt admitted on 11/11/24 due to weakness, fall, and PE. History and physical: Alan Krueger is a 74-year-old male with medical history significant for Parkinson's disease with tremors tremors, CAD, history of DVT on Coumadin, hypertension, HFpEF, AICD, paroxysmal A-fib, anxiety/depression, type 2 diabetes presents with multiple complaints but primarily progressive lower extremity weakness/ unsteadiness/tremors and fall today. Patient states he has been having upper and lower extremity tremors to a point where he is having a hard time walking steadily, and fell after feeling lightheaded walking out of the bathroom today. This prompted daughter to call EMS. Upon arrival, patient was hypoxic to the low 80s which slightly improved with DuoNeb treatment. He was placed on 2 L nasal cannula. Patient also reports several week onset of shortness of breath, chest pain, abdominal pain. He states he has not been following other than today. Workup in the ED significant for MCV 100.4, potassium 5.6, creatinine 2.1 around baseline, magnesium 2.4, normal full respiratory panel, CTA chest showing left lower lobe pulmonary embolism without evidence of RV strain. He was given Lovenox 100 mg. Troponin 0.02. Given these findings, ED provider discussed case with me I decided admit patient for acute hypoxic respiratory failure secondary to pulmonary embolism, lower extremity weakness, fall. Subjective Prior to being in the hospital, pt lived at [facility] apartments. Pt reports normally he is independent with all ADLs. He does use a rolling walker during functional transfers. Pt is dependent upon staff for completion of all IADLs. Objective Patient Orientation Person,Birthday,Patient Baseline Right Upper WFL Extremity Gross ROM Left Upper Extremity WFL Gross ROM Bed Mobility bed mobility-scooting,bed mobility - supine/sit Assist Level Moderate x 2 (50% assist) Transfer Training Sit/Stand/Pivot Transfer Assist Level Maximum x 2 (75% assist) Chair Transfer Maximum x 2 (75% assist) Ability Chair Transfer Stand Pivot Technique Lower Body Dressing Maximum Assistance Ability Rehab OT IP prob,goals,plan Problems Date of Evaluation: 11/12/24 OT IP Problems Bed Mobility,Transfers,Balance,Self care,Safety Rehab Potential Rehab Potential Good Equipment Needs Assistive Devices Rolling / Wheeled Walker Plan OT intervention Plan Bed Mobility,Transfers,Balance,Self care,Safety, Therapeutic Exercise OT Plan Frequency Daily Duration LOS Discharge Goals Bed Mobility Ability Assistance x1 Sit to Stand Chair Moderate x 1 (50% assist) Transfer Ability Chair Transfer Moderate x 1 (50% assist) Ability Chair Transfer Stand Step Pivot Technique Chair Transfer Rolling Walker Assistive Devices Lower Body Dressing Moderate Assistance Ability Upper Body Dressing Minimal Assistance Ability Performing Toilet Maximum Assistance Hygiene Ability Overall Commode/ Moderate Assistance Toilet Transfer Ability Commode/Toilet Stand Step Pivot Transfer Technique Discharge Plan OT Discharge Plan Pt will continue to be seen for OT services while at [facility]. At this time, pt is not safe to return to personal care living. Pt would benefit most from short term rehab at SNF following discharge from hospital. Continued skilled therapy is important in order for patient to improve strength, safety, endurance, ADL independence, and functional transfers to reach PLOF. Eval Complexity Eval Charge Codes 76673 - Moderate Complexity PHYSICIAN CERTIFICATION: I certify the specified therapy services for Alan Krueegr are required, authorized, and reviewed every 30 days.
--- NOTE | 2024-11-12 09:39 | HMH.PTEV ---
Physical Therapy Evaluation Rehab PT IP Evaluation Start: 11/12/24 01:10 Freq: ONCE Status: Active Protocol: Document 11/12/24 09:35 HERBERTH (Rec: 11/12/24 09:38 HERBERTH [id number]) Subjective/History History History Per H&P: Alan Krueger is a 74-year-old male with medical history significant for Parkinson's disease with tremors tremors, CAD, history of DVT on Coumadin, hypertension, HFpEF, AICD, paroxysmal A-fib, anxiety/ depression, type 2 diabetes presents with multiple complaints but primarily progressive lower extremity weakness/unsteadiness/tremors and fall today. Patient states he has been having upper and lower extremity tremors to a point where he is having a hard time walking steadily, and fell after feeling lightheaded walking out of the bathroom today. This prompted daughter to call EMS. Upon arrival, patient was hypoxic to the low 80s which slightly improved with DuoNeb treatment. He was placed on 2 L nasal cannula. Patient also reports several week onset of shortness of breath, chest pain, abdominal pain. He states he has not been following other than today. Workup in the ED significant for MCV 100.4, potassium 5.6, creatinine 2.1 around baseline, magnesium 2.4, normal full respiratory panel, CTA chest showing left lower lobe pulmonary embolism without evidence of RV strain. He was given Lovenox 100 mg. Troponin 0.02. Given these findings, ED provider discussed case with me I decided admit patient for acute hypoxic respiratory failure secondary to pulmonary embolism, lower extremity weakness, fall. Subjective Subjective Pt reports he lives at [facility]. Pt reports he is normally IND with all mobility using a RW. Pt reports a fall yesterday. New diagnosis of No cancer in past 12 months? [facility] How much help from another person do you currently need... Turning from your A little back to your side while in a flat bed without using bedrails? Moving from lying on A lot back to sitting on the side of a flat bed without using bedrails? Moving to and from a A lot bed to a chair ( including a wheelchair)? Standing up from a A lot chair using your arms? (e.g., wheelchair, bedside chair) Walking in hospital A lot room? Climbing 3-5 steps A lot with a railing? Mobility Score 13 Mobility Level [facility] Mobility 4 Move to chair/commode Mobility Calculator Rehab PT IP Eval Objective Appearance Patient Behavior Appropriate,Cooperative Patient Orientation Person Difficulty following none instructions Speech Pattern Clear Ambulation Patient Able to No Ambulate Balance Ability to Arise Able, uses arms to help Sitting Balance Steady, safe Standing Balance Unsteady Transfers Bed Transfer Ability Moderate x 1 (50% assist) Sit to Stand Bed Maximum x 2 (75% assist) Transfer Ability Rehab PT IP prob,goals,plan Problems Date of Evaluation: 11/12/24 PT IP Problems Bed Mobility,Transfers,Gait,Balance,Self care,Safety Rehab Potential Rehab Potential Good Plan PT Intervention Plan Bed Mobility,Transfers,Gait,Balance,Self care,Safety, Therapeutic Exercise Other Intervention 1-2 times Plan PT Plan Frequency Daily Duration LOS Discharge Goals Bed Transfer Ability Minimal x 2 (25% assist) Sit to Stand Chair Moderate x 1 (50% assist) Transfer Ability Discharge Plan PT Discharge Plan Initial physical therapy evaluation performed. Patient presents below baseline at this time in functional mobility, transfers, and strength. Pt not safe to return home IND at this time d/t current level of functional mobility. PT recommending rehabilitation placement upon d/c from [facility]. Pt would benefit from skilled PT while at [facility] to prevent further functional decline and maximize safety with mobility. Eval Complexity Eval Charge Codes 07993 - Moderate Complexity PHYSICIAN CERTIFICATION: I certify the specified therapy services for Alan Krueger are required, authorized, and reviewed every 30 days.
[2024-11-12] MEDS: ROPINIROLE 1MG TABLET 1 MG PO ×2 (09:54→12:12)
[2024-11-12] MEDS: PROPRANOLOL 20MG TAB 10 MG PO (09:54)
[2024-11-12] MEDS: OXYCODONE 7.5MG W/APAP 325MG TABLET 1 EACH PO ×2 (09:54→16:53)
--- NOTE | 2024-11-12 11:11 | PC.WOUNDNOTE ---
OPEN AREA NOTED TO OUTER BIG TOE ON RIGHT FOOT. REDNESS SURROUNDING AREA, NO EXUDATE NOTED.
--- NOTE | 2024-11-12 11:21 | SW/DCPLANNER ---
Addendum entered by Sindy Maldonado 11/12/24 14:40: Per Kary patient has been approved SNF level of care. Addendum entered by Sindy Eola 11/12/24 12:48: [facility] is willing to accept patient and will start auth today. I will update patient and family. Original Note: I spoke w/ patient regarding plans once medically stable for discharge. Patient currently resides in apartments at [facility]. Per PT/OT it is recommended SNF level of care at discharge. Patient is agreeable to placement and stated that he has been to [facility] and [facility] in the past. Patient requested that I call and discuss this w/ his daughter (Shanita). Shanita stated that she agrees w/ placement and prefers [facility]. Patient is agreeable. Per Kary w/ [facility] she does have a male bed open. Patient information has been faxed to [facility]. CM will continue to follow up. Per MD patient could be ready for discharge later today or tomorrow.
[2024-11-12 11:44] VITALS: BP 115/69; PULSE 84; RESP 17; TEMP 36.6; O2SAT 96
[2024-11-12] MEDS: SPIRONOLACTONE 25MG TABLET 25 MG PO (12:12)
[2024-11-12] MEDS: RANOLAZINE 500MG ER TABLET 1000 MG PO (12:12)
[2024-11-12] MEDS: FUROSEMIDE 40 MG TABLET PO (12:12)
[2024-11-12 12:26] LABS: POC Glucose,Bedside 259 gm/dL (70-110)
--- NOTE | 2024-11-12 12:36 | EXP.CARD.CON ---
History of Present Illness History of Present Illness Consult date: 11/12/24 Requesting physician: Bhavin Rodriguez Chief complaint: SOA History of present illness: Hospitalist Note: Alan Krueger is a 74-year-old male with medical history significant for Parkinson's disease with tremors tremors, CAD, history of DVT on Coumadin, hypertension, HFpEF, AICD, paroxysmal A-fib, anxiety/depression, type 2 diabetes presents with multiple complaints but primarily progressive lower extremity weakness/unsteadiness/tremors and fall today. Patient states he has been having upper and lower extremity tremors to a point where he is having a hard time walking steadily, and fell after feeling lightheaded walking out of the bathroom today. This prompted daughter to call EMS. Upon arrival, patient was hypoxic to the low 80s which slightly improved with DuoNeb treatment. He was placed on 2 L nasal cannula. Patient also reports several week onset of shortness of breath, chest pain, abdominal pain. He states he has not been following other than today. Workup in the ED significant for MCV 100.4, potassium 5.6, creatinine 2.1 around baseline, magnesium 2.4, normal full respiratory panel, CTA chest showing left lower lobe pulmonary embolism without evidence of RV strain. He was given Lovenox 100 mg. Troponin 0.02. Given these findings, ED provider discussed case with me I decided admit patient for acute hypoxic respiratory failure secondary to pulmonary embolism, lower extremity weakness, fall. Cardiology note: Cards asked to consult for medication management for PE. Patient takes Coumadin at home for history of A-fib and DVT. PT/INR 28/2.71 at goal on admission. CTA chest this admission positive for filling defects involving the posterior and lateral left basilar pulmonary arteries compatible with pulmonary embolism with no evidence of right heart strain. Serial troponins remain negative. Creatinine is 2.1. Limited echo shows an EF of 55% with the right ventricle being mildly dilated but has normal systolic function. [facility] Disclaimer: The information contained in this section may have been updated after the patient was seen, as this information can be updated by other users. Medical History Dehydration Hypotension Edema Cardiac resynchronization therapy defibrillator ([employer]-D) in place HLD (hyperlipidemia) HTN (hypertension) HFrEF (heart failure with reduced ejection fraction) Paroxysmal A-fib Coronary artery disease Cardiac pacemaker in situ Chronic kidney disease, stage 3a Peripheral vascular disease Chronic pain with drug dependence History of DVT of lower extremity Rib fractures Clavicular fracture Depression Fall at home Parkinson disease Diabetes mellitus Surgical History AICD (automatic cardioverter/defibrillator) present implant OCT 2022. S/P carpal tunnel release History of total left hip replacement S/P cholecystectomy Family History Other Coronary artery disease Diabetes Social History (Updated 11/11/24 @ 22:51 by Sofia Augustin RN) Smoking Status: Current every day smoker tobacco type: cigars years smoked: 55 quit status: not considering quitting alcohol intake: never substance use type: denies use current occupational status: retired Travel in the last 8 weeks?: None household members: other housing: apartment marital status: Review of Systems Review of Systems Review of systems:: pertinent systems reviewed and negative unless documented below *Cardiovascular Cardiovascular: Reports dyspnea *Respiratory Respiratory: Reports dyspnea Exam Data for Last 24 hours Vital signs and Labs for Last 24 Hours: Temp Pulse Resp BP Pulse Ox O2 Del Method O2 Flow Rate 97.8 F 84 17 115/69 96 Nasal Cannula 1 11/12/24 11:44 11/12/24 11:44 11/12/24 11:44 11/12/24 11:44 11/12/24 11:44 11/12/24 11:44 11/12/24 11:44 Laboratory Results - last 24 hr 11/11/24 20:47: WBC 10.4, RBC 4.72, Hgb 15.8, Hct 47.4, MCV 100.4 H, MCH 33.5 H, MCHC 33.3, RDW 14.6, Plt Count 193, MPV 9.8, Neut % (Auto) 77.5, Lymph % (Auto) 13.8, Ransom % (Auto) 7.2, Eos % (Auto) 0.7, Baso % (Auto) 0.3, Neut # (Auto) 8.1 H, Lymph # (Auto) 1.4, Ransom # (Auto) 0.8, Eos # (Auto) 0.1, Baso # (Auto) 0.0, VBG pH 7.31, VBG pCO2 57.6 H, VBG pO2 36.0, VBG HCO3 28.1, VBG Total CO2 29.9 H, VBG O2 Saturation 70.0, VBG Base Excess 1.8, VBG Lactic Acid 1.8, Sodium 136, Potassium 5.6 H, Chloride 97 L, Carbon Dioxide 29, Anion Gap 15.6 H, BUN 54 H, Creatinine 2.10 H, Estimated Creat Clear 45, Estimated GFR 31 L, Est GFR ( Amer) 37 L, Glucose 218 H, Calcium 9.8, Magnesium 2.4 H, Total Bilirubin 0.8, AST 32, ALT 20, Alkaline Phosphatase 78, Troponin I 0.02, NT-Pro-B Natriuret Pep 433, Total Protein 7.8, Albumin 4.5, Globulin 3.3 H, Albumin/Globulin Ratio 1.4 11/11/24 21:26: Chlamy pneumoniae PCR Not detected, Adenovirus (PCR) Not detected, B. pertussis DNA (PCR) Not detected, Coronavirus OC43 (PCR) Not detected, Coronavirus HKU1 (PCR) Not detected, Coronavirus 229E (PCR) Not detected, SARS-CoV-2 (PCR) Not detected, Coronavirus NL63 (PCR) Not detected, Human Metapneumovir PCR Not detected, Influenza A (H1) PCR Not detected, Influ A (H1N1/09) PCR Not detected, Influenza A (H3) PCR Not detected, Influenza Type A (PCR) Not detected, Influenza Type B (PCR) Not detected, M. pneumoniae (PCR) Not detected, Parainfluenza 1 (PCR) Not detected, Parainfluenza 2 (PCR) Not detected, Parainfluenza 3 (PCR) Not detected, Parainfluenza 4 (PCR) Not detected, RSV (PCR) Not detected, Entero/Rhino (PCR) Not detected 11/11/24 21:47: PT 27.9 H, INR 2.71 H, APTT 38.0 H 11/12/24 00:20: Urine Color Yellow, Urine Appearance Clear, Urine pH 5.5, Ur Specific [place] 1.010, Urine Protein Negative, Urine Glucose (UA) 3+, Urine Ketones Negative, Urine Blood Negative, Urine Nitrate Positive A, Urine Bilirubin Negative, Urine Urobilinogen 0.2, Ur Leukocyte Esterase Negative, Urine RBC Occasional, Urine WBC 3-5, Ur Squamous Epith Cells Occasional, Urine Bacteria 3+ 11/12/24 00:25: Iron 79, TIBC 289, Iron Saturation 27.65857, Ferritin 178 D, Troponin I 0.02, C-Reactive Protein 21.2 H, Vitamin B12 534, TSH 0.69 11/12/24 05:40: WBC 9.3, RBC 4.59 L, Hgb 15.4, Hct 45.8, MCV 99.8 H, MCH 33.6 H, MCHC 33.6, RDW 14.5, Plt Count 181, MPV 10.2, Neut % (Auto) 88.7 H, Lymph % (Auto) 9.7 L, Ransom % (Auto) 0.9 L, Eos % (Auto) 0.0 L, Baso % (Auto) 0.1, Neut # (Auto) 8.2 H, Lymph # (Auto) 0.9, Ransom # (Auto) 0.1, Eos # (Auto) 0.0, Baso # (Auto) 0.0, Sodium 132 L, Potassium 5.3 H, Chloride 97 L, Carbon Dioxide 27, Anion Gap 13.3, BUN 48 H, Creatinine 2.10 H, Estimated Creat Clear 42, Estimated GFR 31 L, Est GFR ( Amer) 37 L, Glucose 260 H, Calcium 9.5, Magnesium 2.9 H D, Total Bilirubin 0.5, AST 29, ALT 19, Alkaline Phosphatase 88, Total Protein 6.9, Albumin 4.2, Globulin 2.7, Albumin/Globulin Ratio 1.6, Triglycerides 269 H, Cholesterol 110 L, LDL Cholesterol Direct 35.53 L, VLDL Cholesterol 54 H, HDL Cholesterol 36 L, Cholesterol/HDL Ratio 3.1 11/12/24 05:44: POC Glucose 289 H 11/12/24 12:12: POC Glucose 259 H I & O for Last 24 hours: Intake & Output 11/09/24 11/10/24 11/11/24 11/12/24 23:59 23:59 23:59 23:59 Intake Total 320 / 320 Output Total 100 / 100 Balance 220 / 220 Weight 214 lb 8 oz 214 lb 8.015 oz Microbiology Reports for the Last 24 Hours: Microbiology 11/12/24 00:20 Urine,Clean Catch Urine Culture - Preliminary Constitutional Constitutional: no acute distress *Routine Respiratory Exam Respiratory: Present CTA bilaterally and symmetric chest movement *Routine Cardiovascular Exam Cardiovascular: Present RRR, Normal S1 and Normal S2 *Routine Abdominal Exam Abdominal: Present soft and normoactive bowel sounds; Absent tenderness *Routine Extremities Exam Extremities: Present full ROM and normal capillary refill; Absent edema Comments: Left lower extremity swelling is present. *Routine Skin Exam Skin: Present intact, dry and warm Detailed Neck Exam: Thyroids Thyroid: Absent bruit Meds Home Medications and Allergies Home Medications ?Medication ?Instructions ?Recorded ?Confirmed ?Type atorvastatin 40 mg tablet 40 mg PO HS Cholesterol 07/03/22 11/12/24 History celecoxib 100 mg capsule 100 mg PO BID Arthritis 07/03/22 11/12/24 History duloxetine 30 mg capsule,delayed 30 mg PO BID 07/03/22 11/12/24 History release oxycodone-acetaminophen 7.5 mg-325 1 tab PO QIDP PRN Pain 07/03/22 11/12/24 History mg tablet quetiapine 200 mg tablet 200 mg PO HS 07/03/22 11/12/24 History montelukast 10 mg tablet 10 mg PO HS 04/14/24 11/12/24 History colestipol 1 gram tablet 1 g PO BID 05/14/24 11/12/24 History levocetirizine 5 mg tablet 5 mg PO DAILY 05/14/24 11/12/24 History empagliflozin 25 mg tablet 25 mg PO DAILY #30 tabs 10/09/24 11/12/24 Rx (Jardiance) gabapentin 300 mg capsule 300 mg PO TID #90 caps 10/09/24 11/12/24 Rx losartan 25 mg tablet 25 mg PO DAILY 10/09/24 11/12/24 History omeprazole 20 mg capsule,delayed 20 mg PO DAILY 10/09/24 11/12/24 History release ropinirole 1 mg tablet 1 mg PO TID Restless leg syndrome 10/09/24 11/12/24 History ranolazine 1,000 mg 1,000 mg PO BID #60 tabs 10/29/24 11/12/24 Rx tablet,extended release,12 hr spironolactone 25 mg tablet 25 mg PO DAILY #90 tabs 10/29/24 11/12/24 Rx furosemide 40 mg tablet (Lasix) 40 - 80 mg PO DAILYP PRN edema 11/12/24 11/12/24 History warfarin 5 mg tablet 5 mg PO DAILY 11/12/24 11/12/24 History New Prescriptions to Start Prescriptions: Allergies Allergy/AdvReac Type Severity Reaction Status Date / Time aspirin (ASPIRIN) Allergy Unknown S-DIFF. Verified 10/29/24 15:26 BREATHING Assessment and Plan *Assessment and plan (1) Pulmonary embolism: Status: Acute Category: Medical Code(s): I26.99 - Other pulmonary embolism without acute cor pulmonale (2) BABAK (acute kidney injury): Status: Acute Category: Medical Code(s): N17.9 - Acute kidney failure, unspecified (3) History of deep venous thrombosis (DVT) of distal vein of left lower extremity: Status: Acute Category: Medical Code(s): Z86.718 - Personal history of other venous thrombosis and embolism (4) Acute hypoxic respiratory failure: Status: Acute Category: Medical Code(s): J96.01 - Acute respiratory failure with hypoxia (5) Paroxysmal A-fib: Status: Acute Category: Medical Code(s): I48.0 - Paroxysmal atrial fibrillation Plan Acute pulmonary embolism History of DVT-left lower extremity History of paroxysmal atrial fibrillation History of warfarin use- INR goal Echo shows no evidence of right heart strain Start xarelto 15mg po BID for 21 days followed by 20mg po daily with food CV summary 11/12/2024: Can initiate patient on Xarelto for PE. Cardiology will sign off. Please contact service as needed. Patient to follow-up in cardiology clinic in 1 week for reevaluation.
--- NOTE | 2024-11-12 14:53 | EXP.DC.SUM ---
General Admission date:: 11/11/24 HPI HPI HPI: Alan Krueger is a 74-year-old male with medical history significant for Parkinson's disease with tremors tremors, CAD, history of DVT on Coumadin, hypertension, HFpEF, AICD, paroxysmal A-fib, anxiety/depression, type 2 diabetes presents with multiple complaints but primarily progressive lower extremity weakness/unsteadiness/tremors and fall today. Patient states he has been having upper and lower extremity tremors to a point where he is having a hard time walking steadily, and fell after feeling lightheaded walking out of the bathroom today. This prompted daughter to call EMS. Upon arrival, patient was hypoxic to the low 80s which slightly improved with DuoNeb treatment. He was placed on 2 L nasal cannula. Patient also reports several week onset of shortness of breath, chest pain, abdominal pain. He states he has not been following other than today. Workup in the ED significant for MCV 100.4, potassium 5.6, creatinine 2.1 around baseline, magnesium 2.4, normal full respiratory panel, CTA chest showing left lower lobe pulmonary embolism without evidence of RV strain. He was given Lovenox 100 mg. Troponin 0.02. Given these findings, ED provider discussed case with me I decided admit patient for acute hypoxic respiratory failure secondary to pulmonary embolism, lower extremity weakness, fall. Hospital Course Hospital Course Hospital Course: Alan Krueger is a 74-year-old male with medical history significant for Parkinson's disease with tremors tremors, CAD, history of DVT on Coumadin, hypertension, HFpEF, AICD, paroxysmal A-fib, anxiety/depression, type 2 diabetes presents with multiple complaints but primarily progressive lower extremity weakness/unsteadiness/tremors and fall today. Patient states he has been having upper and lower extremity tremors to a point where he is having a hard time walking steadily, and fell after feeling lightheaded walking out of the bathroom today. This prompted daughter to call EMS. Upon arrival, patient was hypoxic to the low 80s which slightly improved with DuoNeb treatment. He was placed on 2 L nasal cannula. Patient also reports several week onset of shortness of breath, chest pain, abdominal pain. He states he has not been following other than today. Workup in the ED significant for MCV 100.4, potassium 5.6, creatinine 2.1 around baseline, magnesium 2.4, normal full respiratory panel, CTA chest showing left lower lobe pulmonary embolism without evidence of RV strain. He was given Lovenox 100 mg. Troponin 0.02. Given these findings, ED provider discussed case with me I decided admit patient for acute hypoxic respiratory failure secondary to pulmonary embolism, lower extremity weakness, fall. #Acute hypoxic respiratory failure #Left lower pulmonary embolism #History of left lower extremity DVT ? Presented with several week onset of chest pain, shortness of breath. CTA chest revealed for left lobar pulmonary embolism without evidence of RV strain. Requiring 2 L nasal cannula, new requirement. ? Unclear etiology of pulmonary embolism at this time, patient does have a history of left lower extremity DVT on warfarin. PT/INR 28/2.71, at goal. Respiratory panel normal. ? ECHO 11/12/2024 did show mild to moderate RV dilation with mild reduction in RV function, but regional wall motion abnormalities. No significant RV strain. ? Treated with therapeutic Lovenox, transitioned to Xarelto per cardiology recommendations. Warfarin discontinued. ? Discharged with Xarelto 15 mg twice daily for 21 days, then 20 mg daily. ? Follow-up KEITH comprehensive panel, factor V Leiden, protein S/C for hypercoagulable workup. ? Referred to hematology for further evaluation and management. Will follow-up with cardiology within 1 week. #Bilateral lower extremity weakness #Essential tremors #Fall #UTI ? Presented with progressive lower extremity weakness, tremors. ? CT head, carotid duplex did not show acute remarkable findings. Normal TSH, B12, folate, iron panel, ferritin. ? UA grossly abnormal, urine culture pending at this time. On Jardiance, discontinued. ? Patient was initially thought to have Parkinson's disease, but no official diagnosis has been made. Does not meet full criteria for Parkinson's disease. ? Started propranolol 10 mg twice daily for essential tremors, significantly improving tremors. This can be transitioned to 5 or 10 mg 3 times daily for better control of tremors if needed. ? UTI treated with IV ceftriaxone, will follow-up on urine culture. Discharged with cefdinir 300 mg twice daily for 6 more days. ? Lower extremity weakness improved with treatment of essential tremors, UTI. ? PT/OT consulted, recommended SNF. [facility] grac[facility] accepted patient. Patient will be discharged in stable condition. #Lower extremity pain/claudication #Suspected neuropathy, RLS ? Lower extremity arterial duplex without significant PAD. ? Somewhat improved with propranolol and treating hyperkalemia, continue gabapentin 300 mg 3 times daily. Can be uptitrated if patient continues to have neuropathic symptoms. ? Continue propranolol 1 mg 3 times daily for restless leg syndrome/RLS. #CKD stage IIIA #Hyperkalemia ? Creatinine 2.1, GFR 31. Stable. ? Initial potassium 5.6. Improved to 5.3 this morning with Lokelma, and holding spironolactone/losartan. ? Patient has a normal LVEF, will discontinue spironolactone and losartan. Changed Lasix 40 mg to every 48 hours from as needed. Blood pressure stable, 115/69. ? Follow-up BMP in 3 days, give additional Lokelma 10 g once if potassium greater than 5.1. #CAD #HFpEF #Bilateral lower extremity venous sufficiency ? Stable, BNP normal. Slightly edematous lower extremities, likely related to venous insufficiency especially with normal BNP. LVEF normal. ? Continue aspirin 81 mg. Recommend compression stockings, leg elevation. ? Changed Lasix 40 mg to every 48 hours from as needed. Discontinue spironolactone due to hyperkalemia. #Paroxysmal A-fib ? Currently rate controlled. ? Rate control with propranolol, transitioned from warfarin to Xarelto for VTE as above. #Anxiety/depression ? Continue home duloxetine, quetiapine #Type 2 diabetes #Suspected neuropathy ? Hemoglobin A1c 7.3%. ? Continue gabapentin 300 mg 3 times daily. Can be uptitrated if patient continues to have neuropathic symptoms. Total time spent on discharge: 40 minutes on chart review, counseling, documentation, and direct care with patient. Exam Data for Last 24 hours Vital signs and Labs for Last 24 Hours: Temp Pulse Resp BP Pulse Ox O2 Del Method O2 Flow Rate 97.8 F 84 17 115/69 96 Nasal Cannula 2 11/12/24 11:44 11/12/24 11:44 11/12/24 11:44 11/12/24 11:44 11/12/24 11:44 11/12/24 13:00 11/12/24 13:00 Laboratory Results - last 24 hr 11/11/24 20:47: WBC 10.4, RBC 4.72, Hgb 15.8, Hct 47.4, MCV 100.4 H, MCH 33.5 H, MCHC 33.3, RDW 14.6, Plt Count 193, MPV 9.8, Neut % (Auto) 77.5, Lymph % (Auto) 13.8, [place] % (Auto) 7.2, Eos % (Auto) 0.7, Baso % (Auto) 0.3, Neut # (Auto) 8.1 H, Lymph # (Auto) 1.4, [place] # (Auto) 0.8, Eos # (Auto) 0.1, Baso # (Auto) 0.0, VBG pH 7.31, VBG pCO2 57.6 H, VBG pO2 36.0, VBG HCO3 28.1, VBG Total CO2 29.9 H, VBG O2 Saturation 70.0, VBG Base Excess 1.8, VBG Lactic Acid 1.8, Sodium 136, Potassium 5.6 H, Chloride 97 L, Carbon Dioxide 29, Anion Gap 15.6 H, BUN 54 H, Creatinine 2.10 H, Estimated Creat Clear 45, Estimated GFR 31 L, Est GFR ( Amer) 37 L, Glucose 218 H, Calcium 9.8, Magnesium 2.4 H, Total Bilirubin 0.8, AST 32, ALT 20, Alkaline Phosphatase 78, Troponin I 0.02, NT-Pro-B Natriuret Pep 433, Total Protein 7.8, Albumin 4.5, Globulin 3.3 H, Albumin/Globulin Ratio 1.4 11/11/24 21:26: Chlamy pneumoniae PCR Not detected, Adenovirus (PCR) Not detected, B. pertussis DNA (PCR) Not detected, Coronavirus OC43 (PCR) Not detected, Coronavirus HKU1 (PCR) Not detected, Coronavirus 229E (PCR) Not detected, SARS-CoV-2 (PCR) Not detected, Coronavirus NL63 (PCR) Not detected, Human Metapneumovir PCR Not detected, Influenza A (H1) PCR Not detected, Influ A (H1N1/09) PCR Not detected, Influenza A (H3) PCR Not detected, Influenza Type A (PCR) Not detected, Influenza Type B (PCR) Not detected, M. pneumoniae (PCR) Not detected, Parainfluenza 1 (PCR) Not detected, Parainfluenza 2 (PCR) Not detected, Parainfluenza 3 (PCR) Not detected, Parainfluenza 4 (PCR) Not detected, RSV (PCR) Not detected, Entero/Rhino (PCR) Not detected 11/11/24 21:47: PT 27.9 H, INR 2.71 H, APTT 38.0 H 11/12/24 00:20: Urine Color Yellow, Urine Appearance Clear, Urine pH 5.5, Ur Specific [place] 1.010, Urine Protein Negative, Urine Glucose (UA) 3+, Urine Ketones Negative, Urine Blood Negative, Urine Nitrate Positive A, Urine Bilirubin Negative, Urine Urobilinogen 0.2, Ur Leukocyte Esterase Negative, Urine RBC Occasional, Urine WBC 3-5, Ur Squamous Epith Cells Occasional, Urine Bacteria 3+ 11/12/24 00:25: Iron 79, TIBC 289, Iron Saturation 27.88072, Ferritin 178 D, Troponin I 0.02, C-Reactive Protein 21.2 H, Vitamin B12 534, TSH 0.69 11/12/24 05:40: WBC 9.3, RBC 4.59 L, Hgb 15.4, Hct 45.8, MCV 99.8 H, MCH 33.6 H, MCHC 33.6, RDW 14.5, Plt Count 181, MPV 10.2, Neut % (Auto) 88.7 H, Lymph % (Auto) 9.7 L, [place] % (Auto) 0.9 L, Eos % (Auto) 0.0 L, Baso % (Auto) 0.1, Neut # (Auto) 8.2 H, Lymph # (Auto) 0.9, [place] # (Auto) 0.1, Eos # (Auto) 0.0, Baso # (Auto) 0.0, Sodium 132 L, Potassium 5.3 H, Chloride 97 L, Carbon Dioxide 27, Anion Gap 13.3, BUN 48 H, Creatinine 2.10 H, Estimated Creat Clear 42, Estimated GFR 31 L, Est GFR ( Amer) 37 L, Glucose 260 H, Calcium 9.5, Magnesium 2.9 H D, Total Bilirubin 0.5, AST 29, ALT 19, Alkaline Phosphatase 88, Total Protein 6.9, Albumin 4.2, Globulin 2.7, Albumin/Globulin Ratio 1.6, Triglycerides 269 H, Cholesterol 110 L, LDL Cholesterol Direct 35.53 L, VLDL Cholesterol 54 H, HDL Cholesterol 36 L, Cholesterol/HDL Ratio 3.1 11/12/24 05:44: POC Glucose 289 H 11/12/24 12:12: POC Glucose 259 H I & O for Last 24 hours: Intake & Output 11/09/24 11/10/24 11/11/24 11/12/24 23:59 23:59 23:59 23:59 Intake Total 380 / 380 Output Total 100 / 100 Balance 280 / 280 Weight 97.296 kg 97.296 kg Microbiology Reports for the Last 24 Hours: Microbiology 11/12/24 00:20 Urine,Clean Catch Urine Culture - Preliminary Constitutional Constitutional: no acute distress and chronically ill appearing *Routine HEENT Exam Head: Present normocephalic Eye: Present EOMI and PERRL ENT: Present mucous membranes moist *Routine Neck Exam Neck: Present supple; Absent lymphadenopathy *Routine Respiratory Exam Respiratory: Present CTA bilaterally *Routine Cardiovascular Exam Cardiovascular: Present RRR *Routine Abdominal Exam Abdominal: Present soft and normoactive bowel sounds; Absent tenderness *Routine Extremities Exam Extremities: Present edema; Absent cyanosis or clubbing *Routine Skin Exam Skin: Present warm; Absent rash *Routine Neurological Exam Neurological: Present alert and oriented X3 Results Data Completed and Pending Labs on day of discharge: Labs from last 24 hours 11/12/24 11/12/24 11/12/24 12:12 05:44 05:40 WBC 9.3 RBC 4.59 L Hgb 15.4 Hct 45.8 MCV 99.8 H MCH 33.6 H MCHC 33.6 RDW 14.5 Plt Count 181 MPV 10.2 Neut % (Auto) 88.7 H Lymph % (Auto) 9.7 L [place] % (Auto) 0.9 L Eos % (Auto) 0.0 L Baso % (Auto) 0.1 Neut # (Auto) 8.2 H Lymph # (Auto) 0.9 [place] # (Auto) 0.1 Eos # (Auto) 0.0 Baso # (Auto) 0.0 PT INR APTT VBG pH VBG pCO2 VBG pO2 VBG HCO3 VBG Total CO2 VBG O2 Saturation VBG Base Excess VBG Lactic Acid Sodium 132 L Potassium 5.3 H Chloride 97 L Carbon Dioxide 27 Anion Gap 13.3 BUN 48 H Creatinine 2.10 H Estimated Creat Clear 42 Estimated GFR 31 L Est GFR ( Amer) 37 L Glucose 260 H POC Glucose 259 H 289 H Calcium 9.5 Magnesium 2.9 H D Iron TIBC Iron Saturation Ferritin Total Bilirubin 0.5 AST 29 ALT 19 Alkaline Phosphatase 88 Troponin I C-Reactive Protein NT-Pro-B Natriuret Pep Total Protein 6.9 Albumin 4.2 Globulin 2.7 Albumin/Globulin Ratio 1.6 Triglycerides 269 H Cholesterol 110 L LDL Cholesterol Direct 35.53 L VLDL Cholesterol 54 H HDL Cholesterol 36 L Cholesterol/HDL Ratio 3.1 Vitamin B12 TSH Urine Color Urine Appearance Urine pH Ur Specific [place] Urine Protein Urine Glucose (UA) Urine Ketones Urine Blood Urine Nitrate Urine Bilirubin Urine Urobilinogen Ur Leukocyte Esterase Urine RBC Urine WBC Ur Squamous Epith Cells Urine Bacteria Chlamy pneumoniae PCR Adenovirus (PCR) B. pertussis DNA (PCR) Coronavirus OC43 (PCR) Coronavirus HKU1 (PCR) Coronavirus 229E (PCR) SARS-CoV-2 (PCR) Coronavirus NL63 (PCR) Human Metapneumovir PCR Influenza A (H1) PCR Influ A (H1N1/) PCR Influenza A (H3) PCR Influenza Type A (PCR) Influenza Type B (PCR) M. pneumoniae (PCR) Parainfluenza 1 (PCR) Parainfluenza 2 (PCR) Parainfluenza 3 (PCR) Parainfluenza 4 (PCR) RSV (PCR) Entero/Rhino (PCR) 11/12/24 11/12/24 11/11/24 00:25 00:20 21:47 WBC RBC Hgb Hct MCV MCH MCHC RDW Plt Count MPV Neut % (Auto) Lymph % (Auto) [place] % (Auto) Eos % (Auto) Baso % (Auto) Neut # (Auto) Lymph # (Auto) [place] # (Auto) Eos # (Auto) Baso # (Auto) PT 27.9 H INR 2.71 H APTT 38.0 H VBG pH VBG pCO2 VBG pO2 VBG HCO3 VBG Total CO2 VBG O2 Saturation VBG Base Excess VBG Lactic Acid Sodium Potassium Chloride Carbon Dioxide Anion Gap BUN Creatinine Estimated Creat Clear Estimated GFR Est GFR ( Amer) Glucose POC Glucose Calcium Magnesium Iron 79 TIBC 289 Iron Saturation 27.05957 Ferritin 178 D Total Bilirubin AST ALT Alkaline Phosphatase Troponin I 0.02 C-Reactive Protein 21.2 H NT-Pro-B Natriuret Pep Total Protein Albumin Globulin Albumin/Globulin Ratio Triglycerides Cholesterol LDL Cholesterol Direct VLDL Cholesterol HDL Cholesterol Cholesterol/HDL Ratio Vitamin B12 534 TSH 0.69 Urine Color Yellow Urine Appearance Clear Urine pH 5.5 Ur Specific [place] 1.010 Urine Protein Negative Urine Glucose (UA) 3+ Urine Ketones Negative Urine Blood Negative Urine Nitrate Positive A Urine Bilirubin Negative Urine Urobilinogen 0.2 Ur Leukocyte Esterase Negative Urine RBC Occasional Urine WBC 3-5 Ur Squamous Epith Cells Occasional Urine Bacteria 3+ Chlamy pneumoniae PCR Adenovirus (PCR) B. pertussis DNA (PCR) Coronavirus OC43 (PCR) Coronavirus HKU1 (PCR) Coronavirus 229E (PCR) SARS-CoV-2 (PCR) Coronavirus NL63 (PCR) Human Metapneumovir PCR Influenza A (H1) PCR Influ A (H1N1/) PCR Influenza A (H3) PCR Influenza Type A (PCR) Influenza Type B (PCR) M. pneumoniae (PCR) Parainfluenza 1 (PCR) Parainfluenza 2 (PCR) Parainfluenza 3 (PCR) Parainfluenza 4 (PCR) RSV (PCR) Entero/Rhino (PCR) 11/11/24 11/11/24 21:26 20:47 WBC 10.4 RBC 4.72 Hgb 15.8 Hct 47.4 MCV 100.4 H MCH 33.5 H MCHC 33.3 RDW 14.6 Plt Count 193 MPV 9.8 Neut % (Auto) 77.5 Lymph % (Auto) 13.8 [place] % (Auto) 7.2 Eos % (Auto) 0.7 Baso % (Auto) 0.3 Neut # (Auto) 8.1 H Lymph # (Auto) 1.4 [place] # (Auto) 0.8 Eos # (Auto) 0.1 Baso # (Auto) 0.0 PT INR APTT VBG pH 7.31 VBG pCO2 57.6 H VBG pO2 36.0 VBG HCO3 28.1 VBG Total CO2 29.9 H VBG O2 Saturation 70.0 VBG Base Excess 1.8 VBG Lactic Acid 1.8 Sodium 136 Potassium 5.6 H Chloride 97 L Carbon Dioxide 29 Anion Gap 15.6 H BUN 54 H Creatinine 2.10 H Estimated Creat Clear 45 Estimated GFR 31 L Est GFR ( Amer) 37 L Glucose 218 H POC Glucose Calcium 9.8 Magnesium 2.4 H Iron TIBC Iron Saturation Ferritin Total Bilirubin 0.8 AST 32 ALT 20 Alkaline Phosphatase 78 Troponin I 0.02 C-Reactive Protein NT-Pro-B Natriuret Pep 433 Total Protein 7.8 Albumin 4.5 Globulin 3.3 H Albumin/Globulin Ratio 1.4 Triglycerides Cholesterol LDL Cholesterol Direct VLDL Cholesterol HDL Cholesterol Cholesterol/HDL Ratio Vitamin B12 TSH Urine Color Urine Appearance Urine pH Ur Specific [place] Urine Protein Urine Glucose (UA) Urine Ketones Urine Blood Urine Nitrate Urine Bilirubin Urine Urobilinogen Ur Leukocyte Esterase Urine RBC Urine WBC Ur Squamous Epith Cells Urine Bacteria Chlamy pneumoniae PCR Not detected Adenovirus (PCR) Not detected B. pertussis DNA (PCR) Not detected Coronavirus OC43 (PCR) Not detected Coronavirus HKU1 (PCR) Not detected Coronavirus 229E (PCR) Not detected SARS-CoV-2 (PCR) Not detected Coronavirus NL63 (PCR) Not detected Human Metapneumovir PCR Not detected Influenza A (H1) PCR Not detected Influ A (H1N1/09) PCR Not detected Influenza A (H3) PCR Not detected Influenza Type A (PCR) Not detected Influenza Type B (PCR) Not detected M. pneumoniae (PCR) Not detected Parainfluenza 1 (PCR) Not detected Parainfluenza 2 (PCR) Not detected Parainfluenza 3 (PCR) Not detected Parainfluenza 4 (PCR) Not detected RSV (PCR) Not detected Entero/Rhino (PCR) Not detected Preliminary micro results at discharge 11/12/24 00:20 Urine Culture - Preliminary Urine,Clean Catch DS: Diagnosis Discharge Diagnosis (1) Pulmonary embolism: Status: Acute Code(s): I26.99 - Other pulmonary embolism without acute cor pulmonale (2) BABAK (acute kidney injury): Status: Acute Code(s): N17.9 - Acute kidney failure, unspecified (3) History of deep venous thrombosis (DVT) of distal vein of left lower extremity: Status: Acute Code(s): Z86.718 - Personal history of other venous thrombosis and embolism (4) Acute hypoxic respiratory failure: Status: Acute Code(s): J96.01 - Acute respiratory failure with hypoxia (5) Paroxysmal A-fib: Status: Acute Code(s): I48.0 - Paroxysmal atrial fibrillation Meds Home Medications and Allergies Home Medications ?Medication ?Instructions ?Recorded ?Confirmed ?Type atorvastatin 40 mg tablet 40 mg PO HS Cholesterol 07/03/22 11/12/24 History celecoxib 100 mg capsule 100 mg PO BID Arthritis 07/03/22 11/12/24 History duloxetine 30 mg capsule,delayed 30 mg PO BID 07/03/22 11/12/24 History release oxycodone-acetaminophen 7.5 mg-325 1 tab PO QIDP PRN Pain 07/03/22 11/12/24 History mg tablet quetiapine 200 mg tablet 200 mg PO HS 07/03/22 11/12/24 History montelukast 10 mg tablet 10 mg PO HS 04/14/24 11/12/24 History colestipol 1 gram tablet 1 g PO BID 05/14/24 11/12/24 History gabapentin 300 mg capsule 300 mg PO TID #90 caps 10/09/24 11/12/24 Rx omeprazole 20 mg capsule,delayed 20 mg PO DAILY 10/09/24 11/12/24 History release ropinirole 1 mg tablet 1 mg PO TID Restless leg syndrome 10/09/24 11/12/24 History ranolazine 1,000 mg 1,000 mg PO BID #60 tabs 10/29/24 11/12/24 Rx tablet,extended release,12 hr cefdinir 300 mg capsule 300 mg PO BID 6 days #12 caps 11/12/24 Rx furosemide 40 mg tablet (Lasix) 40 mg PO Q48H 30 days #30 tabs 11/12/24 Rx melatonin 5 mg tablet 5 mg PO HS 30 days #30 tabs 11/12/24 Rx propranolol 20 mg tablet 10 mg (1/2 x 20 mg) PO BID 30 days 11/12/24 Rx #30 tabs rivaroxaban 15 mg (42)-20 mg (9) See Rx Instructions PO .COMPLEX 11/12/24 Rx tablets in a starter pack (Xarelto #51 tabs DVT-PE Treatment 30-Day Starter) sodium zirconium cyclosilicate 5 10 g PO DAILY PRN hyperkalemia #11 11/12/24 Rx gram oral powder packet (Lokelma) ea New Prescriptions to Start Prescriptions: cefdinir Bhavin Rodriguez furosemide [Lasix] Bhavin Rodriguez melatonin Bhavin Rodriguez propranolol Bhavin Rodriguez rivaroxaban [Xarelto DVT-PE Treat 30d Start] Bhavin Rodriguez sodium zirconium cyclosilicate [Lokelma] Bhavin Rodriguez Allergies Allergy/AdvReac Type Severity Reaction Status Date / Time aspirin (ASPIRIN) Allergy Unknown S-DIFF. Verified 10/29/24 15:26 BREATHING Discharge Plan Disposition Patient Disposition: Xfer SNF Condition: Fair Discharge Order Discharge Orders: Discharge Order (Routine); Ordered 11/12/24 Ordered By: Bhavin Rodriguez Follow up Plan Follow up with: Parisa Gibson APRN [Nurse Practitioner, Cardiology] - 11/25/24 2:45 pm Dwight Valdez MD [Staff Physician, Oncology] - 2 weeks Referral Note: DVT, pulmonary embolism Prescriptions/Medication Reconciliation: New propranolol 20 mg Tablet 10 mg PO BID 30 Days Qty: 30 0RF melatonin 5 mg Tablet 5 mg PO HS 30 Days Qty: 30 0RF Lokelma 5 gram Powder In Packet 10 g PO DAILY PRN (Reason: hyperkalemia) Qty: 11 0RF Xarelto DVT-PE Treat 30d Start 15 mg (42)- 20 mg (9) tablets,dose pack See Rx Instructions .ROUTE .COMPLEX Qty: 51 0RF Rx Instructions: take one-15 mg tablet twice daily for 21 days, then one-20 mg tablet once daily; must take with meal/food cefdinir 300 mg capsule 300 mg PO BID 6 Days Qty: 12 0RF Continued gabapentin 300 mg capsule 300 mg PO TID Qty: 90 2RF ropinirole 1 mg tablet 1 mg PO TID omeprazole 20 mg capsule,delayed release(DR/EC) 20 mg PO DAILY colestipol 1 gram tablet 1 g PO BID ranolazine 1,000 mg tablet extended release 12 hr 1,000 mg PO BID Qty: 60 2RF montelukast 10 mg tablet 10 mg PO HS atorvastatin 40 mg tablet 40 mg PO HS quetiapine 200 mg tablet 200 mg PO HS oxycodone-acetaminophen 7.5-325 mg tablet 1 tab PO QIDP PRN (Reason: Pain) celecoxib 100 mg capsule 100 mg PO BID duloxetine 30 mg capsule,delayed release(DR/EC) 30 mg PO BID Changed furosemide [Lasix] 40 mg tablet 40 mg PO Q48H 30 Days Qty: 30 0RF Rx Instructions: Take 1-2 tabs orally daily PRN; Discontinued Jardiance 25 mg tablet 25 mg PO DAILY Qty: 30 2RF losartan 25 mg tablet 25 mg PO DAILY levocetirizine 5 mg tablet 5 mg PO DAILY spironolactone 25 mg tablet 25 mg PO DAILY Qty: 90 3RF warfarin 5 mg tablet 5 mg PO DAILY Problem Reconciliation Problems Reviewed?: Yes Patient Discharge Instructions Patient Instructions: Pulmonary Embolism, DI for Pulmonary Embolism, How to Prevent Falls, Coumadin Vitamin K/ Diet Print Language: [place]ic Providers Primary Care Provider: Andria Ryan Admit Provider: Bhavin Rodriguez Attending Provider: Bhavin Rodriguez
[2024-11-12 15:54] VITALS: O2SAT 95
[2024-11-12 16:15] LABS: Folate > 20.00 ng/mL
== END 2024-11-12 17:53 ==
LOC: ER 21:00 → 2ND 22:06
PROVIDERS: Admitting Provider Student in an Organized Health Care Education/Training Program; Emergency Provider Student in an Organized Health Care Education/Training Program; PCP Nurse Practitioner Family; Visit Provider Student in an Organized Health Care Education/Training Program
DX: I26.99 Other pulmonary embolism without acute cor pulmonale (principal); J96.01 Acute respiratory failure with hypoxia; E87.5 Hyperkalemia; N17.9 Acute kidney failure, unspecified; I48.0 Paroxysmal atrial fibrillation; G25.0 Essential tremor; N39.0 Urinary tract infection, site not specified; G25.81 Restless legs syndrome; E11.22 Type 2 diabetes mellitus with diabetic chronic kidney disease; E11.51 Type 2 diabetes mellitus with diabetic peripheral angiopathy without gangrene; I13.0 Hypertensive heart and chronic kidney disease with heart failure and stage 1 through stage 4 chronic kidney disease, or unspecified chronic kidney disease; N18.31 Chronic kidney disease, stage 3a; I25.10 Atherosclerotic heart disease of native coronary artery without angina pectoris; I50.40 Unspecified combined systolic (congestive) and diastolic (congestive) heart failure; F41.9 Anxiety disorder, unspecified; F32.A Depression, unspecified; I87.2 Venous insufficiency (chronic) (peripheral); I82.412 Acute embolism and thrombosis of left femoral vein; K59.00 Constipation, unspecified; E78.5 Hyperlipidemia, unspecified; G20.A1 Parkinson's disease without dyskinesia, without mention of fluctuations; J44.9 Chronic obstructive pulmonary disease, unspecified; I21.9 Acute myocardial infarction, unspecified; F17.210 Nicotine dependence, cigarettes, uncomplicated; W19.XXXA Unspecified fall, initial encounter; Z88.8 Allergy status to other drugs, medicaments and biological substances; Z95.810 Presence of automatic (implantable) cardiac defibrillator; Z79.899 Other long term (current) drug therapy
CPT/HCPCS: 0223U; 36415; 70450; 71275; 74177; 76604; 80053; 80061; 81001; 81241; 82607; 82728; 82746; 82803; 82962; 83540; 83550; 83735; 83880; 84443; 84484; 85025; 85302; 85305; 85306; 85610; 85730; 86140; 86225; 86235; 87040; 87086; 87088; 87186; 93005; 93308; 93880; 93925; 93970; 96365; 96372; 96375; 97110; 97162; 97166; 99285; G0378; J1650; J2919; J3475; Q9957; Q9967

== ENCOUNTER 2024-12-01 06:41 | Observation (INO) | payer MEDICARE, SELFPAY ==
[2024-12-01] VITALS (13 sets, daily range): BP systolic 97–158; BP diastolic 46–102; PULSE 71–90; RESP 16–20; TEMP 36.4–36.7; O2SAT 91–99; BMI 28.3; BMI 28.6
--- OUTSIDE RECORDS SUMMARY | 2024-12-01 06:45 | XMS_ITS ---
Author Organization [facility] Care Team Providers Care Defense Travel Administrator Name Role Phone Donald Mcgee Unavailable Unavailable Abel Parker Unavailable Unavailable Allergies and adverse reactions Code CodeSystem Substance Reaction Severity StartDate Concern Status 1191 RXNORM Aspirin Unknown 10/21/2020 active Care Team Name Role Address Phone Organization Dates Abel Parker PCP [address], [address], [place] (Office): : [facility] 11/12/2024 - 11/28/2024 [facility] [address] [place] [address], [id number], [place] (Office): : [facility] 11/12/2024 - 11/28/2024 Encounters EncounterType Code CodeSystem Description Performer ServiceDe liveryLocation Date Ambulatory Encounter CPT Code = [id number] Acute hypoxemic respiratory failure [facility] Address: [address] [place] [address], [id number], [facility]. 11/12 Ambulatory Encounter CPT Code = [address] Disorder of nervous system due to type 2 diabetes mellitus [facility] Address: [address] [place] [address], [id number]. 11/12 Ambulatory Encounter CPT Code = [address] Chronic obstructive pulmonary disease [facility] Address: [address] [place] [address], [address] [place] [address]. 11/12 Ambulatory Encounter CPT Code = [address] Muscle atrophy [facility] Address: [address] [place] [address], [address] [place] [address]. 11/12 Ambulatory Encounter CPT Code = [address] Muscle weakness [facility] Address: [address] [place] [address], [address] [place] [address]. 11/12 Ambulatory Encounter CPT Code = [address] Oropharyngeal dysphagia [facility] Address: [address] [place] [address], [address] [place] [address]. 11/12 Ambulatory Encounter CPT Code = [address] Unsteady when standing [facility] Address: [address] [place] [address], [address] [place] [address]. 11/12 Ambulatory Encounter CPT Code = [address] Abnormal gait [facility] Address: [address] [place] [address], [address] [place] [address]. 11/12 Ambulatory Encounter CPT Code = [address] Pulmonary embolism [facility] Address: [address] [place] [address], [address] [place] [address]. 11/12 Ambulatory Encounter CPT Code = [address] Essential tremor [facility] Address: [address] [place] [address], [address] [place] [address]. 11/12 Ambulatory Encounter CPT Code = [address] Restless legs [facility] Address: [address] [place] [address], [address] [place] [address]. 11/12 Ambulatory Encounter CPT Code = [address] Chronic kidney disease stage 3A [facility] Address: [address] [place] [address], [address] [place] [address]. 11/12 Ambulatory Encounter CPT Code = 75698 3446496 388[address] Atherosclerosi s of coronary artery without angina pectoris [facility] Address: [address] [place] [address], [address] [place] [address]. 11/12 Ambulatory Encounter CPT Code = [address] Hyperlipidemia [facility] Address: [address] [place] [address], [address] [place] [address]. 11/12 Ambulatory Encounter CPT Code = [address] Gastroesophage al reflux disease without esophagitis [facility] Address: [address] [place] [address], [address] [place] [address]. 11/12 Ambulatory Encounter CPT Code = [address] Insomnia [facility] Address: [address] [place] [address], [address] [place] [address]. 11/12 Ambulatory Encounter CPT Code = [address] Peripheral venous insufficiency [facility] Address: [address] [place] [address], [address] [place] [address]. 11/12 Ambulatory Encounter CPT Code = [address]481 [address]956[address] Anxiety disorder [facility] Address: [address] [place] [address], [address] [place] [address]. 11/12 Ambulatory Encounter CPT Code = 91690 [address] Chronic diastolic heart failure [facility] Address: [address] [place] [address], [address] [place] [address]. 11/12 Ambulatory Encounter CPT Code = [address]121 [address] Paroxysmal atrial fibrillation [facility] Address: [address] [place] [address], [address] [place] [address]. 11/12 Ambulatory Encounter CPT Code = [address] Parkinson''s disease [facility] Address: [address] [place] [address], [address] [place] [address]. 11/12 Ambulatory Encounter CPT Code = [address] Cardiovascular surgical procedure [facility] Address: [address] [place] [address], [address] [place] [address]. 11/12 Ambulatory Encounter CPT Code = [address] Urinary tract infectious disease [facility] Address: [address] [place] [address], [address] [place] [address]. 11/12 Ambulatory Encounter CPT Code = [address] Prosthetic arthroplasty of hip [facility] Address: [address] [place] [address], [address] [place] [address]. 11/12 Ambulatory Encounter CPT Code = [address] Major depression, single episode [facility] Address: [address] [place] [address], [address] [place] [address]. 11/12 Ambulatory Encounter CPT Code = [address] Chronic pain [facility] Address: [address] [place] [address], [address] [place] [address]. 11/12 Ambulatory Encounter CPT Code = [address] Disorder of vein [facility] Address: [address] [place] [address], [address] [place] [address]. 11/12 Ambulatory Encounter CPT Code = 79534 [address] Long-term current use of anticoagulant [facility] Address: [address] [place] [address], [address] [place] [address]. 11/12 Ambulatory Encounter CPT Code = 68974 [address] Long-term current use of drug therapy [facility] Address: [address] [place] [address], [address] [place] [address]. 11/12 Ambulatory Encounter CPT Code = [address] Essential hypertension [facility] Address: [address] [place] [address], [address] [place] [address]. 11/12 Ambulatory Encounter CPT Code = [address] Arthritis [facility] Address: [address] [place] [address], [address] [place] [address]. 11/12 Ambulatory Encounter CPT Code = [address]336 [address] Prosthetic arthroplasty of hip [facility] Address: [address] [place] [address], [address] [place] [address]. 11/12 Ambulatory Encounter CPT Code = [address] Carpal tunnel syndrome [facility] Address: [address] [place] [address], [address] [place] [address]. 11/12 Ambulatory Encounter CPT Code = [address] Carpal tunnel syndrome [facility] Address: [address] [place] [address], [address] [place] [address]. 11/12 Goals Section Goals Description Status Target Date [place] Resident's Advanced Di rective decisions and/or code status through next review Active 02/21/2025 Maintain optimal oral hygiene status through nex t review Active 02/21/2025 Needs will be communicated/met through next revi ew Active 02/21/2025 Prevent wounds and prevent a voidable skin breakdown through next review Active 02/21/2025 Resident Will Achieve/Mainta in a Consistent Sleep Pattern through next review Active 02/21/2025 Resident will have decreased risk for falls through nursing interventions through next review Active 02/21/2025 Resident will maintain adequ ate nutrition AEB stable weight through next review Active 02/21/2025 Resident will maintain the h ighest level of function possible with Dx of Parkinsons disease through next review Active Resident will not display a negative reactive behavior related to the identified stressors or like situations through next review Active 02/21/2025 Resident will not experience any adverse outcomes related to risk for infection through next review. Active 02/21/2025 Resident will remain free fr om skin breakdown due to incontinence and brief use through the review date. Active 02/21/2025 The resident will be able to resume normal daily activities of daily living by the review date. Active 02/21/2025 The resident will be able to return [facility]. Active 02/21/2025 The resident will be free fr om discomfort or adverse reactions related to anticoagulant use through the review date. Active 02/21/2025 The resident will be free fr om s/sx of complications of cardiac problems through the review date. Active 02/21/2025 The resident will be free fr om s/sx of complications of poor circulation through the review date. Active 02/21/2025 The resident will be free of any discomfort or adverse side effects of diuretic therapy through the review date. Active 0 02/21/2025 The resident will display op timal breathing pattern daily through review date. Active 02/21/2025 The resident will have no co mplications r/t to the skin injury by the review date Active 02/21/2025 The resident will have no co mplications related to diabetes through the review date. Active 02/21/2025 The resident will have no co mplications resulting from the cellulitis through the review date. Active 02/21/2025 The resident will maintain n ormal breathing pattern as evidenced by normal respirations, normal skin color, and regular respiratory rate/pattern through the review date. Active 02/21/2025 The resident will remain adelaide e from s/sx of pacemaker malfunction or failure through the review date Active 02/21/2025 The resident will verbalize adequate relief of pain or ability to cope with incompletely relieved pain through the review date. Active 02/21/2025 Will achieve maximum functional mobility through next review Active 02/21/2025 Will attend/participate in a ctivities of choice through next review Active 02/21/2025 Will benefit from medication without adverse effects through next review Active 02/21/2025 Will express/exhibit satisfa ction with stay and care through next review Active 02/21/2025 Will not exhibit an avoidable decline in mood th rough next review Active 02/21/2025 Immunizations Immunization Status Vaccine Details Vaccine Code CodeSystem Date Notes Influenza completed Influenza, split virus, trivalent, injectable, contains preservative 141 CVX created date: 5 administe red date: 4 Influenza completed Influenza, split virus, trivalent, injectable, contains preservative 141 CVX created date: 5 administe red date: 1 Influenza completed Influenza, split virus, trivalent, injectable, contains preservative 141 CVX created date: 5 administe red date: 0 Influenza completed Influenza, split virus, trivalent, injectable, contains preservative 141 CVX created date: 5 administe red date: 9 Influenza completed Influenza, split virus, trivalent, injectable, contains preservative 141 CVX created date: 5 administe red date: 8 Influenza completed Influenza, split virus, trivalent, injectable, contains preservative 141 CVX created date: 5 administe red date: 7 TB 2 Step Mantoux Skin Test new tuberculin skin test; unspecified formulation 98 CVX created date: 5 consent date: 5 TB 2 Step Mantoux Skin Test completed tuberculin skin test; unspecified formulation expiry: 04/19/2026 Mfg: PAR Given 0.1 ml Left Forearm intradermally Step 1 of Multi-step with next step required 98 CVX created date: 5 consent date: 5 administe red date: 5 Educated by on 11/25/2024 TB 2 Step Mantoux Skin Test completed tuberculin skin test; unspecified formulation lotNumber: [id number] expiry: 04/19/2026 Mfg: PAR Given 0.1 ml Left Forearm intradermally Step 1 of Multi-step with next step required 98 CVX created date: 5 consent date: 5 administe red date: 5 Educated by on 11/25/2024 TB 2 Step Mantoux Skin Test new tuberculin skin test; unspecified formulation 98 CVX created date: 5 consent date: 5 TB 2 Step Mantoux Skin Test completed tuberculin skin test; unspecified formulation Given 0.1 ml Left Forearm intradermally Step 2 of Multi-step with next step required 98 CVX created date: 1 consent date: 1 administe red date: 1 info obtained from [facility] TB 2 Step Mantoux Skin Test completed tuberculin skin test; unspecified formulation Given 0.1 ml Left Forearm intradermally Step 1 of Multi-step with next step required 98 CVX created date: 1 consent date: 1 administe red date: 1 Educated by Carroll Montoya on 10/21/2020 info obtained from [facility] Pneumococcal PCV13 completed pneumococcal conjugate vaccine, 13 valent 133 CVX created date: 5 administe red date: 8 Pneumococcal PPSV23 completed pneumococcal polysaccharide vaccine, 23 valent 33 CVX created date: 5 administe red date: 7 SARS-COV-2 (COVID-19) completed SARS-COV-2 (COVID-19) vaccine, vector non-replicating, recombinant spike protein-Ad26, preservative free, 0.5 mL lotNumber: [id number] Mfg: Kylie Step 1 of Multi-step 212 CVX created date: 1 administe red date: 1 administered at [facility] Medications Section Medication Name Status Code CodeSystem Dose Route Frequency Admin Type Sig Text Start Date End Date Indication Propranolol HCl 10 MG Tablet aborted 18126 8 RXNORM 1 table t Oral two times a day Routin e Give 1 table t by mouth two times a day for HTN relat ed to ESSEN TIAL (PRIM DENNIS) HYPER TENSI ON (I10) 11/28 HTN rOPINIRole HCl Oral Tablet 1 MG aborted 63290 8 RXNORM 1 table t Oral three times a day Routin e Give 1 table t by mouth three times a day for RLS relat ed to RESTL ESS LEGS SYNDR OME (G25. 81) 11/14 RLS DULoxetine HCl Oral Capsule Delayed Release Sprinkle 30 MG aborted 34115 0 RXNORM 1 capsu le Oral two times a day Routin e Give 1 capsu le by mouth two times a day relat ed to MAJOR DEPRE SSIVE DISOR ELIANA, SINGL E EPISO DE, UNSPE CIFIE D (F32. 9);OT HER CHRON IC PAIN (G89. 29) 11/13 - oxyCODONE-A cetaminophe n Oral Tablet 7.5-325 MG aborted 19895 25 RXNORM 1 table t Oral as needed PRN Give 1 table t by mouth every 6 hours as neede d for pain relat ed to ДМИТРИЙ MCKEON' S DISEA SE WITHO UT DYSKI NESIA , WITHO UT MENTI ON OF FLUCT UATIO NS (G20. 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 29);P RESEN CE OF LEFT ARTIF ICIAL HIP JOINT (Z96. 642) 11/14 pain Propranolol HCl Oral Tablet 10 MG aborted 86312 8 RXNORM 1 table t Oral two times a day Routin e Give 1 table t by mouth two times a day relat ed to ESSEN TIAL (PRIM DENNIS) HYPER TENSI ON (I10) 11/13 - Melatonin Oral Tablet 5 MG aborted 19852 2 RXNORM 1 table t Oral at bedtime Routin e Give 1 table t by mouth at bedti me for insom jose relat ed to INSOM JOSE, UNSPE CIFIE D (G47. 00) 11/14 insomnia QUEtiapine Fumarate Oral Tablet 200 MG aborted 65446 4 RXNORM 1 table t Oral at bedtime Routin e Give 1 table t by mouth at bedti me relat ed to MAJOR DEPRE SSIVE DISOR ELIANA, SINGL E EPISO DE, UNSPE CIFIE D (F32. 9) 11/14 - metFORMIN HCl Oral Tablet 500 MG aborted 14638 7 RXNORM 1 table t Oral two times a day Routin e Give 1 table t by mouth two times a day relat ed to TYPE 2 DIABE MOIZ NATHALYI TUS WITHO UT COMPL ICATI ONS (E11. 9) 11/14 - Atorvastati n Calcium Oral Tablet 40 MG aborted 12864 1 RXNORM 1 table t Oral at bedtime Routin e Give 1 table t by mouth at bedti me for LDL relat ed to HYPER LIPID EMIA, UNSPE CIFIE D (E78. 5) 11/14 LDL Gabapentin Oral Capsule 300 MG aborted 34507 1 RXNORM 1 capsu le Oral three times a day Routin e Give 1 capsu le by mouth three times a day relat ed to OTHER CHRON IC PAIN (G89. 29) 11/14 - Celecoxib Oral Capsule 100 MG aborted 2 RXNORM 1 capsu le Oral two times a day Routin e Give 1 capsu le by mouth two times a day for pain relat ed to OTHER SPECI FIED ARTHR ITIS, UNSPE CIFIE D SITE (M13. 80) 11/14 pain Furosemide Oral Tablet 40 MG aborted 44453 8 RXNORM 1 table t Oral as needed PRN Give 1 table t by mouth every 48 hours as neede d for edema 11/14 edema Xarelto Oral Tablet 15 MG aborted 25576 84 RXNORM 1 table t Oral two times a day Routin e Give 1 table t by mouth two times a day for DVT relat ed to OTHER PULMO NARY EMBOL ISM WITHO UT ACUTE COR PULMO NALE (I26. 99);P ERSON AL HISTO RY OF OTHER VENOU S THROM BOSIS AND EMBOL ISM (Z86. 718) for 21 Days with meals 11/14 DVT Ranolazine ER Oral Tablet Extended Release 12 Hour 1000 MG aborted 23676 1 RXNORM 1 table t Oral two times a day Routin e Give 1 table t by mouth two times a day for Angin a 11/14 Angina Montelukast Sodium Oral Tablet 10 MG aborted 4 RXNORM 1 table t Oral at bedtime Routin e Give 1 table t by mouth at bedti me for aller gies 11/14 allergies Lokelma Oral Packet 5 GM aborted 39 RXNORM 2 packe t Oral as needed PRN Give 2 packe t by mouth every 24 hours as neede d for hyper kalem ia for 11 Days 11/14 hyperkalemi a Xarelto Oral Tablet 20 MG aborted 88 RXNORM 1 table t Oral one time a day Routin e Give 1 table t by mouth one time a day for DVT relat ed to OTHER PULMO NARY EMBOL ISM WITHO UT ACUTE COR PULMO NALE (I26. 99);P ERSON AL HISTO RY OF OTHER VENOU S THROM BOSIS AND EMBOL ISM (Z86. 718) with meals 11/14 DVT Omeprazole Oral Tablet Delayed Release 20 MG aborted 96538 4 RXNORM 1 table t Oral one time a day Routin e Give 1 table t by mouth one time a day for GERD relat ed to GASTR O-ESO PHAGE AL REFLU X DISEA SE WITHO UT ESOPH AGITI S (K21. 9) 11/14 GERD Cefdinir Oral Capsule 300 MG aborted 6 RXNORM 1 capsu le Oral two times a day Routin e Give 1 capsu le by mouth two times a day for proph ylaxi s for 6 Days 11/13 prophylaxis Colestipol HCl Oral Tablet 1 GM aborted 76985 45 RXNORM 1 table t Oral two times a day Routin e Give 1 table t by mouth two times a day for LDL 11/14 LDL Nystatin External Powder 600800 UNIT/GM aborted 12732 6 RXNORM n/a n/a Topica l every shift Routin e Apply to groin topic ally every shift for redne ss 11/14 redness DULoxetine HCl Oral Capsule Delayed Release Particles 30 MG aborted 48424 0 RXNORM 1 capsu le Oral two times a day Routin e Give 1 capsu le by mouth two times a day for Depre ssion relat ed to ANXIE TY DISOR ELIANA, UNSPE CIFIE D (F41. 9);MA BELKYS DEPRE SSIVE DISOR ELIANA, SINGL E EPISO DE, UNSPE CIFIE D (F32. 9) 11/14 Depression Cefdinir Oral Capsule 300 MG aborted 6 RXNORM 1 capsu le Oral two times a day Routin e Give 1 capsu le by mouth two times a day for UTI relat ed to URINA RY TRACT INFEC TION, SITE NOT SPECI FIED (N39. 0) for 6 Days 11/14 UTI rOPINIRole HCl Oral Tablet 1 MG aborted 63996 8 RXNORM 1 table t Oral three times a day Routin e Give 1 table t by mouth three times a day for RLS relat ed to RESTL ESS LEGS SYNDR OME (G25. 81) 11/28 RLS oxyCODONE-A cetaminophe n Oral Tablet 7.5-325 MG aborted 90639 25 RXNORM 1 table t Oral as needed PRN Give 1 table t by mouth every 6 hours as neede d for pain relat ed to ДМИТРИЙ MCKEON' S DISEA SE WITHO UT DYSKI NESIA , WITHO UT MENTI ON OF FLUCT UATIO NS (G20. 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 29);P RESEN CE OF LEFT ARTIF ICIAL HIP JOINT (Z96. 642) 11/28 pain Melatonin Oral Tablet 5 MG aborted 02124 2 RXNORM 1 table t Oral at bedtime Routin e Give 1 table t by mouth at bedti me for insom jose relat ed to INSOM JOSE, UNSPE CIFIE D (G47. 00) 11/28 insomnia QUEtiapine Fumarate Oral Tablet 200 MG aborted 69980 4 RXNORM 1 table t Oral at bedtime Routin e Give 1 table t by mouth at bedti me relat ed to MAJOR DEPRE SSIVE DISOR ELIANA, SINGL E EPISO DE, UNSPE CIFIE D (F32. 9) 11/28 - metFORMIN HCl Oral Tablet 500 MG aborted 48796 7 RXNORM 1 table t Oral two times a day Routin e Give 1 table t by mouth two times a day relat ed to TYPE 2 DIABE MOIZ LBIERTAD TUS WITHO UT COMPL ICATI ONS (E11. 9) 11/16 - Atorvastati n Calcium Oral Tablet 40 MG aborted 80329 1 RXNORM 1 table t Oral at bedtime Routin e Give 1 table t by mouth at bedti me for LDL relat ed to HYPER LIPID EMIA, UNSPE CIFIE D (E78. 5) 11/28 LDL Gabapentin Oral Capsule 300 MG aborted 13643 1 RXNORM 1 capsu le Oral three times a day Routin e Give 1 capsu le by mouth three times a day relat ed to OTHER CHRON IC PAIN (G89. 29) 11/28 - Celecoxib Oral Capsule 100 MG aborted 2 RXNORM 1 capsu le Oral two times a day Routin e Give 1 capsu le by mouth two times a day for pain relat ed to OTHER SPECI FIED ARTHR ITIS, UNSPE CIFIE D SITE (M13. 80) 11/28 pain Furosemide Oral Tablet 40 MG aborted 77472 8 RXNORM 1 table t Oral as needed PRN Give 1 table t by mouth every 48 hours as neede d for edema 11/16 edema Xarelto Oral Tablet 15 MG active 28641 84 RXNORM 1 table t Oral two times a day Routin e Give 1 table t by mouth two times a day for DVT relat ed to OTHER PULMO NARY EMBOL ISM WITHO UT ACUTE COR PULMO NALE (I26. 99);P ERSON AL HISTO RY OF OTHER VENOU S THROM BOSIS AND EMBOL ISM (Z86. 718) for 20 Days with meals 12/04 DVT Ranolazine ER Oral Tablet Extended Release 12 Hour 1000 MG aborted 19847 1 RXNORM 1 table t Oral two times a day Routin e Give 1 table t by mouth two times a day for Angin a 11/28 Angina Montelukast Sodium Oral Tablet 10 MG aborted 4 RXNORM 1 table t Oral at bedtime Routin e Give 1 table t by mouth at bedti me for aller gies 11/28 allergies Lokelma Oral Packet 5 [place] [address] 39 RXNORM 2 packe t Oral as needed PRN Give 2 packe t by mouth every 24 hours as neede d for hyper kalem ia for 9 Days 11/23 hyperkalemi a Xarelto Oral Tablet 20 MG aborted 34117 88 RXNORM 1 table t Oral one time a day Routin e Give 1 table t by mouth one time a day for DVT relat ed to OTHER PULMO NARY EMBOL ISM WITHO UT ACUTE COR PULMO NALE (I26. 99);P ERSON AL HISTO RY OF OTHER VENOU S THROM BOSIS AND EMBOL ISM (Z86. 718) with meals 11/28 DVT Omeprazole Oral Tablet Delayed Release 20 MG aborted 57895 4 RXNORM 1 table t Oral one time a day Routin e Give 1 table t by mouth one time a day for GERD relat ed to GASTR O-ESO PHAGE AL REFLU X DISEA SE WITHO UT ESOPH AGITI S (K21. 9) 11/28 GERD Colestipol HCl Oral Tablet 1 GM aborted 09371 45 RXNORM 1 table t Oral two times a day Routin e Give 1 table t by mouth two times a day for LDL 11/28 LDL Nystatin External Powder 726489 UNIT/GM aborted 92810 6 RXNORM n/a n/a Topica l every shift Routin e Apply to groin topic ally every shift for redne ss 11/28 redness DULoxetine HCl Oral Capsule Delayed Release Particles 30 MG aborted 91750 0 RXNORM 1 capsu le Oral two times a day Routin e Give 1 capsu le by mouth two times a day for Depre ssion relat ed to ANXIE TY DISOR ELIANA, UNSPE CIFIE D (F41. 9);ROBERT RIZVI DEPRE SSIVE DISOR ELIANA, SINGL E EPISO DE, UNSPE CIFIE D (F32. 9) 11/28 Depression Cefdinir Oral Capsule 300 MG complet ed 6 RXNORM 1 capsu le Oral two times a day Routin e Give 1 capsu le by mouth two times a day for UTI relat ed to URINA RY TRACT INFEC TION, SITE NOT SPECI FIED (N39. 0) for 5 Days 11/19 UTI Furosemide Oral Tablet 20 MG aborted 96902 9 RXNORM 20 mg Oral one time a day Routin e Give 20 mg by mouth one time a day for diure tic 11/28 diuretic Cefdinir Oral Capsule 300 MG aborted 6 RXNORM 1 capsu le Oral two times a day Routin e Give 1 capsu le by mouth two times a day for cellu litis for 7 Days 11/28 cellulitis Mupirocin External Ointment 2 % aborted 6 RXNORM n/a n/a Topica l every shift Routin e Apply to LLE topic ally every shift for cellu litis for 7 Days 11/28 cellulitis Mental Status Section Date Assessment Total Score Description 11/18/2024 BIMS 15 cognitively int act CAM 0 No delirium ind icated PHQ-9 17 moderately demar re depression 11/18/2024 BIMS 15 cognitively int act CAM 0 No delirium ind icated PHQ-9 17 moderately demar re depression Insurance Providers Plan of Treatment Section Interventions Intervention Code Code System Display Name Proposed D ate Problems Problem # Description Date of onset Resolved Date Code CodeSystem Concern Status 1 ACUTE RESPIRATORY FAILURE WITH HYPOXIA 11/13/[address] active 2 ANXIETY DISORDER, UNSPECIFIED 11/13/[address] active 3 ATHEROSCLEROTIC HEART DISEASE OF [place] CORONARY ARTERY WITHOUT ANGINA PECTORIS 11/13/[id number] active 4 CHRONIC DIASTOLIC (CONGESTIVE) HEART FAILURE 11/13/[address] active 5 CHRONIC KIDNEY DISEASE, STAGE 3A 11/13/[address] active 6 DYSPHAGIA, OROPHARYNGEAL PHASE 11/13/[address] active 7 ESSENTIAL TREMOR 11/13/[address] active 8 GASTRO-ESOPHAGEAL REFLUX DISEASE WITHOUT ESOPHAGITIS 11/13/[address] active 9 HYPERLIPIDEMIA, UNSPECIFIED 11/13/[address] active 10 INSOMNIA, UNSPECIFIED 11/13/[address] active 11 MUSCLE WASTING AND ATROPHY, NOT ELSEWHERE CLASSIFIED, MULTIPLE SITES 11/13/[address] active 12 MUSCLE WEAKNESS (GENERALIZED) 11/13/[address] active 13 OTHER ABNORMALITIES OF GAIT AND MOBILITY 11/13/[address] active 14 OTHER PULMONARY EMBOLISM WITHOUT ACUTE COR PULMONALE 11/13/[address] active 15 PARKINSON'S DISEASE WITHOUT DYSKINESIA, WITHOUT MENTION OF FLUCTUATIONS 11/13/[address] active 16 PAROXYSMAL ATRIAL FIBRILLATION 11/13/[address] active 17 PRESENCE OF AUTOMATIC (IMPLANTABLE) CARDIAC DEFIBRILLATOR 11/13/[address] active 18 RESTLESS LEGS SYNDROME 11/13/[address] active 19 TYPE 2 DIABETES MELLITUS WITH DIABETIC NEUROPATHY, UNSPECIFIED 11/13/[address] active 20 UNSTEADINESS ON FEET 11/13/[address] active 21 URINARY TRACT INFECTION, SITE NOT SPECIFIED 11/13/[address] active 22 VENOUS INSUFFICIENCY (CHRONIC) (PERIPHERAL) 11/13/[address] active 23 AFTERCARE FOLLOWING JOINT REPLACEMENT SURGERY 10/22/1911/12/[address] completed 24 CARPAL TUNNEL SYNDROME, LEFT UPPER LIMB 10/22/[address] active 25 CARPAL TUNNEL SYNDROME, RIGHT UPPER LIMB 10/22/[address] active 26 CHRONIC KIDNEY DISEASE, UNSPECIFIED 10/22/19 21 11/12/[address] completed 27 CHRONIC OBSTRUCTIVE PULMONARY DISEASE, UNSPECIFIED 10/22/[address] active 28 DISORDER OF THYROID, UNSPECIFIED 10/22/19 21 11/12/[address] completed 29 ELEVATED WHITE BLOOD CELL COUNT, UNSPECIFIED 10/22/19 21 11/12/[address] completed 30 ESOPHAGITIS, UNSPECIFIED WITHOUT BLEEDING 10/22/19 21 11/12/[address] completed 31 ESSENTIAL (PRIMARY) HYPERTENSION 10/22/[address] active 32 FAMILY HISTORY OF MALIGNANT NEOPLASM OF OTHER ORGANS OR SYSTEMS 10/22/19 21 11/12/[address] completed 33 FRACTURE OF UNSPECIFIED PART OF NECK OF RIGHT FEMUR, SUBSEQUENT ENCOUNTER FOR CLOSED FRACTURE WITH ROUTINE HEALING 10/22/19 21 11/12/[address] completed 34 FRACTURE OF UNSPECIFIED PART OF RIGHT CLAVICLE, SUBSEQUENT ENCOUNTER FOR FRACTURE WITH ROUTINE HEALING 10/22/19 21 11/12/[address] completed 35 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 10/22/[address] active 36 GROUP HOME (CURRENT) USE OF OPIATE ANALGESIC 10/22/[address] active 37 MAJOR DEPRESSIVE DISORDER, SINGLE EPISODE, UNSPECIFIED 10/22/[address] active 38 MULTIPLE FRACTURES OF RIBS, BILATERAL, SUBSEQUENT ENCOUNTER FOR FRACTURE WITH ROUTINE HEALING 10/22/19 21 11/12/[address] completed 39 MUSCLE WEAKNESS (GENERALIZED) 10/22/1911/12/[address] completed 40 OTHER CHRONIC PAIN 10/22/[address] active 41 OTHER PSYCHOACTIVE SUBSTANCE DEPENDENCE, UNCOMPLICATED 10/22/19 21 11/12/[address] completed 42 OTHER SPECIFIED ARTHRITIS, UNSPECIFIED SITE 10/22/[address] active 43 PARKINSON'S DISEASE 10/22/19 21 11/12/[address] completed 44 PERSONAL HISTORY OF OTHER VENOUS THROMBOSIS AND EMBOLISM 10/22/[address] active 45 PRESENCE OF LEFT ARTIFICIAL HIP JOINT 10/22/[address] active 46 PRESENCE OF RIGHT ARTIFICIAL HIP JOINT 10/22/[address] active 47 TYPE 2 DIABETES MELLITUS WITHOUT COMPLICATIONS 10/22/19 21 11/12/[address] completed 48 UNSPECIFIED ABNORMALITIES OF GAIT AND MOBILITY 10/22/19 21 11/12/[address] completed Reason for Referral No Reasons for Referral Entered Diagnostic Results Laboratory Test Results Code Code System Date Test Observation Result Interpretation Reference Range Status Notes LP783 9-6 LOINC 11/13 CMP-COM PREHENS AUTUMN METABOL IC PNL / LIPID PANEL w/calc LDL / MAGNESI UM / GLYCO-H GBA1C / CBC W/DIFF / VITAMIN D 25-OH TOTAL Completed Result for: ALAN KRUEGER ( [birth year], M) 12991 -8 LOINC 11/13 VITAMIN D 25-OH TOTAL Value: 33 Units: ng/mL Normal 30-100 Final LP783 9-6 LOINC 11/13 CBC W/DIFF Completed Result for: ALAN KRUEGER ( [birth year] 49, M) 771-6 LOINC 11/13 NUCLEATED RBC Value: 0.1 Units: {RBC}/1 00{WBC} Normal <1.0 Final 785-6 LOINC 11/13 MCH Value: 33.5 Units: pg Normal 26.0-35.0 Final LP783 9-6 LOINC 11/13 CMP-COM PREHENS AUTUMN METABOL IC PNL Completed Result for: ALAN KRUEGER ( [birth year] 49, M) 1759- 0 LOINC 11/13 A/G RATIO - Normal 0.8-2.0 Final 3097- 3 LOINC 11/13 BUN/CREATININ E RATIO - Normal 6-25 Final LP783 9-6 LOINC 11/13 LIPID PANEL w/calc LDL Completed Result for: ALAN KRUEGER ( [birth year] 49, M) 16673 -4 LOINC 11/13 LDLc/HDL RATIO - Normal <4:1 Final LP783 9-6 LOINC 11/13 CBC W/DIFF Completed Result for: ALAN KRUEGER ( [birth year] 49, M) 738-5 LOINC 11/13 MACROCYTOSIS - Abnormal NEGATIVE Final LP783 9-6 LOINC 11/13 CMP-COM PREHENS AUTUMN METABOL IC PNL Completed Result for: ALAN KRUEGER ( [birth year] 49, M) 3094- 0 LOINC 11/13 BUN (UREA NITROGEN) Value: 50 Units: mg/dL High 7-25 Final 2160- 0 LOINC 11/13 CREATININE Value: 2.3 Units: mg/dL High 0.6-1.3 Final LP783 9-6 LOINC 11/13 CMP-COM PREHENS AUTUMN METABOL IC PNL / LIPID PANEL w/calc LDL / MAGNESI UM / GLYCO-H GBA1C / CBC W/DIFF / VITAMIN D 25-OH TOTAL Completed Result for: ALAN KRUEGER ( [birth year] 49, M) 04464 -9 LOINC 11/13 MAGNESIUM Value: 2.8 Units: mg/dL High 1.9-2.7 Final LP783 9-6 LOINC 11/13 [facility] PREHENS AUTUMN METABOL IC PNL Completed Result for: ALAN KRUEGER ( [birth year] 49, M) 1975- 2 LOINC 11/13 BILIRUBIN, TOTAL Value: 0.6 Units: mg/dL Normal 0.2-1.2 Final LP783 9-6 LOINC 11/13 LIPID PANEL w/calc LDL Completed Result for: ALAN KRUEGER ( [birth year] 49, M) 2093- 3 LOINC 11/13 CHOLESTEROL Value: 114 Units: mg/dL Normal <200 Final 2571- 8 LOINC 11/13 TRIGLYCERIDE Value: 319 Units: mg/dL High <150 Final 2085- 9 LOINC 11/13 HDL Value: 32 Units: mg/dL Normal >40 Final 32588 -7 LOINC 11/13 LDL CALCULATED Value: 18 Units: mg/dL Normal <100 Final LP783 9-6 LOINC 11/13 GLYCO-H GBA1C Completed Result for: ALAN KRUEGER ( [birth year], M) 68510 -2 LOINC 11/13 eAG (Mean Glucose) Value: 186 Units: mg/dL High 70-120 Final LP783 9-6 LOINC 11/13 LIPID PANEL w/calc LDL Completed Result for: ALAN KRUEGER ( [birth year] 49, M) 2091- 7 [facility] 11/13 VLDLc Value: 64 Units: mg/dL High 5-30 Final LP783 9-6 LOINC 11/13 CMP-COM PREHENS AUTUMN METABOL IC PNL Completed Result for: ALAN KRUEGER ( [birth year] 49, M) 2345- 7 [facility] 11/13 GLUCOSE Value: 151 Units: mg/dL High Final GLUCOSE , FASTING 65-99 mg/dL GLUCOS E, NON-FAS TING 65-125 mg/dL 13906 -6 [facility] 11/13 CALCIUM Value: 9.4 Units: mg/dL Normal 8.6-10.3 Final 16886 -1 [facility] 11/13 GFR- Value: 34 Units: mL/min/ {1.73_m 2} Low >60 Final 70830 -3 [facility] 11/13 AIV-STA-HQHTW AN ROMANIAN Value: 28 Units: mL/min/ {1.73_m 2} Low >60 Final Stage of CKD eGFR (mL/min /1.73 square meters) Stage 1 >/= 90 or > 90 Stage 2 60 - 89 Stage 3 30 - 59 Stage 4 15 - 29 Stage 5 </= 14 or < 15 GFR is reliabl e for adults 17 to 69 years with stable kidney functio n. LP783 9- [facility] 11/13 CBC W/DIFF Completed Result for: ALAN KRUEGER ( [birth year] 49, M) 788-0 [facility] 11/13 RDW Value: 15.2 Units: % Normal 11.0-16.0 Final 770-8 [facility] 11/13 NEUTROPHILS Value: 75.6 Units: % Normal 40.0-80.0 Final 736-9 INC 11/13 LYMPHS Value: 17.7 Units: % Normal 13.0-48.0 Final 57638 -3 [facility] 11/13 MONOCYTES Value: 6.4 Units: % Normal 2.0-12.0 Final 713-8 LOINC 11/13 EOS Value: 0.1 Units: % Normal 0.0-8.0 Final 706-2 LOINC 11/13 BASO Value: 0.2 Units: % Normal 0.0-2.0 Final LP783 9-6 LOINC 11/13 GLYCO-H GBA1C Completed Result for: ALAN KRUEGER ([facility] [birth year] 49, M) 4548- 4 [facility] 11/13 GLYCOHEMOGLOB IN-HGBA1C Value: 8.1 Units: % High 4.1-6.1 Final 783 9-6 [facility] 11/13 CBC W/DIFF Completed Result for: ALAN KRUEGER ([facility] [birth year] 49, M) 4544- 3 [facility] 11/13 HEMATOCRIT Value: 42.1 Units: % Normal 42.0-54.0 Final 70174 -7 [facility] 11/13 MCV Value: 100.4 Units: fL High 80.0-100.0 Final 92969 -1 [facility] 11/13 MPV Value: 9.0 Units: fL Normal 6.5-12.0 Final 718-7 [facility] 11/13 HEMOGLOBIN Value: 14.1 Units: g/dL Normal 14.0-18.0 Final 786-4 [facility] 11/13 MCHC Value: 33.4 Units: g/dL Normal 31.0-36.5 Final 9 [facility] 11/13 CMP-COM PREHENS AUTUMN METABOL IC PNL Completed Result for: ALAN KRUEGER ([facility] [birth year] 49, M) 2885- 2 [facility] 11/13 PROTEIN, TOTAL Value: 6.1 Units: g/dL Normal 6.0-8.3 Final 1751- 7 [facility] 11/13 ALBUMIN Value: 3.6 Units: g/dL Normal 3.5-5.5 Final 6768- 6 [facility] 11/13 ALKALINE PHOS Value: 50 Units: [IU]/L Normal 38-126 Final 1920- 8 [facility] 11/13 AST (SGOT) Value: 12 Units: [IU]/L Low 14-36 Final 1742- 6 LOINC 11/13 ALT (SGPT) Value: 12 Units: [IU]/L Normal 7-52 Final LP783 9-6 LOINC 11/13 CBC W/DIFF Completed Result for: ALAN KRUEGER ( [birth year], M) 6690- 2 LOINC 11/13 WBC Value: 11.9 Units: K/cmm High 4.5-10.8 Final 777-3 LOINC 11/13 PLATELET Value: 176 Units: K/cmm Normal 150-450 Final 751-8 LOINC 11/13 NEUTS (ABSOLUTE) Value: 9.00 Units: K/uL High 1.50-7.60 Final 731-0 LOINC 11/13 LYMPHS (ABSOLUTE) Value: 2.10 Units: K/uL Normal 0.90-5.50 Final 742-7 LOINC 11/13 MONOCYTES (ABSOLUTE) Value: 0.80 Units: K/uL Normal 0.15-1.10 Final 789-8 LOINC 11/13 RBC Value: 4.19 Units: 10*3/mm 3 Normal 4.00-6.60 Final LP783 9-6 LOINC 11/13 CMP-COM PREHENS AUTUMN METABOL IC PNL Completed Result for: ALAN KRUEGER ( [birth year] 49, M) 2951- 2 LOINC 11/13 SODIUM Value: 140 Units: mEq/L Normal 136-145 Final 2823- 3 LOINC 11/13 POTASSIUM Value: 4.3 Units: mEq/L Normal 3.5-5.3 Final 5- 0 LOINC 11/13 CHLORIDE Value: 98 Units: mEq/L Normal 98-110 Final 2027- 9 LOINC 11/13 CARBON DIOXIDE (CO2) Value: 30 Units: mEq/L Normal 21-33 Final LP343 631-0 LOINC 11/18 BASIC MET PNL INCL GFR (BMP) Completed Result for: AALN KRUEGER ( [birth year] 49, M) 3097- 3 LOINC 11/18 BUN/CREATININ E RATIO - Normal 6-25 Final 2951- 2 [facility] 11/18 SODIUM Value: 140 Units: mEq/L Normal 136-145 Final 2823- 3 [facility] 11/18 POTASSIUM Value: 4.3 Units: mEq/L Normal 3.5-5.3 Final 2075- 0 [facility] 11/18 CHLORIDE Value: 104 Units: mEq/L Normal 98-110 Final 2027- 9 [facility] 11/18 CARBON DIOXIDE (CO2) Value: 29 Units: mEq/L Normal 21-33 Final 3094- 0 [facility] 11/18 BUN (UREA NITROGEN) Value: 35 Units: mg/dL High 7-25 Final 2160- 0 [facility] 11/18 CREATININE Value: 2.0 Units: mg/dL High 0.6-1.3 Final 2345- 7 [facility] 11/18 GLUCOSE Value: 138 Units: mg/dL High Final GLUCOSE , FASTING 65-99 mg/dL GLUCOS E, NON-FAS TING 65-125 mg/dL 04785 -6 [facility] 11/18 CALCIUM Value: 8.8 Units: mg/dL Normal 8.6-10.3 Final 02021 -1 [facility] 11/18 GFR- Value: 40 Units: mL/min/ {1.73_m 2} Low >60 Final 67446 -3 [facility] 11/18 GRL-TWV-PSYOX AN ROMANIAN Value: 33 Units: mL/min/ {1.73_m 2} Low >60 Final Stage of CKD eGFR (mL/min /1.73 square meters) Stage 1 >/= 90 or > 90 Stage 2 60 - 89 Stage 3 30 - 59 Stage 4 15 - 29 Stage 5 </= 14 or < 15 GFR is reliabl e for adults 17 to 69 years with stable kidney functio n. Social History Social History Observation Description Start Date End Date Code Code System Current Smoking Status Tobacco smoking consumption unknown 183477651 SNOMED CT Sex Assigned At Male 1950 36803-9 [facility] Gender Identity Sexual Orientation Vital Signs Code Code System Vitals Name Values and Units Timing Information 28807-6 [facility] Pain Level Value=6.0 11/28/2024 9279-1 [facility] Respiratory Rate Value=18.0 Units=/m in 11/28/2024 8462-4 [facility] Blood Pressure-Diastolic Value=79 Un its=mmHg 11/28/2024 8480-6 [facility] Blood Pressure-Systolic Floyt=196 Un its=mmHg 11/28/2024 8310-5 [facility] Body Temperature Value=98.6 Units= F 11/28/2024 8867-4 [facility] Heart rate Value=71.0 Units=/min 10/2024 78298-9 [facility] O2 % BldC Oximetry Value=96.0 Units= % 11/28/2024 2339-0 [facility] Blood Sugar Fewpl=488.0 Units=mg/dL 11/28/2024 46032-5 [facility] Weight Dsalp=677.0 Units=Lbs 06/2024 8302-2 [facility] Height Value=73.0 Units=Inches 11/13/2024
--- OUTSIDE RECORDS SUMMARY | 2024-12-01 06:45 | XMS_ITS | Clinical Summary ---
Author Organization Healthcare Address [address] [place] [address] Care Team Providers Care Maintenance Scheduler Name Role Phone Abel Parker MD Primary Care Provider [phone] Allergies Active Allergy Reactions Criticality Noted Date [...] kell emboli without acute cor pulmonale 04/17/2024 Left leg cellulitis 04/15/2024 Resolved Problems Problem Noted Date Diagnosed Date Resolved Date Acute kidney injury superimp osed on stage 3a chronic kidney disease 04/17/2024 11/10/2024 Social History Tobacco Use Types Packs/Day Years [...] any time in the past 12 m ont, were you homeless or living in a care home (including now)? No 04/15/2024 Utilities Answer Date [...] Screenings 10/13/2024 [facility]-Adult SDOH Screenings 10/13/2024 04/15/2024 [id number] Vaccine (2 - season) 2024 10/08/2020 [facility]-Influenza [...] Insurance [address] [place] [address] [facility] MEDICARE Advance Directives * Full Code (Latest Code Status on File) Date Activated Date Inactivated Comments 04/15/2024 4:26 AM 04/19/2024 3:59 PM Question Answer Comments Patient has decision-making capacity? Yes Care Teams Maintenance Scheduler Relationship Specialty Start Date End Date Abel Parker MD [address] [place] [address] PCP - General 07/03/20
--- OUTSIDE RECORDS SUMMARY | 2024-12-01 06:45 | XMS_ITS | Clinical Summary ---
[facility] Address [address] [place] [address] Care Team Providers Care Electrician Powerhouse Name Role Phone Provider, No Known Primary [...] 2024 Insurance [employer] MED[employer] ADV[employer]AGE Care Teams Electrician Powerhouse Relationship Specialty Start Date End Date Provider, No Known [facility] [address] PCP - General 11/18/16
--- OUTSIDE RECORDS SUMMARY | 2024-12-01 06:45 | XMS_ITS | Encounter Summary ---
Author Organization [facility] Address [address] [place] [address] Care Team Providers Care Application Release Manager Name Role Phone Provider, No Known Primary Care Provider Unavail able Encounter Details Date Type Department Care Team (Late st Contact Info) Description 10/31/2011 Conversion Encounter [facility] HISTORICAL CONV [address] [place] [address] Interface, See Report Social History [...] Lucas Batres M.D. ' Rosa Zepeda APRN [facility], [email or web address] OFFICE NOTE PASCALE KRUEGER : 1950 DATE [...] time. Dameon Sorto M.D.* KATHARINE/jewell Doc. ID [id number] Rev. #0 cc: Michael Owens M.D.* . [...] Lucas Batres M.D. ' Rosa Zepeda APRN [facility], [facility] [address] [place] [address] [place] OFFICE NOTE PASCALE KRUEGER : 1950 DATE [...] call. Dameon Sorto M.D.* AP/rxteresa Doc. ID [id number] Rev. #0 cc: Michael Owens M.D.* Morris Cruz Jr., M.D.* Page 2 of 2 Page 1 of 2 Authenticated by DAMEON SORTO MD On 03/01/2012 11:18:20 AM documented in this encounter Plan of Treatment Not on file documented as of this encounter Visit Diagnoses Not on filedocumented in this encounter Care Teams Application Release Manager Relationship Specialty Start Date End Date Provider, [place] [address] PCP - General 11/18/16 documented as of this encounter
--- NOTE | 2024-12-01 06:52 | ECG_ITS ---
APPROVED REPORT Exam: Resting ECG HR:79 bpm ECG Measurements Heart Rate 79 AXES QRSd 174 QRS 156 QT 473 T 39 QTc 507 Conclusion ELECTRONIC VENTRICULAR PACEMAKER ABNORMAL RHYTHM ECG Electronically signed by : EVAN GRACIA, 12/06/2024 16:19:46
--- NOTE | 2024-12-01 06:56 | CT_ITS ---
PROCEDURE INFORMATION: Exam: CT Abdomen And Pelvis With Contrast Exam date and time: 12/01/2024 8:01 AM Age: 74 years old Clinical indication: Other: Distention; Additional info: Mental status change, abdominal distention TECHNIQUE: Imaging protocol: Computed tomography of the abdomen and pelvis with contrast. 3D rendering (Not supervised by radiologist): MIP and/or 3D reconstructed images were created by the technologist. Radiation optimization: All CT scans at this facility use at least one of these dose optimization techniques: automated exposure control; mA and/or kV adjustment per patient size (includes targeted exams where dose is matched to clinical indication); or iterative reconstruction. Contrast material: ISOVUE; Contrast volume: 70 ml; Contrast route: IV; COMPARISON: CT ABDOMEN PELVIS W CON 11/12/2024 1:37 AM FINDINGS: Liver: There is fatty infiltration of the liver. Gallbladder and biliary ducts: The patient is status post cholecystectomy. Pancreas: Normal. No ductal dilation. Spleen: Normal. No splenomegaly. Adrenal glands: Normal. No mass. Kidneys and ureters: Few left renal cysts are identified and there is asymmetric volume loss in the left kidney. The right kidney appears normal. Stomach and bowel: There is no bowel obstruction. There is diverticulosis without evidence of diverticulitis. There is moderate stool in the sigmoid colon. Appendix: No evidence of appendicitis. Intraperitoneal space: Unremarkable. No free air. No significant fluid collection. Vasculature: Unremarkable. No abdominal aortic aneurysm. Lymph nodes: Unremarkable. No enlarged lymph nodes. Urinary bladder: Unremarkable as visualized. Reproductive: Unremarkable as visualized. Bones/joints: The patient is status post right hip arthroplasty and ORIF of the left hip. No acute fracture. Soft tissues: Unremarkable. IMPRESSION: 1. No evidence of acute process. 2. Hepatic steatosis. 3. Diverticulosis. COMMENTS: Consistent with the [employer]'s Incidental Findings Committee white paper (J Am Marlo Radiol 2018): Any incidental renal lesion less than 1 cm or classified as too small to characterize, or any incidental cystic renal lesion characterized as simple-appearing, is likely benign. No follow-up imaging is recommended for these lesions per consensus recommendations based on imaging criteria.
--- NOTE | 2024-12-01 06:56 | CT_ITS ---
PROCEDURE INFORMATION: Exam: CT Head Without Contrast Exam date and time: 12/01/2024 7:56 AM Age: 74 years old Clinical indication: Altered mental status/memory loss; Additional info: Acute mental status change TECHNIQUE: Imaging protocol: Computed tomography of the head without contrast. Radiation optimization: All CT scans at this facility use at least one of these dose optimization techniques: automated exposure control; mA and/or kV adjustment per patient size (includes targeted exams where dose is matched to clinical indication); or iterative reconstruction. COMPARISON: CT HEAD/BRAIN WO CON 11/12/2024 1:34 AM FINDINGS: Brain: There is mild small vessel disease. There is no evidence of acute parenchymal hemorrhage, extra-axial collection, or acute infarction. There is no mass effect, midline shift, or downward herniation. Cerebral ventricles: No ventriculomegaly. Paranasal sinuses: Visualized sinuses are unremarkable. No fluid levels. Mastoid air cells: Visualized mastoid air cells are well aerated. Bones: Unremarkable. No acute fracture. Soft tissues: Unremarkable. IMPRESSION: Mild small vessel disease. No evidence of acute intracranial process.
--- NOTE | 2024-12-01 06:56 | CT_ITS ---
PROCEDURE INFORMATION: Exam: CTA Chest With Contrast Exam date and time: 12/01/2024 8:01 AM Age: 74 years old Clinical indication: Other: Hypoxia; Additional info: Intermittent hypoxia, AMS, clinical signs of dvt TECHNIQUE: Imaging protocol: Computed tomographic angiography of the chest with contrast. Exam focused on the arteries. 3D rendering (Not supervised by radiologist): MIP and/or 3D reconstructed images were created by the technologist. Radiation optimization: All CT scans at this facility use at least one of these dose optimization techniques: automated exposure control; mA and/or kV adjustment per patient size (includes targeted exams where dose is matched to clinical indication); or iterative reconstruction. Contrast material: ISOVUE 370; Contrast volume: 70 ml; Contrast route: INTRAVENOUS (IV); COMPARISON: CT ANGIO CHEST PE PROTOCOL 11/11/2024 9:20 PM FINDINGS: Pulmonary arteries: Stable pulmonary emboli are identified in the left lower lobe. The RV/LV ratio equals approximately 1.0. Aorta: Unremarkable. No aortic aneurysm. No aortic dissection. Lungs: There is mild bilateral lower lobe mucoid impaction identified. There is mild bilateral dependent lower lobe atelectasis. Pleural spaces: Unremarkable. No pneumothorax. No pleural effusion. Heart: Unremarkable. No cardiomegaly. No pericardial effusion. Lymph nodes: Unremarkable. No enlarged lymph nodes. Bones/joints: Multiple old right rib fractures are identified. There is a stable mild T3 compression deformity. Soft tissues: Unremarkable. IMPRESSION: 1. Stable left lower lobe pulmonary emboli. No evidence of right-sided heart strain. 2. Mild bilateral lower lobe mucoid impaction with mild bilateral dependent lower lobe atelectasis.
--- NOTE | 2024-12-01 06:56 | CT_ITS ---
PROCEDURE INFORMATION: Exam: CTA Neck With Contrast Exam date and time: 12/01/2024 7:58 AM Age: 74 years old Clinical indication: Other: AMS; Additional info: Acute mental status change TECHNIQUE: Imaging protocol: Computed tomographic angiography of the neck with contrast. Exam focused on the cervical segments of the vasculature. 3D rendering (Not supervised by radiologist): MIP and/or 3D reconstructed images were created by the technologist. Radiation optimization: All CT scans at this facility use at least one of these dose optimization techniques: automated exposure control; mA and/or kV adjustment per patient size (includes targeted exams where dose is matched to clinical indication); or iterative reconstruction. Contrast material: ISOVUE 370; Contrast volume: 80 ml; Contrast route: INTRAVENOUS (IV); COMPARISON: CT ANGIO NECK 04/14/2024 6:21 PM FINDINGS: Right common carotid artery: No stenosis. No dissection or occlusion. Right internal carotid artery: There is soft and calcified mild plaque of the proximal segment causing a stenosis measuring less than 50%. Right external carotid artery: No occlusion or stenosis of the origin. Left common carotid artery: No stenosis. No dissection or occlusion. Left internal carotid artery: There is stenosis of the left carotid bulb proximal segment measuring less than 50% secondary to soft and calcified plaque. The remainder of the left internal carotid artery is patent. Left external carotid artery: No occlusion or stenosis of the origin. Right vertebral artery: Hypoplastic but appears patent. No dissection or occlusion. Left vertebral artery: No stenosis. No dissection or occlusion. Soft tissues: The patient appears to be status post right parotidectomy. No significant soft tissue swelling. Bones/joints: No acute fracture. IMPRESSION: Mild bilateral proximal internal carotid artery stenosis. REFERENCES: NASCET CRITERIA. The degree of stenosis in the cervical segment of the internal carotid artery is based on NASCET criteria. Normal is no stenosis. Mild is less than 50% stenosis. Moderate is 50-69% stenosis. Severe is 70% to 99% stenosis. Total occlusion is no detectable patent lumen.
--- NOTE | 2024-12-01 06:56 | CT_ITS ---
PROCEDURE INFORMATION: Exam: CTA Head With Contrast, Arteriography Exam date and time: 12/01/2024 7:58 AM Age: 74 years old Clinical indication: Other: AMS; Additional info: Acute mental status change TECHNIQUE: Imaging protocol: Computed tomographic angiography of the head with contrast. Exam focused on the arteries. 3D rendering (Not supervised by radiologist): MIP and/or 3D reconstructed images were created by the technologist. Radiation optimization: All CT scans at this facility use at least one of these dose optimization techniques: automated exposure control; mA and/or kV adjustment per patient size (includes targeted exams where dose is matched to clinical indication); or iterative reconstruction. Contrast material: ISOVUE 370; Contrast volume: 80 ml; Contrast route: INTRAVENOUS (IV); COMPARISON: CT ANGIO HEAD 04/14/2024 6:21 PM FINDINGS: ANTERIOR CIRCULATION: Right internal carotid artery: There is [id number] stenosis of the cavernous segment secondary to calcified plaque. Right middle cerebral artery: No occlusion or significant stenosis. No aneurysm. Right anterior cerebral artery: No occlusion or significant stenosis. No aneurysm. Left internal carotid artery: Intracranial segment is patent with no significant stenosis. No aneurysm. Left middle cerebral artery: No occlusion or significant stenosis. No aneurysm. Left anterior cerebral artery: No occlusion or significant stenosis. No aneurysm. POSTERIOR CIRCULATION: Right vertebral artery: No occlusion or significant stenosis. No aneurysm. Left vertebral artery: No occlusion or significant stenosis. No aneurysm. Basilar artery: No occlusion or significant stenosis. No aneurysm. Right posterior cerebral artery: No occlusion or significant stenosis. No aneurysm. Left posterior cerebral artery: No occlusion or significant stenosis. No aneurysm. Brain: No definite mass, mass effect, or midline shift. Cerebral ventricles: No ventriculomegaly. Bones/joints: Unremarkable. No acute fracture. Soft tissues: Unremarkable. IMPRESSION: Right internal carotid artery stenosis. Otherwise patent [id number].
--- NOTE | 2024-12-01 06:57 | PC.NURSE ---
FSBS 171
--- NOTE | 2024-12-01 07:02 | PC.NURSE ---
asking for official DVT ultrasound. call made to thanh in respiratory. she states that she will call the [employer] salesperson and call me back
[2024-12-01 07:12] LABS: Lactate Venous 1.9 mmol/L (0.4-2.0); VBG HCO3 30.6 mmol/L (23-30); VBG PCO2 57.4 mmol/L (35-51); VBG PH 7.34 mmol/L (7.31-7.41); VBG PO2 25.0 mmol/L (28-40)
--- NOTE | 2024-12-01 07:12 | PC.NURSE ---
someone from ultrasound will be here around 0800 to do the scan.
[2024-12-01 07:13] LABS: Hematocrit 44.5 % (42.0-52.0); Hemoglobin 14.7 g/dL (14.1-18.0); Immature Granulocytes % 0.4 %; Mean Corpuscular HGB Conc 33.0 g/dL (31.8-35.4); Mean Corpuscular Hemoglobin 34.3 pg (27.0-31.2); Mean Corpuscular Volume 104.0 fl (80-94); Nucleated Red Blood Cells % 0 %; Platelet Count 191 K/mm3 (142-424); Red Blood Count 4.28 M/mm3 (4.60-6.20); Red Cell Distribution Width-SD 59.2 fL; White Blood Count 9.5 K/mm3 (4.8-10.8)
--- NOTE | 2024-12-01 07:13 | CA_ITS ---
FINAL REPORT CLINICAL HISTORY: edema, Left leg red warm to touch, Prev DVT in left femoral vein 11/12/24 FINDINGS: DUPLEX VENOUS SONOGRAPHY OF THE BILATERAL LOWER EXTREMITIES Multiple transverse and longitudinal scans were performed of the femoropopliteal deep venous systems, with augmentation and compression maneuvers. FINDINGS: Right lower extremity is negative for DVT. Left lower extremity evaluation is limited secondary to soft tissue edema. Thrombus is seen within the superficial femoral vein. IMPRESSION: No evidence of deep venous thrombosis right lower extremity. Superficial thrombosis within the left femoral vein. Reviewed, Interpreted and Dictated by Leanne Barbosa MD Transcribed by Shainta Arvizu Authenticated and [facility]
[2024-12-01 07:14] LABS: Albumin Level 3.9 g/dl (3.5-5.0); Chloride 100 mmol/L (98-107); Potassium 4.3 mmoL/L (3.5-5.1); Sodium 138 mmol/L (136-145)
[2024-12-01 07:17] LABS: Alanine Aminotransferase 16 U/L (12-78); Albumin/Globulin Ratio 1.2 (1.1-1.8); Alkaline Phosphatase 104 U/L (38-126); Anion Gap 10.3 mEq/L (5-15); Aspartate Amino Transferase 21 U/L (17-59); Bilirubin,Total 0.8 mg/dl (0.2-1.3); Blood Urea Nitrogen 29 mg/dl (9-20); Carbon Dioxide 32 mmol/L (22.0-30.0); Creatinine Clearance Estimated 52 mL/min (50-200); Creatinine,Serum 1.70 mg/dl (0.66-1.25); Estimated Glomerular Filt Rate 39 ml/min (>60); GFR (African American) 48 ML/MIN (>60); Globulin 3.2 g/dL (1.3-3.2); Lipase 49 U/L (23-300); Total Protein,Serum 7.1 g/dl (6.3-8.2)
[2024-12-01 07:18] LABS: Calcium 10.2 mg/dl (8.4-10.2); Glucose 198 mg/dl (74-100)
--- NOTE | 2024-12-01 07:20 | HMH.EDGENADL ---
Discharge Plan Disposition Patient Disposition: Admitted Condition: Fair Prescriptions Prescriptions: No Action gabapentin 300 mg capsule 300 mg PO TID Qty: 90 2RF ropinirole 1 mg tablet 1 mg PO TID omeprazole 20 mg capsule,delayed release(DR/EC) 20 mg PO DAILY colestipol 1 gram tablet 1 g PO BID ranolazine 1,000 mg tablet extended release 12 hr 1,000 mg PO BID Qty: 60 2RF Xarelto 20 mg tablet 20 mg PO DAILY Qty: 30 2RF Rx Instructions: must administer with evening meal montelukast 10 mg tablet 10 mg PO HS atorvastatin 40 mg tablet 40 mg PO HS quetiapine 200 mg tablet 200 mg PO HS oxycodone-acetaminophen 7.5-325 mg tablet 1 tab PO QIDP PRN (Reason: Pain) celecoxib 100 mg capsule 100 mg PO BID duloxetine 30 mg capsule,delayed release(DR/EC) 30 mg PO BID propranolol 20 mg Tablet 10 mg PO BID 30 Days Qty: 30 0RF melatonin 5 mg Tablet 5 mg PO HS 30 Days Qty: 30 0RF Lokelma 5 gram Powder In Packet 10 g PO DAILY PRN (Reason: hyperkalemia) Qty: 11 0RF Xarelto DVT-PE Treat 30d Start 15 mg (42)- 20 mg (9) tablets,dose pack See Rx Instructions .ROUTE .COMPLEX Qty: 51 0RF Rx Instructions: take one-15 mg tablet twice daily for 21 days, then one-20 mg tablet once daily; must take with meal/food cefdinir 300 mg capsule 300 mg PO BID 6 Days Qty: 12 0RF furosemide [Lasix] 40 mg tablet 40 mg PO Q48H 30 Days Qty: 30 0RF Rx Instructions: Take 1-2 tabs orally daily PRN; metformin 500 mg tablet 500 mg PO BID Qty: 30 0RF Referrals Follow up/Referrals: Andria Ryan APRN [Primary Care Provider, Medical] - See instructions Instructions Patient Instructions: DI for Altered Mental Status Print Language Print Language: [place] Discharge ED Provider: Marycruz Mcclelland Adult HPI General Chief complaint: Altered Mental Status Stated complaint: Altered Mental Status Time Seen by Provider: 12/01/24 06:50 Mode of Arrival: EMS Source of Information: EMS Description of Symptoms (Recalled from ER Triage Doc. by RN): PT presents to ED with AMS, Per Pt family member, pt recently got d/c from [facility] [place] on 11/28/24. Per EMS patient started having symtpoms of increased confusion, involunatry shaking, and decreased gait limiting his ability to walk. EMS states that pt reportedly had gotten better throughout the day yesterday. PT woke up at 5am and called his niece in the room having involuntary jerking/shaking movements, AMS, slurred speech and unable to follow commands. Last known normal 4pm 11/30/24. History of Present Illness HPI narrative: This is a 74-year-old male with history of lower extremity DVT on Xarelto, heart failure with reduced ejection fraction, HTN, HLD, pacemaker, CKD 3A, Parkinson's disease, DM not on insulin, CAD who presents to the emergency department with family members via EMS for altered mental status. [facility]. He was acting himself yesterday evening, alert, oriented. He went to bed at approximately 10 PM. At 5 AM this morning, he began calling for a family member. Since then he has worsened, becoming increasingly altered with intermittent twitching movements. The patient has no acute complaints on exam, however is altered and aphasic. Family has noticed that the left lower extremity has become increasingly red and swollen, however has been asymmetrically swollen in comparison to the right for weeks. No known episodes of vomiting, no recent head trauma, no recent fevers. Related Data Home Medications ?Medication ?Instructions ?Recorded ?Confirmed atorvastatin 40 mg tablet 40 mg PO HS Cholesterol 07/03/22 11/12/24 celecoxib 100 mg capsule 100 mg PO BID Arthritis 07/03/22 11/12/24 duloxetine 30 mg capsule,delayed 30 mg PO BID 07/03/22 11/12/24 release oxycodone-acetaminophen 7.5 mg-325 1 tab PO QIDP PRN Pain 07/03/22 11/12/24 mg tablet quetiapine 200 mg tablet 200 mg PO HS 07/03/22 11/12/24 montelukast 10 mg tablet 10 mg PO HS 04/14/24 11/12/24 colestipol 1 gram tablet 1 g PO BID 05/14/24 11/12/24 omeprazole 20 mg capsule,delayed 20 mg PO DAILY 10/09/24 11/12/24 release ropinirole 1 mg tablet 1 mg PO TID Restless leg syndrome 10/09/24 11/12/24 Previous Rx's ?Medication ?Instructions ?Recorded gabapentin 300 mg capsule 300 mg PO TID #90 caps 10/09/24 ranolazine 1,000 mg 1,000 mg PO BID #60 tabs 10/29/24 tablet,extended release,12 hr cefdinir 300 mg capsule 300 mg PO BID 6 days #12 caps 11/12/24 furosemide 40 mg tablet (Lasix) 40 mg PO Q48H 30 days #30 tabs 11/12/24 melatonin 5 mg tablet 5 mg PO HS 30 days #30 tabs 11/12/24 metformin 500 mg tablet 500 mg PO BID #30 tabs 11/12/24 propranolol 20 mg tablet 10 mg (1/2 x 20 mg) PO BID 30 days 11/12/24 #30 tabs rivaroxaban 15 mg (42)-20 mg (9) See Rx Instructions PO .COMPLEX 11/12/24 tablets in a starter pack (Xarelto #51 tabs DVT-PE Treatment 30-Day Starter) sodium zirconium cyclosilicate 5 10 g PO DAILY PRN hyperkalemia #11 11/12/24 gram oral powder packet (Lokelma) ea rivaroxaban 20 mg tablet (Xarelto) 20 mg PO DAILY #30 tabs 11/28/24 Allergies Allergy/AdvReac Type Severity Reaction Status Date / Time aspirin (ASPIRIN) Allergy Unknown S-DIFF. Verified 10/29/24 15:26 [facility] Disclaimer: The information contained in this section may have been updated after the patient was seen, as this information can be updated by other users. Medical History Dehydration Hypotension Edema Cardiac resynchronization therapy defibrillator ([employer]-D) in place HLD (hyperlipidemia) HTN (hypertension) HFrEF (heart failure with reduced ejection fraction) Paroxysmal A-fib Coronary artery disease Cardiac pacemaker in situ Chronic kidney disease, stage 3a Peripheral vascular disease Chronic pain with drug dependence History of DVT of lower extremity Rib fractures Clavicular fracture Depression Fall at home Parkinson disease Diabetes mellitus Surgical History AICD (automatic cardioverter/defibrillator) present implant OCT 2022. S/P carpal tunnel release History of total left hip replacement S/P cholecystectomy Family History Other Coronary artery disease Diabetes Social History (Updated 11/11/24 @ 22:51 by Sofia Augustin RN) Smoking Status: Current every day smoker tobacco type: cigars years smoked: 55 quit status: not considering quitting alcohol intake: never substance use type: denies use current occupational status: retired Travel in the last 8 weeks?: None household members: other housing: apartment marital status: Have you lived/traveled outside [place] in past 30 days?: No Contact w/someone who lives/traveled outside US past 30 days?: No Exposure to someone with infectious disease in past 14 days?: No Do you have a fever (greater than 100.4 F or 38 C)?: No Have you tested positive for COVID-19?: No Exposed to someone with COVID-19 in past 14 days?: No Do you have a sore throat?: No Do you have a cough?: No Do you have any weakness?: No Do you have any diarrhea?: No Are you experiencing any unusual bleeding?: No Do you have any muscle aches/pain?: No Do you have any abdominal pain?: No Are you experiencing loss of taste or smell?: No Other Medical History Have you received the Flu Vaccine for this season: No Have you received the Pneumonia Vaccine: No ROS Obtained: Yes All systems reviewed & no additional complaints except as documented Physical Exam General General appearance: other (Confused, laying upright in bed) Comment: Sitting upright in bed, opens eyes to verbal stimulus. Head Head exam: atraumatic Eye Eye exam: Present other (Left pupil is pinpoint, right pupil is abnormally shaped with corneal clouding (family states this is baseline)) ENT ENT exam: Present mucous membranes moist Neck Neck exam: Present normal inspection and full ROM; Absent tenderness Chest Chest inspection: Present symmetric chest wall rise; Absent tenderness Respiratory Respiratory exam: Absent respiratory distress, wheezes or accessory muscle use Cardiovascular Cardiovascular exam: Present regular rate and normal rhythm Abdominal Exam Abdominal exam: Present soft and distention; Absent tenderness or guarding Extremities Exam Extremities exam: Present full ROM and other (Edema and cellulitis of the left lower extremity, there is edema of the right lower extremity, however the left is much more impressive); Absent tenderness Neurological Exam Neurological exam: Present alert and other (GCS of 11, moves all 4 extremity spontaneously, occasional myoclonic jerking, no facial asymmetry, aphasia) Expanded Neurological Exam Coma scale eye opening: To voice Coma scale motor response: Obeys commands Coma scale verbal response: Incomprehensible Coma scale total: 11 Psychiatric Psychiatric exam: Present normal affect Skin Skin exam: Present warm and dry Medical Decision Making Medical Records Medical records reviewed: Yes I reviewed the patient's medical records. Screening: Per USPSTF and CDC recommendations, given the prevalence of disease in our region, it is our hospital?s policy to screen for HIV and viral Hepatitis for all patients aged 18 and over and those with ongoing risk factors. [place]lon Inquiry Pt receiving controlled substance: Yes Waylon was queried for this patient: No Risks and benefits of using a controlled substance: were not discussed with pt by me (Discussed with family) Vital Signs: 12/01/24 06:41 12/01/24 07:00 12/01/24 07:31 Temperature 97.5 F L Temperature Source Oral Pulse Rate 80 76 Pulse Rate [Left Radial] 85 Respiratory Rate 18 18 17 Blood Pressure 109/53 L 101/46 L Blood Pressure [Right Arm] 158/78 H Blood Pressure Mean [Right Arm] 104 Blood Pressure Source [Right Arm] Automatic Cuff 02 Sat by Pulse Oximetry 91 L 96 99 Oxygen Delivery Method Room Air Nasal Cannula Nasal Cannula Oxygen Flow Rate (LPM) 2 2 12/01/24 08:17 12/01/24 08:22 12/01/24 08:31 Temperature Temperature Source Pulse Rate 81 81 Pulse Rate [Left Radial] Respiratory Rate 20 16 Blood Pressure 124/78 124/78 121/102 H Blood Pressure [Right Arm] Blood Pressure Mean [Right Arm] Blood Pressure Source [Right Arm] 02 Sat by Pulse Oximetry 97 95 97 Oxygen Delivery Method Nasal Cannula Nasal Cannula Oxygen Flow Rate (LPM) 2 2 12/01/24 08:58 12/01/24 09:00 Temperature Temperature Source Pulse Rate 78 84 Pulse Rate [Left Radial] Respiratory Rate 16 20 Blood Pressure 97/59 L 102/55 L Blood Pressure [Right Arm] Blood Pressure Mean [Right Arm] Blood Pressure Source [Right Arm] 02 Sat by Pulse Oximetry 97 97 Oxygen Delivery Method Nasal Cannula Nasal Cannula Oxygen Flow Rate (LPM) 2 2 Lab Data Lab results reviewed: Yes I reviewed the patient's lab results. Lab Results 12/01/24 06:47: WBC 9.5, RBC 4.28 L, Hgb 14.7, Hct 44.5, MCV 104.0 H, MCH 34.3 H, MCHC 33.0, RDW 15.5, Plt Count 191, MPV 9.6, Neut % (Auto) 73.4, Lymph % (Auto) 16.5, Dale % (Auto) 8.0, Eos % (Auto) 1.5, Baso % (Auto) 0.2, Neut # (Auto) 7.0, Lymph # (Auto) 1.6, Dale # (Auto) 0.8, Eos # (Auto) 0.1, Baso # (Auto) 0.0, PT 15.6 H, INR 1.44 H, APTT 33.3 H, VBG pH 7.34, VBG pCO2 57.4 H, VBG pO2 25.0 L, VBG HCO3 30.6 H, VBG Total CO2 32.3 H, VBG O2 Saturation 52.1, VBG Base Excess 4.8 H, VBG Lactic Acid 1.9, Sodium 138, Potassium 4.3, Chloride 100, Carbon Dioxide 32 H, Anion Gap 10.3, BUN 29 H, Creatinine 1.70 H, Estimated Creat Clear 52, Estimated GFR 39 L, Est GFR ( Amer) 48 L, Glucose 198 H, Calcium 10.2, Total Bilirubin 0.8, AST 21, ALT 16, Alkaline Phosphatase 104, Troponin I 0.03, NT-Pro-B Natriuret Pep 1130 H, Total Protein 7.1, Albumin 3.9, Globulin 3.2, Albumin/Globulin Ratio 1.2, Lipase 49, HCV Ab TOD w/Rflx PCR Qn Negative, HIV Ag/Ab Combo Qual Negative 12/01/24 08:17: Urine Opiates Screen Positive H, Urine Methadone Screen Negative, Ur Barbituates Screen Negative, Ur Phencyclidine Scrn Negative, Ur Amphetamines Screen Negative, U Benzodiazepines Scrn Negative, Urine Cocaine Screen Negative, U Marijuana (THC) Screen Negative 12/01/24 08:20: Urine Color Yellow, Urine Appearance Clear, Urine pH 6.0, Ur Specific [place] 1.020, Urine Protein Negative, Urine Glucose (UA) 3+, Urine Ketones Negative, Urine Blood Negative, Urine Nitrate Negative, Urine Bilirubin Negative, Urine Urobilinogen 0.2, Ur Leukocyte Esterase Negative, Urine RBC None, Urine WBC Occasional, Ur Squamous Epith Cells 3-5, Urine Bacteria 2+ 12/01/24 06:47 12/01/24 06:47 Orders (Tests/Meds): ED MEDICATIONS Generic Name Dose Route Start Last Admin Trade Name Loreto PRN Reason Stop Dose Admin Vancomycin/PEG/NADA/Lysine/Water 1.75 gm in 350 mls @ 175 mls/hr 12/01/24 08:00 12/01/24 09:24 Vancomycin 1.75gm/350ml (Peg) Premix IV 12/01/24 09:59 175 mls/hr ONCE ONE Administration Sodium Chloride 1,000 mls @ 500 mls/hr 12/01/24 09:20 Sod Chlor 0.9% 1000ml Bag IV 12/01/24 11:19 .Q2H ONE Sodium Chloride 10 ml 12/01/24 07:56 12/01/24 07:59 Sodium Chloride 0.9% 10ml Syr (Rad Only) IV 12/31/24 07:55 10 ml NEEDED PRN Administration Maintain IV Site Discontinued Medications Generic Name Dose Route Start Last Admin Trade Name Loreto PRN Reason Stop Dose Admin Albuterol/Ipratropium 3 ml 12/01/24 07:32 12/01/24 08:46 Ipratropium/Albuterol 3 Ml Neb IH 12/01/24 07:33 3 ml ONCE ONE Administration Piperacillin Sod/Tazobactam 100 mls @ 200 mls/hr 12/01/24 07:39 12/01/24 09:21 Sod 4.5 gm/ Sodium Chloride IV 12/01/24 08:08 Infused ONCE ONE Infusion Iopamidol 150 ml 12/01/24 07:56 12/01/24 07:59 Iopamidol-370 (76%);100ml Bottle IV 12/01/24 07:57 150 ml ONCE ONE Administration Miscellaneous 1 each 12/01/24 07:45 12/01/24 08:57 Vancomycin Consult Request NOTAPPLIC 12/31/24 07:44 Not Given [facility] Naloxone HCl 0.4 mg 12/01/24 08:45 12/01/24 09:07 Naloxone 0.4mg/Ml Vial IV 12/01/24 08:46 Not Given ONCE ONE Naloxone HCl 0.5 mg 12/01/24 09:07 12/01/24 09:09 Naloxone 2mg/2ml Syringe IV 12/01/24 09:08 0.5 mg ONCE ONE Administration Sodium Chloride 100 ml 12/01/24 07:56 12/01/24 07:59 0.9 % Sodium Chloride 50 Ml Vial IV 12/01/24 07:57 100 ml ONCE ONE Administration ORDERS Category Date Time Status CT abdomen pelvis w con Stat Cat Scan 12/01/24 06:[address] angio chest PE protocol Stat Cat Scan 12/01/24 06:[address] angio head Stat Cat Scan 12/01/24 06:[address] angio neck Stat Cat Scan 12/01/24 06:[address] head/brain wo con Stat Cat Scan 12/01/24 06:56 Completed POCUS Point of Care (ER Only) Stat Exams 12/01/24 07:01 Ordered Acetaminophen Stat Lab 12/01/24 06:47 Received BNP [NT Pro Brain Natriuretic Pep.] Stat Lab 12/01/24 06:47 Completed CBC w/Auto Diff [Complete Blood Count Auto Diff] Stat Lab 12/01/24 06:47 Completed CMP [Comprehensive Metabolic Panel] Stat Lab 12/01/24 06:47 Completed HIV Combo Stat Lab 12/01/24 06:47 Completed Hepatitis C Ab Qual. W/ RFX Stat Lab 12/01/24 06:47 Completed Lipase Stat Lab 12/01/24 06:47 Completed PT/INR [Prothrombin Time INR] Stat Lab 12/01/24 06:47 Completed PTT [Activated Partial Thrombo Time] Stat Lab 12/01/24 06:47 Completed Salicylate Stat Lab 12/01/24 06:47 Received Troponin I Q3H Lab 12/01/24 06:47 Completed Troponin I Q3H Lab 12/01/24 10:00 Ordered UA [Urinalysis and Microscopic] Stat Lab 12/01/24 08:20 Completed UDS [Drug Screen,Urine] Stat Lab 12/01/24 08:17 Completed Blood Culture Stat Micro 12/01/24 06:51 Received Urine Culture(cathed specimen) Stat Micro 12/01/24 08:20 Received VBG [Venous Blood Gas] Stat RT 12/01/24 06:47 Completed CA venous doppler LE BI Routine Y 12/01/24 07:13 Completed Medical Decision Narrative: Elliott is a 74-year-old male who presents to the emergency department with altered mental status. Differential includes but is not limited to: Intracranial hemorrhage, stroke, medication overdose, sepsis, PE, ACS, pneumonia, UTI, hyponatremia, hypoglycemia, among others On initial assessment, the patient is hemodynamically stable. He is afebrile. Initial blood pressure is mildly hypertensive, 150s over 70s. Heart rate within normal limits. Breathing 18 times a minute, saturating 89 to 91% on room air, for which patient was placed on 2 L nasal cannula. He is significantly altered and aphasic. He does follow commands and is able to move all 4 extremities spontaneously. His physical exam is notable for abdominal distention and bilateral lower extremity edema, with a significant predominance of the left lower extremity and associated cellulitis. He has occasional myoclonic jerking on exam. No focal external signs of trauma. NIH is 17, however this is largely secondary to aphasia and inability to follow commands. EKG shows a likely ventricularly paced rhythm at a rate of 79. QTc borderline prolonged. This study appears overall similar in comparison to recent. No acute ischemic changes. Bedside ultrasound performed which shows slightly enlarged right heart. No large pericardial effusion. I attempted to evaluate the left lower extremity for DVT. No evidence of proximal deep venous thrombus in the left lower extremity, however popliteal views were technically difficult due to accompanying cellulitis and patient's inability to follow commands. Considering how extensive left lower extremity cellulitis is, broad-spectrum antibiotics including vancomycin and Zosyn were ordered. Overall clinical picture is not consistent with sepsis at this time, however the patient is a diabetic and has risk factors for worsening of the cellulitis. Of note, I reviewed recent emergency department note which states that [id number] ultrasound was also notable for findings concerning for right heart strain. This may be indicative of chronic right heart strain. He was diagnosed with posterior and lateral left basilar pulmonary artery filling defects can consistent with pulmonary embolism. He was admitted at this point in time. I reviewed patient's medication list. He is on 100 mg of Lovenox SQ twice daily, however family states that he is also on Xarelto daily for DVT. He does have a previous prescription for gabapentin. Family states that he is on oxycodone. They state all of his pill medications are in a pillbox, and they think it is highly unlikely that he has taken too many of his medicines. CBC shows no leukocytosis or anemia. Platelet count within normal limits. INR 1.4. VBG shows a mild compensated hypercarbia, likely chronic. Normal lactate. CMP shows no severe electrolyte abnormalities. Creatinine 1.7, consistent with baseline, no superimposed BABAK. Glucose 198. LFTs grossly normal. BNP is mildly elevated, consistent with baseline. Initial troponin is 0.03. Lipase within normal limits. UA shows no acute infectious process. UDS is positive for opiates. CTs including CT head, CTA head, CTA neck, CTA chest, and CT abdomen and pelvis with IV contrast were personally interpreted. No acute intracranial hemorrhage or large ischemic stroke. CT PE shows stable pulmonary emboli, no worsening. No obvious pneumonia or large pleural effusion. No acute aortic pathology. No acute findings in the abdomen. Radiology reads agreement. Ultimately, we made the decision to administer 0.5 mg of IV Narcan. The patient had almost immediate improvement in his mental status after administration of this medication. He remains altered, with confused and garbled speech, however GCS has improved to 13?14. Dr. Rodriguez excepted patient for admission for altered mental status, opioid toxicity, left lower extremity cellulitis. Critical Care Critical Care Time Critical Care Time: No
--- NOTE | 2024-12-01 07:25 | PC.NURSE ---
pt to scan
[2024-12-01 07:27] LABS: NT Pro Brain Natriuretic Pep. 1130 pg/mL (0-450)
[2024-12-01 07:29] LABS: Troponin I 0.03 ng/ml (0.00-0.034)
[2024-12-01] MEDS: IOPAMIDOL-370 (76%);100ML BOTTLE 150 ML IV (07:59)
[2024-12-01] MEDS: 0.9 % SODIUM CHLORIDE 50 ML VIAL 100 ML IV (07:59)
[2024-12-01] MEDS: SODIUM CHLORIDE 0.9% 10ML SYR (RAD ONLY) 10 ML IV (07:59)
[2024-12-01 08:00] LABS: Activated Partial Thrombo Time 33.3 seconds (22.8-30.6); INR 1.44 (0.9-1.1); Prothrombin Time 15.6 seconds (10.1-12.5)
--- NOTE | 2024-12-01 08:11 | PC.NURSE ---
Staff called stating they are on the way for the pts venous Doppler.
[2024-12-01 08:17] LABS: Hepatitis C Ab Qual. W/ RFX NEGATIVE (Negative)
[2024-12-01 08:22] LABS: Microscopic, Urine URINE MICROSCOPIC (MICROSCOPIC)
--- NOTE | 2024-12-01 08:33 | PC.NURSE ---
Venous doppler staff bedside
[2024-12-01 08:34] LABS: Bilirubin,Urine Negative (Negative); Color,Urine YELLOW (Yellow); Glucose,Urine (UA) 3+ (Negative); Ketones,Urine Negative (Negative); Leukocyte Esterase,Urine Negative (Negative); PH,Urine 6.0 (5.0-8.5); Protein,Urine Negative (Negative); Specific Gravity, Urine 1.020 (1.005-1.030); Urobilinogen,Urine 0.2 EU/dl (0.2)
[2024-12-01 08:36] LABS: Barbiturates Screen,Urine Negative ng/ml (<200)
[2024-12-01 08:37] LABS: Amphetamine/Metha Screen,Urine Negative ng/ml (<1000); Benzodiazepines Screen,Urine Negative ng/ml (<200)
[2024-12-01 08:39] LABS: Methadone Screen,Urine Negative ng/ml (<300)
[2024-12-01 08:40] LABS: Opiate Screen,Urine Positive ng/ml (<300); Phencyclidine Screen,Urine Negative ng/ml (<25)
[2024-12-01] MEDS: IPRATROPIUM/ALBUTEROL 3 ML NEB IH (08:46)
[2024-12-01] MEDS: PIPERACILLIN/TAZO 4.5 GM in 0.9 % SODIUM CHLORIDE 100 ML IV (08:51)
[2024-12-01 08:53] LABS: Bacteria,Urine 2+ /lpf; WBC,Urine Occasional #/hpf (0-3)
[2024-12-01] MEDS: NALOXONE 2MG/2ML SYRINGE 0.5 MG IV (09:09)
[2024-12-01] MEDS: VANCOMYCIN/WATER FOR INJ (PEG) 1.75 GM/350 ML PIGGYBACK IV (09:24)
--- NOTE | 2024-12-01 09:27 | PC.NURSE ---
reached out to the hospitalist for admission. Waiting to hear back.
--- NOTE | 2024-12-01 09:50 | PC.NURSE ---
spoke with bathhouse keeper for bed assignment
[2024-12-01 09:56] LABS: Acetaminophen < 10 ug/ml (10-30); Salicylate < 1.0 mg/dL (2.0-20.0)
[2024-12-01] MEDS: 0.9 % SODIUM CHLORIDE 1000ML 1,000 ML 500 ML IV (09:56)
--- NOTE | 2024-12-01 10:02 | HMH.EDGENADL ---
Discharge Plan Disposition Patient Disposition: Admitted Condition: Fair Clinical Impressions Clinical Impression: Opioid use, Acute encephalopathy, Cellulitis, Chronic pulmonary embolism Discharge ED Provider: Marycruz Mcclelland Adult HPI General Chief complaint: Altered Mental Status Stated complaint: Altered Mental Status Time Seen by Provider: 12/01/24 06:50 Mode of Arrival: EMS Source of Information: EMS Description of Symptoms (Recalled from ER Triage Doc. by RN): PT presents to ED with AMS, Per Pt family member, pt recently got d/c from [facility] on 11/28/24. Per EMS patient started having symtpoms of increased confusion, involunatry shaking, and decreased gait limiting his ability to walk. EMS states that pt reportedly had gotten better throughout the day yesterday. PT woke up at 5am and called his niece in the room having involuntary jerking/shaking movements, AMS, slurred speech and unable to follow commands. Last known normal 4pm 11/30/24. Related Data Home Medications ?Medication ?Instructions ?Recorded ?Confirmed atorvastatin 40 mg tablet 40 mg PO HS Cholesterol 07/03/22 11/12/24 celecoxib 100 mg capsule 100 mg PO BID Arthritis 07/03/22 11/12/24 duloxetine 30 mg capsule,delayed 30 mg PO BID 07/03/22 11/12/24 release oxycodone-acetaminophen 7.5 mg-325 1 tab PO QIDP PRN Pain 07/03/22 11/12/24 mg tablet quetiapine 200 mg tablet 200 mg PO HS 07/03/22 11/12/24 montelukast 10 mg tablet 10 mg PO HS 04/14/24 11/12/24 colestipol 1 gram tablet 1 g PO BID 05/14/24 11/12/24 omeprazole 20 mg capsule,delayed 20 mg PO DAILY 10/09/24 11/12/24 release ropinirole 1 mg tablet 1 mg PO TID Restless leg syndrome 10/09/24 11/12/24 Previous Rx's ?Medication ?Instructions ?Recorded gabapentin 300 mg capsule 300 mg PO TID #90 caps 10/09/24 ranolazine 1,000 mg 1,000 mg PO BID #60 tabs 10/29/24 tablet,extended release,12 hr cefdinir 300 mg capsule 300 mg PO BID 6 days #12 caps 11/12/24 furosemide 40 mg tablet (Lasix) 40 mg PO Q48H 30 days #30 tabs 11/12/24 melatonin 5 mg tablet 5 mg PO HS 30 days #30 tabs 11/12/24 metformin 500 mg tablet 500 mg PO BID #30 tabs 11/12/24 propranolol 20 mg tablet 10 mg (1/2 x 20 mg) PO BID 30 days 11/12/24 #30 tabs rivaroxaban 15 mg (42)-20 mg (9) See Rx Instructions PO .COMPLEX 11/12/24 tablets in a starter pack (Xarelto #51 tabs DVT-PE Treatment 30-Day Starter) sodium zirconium cyclosilicate 5 10 g PO DAILY PRN hyperkalemia #11 11/12/24 gram oral powder packet (Lokelma) ea rivaroxaban 20 mg tablet (Xarelto) 20 mg PO DAILY #30 tabs 11/28/24 Allergies Allergy/AdvReac Type Severity Reaction Status Date / Time aspirin (ASPIRIN) Allergy Unknown S-DIFF. Verified 10/29/24 15:26 [facility] Disclaimer: The information contained in this section may have been updated after the patient was seen, as this information can be updated by other users. 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 S/P carpal tunnel release History of total left hip replacement S/P cholecystectomy Family History Other Coronary artery disease Diabetes Social History (Updated 11/11/24 @ 22:51 by Sofia Augustin RN) Smoking Status: Current every day smoker tobacco type: cigars years smoked: 55 quit status: not considering quitting alcohol intake: never substance use type: denies use current occupational status: retired Travel in the last 8 weeks?: None household members: other housing: apartment marital status: Have you lived/traveled outside [place] in past 30 days?: No Contact w/someone who lives/traveled outside US past 30 days?: No Exposure to someone with infectious disease in past 14 days?: No Do you have a fever (greater than 100.4 F or 38 C)?: No Have you tested positive for COVID-19?: No Exposed to someone with COVID-19 in past 14 days?: No Do you have a sore throat?: No Do you have a cough?: No Do you have any weakness?: No Do you have any diarrhea?: No Are you experiencing any unusual bleeding?: No Do you have any muscle aches/pain?: No Do you have any abdominal pain?: No Are you experiencing loss of taste or smell?: No Other Medical History Have you received the Flu Vaccine for this season: No Have you received the Pneumonia Vaccine: No Physical Exam General General appearance: other (Confused, laying upright in bed) Medical Decision Making Medical Records Screening: Per USPSTF and CDC recommendations, given the prevalence of disease in our region, it is our hospital?s policy to screen for HIV and viral Hepatitis for all patients aged 18 and over and those with ongoing risk factors. Vital Signs: 12/01/24 06:41 12/01/24 07:00 12/01/24 07:31 Temperature 97.5 F L Temperature Source Oral Pulse Rate 80 76 Pulse Rate [Left Radial] 85 Respiratory Rate 18 18 17 Blood Pressure 109/53 L 101/46 L Blood Pressure [Right Arm] 158/78 H Blood Pressure Mean [Right Arm] 104 Blood Pressure Source [Right Arm] Automatic Cuff 02 Sat by Pulse Oximetry 91 L 96 99 Oxygen Delivery Method Room Air Nasal Cannula Nasal Cannula Oxygen Flow Rate (LPM) 2 2 12/01/24 08:17 12/01/24 08:22 12/01/24 08:31 Temperature Temperature Source Pulse Rate 81 81 Pulse Rate [Left Radial] Respiratory Rate 20 16 Blood Pressure 124/78 124/78 121/102 H Blood Pressure [Right Arm] Blood Pressure Mean [Right Arm] Blood Pressure Source [Right Arm] 02 Sat by Pulse Oximetry 97 95 97 Oxygen Delivery Method Nasal Cannula Nasal Cannula Oxygen Flow Rate (LPM) 2 2 12/01/24 08:58 12/01/24 09:00 Temperature Temperature Source Pulse Rate 78 84 Pulse Rate [Left Radial] Respiratory Rate 16 20 Blood Pressure 97/59 L 102/55 L Blood Pressure [Right Arm] Blood Pressure Mean [Right Arm] Blood Pressure Source [Right Arm] 02 Sat by Pulse Oximetry 97 97 Oxygen Delivery Method Nasal Cannula Nasal Cannula Oxygen Flow Rate (LPM) 2 2 Lab Data Lab Results 12/01/24 06:47: WBC 9.5, RBC 4.28 L, Hgb 14.7, Hct 44.5, MCV 104.0 H, MCH 34.3 H, MCHC 33.0, RDW 15.5, Plt Count 191, MPV 9.6, Neut % (Auto) 73.4, Lymph % (Auto) 16.5, [place] % (Auto) 8.0, Eos % (Auto) 1.5, Baso % (Auto) 0.2, Neut # (Auto) 7.0, Lymph # (Auto) 1.6, [place] # (Auto) 0.8, Eos # (Auto) 0.1, Baso # (Auto) 0.0, PT 15.6 H, INR 1.44 H, APTT 33.3 H, VBG pH 7.34, VBG pCO2 57.4 H, VBG pO2 25.0 L, VBG HCO3 30.6 H, VBG Total CO2 32.3 H, VBG O2 Saturation 52.1, VBG Base Excess 4.8 H, VBG Lactic Acid 1.9, Sodium 138, Potassium 4.3, Chloride 100, Carbon Dioxide 32 H, Anion Gap 10.3, BUN 29 H, Creatinine 1.70 H, Estimated Creat Clear 52, Estimated GFR 39 L, Est GFR ( Amer) 48 L, Glucose 198 H, Calcium 10.2, Total Bilirubin 0.8, AST 21, ALT 16, Alkaline Phosphatase 104, Troponin I 0.03, NT-Pro-B Natriuret Pep 1130 H, Total Protein 7.1, Albumin 3.9, Globulin 3.2, Albumin/Globulin Ratio 1.2, Lipase 49, Salicylates < 1.0 L, Acetaminophen < 10 L, HCV Ab TOD w/Rflx PCR Qn Negative, HIV Ag/Ab Combo Qual Negative 12/01/24 08:17: Urine Opiates Screen Positive H, Urine Methadone Screen Negative, Ur Barbituates Screen Negative, Ur Phencyclidine Scrn Negative, Ur Amphetamines Screen Negative, U Benzodiazepines Scrn Negative, Urine Cocaine Screen Negative, U Marijuana (THC) Screen Negative 12/01/24 08:20: Urine Color Yellow, Urine Appearance Clear, Urine pH 6.0, Ur Specific [place] 1.020, Urine Protein Negative, Urine Glucose (UA) 3+, Urine Ketones Negative, Urine Blood Negative, Urine Nitrate Negative, Urine Bilirubin Negative, Urine Urobilinogen 0.2, Ur Leukocyte Esterase Negative, Urine RBC None, Urine WBC Occasional, Ur Squamous Epith Cells 3-5, Urine Bacteria 2+ 12/01/24 06:47 12/01/24 06:47 Orders (Tests/Meds): ED MEDICATIONS Generic Name Dose Route Start Last Admin Trade Name Freq PRN Reason Stop Dose Admin Sodium Chloride 1,000 mls @ 500 mls/hr 12/01/24 09:20 12/01/24 09:56 Sod Chlor 0.9% 1000ml Bag IV 12/01/24 11:19 500 mls/hr .Q2H ONE Administration Sodium Chloride 10 ml 12/01/24 07:56 12/01/24 07:59 Sodium Chloride 0.9% 10ml Syr (Rad Only) IV 12/31/24 07:55 10 ml NEEDED PRN Administration Maintain IV Site Discontinued Medications Generic Name Dose Route Start Last Admin Trade Name Freq PRN Reason Stop Dose Admin Albuterol/Ipratropium 3 ml 12/01/24 07:32 12/01/24 08:46 Ipratropium/Albuterol 3 Ml Neb IH 12/01/24 07:33 3 ml ONCE ONE Administration Piperacillin Sod/Tazobactam 100 mls @ 200 mls/hr 12/01/24 07:39 12/01/24 09:21 Sod 4.5 gm/ Sodium Chloride IV 12/01/24 08:08 Infused ONCE ONE Infusion Vancomycin/PEG/NADA/Lysine/Water 1.75 gm in 350 mls @ 175 mls/hr 12/01/24 08:00 12/01/24 09:24 Vancomycin 1.75gm/350ml (Peg) Premix IV 12/01/24 09:59 175 mls/hr ONCE ONE Administration Iopamidol 150 ml 12/01/24 07:56 12/01/24 07:59 Iopamidol-370 (76%);100ml Bottle IV 12/01/24 07:57 150 ml ONCE ONE Administration Miscellaneous 1 each 12/01/24 07:45 12/01/24 08:57 Vancomycin Consult Request NOTAPPLIC 12/31/24 07:44 Not Given CONSULT PHARMACY [facility] Naloxone HCl 0.4 mg 12/01/24 08:45 12/01/24 09:07 Naloxone 0.4mg/Ml Vial IV 12/01/24 08:46 Not Given ONCE ONE Naloxone HCl 0.5 mg 12/01/24 09:07 12/01/24 09:09 Naloxone 2mg/2ml Syringe IV 12/01/24 09:08 0.5 mg ONCE ONE Administration Sodium Chloride 100 ml 12/01/24 07:56 12/01/24 07:59 0.9 % Sodium Chloride 50 Ml Vial IV 12/01/24 07:57 100 ml ONCE ONE Administration ORDERS Category Date Time Status CT abdomen pelvis w con Stat Cat Scan 12/01/24 06:[address] angio chest PE protocol Stat Cat Scan 12/01/24 06:[address] angio head Stat Cat Scan 12/01/24 06:[address] angio neck Stat Cat Scan 12/01/24 06:[address] head/brain wo con Stat Cat Scan 12/01/24 06:56 Completed POCUS Point of Care (ER Only) Stat Exams 12/01/24 07:01 Ordered Acetaminophen Stat Lab 12/01/24 06:47 Completed BNP [NT Pro Brain Natriuretic Pep.] Stat Lab 12/01/24 06:47 Completed CBC w/Auto Diff [Complete Blood Count Auto Diff] Stat Lab 12/01/24 06:47 Completed CMP [Comprehensive Metabolic Panel] Stat Lab 12/01/24 06:47 Completed HIV Combo Stat Lab 12/01/24 06:47 Completed Hepatitis C Ab Qual. W/ RFX Stat Lab 12/01/24 06:47 Completed Lipase Stat Lab 12/01/24 06:47 Completed PT/INR [Prothrombin Time INR] Stat Lab 12/01/24 06:47 Completed PTT [Activated Partial Thrombo Time] Stat Lab 12/01/24 06:47 Completed Salicylate Stat Lab 12/01/24 06:47 Completed Troponin I Q3H Lab 12/01/24 06:47 Completed Troponin I Q3H Lab 12/01/24 10:00 Ordered UA [Urinalysis and Microscopic] Stat Lab 12/01/24 08:20 Completed UDS [Drug Screen,Urine] Stat Lab 12/01/24 08:17 Completed Blood Culture Stat Micro 12/01/24 06:51 Received Urine Culture(cathed specimen) Stat Micro 12/01/24 08:20 Received VBG [Venous Blood Gas] Stat RT 12/01/24 06:47 Completed CA venous doppler LE BI Routine Y 12/01/24 07:13 Completed
--- NOTE | 2024-12-01 10:03 | PC.NURSE ---
report called to nelda on second floor
--- NOTE | 2024-12-01 10:21 | PC.NURSE ---
arrived by stretcher from ED
--- NOTE | 2024-12-01 11:07 | PC.WOUNDNOTE ---
REDNESS AND EDEMA NOTED TO THE LLE. SCATTERED SCABBING ON BLE BUNION PRESENT TO LEFT BIG TOE, SCABBED OVER BUNION PRESENT TO RIGHT BIG TOE, SCABBED OVER
[2024-12-01 11:34] LABS: Troponin I 0.09 ng/ml (0.00-0.034)
--- NOTE | 2024-12-01 12:12 | EXP.HP ---
History of Present Illness *Admission Date: 12/01/24 *Reason for visit:: Confusion, tremors, weakness *History of present illness: Alan Krueger is a 74-year-old male with medical history significant for CAD, history of DVT on Coumadin, hypertension, HFpEF, AICD, paroxysmal A-fib, anxiety/depression, type 2 diabetes, essential tremors presents again with progressive weakness, confusion, tremors. He was recently discharged from [facility] in the past week back to [facility] after which he started developing symptoms of weakness, confusion, tremors. Patient endorses some abdominal pain but otherwise denies any focal symptoms including chest pain, shortness of breath, fever/chills, urinary problems. On further evaluation, patient has acute left-sided pinpoint pupil and chronically dilated right sided pupil (from previous trauma). He states he has been taking his cold medications as prescribed this pill pack, but niece at bedside seems to think that his medications he was taking and [place] for very different from those he was getting at [facility]. He does not seem that discharge medication recommendations were followed upon discharge from [facility]. Hide a suspicion for acute opioid unintentional overdose, patient was given Narcan after which patient's symptoms significantly improved but also became agitated due to acute opioid withdrawal. He was also given vancomycin, Zosyn due to suspected left lower extremity cellulitis. Due to generalized weakness, medication misadventure ED provider discussed case with me and I decided to admit patient for the same. [facility] Disclaimer: The information contained in this section may have been updated after the patient was seen, as this information can be updated by other users. 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 S/P carpal tunnel release History of total left hip replacement S/P cholecystectomy Family History Other Coronary artery disease Diabetes Social History (Updated 11/11/24 @ 22:51 by Sofia Augustin RN) Smoking Status: Current every day smoker tobacco type: cigars years smoked: 55 quit status: not considering quitting alcohol intake: never substance use type: denies use current occupational status: retired Travel in the last 8 weeks?: None household members: other housing: apartment marital status: Have you lived/traveled outside US in past 30 days?: No Contact w/someone who lives/traveled outside US past 30 days?: No Exposure to someone with infectious disease in past 14 days?: No Do you have a fever (greater than 100.4 F or 38 C)?: No Have you tested positive for COVID-19?: No Exposed to someone with COVID-19 in past 14 days?: No Do you have a sore throat?: No Do you have a cough?: No Do you have any weakness?: No Do you have any diarrhea?: No Are you experiencing any unusual bleeding?: No Do you have any muscle aches/pain?: No Do you have any abdominal pain?: No Are you experiencing loss of taste or smell?: No Other Medical History Have you received the Flu Vaccine for this season: No Have you received the Pneumonia Vaccine: Yes Meds Home Medications and Allergies Home Medications ?Medication ?Instructions ?Recorded ?Confirmed ?Type atorvastatin 40 mg tablet 40 mg PO HS 07/03/22 12/01/24 History celecoxib 100 mg capsule 100 mg PO BID 07/03/22 12/01/24 History duloxetine 30 mg capsule,delayed 30 mg PO BID 07/03/22 12/01/24 History release colestipol 1 gram tablet 1 g PO BID 05/14/24 12/01/24 History gabapentin 300 mg capsule 300 mg PO TID #90 caps 10/09/24 12/01/24 Rx omeprazole 20 mg capsule,delayed 20 mg PO DAILY 10/09/24 12/01/24 History release furosemide 20 mg tablet (Lasix) 20 mg PO DAILY 12/01/24 12/01/24 History nystatin 100,000 unit/gram topical 1 applic topical DAILY 12/01/24 12/01/24 History powder rivaroxaban 20 mg tablet (Xarelto) 20 mg PO QPMWITHMEAL 12/01/24 12/01/24 History New Prescriptions to Start Prescriptions: Allergies Allergy/AdvReac Type Severity Reaction Status Date / Time aspirin (ASPIRIN) Allergy Unknown S-DIFF. Verified 10/29/24 15:26 BREATHING Exam Data for Last 24 hours Vital signs and Labs for Last 24 Hours: Temp Pulse Resp BP Pulse Ox O2 Del Method O2 Flow Rate 97.7 F 84 18 142/73 H 96 Nasal Cannula 2 12/01/24 10:46 12/01/24 10:46 12/01/24 10:46 12/01/24 10:46 12/01/24 10:46 12/01/24 11:00 12/01/24 11:00 Laboratory Results - last 24 hr 12/01/24 06:47: WBC 9.5, RBC 4.28 L, Hgb 14.7, Hct 44.5, MCV 104.0 H, MCH 34.3 H, MCHC 33.0, RDW 15.5, Plt Count 191, MPV 9.6, Neut % (Auto) 73.4, Lymph % (Auto) 16.5, Hudspeth % (Auto) 8.0, Eos % (Auto) 1.5, Baso % (Auto) 0.2, Neut # (Auto) 7.0, Lymph # (Auto) 1.6, [place]ud[place]eth # (Auto) 0.8, Eos # (Auto) 0.1, Baso # (Auto) 0.0, PT 15.6 H, INR 1.44 H, APTT 33.3 H, VBG pH 7.34, VBG pCO2 57.4 H, VBG pO2 25.0 L, VBG HCO3 30.6 H, VBG Total CO2 32.3 H, VBG O2 Saturation 52.1, VBG Base Excess 4.8 H, VBG Lactic Acid 1.9, Sodium 138, Potassium 4.3, Chloride 100, Carbon Dioxide 32 H, Anion Gap 10.3, BUN 29 H, Creatinine 1.70 H, Estimated Creat Clear 52, Estimated GFR 39 L, Est GFR ( Amer) 48 L, Glucose 198 H, Calcium 10.2, Total Bilirubin 0.8, AST 21, ALT 16, Alkaline Phosphatase 104, Troponin I 0.03, NT-Pro-B Natriuret Pep 1130 H, Total Protein 7.1, Albumin 3.9, Globulin 3.2, Albumin/Globulin Ratio 1.2, Lipase 49, Salicylates < 1.0 L, Acetaminophen < 10 L, HCV Ab TOD w/Rflx PCR Qn Negative, HIV Ag/Ab Combo Qual Negative 12/01/24 08:17: Urine Opiates Screen Positive H, Urine Methadone Screen Negative, Ur Barbituates Screen Negative, Ur Phencyclidine Scrn Negative, Ur Amphetamines Screen Negative, U Benzodiazepines Scrn Negative, Urine Cocaine Screen Negative, U Marijuana (THC) Screen Negative 12/01/24 08:20: Urine Color Yellow, Urine Appearance Clear, Urine pH 6.0, Ur Specific Valdez 1.020, Urine Protein Negative, Urine Glucose (UA) 3+, Urine Ketones Negative, Urine Blood Negative, Urine Nitrate Negative, Urine Bilirubin Negative, Urine Urobilinogen 0.2, Ur Leukocyte Esterase Negative, Urine RBC None, Urine WBC Occasional, Ur Squamous Epith Cells 3-5, Urine Bacteria 2+ 12/01/24 10:50: Troponin I 0.09 H I & O for Last 24 hours: Intake & Output 11/28/24 11/29/24 11/30/24 12/01/24 23:59 23:59 23:59 23:59 Intake Total 100 / 100 Output Total 300 / 300 Balance -200 / -200 Weight 98.515 kg Constitutional Constitutional: no acute distress and chronically ill appearing *Routine HEENT Exam Head: Present normocephalic Eye: Present EOMI and PERRL ENT: Present mucous membranes moist *Routine Neck Exam Neck: Present supple; Absent lymphadenopathy *Routine Respiratory Exam Respiratory: Present CTA bilaterally *Routine Cardiovascular Exam Cardiovascular: Present RRR *Routine Abdominal Exam Abdominal: Present soft, normoactive bowel sounds, tenderness and distended *Routine Rectal Exam Rectal:: deferred *Routine Genitalia Exam Genitalia:: deferred *Routine Extremities Exam Extremities: Present edema; Absent cyanosis or clubbing Comments: Lower extremity motor strength 1/5. Upper extremity tremors. Bilateral lower extremity pitting edema 3+. *Routine Skin Exam Skin: Present warm; Absent rash *Routine Neurological Exam Neurological: Present alert and oriented X3 Assessment and Plan *Assessment and plan (1) Acute encephalopathy: Status: Acute Category: Medical Code(s): G93.40 - Encephalopathy, unspecified (2) Essential tremor: Status: Acute Category: Medical Code(s): G25.0 - Essential tremor Plan Alan Krueger is a 74-year-old male with medical history significant for CAD, history of DVT on Coumadin, hypertension, HFpEF, AICD, paroxysmal A-fib, anxiety/depression, type 2 diabetes, essential tremors presents again with progressive weakness, confusion, tremors. He was recently discharged from [facility] in the past week back to [facility] after which he started developing symptoms of weakness, confusion, tremors. Patient endorses some abdominal pain but otherwise denies any focal symptoms including chest pain, shortness of breath, fever/chills, urinary problems. On further evaluation, patient has acute left-sided pinpoint pupil and chronically dilated right sided pupil (from previous trauma). He states he has been taking his cold medications as prescribed this pill pack, but niece at bedside seems to think that his medications he was taking and [place] for very different from those he was getting at [facility]. He does not seem that discharge medication recommendations were followed upon discharge from [facility]. Hide a suspicion for acute opioid unintentional overdose, patient was given Narcan after which patient's symptoms significantly improved but also became agitated due to acute opioid withdrawal. He was also given vancomycin, Zosyn due to suspected left lower extremity cellulitis. Due to generalized weakness, medication misadventure ED provider discussed case with me and I decided to admit patient for the same. #Acute metabolic encephalopathy #Generalized weakness #Suspected unintentional opioid overdose #Medication side effect ? Patient presented with progressive weakness, confusion after being discharged back to [facility] from [facility] about 3 days ago. It does not seem discharge medication recommendations were followed. ? Patient has acute left-sided pinpoint pupi suggesting opioid involvement l, and a chronic right-sided dilated pupil from previous trauma. Transient improvement with Narcan in the ED, followed by acute opioid withdrawal agitation. UDS positive for opioids. ? Patient's constellation of presenting symptoms seem to be related to confusion about which medications he supposed to take including his chronic oxycodone prescription. ? Hold home gabapentin, oxycodone, duloxetine until improvement in weakness, pinpoint pupil, mild encephalopathy. ? PT/OT consulted, pending further recommendations. #HFpEF exacerbation #NSTEMI, likely type II #Venous stasis dermatitis ? Bilateral lower extremity pitting edema 3+ on presentation. Left LLE more edematous from chronic DVT. Initial BNP 1130, previously normal. ? Again, likely from confusion about which medications he supposed to take. On Lasix 20 mg daily at home, unclear if he is taking it. ? ECHO 11/12/2024 did show mild to moderate RV dilation with mild reduction in RV function, but regional wall motion abnormalities. No significant RV strain. ? Troponin up trended from 0.03-0.09, in the setting of cardiorenal syndrome. Follow-up repeat troponin, EKG without acute ischemic changes. Denies chest pain, shortness of breath. ? Ordered IV Lasix 60 mg one-time dose. Follow-up urine output, renal function, electrolytes. ? Left lower extremity redness seems to be chronic per niece. Likely from venous stasis dermatitis. Patient to monitor for signs of cellulitis. ? Follow-up morning CMP, magnesium. #Left lower pulmonary embolism #History of left lower extremity DVT ? On previous admission last month, presented with several week onset of chest pain, shortness of breath. CTA chest revealed for left lobar pulmonary embolism without evidence of RV strain. Requiring 2 L nasal cannula, new requirement. ? ECHO 11/12/2024 did show mild to moderate RV dilation with mild reduction in RV function, but regional wall motion abnormalities. No significant RV strain. ?Continue home Xarelto 20 mg daily. #Essential tremors ? Previously was started on propranolol with improvement in tremors. Patient does not seem to be taking this. ? Patient was initially thought to have Parkinson's disease, but no official diagnosis has been made. Does not meet full criteria for Parkinson's disease. ? Restarted propranolol 10 mg twice daily. Consider 3 times daily dosing if better control is needed. #CKD stage IIIA ? Creatinine 1.7, GFR 39. Stable. Renally dose medications. #CAD ? Continue aspirin 81 mg. Recommend compression stockings, leg elevation. #Paroxysmal A-fib ? Currently rate controlled. ? Rate control with propranolol, continue home Xarelto. #Anxiety/depression ? Continue home duloxetine, quetiapine #Type 2 diabetes #Suspected neuropathy ? Hemoglobin A1c 7.3%. ? Hold home gabapentin due to weakness as above. Full code DVT prophylaxis: Home Xarelto.
--- NOTE | 2024-12-01 12:59 | HMH.PHAINT1 ---
Pharmacy Intervention Comments: MEDICATION RECONCILIATION COMPLETE USING EXTERNAL PHARMACY FILL HISTORY, LISA REPORT, AND RECENT HOSPITAL DISCHARGE NOTE.
[2024-12-01] MEDS: POLYETHYLENE GLYCOL 3350 17 GM PACKET PO (14:12)
[2024-12-01] MEDS: FUROSEMIDE 40MG/4ML VIAL 60 MG IV (14:54)
[2024-12-01] MEDS: humaLOG 100 UNITS/ML 10ML VIAL (SSI) SUBCUT ×2 (16:15→21:43)
[2024-12-01 16:17] LABS: POC Glucose,Bedside 234 gm/dL (70-110)
--- NOTE | 2024-12-01 17:19 | PC.NURSE ---
After charting admission assessment, pt found to have open area with small amount of blood to back of neck. Family states that it has been there for a while. dressing from home taken off and changed. Unable to edit admission biophysical. Hospitalist notified. Picture taken of area.
[2024-12-01 17:54] LABS: Troponin I 0.08 ng/ml (0.00-0.034)
--- NOTE | 2024-12-01 18:10 | PC.NURSE ---
Pt is alert to self, birthday, and time. Pt was drowsy at admission but has been more alert and awake this afternoon. Vital signs stable tolerating room air. Pt has had to wear 2L NC while sleeping. FSBS treated with SSI per APR. BLE with edema and redness. Silicone dressing to coccyx for prevention. Diuretics given with adequate urinary output. Bed alarm in place. Pt resting comfortably with no further needs voiced at this time. Call light within reach.
--- NOTE | 2024-12-01 18:18 | PC.WOUNDNOTE ---
OPEN AREA PRESENT WITH HYPERGRANULATED TISSUE AND SLIGHT BLEEDING NOTED.
[2024-12-01 21:51] LABS: POC Glucose,Bedside 186 gm/dL (70-110)
[2024-12-01] MEDS: PROPRANOLOL 20MG TAB 10 MG PO (22:49)
[2024-12-01] MEDS: PANTOPRAZOLE 40MG TABLET 40 MG PO (22:49)
[2024-12-02] MEDS: ONDANSETRON 4MG/2ML VIAL 4 MG IV (02:39)
[2024-12-02 03:31] LABS: Acinetobacter calcoaceticus-ba Not Detected; Bacteroides fragilis Not Detected; Candida auris Not Detected; Candida glabrata Not Detected; Enterobacterales Not Detected; Enterococcus faecalis Not Detected; Enterococcus faecium Not Detected; Klebsiella aerogenes Not Detected; Klebsiella pneumoniae grp Not Detected; Proteus spp. Not Detected; Salmonella spp. Not Detected; Serratia marcescens Not Detected; Staphylococcus lugdunensis Not Detected; Staphylococcus spp. Detected; Stenotrophomonas maltophilia Not Detected; Streptococcus agalactiae(GrpB) Not Detected; Streptococcus pyogenes Group A Not Detected; Streptococcus spp. Not Detected; mecA/C Detected
[2024-12-02 03:51] LABS: Staphylococcus epidermidis Detected
[2024-12-02 04:00] VITALS: BP 113/68; PULSE 89; RESP 16; TEMP 36.7; O2SAT 93; BMI 28.4
--- NOTE | 2024-12-02 04:34 | PC.NURSE ---
Addendum entered by Jacqueline Arroyo RN 12/02/24 05:03: checked on pt and he had his hand in the air pointing and mumbling something. pt was awake but not comprehending instructions, he was fidgeting around in bed and yelled out when approaching his bed. notified kiki gaines and she came to bed side. pt was uncooperative at first but after about 15 min was able to obtain blood work and o2 sat. pt fsbg 150 and ra sats 88%-92%. pt stated his name and birthday but would not answer any further questions and asked when he can get out of here and leave Original Note: pt is pleasant and a&o x4. c/o restless legs , ref tylenol and went to sleep. cb within reach no needs at this time
[2024-12-02 05:41] LABS: POC Glucose,Bedside 150 gm/dL (70-110)
[2024-12-02 06:45] LABS: Hematocrit 41.7 % (42.0-52.0); Hemoglobin 13.5 g/dL (14.1-18.0); Immature Granulocytes % 0.4 %; Mean Corpuscular HGB Conc 32.4 g/dL (31.8-35.4); Mean Corpuscular Hemoglobin 34.0 pg (27.0-31.2); Mean Corpuscular Volume 105.0 fl (80-94); Nucleated Red Blood Cells % 0 %; Platelet Count 178 K/mm3 (142-424); Red Blood Count 3.97 M/mm3 (4.60-6.20); Red Cell Distribution Width-SD 58.6 fL; White Blood Count 7.6 K/mm3 (4.8-10.8)
[2024-12-02 07:02] LABS: Albumin Level 3.6 g/dl (3.5-5.0); Chloride 101 mmol/L (98-107); Potassium 4.2 mmoL/L (3.5-5.1); Sodium 136 mmol/L (136-145)
[2024-12-02 07:05] LABS: Alanine Aminotransferase 13 U/L (12-78); Albumin/Globulin Ratio 1.2 (1.1-1.8); Alkaline Phosphatase 80 U/L (38-126); Anion Gap 10.2 mEq/L (5-15); Aspartate Amino Transferase 31 U/L (17-59); Bilirubin,Total 0.8 mg/dl (0.2-1.3); Blood Urea Nitrogen 25 mg/dl (9-20); Calcium 9.7 mg/dl (8.4-10.2); Carbon Dioxide 29 mmol/L (22.0-30.0); Creatinine Clearance Estimated 55 mL/min (50-200); Creatinine,Serum 1.60 mg/dl (0.66-1.25); Estimated Glomerular Filt Rate 42 ml/min (>60); GFR (African American) 51 ML/MIN (>60); Globulin 3.0 g/dL (1.3-3.2); Glucose 141 mg/dl (74-100); Magnesium 2.3 mg/dl (1.6-2.3); Total Protein,Serum 6.6 g/dl (6.3-8.2)
[2024-12-02 07:51] VITALS: BP 150/67; PULSE 72; RESP 17; TEMP 36.8; O2SAT 92
[2024-12-02 08:30] VITALS: O2SAT 92
[2024-12-02] MEDS: PROPRANOLOL 20MG TAB 10 MG PO ×2 (09:06→20:07)
[2024-12-02] MEDS: POLYETHYLENE GLYCOL 3350 17 GM PACKET PO (09:06)
--- NOTE | 2024-12-02 09:28 | SW/DCPLANNER ---
Addendum entered by Sindy Maldonado 12/02/24 13:44: Per PT/OT patient is physically able to return to [facility]. Per Dr Ruth patient will return tomorrow pending no setbacks. Original Note: Patient currently resides at [facility]. Per PT evaluation this AM patient will need SNF at time of discharge. Patient just recently discharged from [facility]. I will follow up w/ patient regarding SNF and fax patient information. Discharge date is unknown at this time. CM will continue to follow up.
--- NOTE | 2024-12-02 09:44 | HMH.PTEV ---
Physical Therapy Evaluation Rehab PT IP Evaluation Start: 12/01/24 11:03 Freq: ONCE Status: Active Protocol: Document 12/02/24 09:35 HERBERTH (Rec: 12/02/24 09:43 HERBERTH [id number]) Subjective/History History History Per H&P: Alan Krueger is a 74-year-old male with medical history significant for CAD, history of DVT on Coumadin, hypertension, HFpEF, AICD, paroxysmal A-fib, anxiety/depression, type 2 diabetes, essential tremors presents again with progressive weakness, confusion, tremors. He was recently discharged from [facility] in the past week back to [facility] custodial after which he started developing symptoms of weakness, confusion, tremors. Patient endorses some abdominal pain but otherwise denies any focal symptoms including chest pain, shortness of breath, fever/chills , urinary problems. On further evaluation, patient has acute left-sided pinpoint pupil and chronically dilated right sided pupil (from previous trauma). He states he has been taking his cold medications as prescribed this pill pack, but niece at bedside seems to think that his medications he was taking and [place] for very different from those he was getting at [facility]. He does not seem that discharge medication recommendations were followed upon discharge from [facility]. Hide a suspicion for acute opioid unintentional overdose, patient was given Narcan after which patient's symptoms significantly improved but also became agitated due to acute opioid withdrawal. He was also given vancomycin, Zosyn due to suspected left lower extremity cellulitis . Due to generalized weakness, medication misadventure ED provider discussed case with me and I decided to admit patient for the same. Subjective Subjective Pt reports he lives in assisted living and uses a rollator for IND mobility. Pt's family member in room and reports pt has had a fall in the past 6 months. Pt recently discharged from [facility] How much help from another person do you currently need... Turning from your None back to your side while in a flat bed without using bedrails? Moving from lying on None back to sitting on the side of a flat bed without using bedrails? Moving to and from a A little bed to a chair ( including a wheelchair)? Standing up from a A little chair using your arms? (e.g., wheelchair, bedside chair) Walking in hospital A little room? Climbing 3-5 steps A little with a railing? Mobility Score 20 Mobility Level [facility] Mobility 6 Walk 10 steps or more Mobility Calculator Rehab PT IP Eval Objective Appearance Patient Behavior Appropriate,Cooperative Patient Orientation Person,Situation Difficulty following none instructions Speech Pattern Clear Ambulation Patient Able to Yes Ambulate Ambulation Observation IP General Gait Wide Based Gait Pattern Observation Ambulation Distance 3 (feet) Ambulation Assistive Rolling Walker Device Ambulation Ability Minimal x 1 (25% assist) Balance Ability to Arise Able, uses arms to help Sitting Balance Steady, safe Standing Balance Steady, wide stance Dynamic Sitting Good Balance Ability Dynamic Standing Fair Balance Ability Transfers Bed Transfer Ability Supervision/Stand by Chair Transfer Contact Guard/Hand Hold Ability Sit to Stand Bed Contact Guard/Hand Hold Transfer Ability Rehab PT IP prob,goals,plan Problems Date of Evaluation: 12/02/24 PT IP Problems Bed Mobility,Transfers,Gait,Balance,Self care,Safety Rehab Potential Rehab Potential Good Plan PT Intervention Plan Bed Mobility,Transfers,Gait,Balance,Self care,Safety, Therapeutic Exercise Other Intervention 1-2 times Plan PT Plan Frequency Daily Duration LOS Discharge Goals Bed Transfer Ability Supervision/Stand by Sit to Stand Chair Supervision/Stand by Transfer Ability Ambulation Assistive Rolling Walker Device Ambulation Distance 50 (feet) Discharge Plan PT Discharge Plan Pt presents below his baseline in functional mobility. Pt required Min A when standing EOB d/t BLE buckling. Pt demo'd 2 LOB when standing EOB while PT was trying to fix pt's gown. Pt demo'd ~5 seconds of marching at EOB using RW (Min A-CGA d/t BLE unsteadiness) before requiring sitting back down. Pt denying performing any further mobility d/t fatigue. Pt most appropriate for d /c to inpatient rehabilitation facility to address deficits and maximize safety with mobility. Pt would benefit from skilled acute care PT while at [facility] to address deficits and prevent further functional decline . Eval Complexity Eval Charge Codes 53762 - Moderate Complexity PHYSICIAN CERTIFICATION: I certify the specified therapy services for Alan Krueger are required, authorized, and reviewed every 30 days.
--- NOTE | 2024-12-02 09:53 | HMH.OTEV ---
OT Evaluation Rehab OT IP Evaluation Start: 12/01/24 11:03 Freq: ONCE Status: Active Protocol: Document 12/02/24 09:48 HERRERA (Rec: 12/02/24 09:53 HERRERA [id number]) Rehab OT IP Assessment Subjective History Alan Krueger is a 74-year-old male with medical history significant for CAD, history of DVT on Coumadin, hypertension, HFpEF, AICD, paroxysmal A-fib, anxiety/ depression, type 2 diabetes, essential tremors presents again with progressive weakness, confusion, tremors. He was recently discharged from [facility] in the past week back to [facility] after which he started developing symptoms of weakness, confusion, tremors. Patient endorses some abdominal pain but otherwise denies any focal symptoms including chest pain, shortness of breath, fever/chills, urinary problems. On further evaluation, patient has acute left-sided pinpoint pupil and chronically dilated right sided pupil (from previous trauma). He states he has been taking his cold medications as prescribed this pill pack, but niece at bedside seems to think that his medications he was taking and [place] for very different from those he was getting at [facility]. He does not seem that discharge medication recommendations were followed upon discharge from [facility]. Hide a suspicion for acute opioid unintentional overdose, patient was given Narcan after which patient's symptoms significantly improved but also became agitated due to acute opioid withdrawal . He was also given vancomycin, Zosyn due to suspected left lower extremity cellulitis. Due to generalized weakness, medication misadventure ED provider discussed case with me and I decided to admit patient for the same. Resident of assistance living at [facility]. Patient has nursing that prepares his medication weekly and facility provides food. Patient is independent with ADLs and fx'l mobility tasks at [facility]. Subjective I like to go home. Analysis Patient to complete STS and step transfers with usage of RW with SUP. No LOB. Patient was able to d/d LB Drsg independently while seated position. Objective Patient Orientation Person,Place,Name,Age,Year Right Upper WFL Extremity Gross ROM Left Upper Extremity WFL Gross ROM Transfer Training Sit/Stand Transfer,Sit/Stand/Step Transfer Assist Level Supervision/Stand by Chair Transfer Supervision/Stand by Ability Chair Transfer Sit to/from Ambulatory Technique Lower Body Dressing Independent Ability Rehab OT IP prob,goals,plan Problems Date of Evaluation: 12/02/24 OT IP Problems Bed Mobility,Transfers,Balance,Self care,Safety Rehab Potential Rehab Potential Good Equipment Needs Assistive Devices Rolling / Wheeled Walker Plan OT intervention Plan Bed Mobility,Transfers,Balance,Self care,Safety, Therapeutic Exercise OT Plan Frequency Daily Duration LOS Discharge Goals Bed Mobility Ability Independent Sit to Stand Chair Independent Transfer Ability Chair Transfer Independent Ability Chair Transfer Sit to/from Ambulatory Technique Chair Transfer Rolling Walker Assistive Devices Discharge Plan OT Discharge Plan Recommend Patient to return back home at [facility] with services. Patient to continue skilled OT IP services while here at [facility]. Eval Complexity Eval Charge Codes 20744 - Low Complexity PHYSICIAN CERTIFICATION: I certify the specified therapy services for Alan Krueger are required, authorized, and reviewed every 30 days.
[2024-12-02] MEDS: humaLOG 100 UNITS/ML 10ML VIAL (SSI) SUBCUT ×3 (11:10→20:06)
--- NOTE | 2024-12-02 15:11 | SW/DCPLANNER ---
Addendum entered by Cass Wilder 12/03/24 14:00: i faxed patient new order and packet to [email or web address]. Desirae Leonard Original Note: Patient is established with [email or web address]. Desirae Leonard
[2024-12-02 16:00] VITALS: BP 164/88; PULSE 76; RESP 16; TEMP 36.6; O2SAT 96
[2024-12-02 17:04] LABS: POC Glucose,Bedside 166 gm/dL (70-110)
--- NOTE | 2024-12-02 17:15 | P.PN_ITS ---
Subjective *Date: 12/02/24 *Time: 22:45 Interval history: States he is feeling better. Alert and oriented at baseline per family at bedside. Stable on room air. Niece at bedside has concern for patient's medications and need to clarify his regimen. Concern is polypharmacy was the underlying cause for his encephalopathy. Cooperative on exam Medical Exam Vital signs and Labs for Last 24 Hours: Vital Signs Temp Pulse Resp BP Pulse Ox O2 Del Method O2 Flow Rate 12/02/24 16:00 98 F 76 16 164/88 H 96 Room Air 12/02/24 15:15 Room Air 12/02/24 13:10 Room Air 12/02/24 11:00 Room Air 12/02/24 09:20 Room Air 12/02/24 08:30 92 L Room Air 12/02/24 07:51 98.2 F 72 17 150/67 H 92 L Room Air 12/02/24 06:32 Room Air 12/02/24 05:00 Room Air 12/02/24 04:00 98.1 F 89 16 113/68 93 L Room Air 12/02/24 03:00 Room Air 12/02/24 01:00 Room Air 12/01/24 23:00 Room Air 12/01/24 21:00 Room Air 12/01/24 20:00 Room Air 12/01/24 20:00 97.9 F 71 18 137/71 96 Room Air 12/01/24 18:47 Nasal Cannula 2 Intake and Output 12/02/24 12/02/24 12/02/24 07:59 15:59 23:59 Intake Total 600 / 840 240 / 840 Output Total 0 / 0 Balance 600 / 840 240 / 840 Intake: Intake, Oral Amount 600 / 840 240 / 840 Output: Output, Urine Amount 0 / 0 Other: Number of Unmeasured Voids 1 Number of Bowel Movements 2 Weight 97.239 kg Patient Weight 12/02/24 23:59 Weight 97.239 kg Laboratory Results - last 24 hr 12/01/24 06:47: A. baumannii (PCR) Not detected, Bacteroides fragilis Not detected, [place] albicans (PCR) Not detected, [place] auris (PCR) Not detected, C. glabrata (PCR) Not detected, C. krusei (PCR) Not detected, C. parapsilosis (PCR) Not detected, C. tropicalis (PCR) Not detected, Cryptococcus neoformans PCR Not detected, Enterobacterales (PCR) Not detected, Enterococc faecalis PCR Not detected, Enterococc faecium PCR Not detected, E. coli (PCR) Not detected, H. influenzae DNA Not detected, Klebsiella aerogenes (PCR) Not detected, Klebsiella oxytoca PCR Not detected, K. pneumoniae group (PCR) Not detected, List. monocytogenes PCR Not detected, N. meningitidis (PCR) Not detected, Proteus species (PCR) Not detected, Salmonella spp. (PCR) Not detected, Serratia marcescens PCR Not detected, Staphylococcus sp PCR Detected A, Staph aureus (PCR) Not detected, mecA/C & MREJ Resist Gene Not applicable, mecA/C-Methicil Resis Gene Detected A, Staph epidermidis (PCR) Detected A, Staph lugdunensis (TEM-PCR) Not detected, S. maltophilia (PCR) Not detected, Streptococcus sp PCR Not detected, S.agalactiae Grp B REYMUNDO Not detected, Strep pneumoniae (PCR) Not detected, S. pyogenes GrpA REYMUNDO Not detected, P. aeruginosa (PCR) Not detected, Samara/B-Vanco Res Genes Not applicable, blaIMP Car res Gene PCR Not applicable, KPC-Carbap Res Gene PCR Not applicable, blaNDM Car Res Gene PCR Not applicable, OXA-48 Carbapenem Resis Gene (PCR) Not applicable, blaVIM Car Res Gene PCR Not applicable, CTX-M Gene Resistance (PCR) Not applicable, MCR-1 Resistance Gene Not applicable 12/01/24 17:20: Troponin I 0.08 H 12/01/24 21:31: POC Glucose 186 H 12/02/24 05:34: WBC 7.6, RBC 3.97 L, Hgb 13.5 L, Hct 41.7 L, MCV 105.0 H, MCH 34.0 H, MCHC 32.4, RDW 15.3, Plt Count 178, MPV 9.8, Neut % (Auto) 64.8, Lymph % (Auto) 24.3, Placer % (Auto) 8.8, Eos % (Auto) 1.4, Baso % (Auto) 0.3, Neut # (Auto) 4.9, Lymph # (Auto) 1.9, Placer # (Auto) 0.7, Eos # (Auto) 0.1, Baso # (Auto) 0.0, Sodium 136, Potassium 4.2, Chloride 101, Carbon Dioxide 29, Anion Gap 10.2, BUN 25 H, Creatinine 1.60 H, Estimated Creat Clear 55, Estimated GFR 42 L, Est GFR ( Amer) 51 L, Glucose 141 H D, POC Glucose 150 H, Calcium 9.7, Magnesium 2.3, Total Bilirubin 0.8, AST 31 D, ALT 13, Alkaline Phosphatase 80, Total Protein 6.6, Albumin 3.6, Globulin 3.0, Albumin/Globulin Ratio 1.2 12/02/24 16:55: POC Glucose 166 H I & O for Labs for Last 24 Hours: Intake & Output 11/29/24 11/30/24 12/01/24 12/02/24 23:59 23:59 23:59 23:59 Intake Total 2710 / 2950 840 / 840 Output Total 3300 / 3300 0 / 0 Balance -590 / -350 840 / 840 Weight 98.515 kg 97.239 kg Microbiology Reports for the Last 24 Hours: Microbiology 12/01/24 06:47 Blood Blood Culture - Preliminary 12/01/24 06:51 Blood Blood Culture - Preliminary NO GROWTH AFTER 24 HOURS Constitutional: Present no acute distress, average body habitus, chronically ill appearing and cooperative Head: Present atraumatic and normocephalic ENT: Present normal exam Respiratory: Present normal respiratory effort; Absent rhonchi, wheezes or crackles Cardiac: Present Reg Rate and Rhythm GI: Present soft and normal bowel sounds; Absent distention or tenderness Extremities: Present normal inspection and full ROM Skin: Present intact; Absent erythema Neuro: Present Grossly Intact, alert, awake, oriented x 3 and moves all extremities Assessment and Plan *Assessment and plan (1) Acute encephalopathy: Status: Acute Category: Medical Code(s): G93.40 - Encephalopathy, unspecified (2) Essential tremor: Status: Acute Category: Medical Code(s): G25.0 - Essential tremor (3) Chronic pulmonary embolism: Status: Acute Qualifiers: Acute cor pulmonale presence: without acute cor pulmonale Pulmonary embolism type: other Qualified Code(s): I27.82 - Chronic pulmonary embolism Category: Medical Code(s): I27.82 - Chronic pulmonary embolism (4) HTN (hypertension): Status: Acute Qualifiers: Hypertension type: primary hypertension Qualified Code(s): I10 - Essential (primary) hypertension Category: Medical Code(s): I10 - Essential (primary) hypertension (5) HFrEF (heart failure with reduced ejection fraction): Status: Acute Category: Medical Code(s): I50.20 - Unspecified systolic (congestive) heart failure (6) Paroxysmal A-fib: Status: Acute Category: Medical Code(s): I48.0 - Paroxysmal atrial fibrillation (7) Chronic kidney disease, stage 3a: Status: Acute Category: Medical Code(s): N18.31 - Chronic kidney disease, stage 3a (8) Diabetes mellitus: Status: Acute Category: Medical Code(s): E11.9 - Type 2 diabetes mellitus without complications (9) Depression: Status: Acute Category: Medical Code(s): F32.A - Depression, unspecified Plan Alan Krueger is a 74-year-old male with medical history significant for CAD, history of DVT on Coumadin, hypertension, HFpEF, AICD, paroxysmal A-fib, anxiety/depression, type 2 diabetes, essential tremors presents again with progressive weakness, confusion, tremors. He was recently discharged from [facility] in the past week back to [facility] after which he started developing symptoms of weakness, confusion, tremors. Patient endorses some abdominal pain but otherwise denies any focal symptoms including chest pain, shortness of breath, fever/chills, urinary problems. On further evaluation, patient has acute left-sided pinpoint pupil and chronically dilated right sided pupil (from previous trauma). He states he has been taking his cold medications as prescribed this pill pack, but niece at bedside seems to think that his medications he was taking and [place] for very different from those he was getting at [facility]. He does not seem that discharge medication recommendations were followed upon discharge from [facility]. Hide a suspicion for acute opioid unintentional overdose, patient was given Narcan after which patient's symptoms significantly improved but also became agitated due to acute opioid withdrawal. He was also given vancomycin, Zosyn due to suspected left lower extremity cellulitis. Due to generalized weakness, medication misadventure ED provider discussed case with me and I decided to admit patient for the same. Showing improvement today. Anticipate discharge tomorrow. Will resume some home medications and establish new medication regimen prior to discharge home to decrease risk for polypharmacy, presumed to be a culprit in his admission. Problems addressed as follows: #Acute metabolic encephalopathy #Generalized weakness #Suspected unintentional opioid overdose #Medication side effect ? Patient presented with progressive weakness, confusion [facility]. It does not seem discharge medication recommendations were followed. Patient had acute left-sided pinpoint pupil suggesting opioid involvement l, and a chronic right-sided dilated pupil from previous trauma. Transient improvement with Narcan in the ED, followed by acute opioid withdrawal agitation. UDS positive for opioids. -Improved mentation today. Caution with resuming home medications. Hold opiate. Holding Seroquel. Decreasing dose of gabapentin. ?Evaluated by therapy. Recommend patient is safe to discharge back to his assisted living setting when medically appropriate. -Cautiously resuming home medications with Cymbalta 30 mg twice daily, gabapentin 200 mg nightly, melatonin 5 mg nightly, ropinirole 1 mg nightly for restless leg. Will monitor for oversedation and confusion overnight. - Pharmacy has gone through patient's fill history, medicine bottles and medicine prepacks records. #HFpEF exacerbation #NSTEMI, likely type II #Venous stasis dermatitis ? Bilateral lower extremity pitting edema 3+ on presentation. Left LLE more edematous from chronic DVT. Initial BNP 1130, previously normal. ? Again, likely from confusion about which medications he supposed to take. ? ECHO 11/12/2024 did show mild to moderate RV dilation with mild reduction in RV function, but regional wall motion abnormalities. No significant RV strain. ? Troponin up trended from 0.03-0.09, in the setting of cardiorenal syndrome. Follow-up repeat troponin, EKG without acute ischemic changes. Denies chest pain, shortness of breath. ? Resume Jardiance 25 mg daily, Lasix 40 mg daily, losartan 25 mg daily, kidney function normal with BUN 25, creatinine 1.6. This is patient's baseline. Potassium 4.2 with magnesium 2.3. Repeat CBC, CMP, magnesium ordered for the morning. #Left lower pulmonary embolism #History of left lower extremity DVT ? Stable on room air, resume Xarelto 20 mg daily. ? ECHO 11/12/2024 did show mild to moderate RV dilation with mild reduction in RV function, but regional wall motion abnormalities. No significant RV strain. #Essential tremors ? Previously was started on propranolol with improvement in tremors. Patient does not seem to be taking this. Resume propranolol 10 mg twice daily. ? Patient was initially thought to have Parkinson's disease, but no official diagnosis has been made. Does not meet full criteria for Parkinson's disease. #CKD stage IIIA ? Creatinine 1.6, Stable. Renally dose medications. #CAD ? Continue aspirin 81 mg. Recommend compression stockings, leg elevation as an outpatient #Paroxysmal A-fib ? Currently rate controlled. Rate control with propranolol, continue home Xarelto. #Anxiety/depression ? Continue home duloxetine #Type 2 diabetes #Suspected neuropathy ? Hemoglobin A1c 7.3%. ? Resume gabapentin 200 mg nightly. Full code DVT prophylaxis: Home Xarelto.
[2024-12-02 20:00] VITALS: BP 150/75; PULSE 81; RESP 16; TEMP 37.1; O2SAT 91
[2024-12-02 20:02] LABS: POC Glucose,Bedside 176 gm/dL (70-110)
[2024-12-02] MEDS: GABAPENTIN 100MG CAPSULE 200 MG PO (20:06)
[2024-12-02] MEDS: CLOPIDOGREL 75MG TAB 75 MG PO (20:06)
[2024-12-02] MEDS: RANOLAZINE 500MG ER TABLET 1000 MG PO (20:06)
[2024-12-02] MEDS: PANTOPRAZOLE 40MG TABLET 40 MG PO (20:07)
[2024-12-02] MEDS: MONTELUKAST SODIUM 10MG TAB 10 MG PO (20:07)
[2024-12-02] MEDS: ROPINIROLE 1MG TABLET 1 MG PO (20:07)
[2024-12-02] MEDS: MELATONIN 5MG TABLET 5 MG PO (20:07)
[2024-12-02] MEDS: guaiFENesin 200MG/10ML SYRUP UDC 200 MG PO (20:10)
[2024-12-03 04:00] VITALS: BP 164/81; PULSE 72; RESP 16; TEMP 36.8; O2SAT 92; BMI 28.0
[2024-12-03] MEDS: ACETAMINOPHEN 325MG TAB 650 MG PO (05:13)
[2024-12-03] MEDS: humaLOG 100 UNITS/ML 10ML VIAL (SSI) SUBCUT ×2 (05:34→11:30)
[2024-12-03 05:43] LABS: POC Glucose,Bedside 166 gm/dL (70-110)
[2024-12-03 06:42] LABS: Hematocrit 41.9 % (42.0-52.0); Hemoglobin 13.5 g/dL (14.1-18.0); Immature Granulocytes % 0.5 %; Mean Corpuscular HGB Conc 32.2 g/dL (31.8-35.4); Mean Corpuscular Hemoglobin 33.3 pg (27.0-31.2); Mean Corpuscular Volume 103.2 fl (80-94); Nucleated Red Blood Cells % 0 %; Platelet Count 193 K/mm3 (142-424); Red Blood Count 4.06 M/mm3 (4.60-6.20); Red Cell Distribution Width-SD 57.3 fL; White Blood Count 8.2 K/mm3 (4.8-10.8)
[2024-12-03 07:06] LABS: Albumin Level 3.6 g/dl (3.5-5.0); Chloride 103 mmol/L (98-107); Potassium 4.1 mmoL/L (3.5-5.1); Sodium 137 mmol/L (136-145)
[2024-12-03 07:09] LABS: Alanine Aminotransferase 16 U/L (12-78); Albumin/Globulin Ratio 1.3 (1.1-1.8); Alkaline Phosphatase 92 U/L (38-126); Anion Gap 10.1 mEq/L (5-15); Aspartate Amino Transferase 26 U/L (17-59); Bilirubin,Total 1.0 mg/dl (0.2-1.3); Blood Urea Nitrogen 21 mg/dl (9-20); Calcium 9.2 mg/dl (8.4-10.2); Carbon Dioxide 28 mmol/L (22.0-30.0); Creatinine Clearance Estimated 62 mL/min (50-200); Creatinine,Serum 1.40 mg/dl (0.66-1.25); Estimated Glomerular Filt Rate 49 ml/min (>60); GFR (African American) 60 ML/MIN (>60); Globulin 2.8 g/dL (1.3-3.2); Glucose 147 mg/dl (74-100); Magnesium 2.4 mg/dl (1.6-2.3); Total Protein,Serum 6.4 g/dl (6.3-8.2)
[2024-12-03 08:00] VITALS: BP 137/73; PULSE 79; RESP 18; TEMP 36.6; O2SAT 93
--- NOTE | 2024-12-03 08:26 | EXP.DC.SUM ---
General Admission date:: 12/01/24 Discharge date: 12/03/24 HPI HPI HPI: Alan Krueger is a 74-year-old male with medical history significant for CAD, history of DVT on Coumadin, hypertension, HFpEF, AICD, paroxysmal A-fib, anxiety/depression, type 2 diabetes, essential tremors presents again with progressive weakness, confusion, tremors. He was recently discharged from [facility] in the past week back to [facility] after which he started developing symptoms of weakness, confusion, tremors. Patient endorses some abdominal pain but otherwise denies any focal symptoms including chest pain, shortness of breath, fever/chills, urinary problems. On further evaluation, patient has acute left-sided pinpoint pupil and chronically dilated right sided pupil (from previous trauma). He states he has been taking his cold medications as prescribed this pill pack, but niece at bedside seems to think that his medications he was taking and Garrett for very different from those he was getting at [facility]. It does not seem that discharge medication recommendations were followed upon discharge from [facility]. Hide a suspicion for acute opioid unintentional overdose, patient was given Narcan after which patient's symptoms significantly improved but also became agitated due to acute opioid withdrawal. He was also given vancomycin, Zosyn due to suspected left lower extremity cellulitis. Due to generalized weakness, medication misadventure ED provider discussed case with me and I decided to admit patient for the same. Hospital Course Hospital Course Hospital Course: Alan Krueger is a 74-year-old male with medical history significant for CAD, history of DVT on Coumadin, hypertension, HFpEF, AICD, paroxysmal A-fib, anxiety/depression, type 2 diabetes, essential tremors presents again with progressive weakness, confusion, tremors. He was recently discharged from [facility] in the past week back to [facility] after which he started developing symptoms of weakness, confusion, tremors. Patient endorses some abdominal pain but otherwise denies any focal symptoms including chest pain, shortness of breath, fever/chills, urinary problems. On further evaluation, patient has acute left-sided pinpoint pupil and chronically dilated right sided pupil (from previous trauma). He states he has been taking his cold medications as prescribed this pill pack, but niece at bedside seems to think that his medications he was taking and Garrett for very different from those he was getting at [facility]. He does not seem that discharge medication recommendations were followed upon discharge from [facility]. Hide a suspicion for acute opioid unintentional overdose, patient was given Narcan after which patient's symptoms significantly improved but also became agitated due to acute opioid withdrawal. He was also given vancomycin, Zosyn due to suspected left lower extremity cellulitis. Due to generalized weakness, medication misadventure ED provider discussed case with me and I decided to admit patient for the same. Showed improvement during admission. Medically stabilized. White count normal on day of discharge. Made adjustments to medications to help clarify medication regimen due to patient's multiple transitions between facilities and inpatient admissions. Meds clarified. Discharge med rec gone over with patient's family member at bedside along with patient. Tolerating regimen prior to discharge. Discharge back to his assisted living setting with return to baseline mentation prior to discharge. Problems addressed as follows: #Acute toxic encephalopathy #Generalized weakness #Suspected unintentional opioid overdose #Medication side effect ? Patient presented with progressive weakness, confusion after being discharged back to [facility] from [facility] about 3 days ago. It does not seem discharge medication recommendations were followed. Patient had acute left-sided pinpoint pupil suggesting opioid involvement l, and a chronic right-sided dilated pupil from previous trauma. Transient improvement with Narcan in the ED, followed by acute opioid withdrawal agitation. UDS positive for opioids. Mentation improved with holding medications. Had gradual resolution of his gabapentin and decreased dose of his Seroquel to help with sleep and mood. Recommend holding opiates. Continued Cymbalta 30 mg twice daily for mood neuropathy. Overall back to baseline mentation. Medication regimen tolerated as follows: -- cymbalta 30 mg twice daily, gabapentin 100 mg nightly, melatonin 5 mg nightly, ropinirole 1 mg nightly for restless leg. -- Pharmacy has gone through patient's fill history, medicine bottles and medicine prepacks records. - ?Evaluated by therapy. Recommend patient is safe to discharge back to his assisted living setting when medically appropriate. #HFpEF exacerbation #NSTEMI, likely type II #Venous stasis dermatitis ? Bilateral lower extremity pitting edema 3+ on presentation. Left lower extremity more edematous from chronic DVT. Initial BNP 1130, previously normal. Again, likely from confusion about which medications he supposed to take. ECHO 11/12/2024 did show mild to moderate RV dilation with mild reduction in RV function, but regional wall motion abnormalities. No significant RV strain. Troponin up trended from 0.03-0.09, in the setting of cardiorenal syndrome. Patient had no chest pain. EKG did not show ischemic changes. Stable on room air. Resumed his regimen for heart failure including the following: Jardiance 25 mg daily, Lasix 40 mg daily, losartan 25 mg daily.kidney function remained stable BUN 21, creatinine 1.4 on day of discharge. No significant electrolyte disturbances. Would benefit from repeat labs in 2 to 4 weeks. had improvement in edema during admission with diuresis. No indication for further antibiotics at discharge #Left lower pulmonary embolism #History of left lower extremity DVT ? Stable on room air, continue Xarelto 20 mg daily. ECHO 11/12/2024 did show mild to moderate RV dilation with mild reduction in RV function, but regional wall motion abnormalities. No significant RV strain. #Essential tremors ? Previously was started on propranolol with improvement in tremors. Patient did not appear to be on it prior to coming in. Resume this at 10 mg twice daily. Patient was initially thought to have Parkinson's disease, but no official diagnosis has been made. Does not meet full criteria for Parkinson's disease. #CKD stage IIIA ? Creatinine 1.6, Stable. Renally dose medications. #CAD: Continue aspirin 81 mg. Recommend compression stockings, leg elevation as an outpatient #Paroxysmal A-fib: Currently rate controlled. Rate control with propranolol, continue home Xarelto. #Anxiety/depression: Continue home duloxetine #Type 2 diabetes #Suspected neuropathy ? Hemoglobin A1c 7.3%. Continue Jardiance 25mg daily. Continue gabapentin 200 mg nightly. Total time spent on discharge 32 minutes in counseling, documentation, chart review, and direct care with patient. Exam Data for Last 24 hours Vital signs and Labs for Last 24 Hours: Temp Pulse Resp BP Pulse Ox O2 Del Method O2 Flow Rate 98.2 F 72 16 164/81 H 92 L Room Air 2 12/03/24 04:00 12/03/24 04:00 12/03/24 04:00 12/03/24 04:00 12/03/24 04:00 12/03/24 06:57 12/01/24 18:47 Laboratory Results - last 24 hr 12/02/24 16:55: POC Glucose 166 H 12/02/24 19:55: POC Glucose 176 H 12/03/24 05:15: POC Glucose 166 H 12/03/24 05:23: WBC 8.2, RBC 4.06 L, Hgb 13.5 L, Hct 41.9 L, MCV 103.2 H, MCH 33.3 H, MCHC 32.2, RDW 15.1, Plt Count 193, MPV 9.8, Neut % (Auto) 66.3, Lymph % (Auto) 22.8, Chase % (Auto) 9.2, Eos % (Auto) 1.0, Baso % (Auto) 0.2, Neut # (Auto) 5.4, Lymph # (Auto) 1.9, Chase # (Auto) 0.8, Eos # (Auto) 0.1, Baso # (Auto) 0.0, Sodium 137, Potassium 4.1, Chloride 103, Carbon Dioxide 28, Anion Gap 10.1, BUN 21 H, Creatinine 1.40 H, Estimated Creat Clear 62, Estimated GFR 49 L, Est GFR ( Amer) 60, Glucose 147 H, Calcium 9.2, Magnesium 2.4 H, Total Bilirubin 1.0, AST 26, ALT 16, Alkaline Phosphatase 92, Total Protein 6.4, Albumin 3.6, Globulin 2.8, Albumin/Globulin Ratio 1.3 I & O for Last 24 hours: Intake & Output 11/30/24 12/01/24 12/02/24 12/03/24 23:59 23:59 23:59 23:59 Intake Total 2710 / 2950 1200 / 1200 Output Total 3300 / 3300 0 / 0 0 / 0 Balance -590 / -350 1200 / 1200 0 / 0 Weight 98.515 kg 97.239 kg 95.85 kg Microbiology Reports for the Last 24 Hours: Microbiology 12/01/24 06:51 Blood Blood Culture - Preliminary NO GROWTH AFTER 48 HOURS 12/01/24 06:47 Blood Blood Culture - Preliminary Constitutional Constitutional: no acute distress, average body habitus, chronically ill appearing and cooperative *Routine HEENT Exam Head: Present normocephalic Eye: Present EOMI and PERRL ENT: Present mucous membranes moist *Routine Neck Exam Neck: Present supple; Absent lymphadenopathy *Routine Respiratory Exam Respiratory: Present CTA bilaterally and rhonchi; Absent wheezes *Routine Cardiovascular Exam Cardiovascular: Present RRR *Routine Abdominal Exam Abdominal: Present soft and normoactive bowel sounds; Absent tenderness *Routine Rectal Exam Patient deferred: visual exam *Routine Exam Patient deferred: penile exam *Routine Extremities Exam Extremities: Present edema; Absent cyanosis or clubbing *Routine Skin Exam Skin: Present warm; Absent rash *Routine Neurological Exam Neurological: Present alert, oriented X3 and moving all extremities; Absent altered mental status Results Data Completed and Pending Labs on day of discharge: Labs from last 24 hours 12/03/24 12/03/24 12/02/24 05:23 05:15 19:55 WBC 8.2 RBC 4.06 L Hgb 13.5 L Hct 41.9 L MCV 103.2 H MCH 33.3 H MCHC 32.2 RDW 15.1 Plt Count 193 MPV 9.8 Neut % (Auto) 66.3 Lymph % (Auto) 22.8 Chase % (Auto) 9.2 Eos % (Auto) 1.0 Baso % (Auto) 0.2 Neut # (Auto) 5.4 Lymph # (Auto) 1.9 Chase # (Auto) 0.8 Eos # (Auto) 0.1 Baso # (Auto) 0.0 Sodium 137 Potassium 4.1 Chloride 103 Carbon Dioxide 28 Anion Gap 10.1 BUN 21 H Creatinine 1.40 H Estimated Creat Clear 62 Estimated GFR 49 L Est GFR ( Amer) 60 Glucose 147 H POC Glucose 166 H 176 H Calcium 9.2 Magnesium 2.4 H Total Bilirubin 1.0 AST 26 ALT 16 Alkaline Phosphatase 92 Total Protein 6.4 Albumin 3.6 Globulin 2.8 Albumin/Globulin Ratio 1.3 12/02/24 16:55 WBC RBC Hgb Hct MCV MCH MCHC RDW Plt Count MPV Neut % (Auto) Lymph % (Auto) Chase % (Auto) Eos % (Auto) Baso % (Auto) Neut # (Auto) Lymph # (Auto) Chase # (Auto) Eos # (Auto) Baso # (Auto) Sodium Potassium Chloride Carbon Dioxide Anion Gap BUN Creatinine Estimated Creat Clear Estimated GFR Est GFR ( Amer) Glucose POC Glucose 166 H Calcium Magnesium Total Bilirubin AST ALT Alkaline Phosphatase Total Protein Albumin Globulin Albumin/Globulin Ratio Preliminary micro results at discharge 12/01/24 06:51 Blood Culture - Preliminary Blood NO GROWTH AFTER 48 HOURS 12/01/24 06:47 Blood Culture - Preliminary Blood DS: Diagnosis Discharge Diagnosis (1) Acute encephalopathy: Status: Acute Code(s): G93.40 - Encephalopathy, unspecified (2) Essential tremor: Status: Acute Code(s): G25.0 - Essential tremor (3) Chronic pulmonary embolism: Status: Acute Code(s): I27.82 - Chronic pulmonary embolism Qualifiers: Acute cor pulmonale presence: without acute cor pulmonale Pulmonary embolism type: other Qualified Code(s): I27.82 - Chronic pulmonary embolism (4) HTN (hypertension): Status: Acute Code(s): I10 - Essential (primary) hypertension Qualifiers: Hypertension type: primary hypertension Qualified Code(s): I10 - Essential (primary) hypertension (5) HFrEF (heart failure with reduced ejection fraction): Status: Acute Code(s): I50.20 - Unspecified systolic (congestive) heart failure (6) Paroxysmal A-fib: Status: Acute Code(s): I48.0 - Paroxysmal atrial fibrillation (7) Chronic kidney disease, stage 3a: Status: Acute Code(s): N18.31 - Chronic kidney disease, stage 3a (8) Diabetes mellitus: Status: Acute Code(s): E11.9 - Type 2 diabetes mellitus without complications (9) Depression: Status: Acute Code(s): F32.A - Depression, unspecified Meds Home Medications and Allergies Home Medications ?Medication ?Instructions ?Recorded ?Confirmed ?Type atorvastatin 40 mg tablet 40 mg PO HS 07/03/22 12/06/24 History duloxetine 30 mg capsule,delayed 30 mg PO BID 07/03/22 12/06/24 History release colestipol 1 gram tablet 1 g PO BID 05/14/24 12/06/24 History omeprazole 20 mg capsule,delayed 20 mg PO DAILY 10/09/24 12/06/24 History release nystatin 100,000 unit/gram topical 1 applic topical DAILY 12/01/24 12/06/24 History powder rivaroxaban 20 mg tablet (Xarelto) 20 mg PO QPMWITHMEAL 12/01/24 12/06/24 History empagliflozin 25 mg tablet 25 mg PO DAILY 12/02/24 12/06/24 History (Jardiance) ferrous sulfate 325 mg (65 mg 325 mg PO BID 12/02/24 12/06/24 History iron) tablet (FeroSul) levocetirizine 5 mg tablet 5 mg PO HS 12/02/24 12/06/24 History losartan 25 mg tablet 25 mg PO DAILY 12/02/24 12/06/24 History melatonin 5 mg tablet 5 mg PO HS 12/02/24 12/06/24 History montelukast 10 mg tablet 10 mg PO HS 12/02/24 12/06/24 History propranolol 10 mg tablet 10 mg PO BID 12/02/24 12/06/24 History ranolazine 1,000 mg 1,000 mg PO BID 12/02/24 12/06/24 History tablet,extended release,12 hr spironolactone 25 mg tablet 25 mg PO DAILY 12/02/24 12/06/24 History furosemide 20 mg tablet (Lasix) 20 mg PO DAILY 30 days #0 tabs 12/03/24 12/06/24 Rx gabapentin 300 mg capsule 300 mg PO TID #90 caps 12/03/24 12/06/24 Rx quetiapine 200 mg tablet 100 mg (1/2 x 200 mg) PO HS 30 12/03/24 12/06/24 Rx days #0 tabs ropinirole 1 mg tablet 1 mg PO HS 30 days #0 tabs 12/03/24 12/06/24 Rx New Prescriptions to Start Prescriptions: William Davis Allergies Allergy/AdvReac Type Severity Reaction Status Date / Time aspirin (ASPIRIN) Allergy Unknown S-DIFF. Verified 12/06/24 13:49 BREATHING Discharge Plan Disposition Patient Disposition: Home Health Service Condition: Fair Discharge Order Discharge Orders: Discharge Order (Routine); Ordered 12/03/24 Ordered By: William Ruth Follow up Plan Follow up with: Andria Rayn APRN [Primary Care Provider, Medical] - 12/10/24 12:15 pm Prescriptions/Medication Reconciliation: New gabapentin 300 mg capsule 300 mg PO TID Qty: 90 0RF Continued omeprazole 20 mg capsule,delayed release(DR/EC) 20 mg PO DAILY colestipol 1 gram tablet 1 g PO BID Xarelto 20 mg tablet 20 mg PO QPMWITHMEAL Rx Instructions: must administer with evening meal TO START ON 12/05 nystatin 100,000 unit/gram Powder 1 applic TOPICAL DAILY spironolactone 25 mg tablet 25 mg PO DAILY ferrous sulfate [FeroSul] 325 mg (65 mg iron) Tablet 325 mg PO BID losartan 25 mg tablet 25 mg PO DAILY montelukast 10 mg tablet 10 mg PO HS ranolazine 1,000 mg tablet extended release 12 hr 1,000 mg PO BID levocetirizine 5 mg tablet 5 mg PO HS Jardiance 25 mg tablet 25 mg PO DAILY propranolol 10 mg Tablet 10 mg PO BID melatonin 5 mg Tablet 5 mg PO HS atorvastatin 40 mg tablet 40 mg PO HS duloxetine 30 mg capsule,delayed release(DR/EC) 30 mg PO BID Changed ropinirole 1 mg tablet 1 mg PO HS 30 Days Qty: 0 0RF quetiapine 200 mg tablet 100 mg PO HS 30 Days Qty: 0 0RF furosemide [Lasix] 20 mg Tablet 20 mg PO DAILY 30 Days Qty: 0 0RF Discontinued gabapentin 300 mg capsule 300 mg PO TID Qty: 90 2RF celecoxib 100 mg capsule 100 mg PO BID Problem Reconciliation Problems Reviewed?: Yes Patient Discharge Instructions ACTIVITY: Continue current activity DIET: continue same diet Patient Instructions: Cellulitis, DI for Encephalopathy, Coumadin Vitamin K/ Diet, Stop Light Heart Failure, Stop Light Infection Print Language: Dutch Providers Primary Care Provider: Andria Ryan Admit Provider: Bhavin Rodriguez Attending Provider: Bhavin Rodriguez
[2024-12-03 08:30] VITALS: O2SAT 93
[2024-12-03] MEDS: RANOLAZINE 500MG ER TABLET 1000 MG PO (10:00)
[2024-12-03] MEDS: IRBESARTAN 75MG TABLET 37.5 MG PO (10:00)
[2024-12-03] MEDS: SPIRONOLACTONE 25MG TABLET 25 MG PO (10:00)
[2024-12-03] MEDS: PROPRANOLOL 20MG TAB 10 MG PO (10:00)
[2024-12-03] MEDS: LORATADINE 10MG TABLET 10 MG PO (10:00)
[2024-12-03] MEDS: POLYETHYLENE GLYCOL 3350 17 GM PACKET PO (10:00)
[2024-12-03] MEDS: EMPAGLIFLOZIN 25MG TABLET 25 MG PO (10:01)
[2024-12-03] MEDS: FERROUS SULFATE 325MG TABLET 325 MG PO (10:01)
[2024-12-03] MEDS: CLOPIDOGREL 75MG TAB 75 MG PO (10:01)
[2024-12-03] MEDS: FUROSEMIDE 40MG/4ML VIAL 40 MG IV (10:01)
[2024-12-03 11:20] LABS: POC Glucose,Bedside 212 gm/dL (70-110)
--- NOTE | 2024-12-04 10:08 | SW/DCPLANNER ---
Spoke with patient's daughter on the phone. Patient's daughter stated that he seems to be doing much better. Patient's daughter stated that she was able to get his new medicine picked up. Patient's daughter stated that she is aware of his upcoming appointment. Patient's daughter stated that she has no concerns or questions at this time. Desirae Leonard
--- NOTE | 2024-12-05 11:56 | PC.NURSE ---
prelim blood culture forwarded to the hospitalist as he was admitted.
[2024-12-06 12:17] LABS: POC Glucose,Bedside 207 gm/dL (70-110)
== END 2024-12-03 12:29 | disposition home health service (06) ==
LOC: ER 09:53 → 2ND 09:54
PROVIDERS: Emergency Medicine; Admitting Provider Student in an Organized Health Care Education/Training Program; Emergency Provider Student in an Organized Health Care Education/Training Program; PCP Nurse Practitioner Family; Visit Provider Student in an Organized Health Care Education/Training Program
DX: G93.41 Metabolic encephalopathy (principal); G25.0 Essential tremor; I27.82 Chronic pulmonary embolism; E11.22 Type 2 diabetes mellitus with diabetic chronic kidney disease; E11.51 Type 2 diabetes mellitus with diabetic peripheral angiopathy without gangrene; I13.0 Hypertensive heart and chronic kidney disease with heart failure and stage 1 through stage 4 chronic kidney disease, or unspecified chronic kidney disease; I50.21 Acute systolic (congestive) heart failure; I48.0 Paroxysmal atrial fibrillation; N18.31 Chronic kidney disease, stage 3a; F32.A Depression, unspecified; I25.2 Old myocardial infarction; I87.2 Venous insufficiency (chronic) (peripheral); I82.812 Embolism and thrombosis of superficial veins of left lower extremity; I82.412 Acute embolism and thrombosis of left femoral vein; I25.10 Atherosclerotic heart disease of native coronary artery without angina pectoris; F41.9 Anxiety disorder, unspecified; E78.5 Hyperlipidemia, unspecified; F17.210 Nicotine dependence, cigarettes, uncomplicated; G20.A1 Parkinson's disease without dyskinesia, without mention of fluctuations; I65.21 Occlusion and stenosis of right carotid artery; K76.0 Fatty (change of) liver, not elsewhere classified; K57.30 Diverticulosis of large intestine without perforation or abscess without bleeding; Z88.8 Allergy status to other drugs, medicaments and biological substances; Z86.718 Personal history of other venous thrombosis and embolism; Z95.810 Presence of automatic (implantable) cardiac defibrillator; Z79.01 Long term (current) use of anticoagulants; Z79.899 Other long term (current) drug therapy
CPT/HCPCS: 36415; 70450; 70496; 70498; 71275; 74177; 80053; 80307; 80329; 81001; 82803; 82962; 83690; 83735; 83880; 84484; 85025; 85610; 85730; 86803; 87040; 87077; 87086; 87088; 87154; 87186; 87389; 93005; 93970; 96361; 96365; 96366; 96367; 96375; 96376; 97162; 97165; 97530; 99285; G0378; J1938; J2312; J2405; J2543; J3375; J7030; Q9967

== ENCOUNTER 2024-12-24 08:03 | Emergency (ER) | payer MEDICARE, SELFPAY ==
[2024-12-24] VITALS (8 sets, daily range): BP systolic 119–168; BP diastolic 67–97; PULSE 52–108; RESP 17–23; TEMP 36.4–37.6; O2SAT 95–100; BMI 29.8
--- NOTE | 2024-12-24 08:12 | CT_ITS ---
FINAL REPORT TECHNIQUE: Thin section axial images were obtained through the cervical spine without contrast. Multiplanar reconstruction images were obtained from the axial data. Exam was performed using dose reduction techniques. CLINICAL HISTORY: fall, ams, found down FINDINGS: Motion artifact limits exam sensitivity. Exam is essentially nondiagnostic for evaluation of the cervical fracture. Craniocervical junction appears grossly intact. There is multilevel degenerative disease. IMPRESSION: Nondiagnostic for evaluation for cervical spine fracture due to motion. Reviewed, Interpreted and Dictated by Leanne Barbosa MD Transcribed by Ranjana Hutton Authenticated and [facility]
--- NOTE | 2024-12-24 08:12 | CT_ITS ---
FINAL REPORT TECHNIQUE: Thin section axial images were obtained from skull base to vertex without contrast. Coronal reconstruction images were obtained from the axial data. Exam was performed using dose reduction techniques such as automated exposure control, adjustment of the mA and kV according to patient size, and use of iterative reconstruction technique. CLINICAL HISTORY: fall, possible stroke COMPARISON: 12/01/2024 FINDINGS: Motion significantly limits exam. There is multifocal hemorrhage. A large hemorrhage in the anterior right temporal lobe appears to have both intraparenchymal and subdural components. Intraparenchymal component measures 48 x 37 mm on axial image 47 of series 5. Subdural component on the same image measures 7 mm. There is bilateral frontal hemorrhage, possible a countrecoup injury. The left posterior subdural hemorrhage measures 10 mm thickness on image 66 of series 5. There is no midline shift although motion makes evaluation difficult. The ventricles are thin. No hydrocephalus. There is also extraaxial hemorrhage along the falx. A nondisplaced fracture of the occipital bone at the midline extends to the foramen magnum. There is soft tissue edema at the occipital scalp. The basilar cisterns do appear preserved. IMPRESSION: Exam limited by motion. Bilateral hemorrhages, both intraparenchymal and subdural. Posterior skull fracture. Reviewed, Interpreted and Dictated by Leanne Barbosa MD Transcribed by Shanita Arvizu Authenticated and [facility]
--- NOTE | 2024-12-24 08:12 | HMH.EDGENADL ---
Discharge Plan Disposition Patient Disposition: Xfer Other Condition: Serious Prescriptions Prescriptions: No Action omeprazole 20 mg capsule,delayed release(DR/EC) 20 mg PO DAILY colestipol 1 gram tablet 1 g PO BID Xarelto 20 mg tablet 20 mg PO QPMWITHMEAL Rx Instructions: must administer with evening meal TO START ON 12/05 nystatin 100,000 unit/gram Powder 1 applic TOPICAL DAILY spironolactone 25 mg tablet 25 mg PO DAILY ferrous sulfate [FeroSul] 325 mg (65 mg iron) Tablet 325 mg PO BID losartan 25 mg tablet 25 mg PO DAILY montelukast 10 mg tablet 10 mg PO HS ranolazine 1,000 mg tablet extended release 12 hr 1,000 mg PO BID levocetirizine 5 mg tablet 5 mg PO HS Jardiance 25 mg tablet 25 mg PO DAILY propranolol 10 mg Tablet 10 mg PO BID melatonin 5 mg Tablet 5 mg PO HS ropinirole 1 mg tablet 1 mg PO HS 30 Days Qty: 0 0RF quetiapine 200 mg tablet 100 mg PO HS 30 Days Qty: 0 0RF gabapentin 300 mg capsule 300 mg PO TID Qty: 90 0RF furosemide [Lasix] 20 mg Tablet 20 mg PO DAILY 30 Days Qty: 0 0RF atorvastatin 40 mg tablet 40 mg PO HS duloxetine 30 mg capsule,delayed release(DR/EC) 30 mg PO BID Referrals Follow up/Referrals: Andria Ryan APRN [Primary Care Provider, Medical] - See instructions Clinical Impressions Clinical Impression: Intracranial hemorrhage following injury, Skull fracture Stand Alone Forms Stand Alone Forms: Transfer Record - ED Instructions Patient Instructions: DI for Altered Mental Status Print Language Print Language: Mauritanian Discharge ED Provider: Lso Wong General Adult HPI General Chief complaint: Altered Mental Status Stated complaint: Altered Time Seen by Provider: 12/24/24 08:12 History of Present Illness HPI narrative: This patient is a 74-year-old male with past medical history of Parkinson's dementia, atrial fibrillation, pacemaker placement who presents to the emergency department after being found down. The patient was found down this morning at his nursing facility. He has scrapes on his knees and was lying facedown in a pool of urine. Is unclear how long the patient was down. On arrival he is tremulous, altered, not responding verbally. He will open his eyes and follow commands. He has unequal pupils which the patient's family reports is his baseline. He also has significant swelling in the left leg which family reports is also his baseline. EMS reports 3 EKGs initial EKG normal, second EKG concerning for STEMI, third EKG normal per their automatic readout. complaint: ] Related Data Home Medications ?Medication ?Instructions ?Recorded ?Confirmed atorvastatin 40 mg tablet 40 mg PO HS 07/03/22 12/06/24 duloxetine 30 mg capsule,delayed 30 mg PO BID 07/03/22 12/06/24 release colestipol 1 gram tablet 1 g PO BID 05/14/24 12/06/24 omeprazole 20 mg capsule,delayed 20 mg PO DAILY 10/09/24 12/06/24 release nystatin 100,000 unit/gram topical 1 applic topical DAILY 12/01/24 12/06/24 powder rivaroxaban 20 mg tablet (Xarelto) 20 mg PO QPMWITHMEAL 12/01/24 12/06/24 empagliflozin 25 mg tablet 25 mg PO DAILY 12/02/24 12/06/24 (Jardiance) ferrous sulfate 325 mg (65 mg 325 mg PO BID 12/02/24 12/06/24 iron) tablet (FeroSul) levocetirizine 5 mg tablet 5 mg PO HS 12/02/24 12/06/24 losartan 25 mg tablet 25 mg PO DAILY 12/02/24 12/06/24 melatonin 5 mg tablet 5 mg PO HS 12/02/24 12/06/24 montelukast 10 mg tablet 10 mg PO HS 12/02/24 12/06/24 propranolol 10 mg tablet 10 mg PO BID 12/02/24 12/06/24 ranolazine 1,000 mg 1,000 mg PO BID 12/02/24 12/06/24 tablet,extended release,12 hr spironolactone 25 mg tablet 25 mg PO DAILY 12/02/24 12/06/24 Previous Rx's ?Medication ?Instructions ?Recorded furosemide 20 mg tablet (Lasix) 20 mg PO DAILY 30 days #0 tabs 12/03/24 gabapentin 300 mg capsule 300 mg PO TID #90 caps 12/03/24 quetiapine 200 mg tablet 100 mg (1/2 x 200 mg) PO HS 30 12/03/24 days #0 tabs ropinirole 1 mg tablet 1 mg PO HS 30 days #0 tabs 12/03/24 Allergies Allergy/AdvReac Type Severity Reaction Status Date / Time aspirin (ASPIRIN) Allergy Unknown S-DIFF. Verified 12/06/24 13:49 BREATHING PFSH [facility] Disclaimer: The information contained in this section may have been updated after the patient was seen, as this information can be updated by other users. Medical History Dehydration Hypotension Edema Cardiac resynchronization therapy defibrillator (CONSULTANT NURSE-D) in place HLD (hyperlipidemia) HTN (hypertension) HFrEF (heart failure with reduced ejection fraction) Paroxysmal A-fib Coronary artery disease Cardiac pacemaker in situ Chronic kidney disease, stage 3a Peripheral vascular disease Chronic pain with drug dependence History of DVT of lower extremity Rib fractures Clavicular fracture Depression Fall at home Parkinson disease Diabetes mellitus Surgical History AICD (automatic cardioverter/defibrillator) present implant OCT 2022. S/P carpal tunnel release History of total left hip replacement S/P cholecystectomy Family History Other Coronary artery disease Diabetes Social History Smoking Status: Unknown if ever smoked years smoked: 55 quit status: not considering quitting alcohol intake: never substance use type: denies use current occupational status: retired Travel in the last 8 weeks?: None household members: other housing: apartment marital status: Have you lived/traveled outside US in past 30 days?: No Contact w/someone who lives/traveled outside US past 30 days?: No Exposure to someone with infectious disease in past 14 days?: No Do you have a fever (greater than 100.4 F or 38 C)?: No Have you tested positive for COVID-19?: No Exposed to someone with COVID-19 in past 14 days?: No Do you have a sore throat?: No Do you have a cough?: No Do you have any weakness?: No Do you have any diarrhea?: No Are you experiencing any unusual bleeding?: No Do you have any muscle aches/pain?: No Do you have any abdominal pain?: No Are you experiencing loss of taste or smell?: No Other Medical History Have you received the Flu Vaccine for this season: No Have you received the Pneumonia Vaccine: Yes ROS Obtained: Yes unobtainable due to mental condition Physical Exam General General appearance: anxious and other Comment: Fidgety, anxious, responds to voice, not speaking Head Head exam: other (Small abrasion to forehead) Eye Eye exam: Present other (Pupils unequal but reactive to light bilaterally, per family report this is patient's baseline) ENT ENT exam: Present normal exam and normal external ear exam Neck Neck exam: Present normal inspection, full ROM and trachea midline Chest Chest inspection: Present normal inspection and symmetric chest wall rise; Absent tenderness Respiratory Respiratory exam: Absent respiratory distress Cardiovascular Cardiovascular exam: Present normal rhythm, Pacemaker w/paced rhythm and other (appears warm and well perfused) Abdominal Exam Abdominal exam: Absent distention or tenderness exam: Absent deferred Extremities Exam Extremities exam: Present normal inspection and full ROM Neurological Exam Neurological exam: Present other (Confused, not oriented to self, time,) Psychiatric Psychiatric exam: Present agitated Skin Skin exam: Present pallor Medical Decision Making Medical Records Medical records reviewed: Yes I reviewed the patient's medical records. Screening: Per USPSTF and CDC recommendations, given the prevalence of disease in our region, it is our hospital?s policy to screen for HIV and viral Hepatitis for all patients aged 18 and over and those with ongoing risk factors. [place] Inquiry Pt receiving controlled substance: No [place] was queried for this patient: No Vital Signs: 12/24/24 08:38 12/24/24 09:01 12/24/24 09:50 Temperature 99.6 F Temperature Source Axillary Pulse Rate 81 Pulse Rate [Right] 52 L Respiratory Rate 18 17 18 Blood Pressure 131/78 146/67 H Blood Pressure [Right Arm] 157/94 H Blood Pressure Mean [Right Arm] 115 02 Sat by Pulse Oximetry 95 96 Oxygen Delivery Method Room Air Room Air 12/24/24 09:54 12/24/24 10:01 12/24/24 10:22 Temperature Temperature Source Pulse Rate 69 108 H Pulse Rate [Right] Respiratory Rate 23 20 Blood Pressure 119/97 H 157/83 H 168/94 H Blood Pressure [Right Arm] Blood Pressure Mean [Right Arm] 02 Sat by Pulse Oximetry 100 100 100 Oxygen Delivery Method Mechanical Ventilation Mechanical Ventilation Mechanical Ventilation Lab Data Lab results reviewed: Yes I reviewed the patient's lab results. Lab Results 12/24/24 08:20: Urine Color Yellow, Urine Appearance Clear, Urine pH 5.5, Ur Specific [place] 1.025, Urine Protein 1+ A, Urine Glucose (UA) 3+, Urine Ketones 1+, Urine Blood 3+ A, Urine Nitrate Negative, Urine Bilirubin 1+ A, Urine Urobilinogen 0.2, Ur Leukocyte Esterase Negative, Urine RBC 10-20, Urine WBC 10-20, Ur Squamous Epith Cells 3-5, Ur Transition Epith Cell 3-5, Ur Renal Epithelial Cell 3-5, Urine Bacteria 4+, Urine Opiates Screen Negative, Urine Methadone Screen Negative, Ur Barbituates Screen Negative, Ur Phencyclidine Scrn Negative, Ur Amphetamines Screen Negative, U Benzodiazepines Scrn Negative, Urine Cocaine Screen Negative, U Marijuana (THC) Screen Negative 12/24/24 08:35: WBC 19.4 H, RBC 4.43 L, Hgb 15.3, Hct 46.2, MCV 104.3 H, MCH 34.5 H, MCHC 33.1, RDW 14.6, Plt Count 205, MPV 10.6 H, Neut % (Auto) 85.9 H, Lymph % (Auto) 6.5 L, [place] % (Auto) 7.0, Eos % (Auto) 0.0 L, Baso % (Auto) 0.1, Neut # (Auto) 16.7 H, Lymph # (Auto) 1.3, [place] # (Auto) 1.4 H, Eos # (Auto) 0.0, Baso # (Auto) 0.0, PT 11.4, INR 1.03, Sodium 144, Potassium 4.0, Chloride 106, Carbon Dioxide 25, Anion Gap 17.0 H, BUN 52 H, Creatinine 1.90 H, Estimated Creat Clear 47, Estimated GFR 35 L, Est GFR ( Amer) 42 L, Glucose 268 H, Calcium 10.3 H, Total Bilirubin 1.6 H, AST 95 H, ALT 44, Alkaline Phosphatase 113, Total Creatine Kinase 2329 H*, Troponin I 0.24 H, C-Reactive Protein 81.4 H, NT-Pro-B Natriuret Pep 8700 H, Total Protein 8.5 H D, Albumin 4.7, Globulin 3.8 H, Albumin/Globulin Ratio 1.2, Lipase 43 12/24/24 08:38: VBG pH 7.40, VBG pCO2 38.8, VBG pO2 38.3, VBG HCO3 23.7, VBG Total CO2 24.9, VBG O2 Saturation 69.9, VBG Base Excess -1.0, VBG Lactic Acid 2.9 H 12/24/24 10:00: SARS-CoV-2 (PCR) Not detected, Influenza A Untype (PCR) Not detected, Influenza Type B (PCR) Not detected 12/24/24 08:35 12/24/24 08:35 Orders (Tests/Meds): ED MEDICATIONS Generic Name Dose Route Start Last Admin Trade Name Freq PRN Reason Stop Dose Admin Ceftriaxone Sodium 2 gm/ 100 mls @ 200 mls/hr 12/24/24 09:15 Sodium Chloride IV 01/03/25 09:14 Q24H LIZETH Vancomycin/PEG/NADA/Lysine/Water 1.75 gm in 350 mls @ 175 mls/hr 12/24/24 09:15 Vancomycin 1.75gm/350ml (Peg) Premix IV 12/24/24 11:14 ONCE ONE Nicardipine HCl 25 mg/ Sodium 250 mls @ 50 mls/hr 12/24/24 10:40 Chloride IV 01/23/25 10:39 .Q5H LIZETH Protocol 5 MG/HR Prothrombin Complex Concent ( 200 mls @ 504 mls/hr 12/24/24 11:00 Human) 5,000 unit/ IV 12/24/24 11:23 Miscellaneous ONCE ONE Discontinued Medications Generic Name Dose Route Start Last Admin Trade Name Freq PRN Reason Stop Dose Admin Haloperidol Lactate 2 mg 12/24/24 09:38 12/24/24 09:42 Haloperidol Lactate 5 Mg/Ml Vial IV 12/24/24 09:39 2 mg ONCE ONE Administration Levetiracetam 2,000 mg/ Sodium 120 mls @ 240 mls/hr 12/24/24 10:36 12/24/24 10:54 Chloride IV 12/24/24 10:37 240 mls/hr ONCE ONE Administration Iopamidol 100 ml 12/24/24 10:42 12/24/24 10:44 Iopamidol-370 (76%);100ml Bottle IV 12/24/24 10:43 100 ml ONCE ONE Administration Iopamidol 50 ml 12/24/24 10:43 12/24/24 10:44 Iopamidol-370 (76%);100ml Bottle IV 12/24/24 10:44 50 ml ONCE ONE Administration Midazolam HCl 1 mg 12/24/24 08:37 12/24/24 08:46 Midazolam 2mg/2ml Vial IV 12/24/24 08:38 1 mg ONCE ONE Administration Midazolam HCl 1 mg 12/24/24 09:30 12/24/24 09:32 Midazolam 2mg/2ml Vial IV 12/24/24 09:31 1 mg ONCE ONE Administration Midazolam HCl 1 mg 12/24/24 09:38 12/24/24 09:41 Midazolam 2mg/2ml Vial IV 12/24/24 09:39 1 mg ONCE ONE Administration Miscellaneous 1 each 12/24/24 09:15 Vancomycin Consult Request NOTAPPLIC 01/23/25 09:14 CONSULT PHARMACY LIZETH Miscellaneous 1 each 12/24/24 10:41 Pharmacy Consult Request NOTAPPLIC 12/24/24 10:42 CONSULT PHARMACY ONE Sodium Chloride 50 ml 12/24/24 10:43 12/24/24 10:44 0.9 % Sodium Chloride 50 Ml Vial IV 12/24/24 10:44 50 ml ONCE ONE Administration Sodium Chloride 50 ml 12/24/24 10:42 12/24/24 10:44 0.9 % Sodium Chloride 50 Ml Vial IV 12/24/24 10:43 50 ml ONCE ONE Administration Sodium Chloride 10 ml 12/24/24 10:42 12/24/24 10:44 Sodium Chloride 0.9% 10ml Syr (Rad Only) IV 12/24/24 10:43 10 ml ONCE ONE Administration ORDERS Category Date Time Status CT angio abdomen pelvis Stat Cat Scan 12/24/24 08:[address] angio head Stat Cat Scan 12/24/24 09:[address] angio neck Stat Cat Scan 12/24/24 09:[address] cervical spine wo con Stat Cat Scan 12/24/24 08:[address] head/brain wo con Stat Cat Scan 12/24/24 08:[address] head/brain wo con Stat Cat Scan 12/24/24 10:22 Taken CTA Chest [CT angio chest PE protocol] Stat Cat Scan 12/24/24 08:19 Taken CA echo limited Stat Exams 12/24/24 09:16 Ordered CXR --portable [XR chest portable] Stat Exams 12/24/24 08:13 Taken B-Hydroxybutyrate Stat Lab 12/24/24 08:35 Received BNP [NT Pro Brain Natriuretic Pep.] Stat Lab 12/24/24 08:35 Completed CBC w/Auto Diff [Complete Blood Count Auto Diff] Stat Lab 12/24/24 08:35 Completed CK [Creatine Kinase] Stat Lab 12/24/24 08:35 Completed CMP [Comprehensive Metabolic Panel] Stat Lab 12/24/24 08:35 Completed CRP [C-Reactive Protein] Stat Lab 12/24/24 08:35 Completed Lipase Stat Lab 12/24/24 08:35 Completed PT INR [Prothrombin Time INR] Stat Lab 12/24/24 08:35 Completed Rapid PCR Covid and Flu A/B Stat Lab 12/24/24 10:00 Completed Troponin I Q3H Lab 12/24/24 08:35 Completed Troponin I Q3H Lab 12/24/24 11:15 Ordered UA [Urinalysis and Microscopic] Stat Lab 12/24/24 08:20 Completed UDS [Drug Screen,Urine] Stat Lab 12/24/24 08:20 Completed Blood Culture Stat Micro 12/24/24 08:35 Ordered Sputum Culture & Gram Stain Stat Micro 12/24/24 10:55 Received Urine Culture Stat Micro 12/24/24 08:20 Received VBG [Venous Blood Gas] Stat RT 12/24/24 08:38 Completed VBG [Venous Blood Gas] Stat RT 12/24/24 10:59 Ordered Medical Decision Narrative: MDM In summary, this 74-year-old male presents to the emergency department today with confusion, altered mental status after being found down. Initial evaluation the patient agitated and uncomfortable appearing, patient will respond to voice, not answering questions not following commands. Differential diagnosis includes but is not limited to intracranial hemorrhage, skull fracture, ACS, SC, infectious etiology, sepsis, UTI, pneumonia. Based on these concerns, I ordered comprehensive laboratory imaging workup. ECG personally interpreted by me demonstrates normal sinus rhythm, currently being ventricular paced, left bundle branch block, new ST elevations in 2 and V3. Patient received vancomycin, ceftriaxone, Haldol, Versed for treatment. Labs personally reviewed and interpreted demonstrate significant elevations in BUN and creatinine, significant elevation in CK, anemia, normal PT/INR, elevation in lactate. On initial exam the patient's children are present, the patient's daughter reported that he had been acting similarly yesterday and she was most concerned about intoxication. She reported that the patient's pupil asymmetry was chronic and had been ongoing for the last 3 to 4 months. Our primary concern was infectious etiology versus severe rhabdomyolysis. Initial laboratory workup was concerning for these and so broad-spectrum antibiotics were started. On the way in the EMS crew had alerted us that one of their EKG showed concern for possible STEMI. The patient was given Versed for anxiolysis on arrival and EKG was repeated. The EKG personally interpreted by me did show a left bundle branch block, ventricularly paced, new ST depressions in leads III and V3, I spoke with the zipper setter lockstitch here who felt that it was unlikely the patient was having a STEMI, they felt it was more likely that this was due to demand ischemia. Initial troponin was elevated, we will attempt a delta. I was called to the CT scanner where the patient was acutely agitated, Noncon of the head had been performed which showed several large intracranial hemorrhages and a skull fracture. We were unable to perform further imaging due to patient's agitation. The patient was intubated successfully, images were performed, I started the patient on Kcentra for anticoagulation reversal, Keppra, and a nicardipine drip. I consulted the trauma surgery service at the [facility] and they are agreeable to accepting the patient to [place] emergency department. Procedures Intubation Mallampati Score:: Class I Time out performed: Yes sedative: Etomidate Mg Given: 30 paralytic: Rocuronium Mg Given: 100 Laryngoscope: Clark ET Tube Size: 7.5 ET Tube Uncuffed: No Tube Secured Depth (cm): 26 Tube Secured Location: other Tube Placement Confirmation: visualized tube passing through cords, equal breath sounds bilaterally, no breath sounds over epigastrium and confirmation by capnometry Patient Tolerated Procedure: well Intubation Complications: none Critical Care Critical Care Time Critical Care Time: Yes Attestation: On 12/24/24, the high probability of a clinically significant, sudden or life threatening deterioration of the following system(s) required my full and direct attention, intervention and personal management. The time I documented below is in addition to time spent performing reported procedures but includes the following listed in this critical care notation. Total Time Total Critical Care Time: 45
--- NOTE | 2024-12-24 08:13 | XR_ITS ---
FINAL REPORT CLINICAL HISTORY: post intubation COMPARISON: 10/08/2024 FINDINGS: A portable view of the chest was obtained. There has been interval placement of an ET tube with the tip 3.2 cm above the lita. A left sided AICD is present. The heart and mediastinum are within normal limits. Left basilar opacity is likely atelectasis. There is no pleural effusion or pneumothorax. IMPRESSION: ET tube tip 3.2 cm above the lita. Left basilar opacity, likely atelectasis. Reviewed, Interpreted and Dictated by Lita Barbosa MD Transcribed by Shanita Arvizu Authenticated and [facility]
--- OUTSIDE RECORDS SUMMARY | 2024-12-24 08:15 | XMS_ITS | Clinical Summary ---
Author Organization Healthcare Address [address] [place] [address] Care Team Providers Care Clam Grader Name Role Phone Abel Parker MD Primary Care Provider [phone] Allergies Active Allergy Reactions Criticality Noted Date [...] were you homeless or living in a senior living (including now)? No 04/15/2024 Utilities Answer Date [...] Screenings 10/13/2024 [facility]-Adult SDOH Screenings 10/13/2024 04/15/2024 [id number] Vaccine (2 - season) 2024 10/08/2020 [facility]-Influenza [...] Insurance [address] [place] [address] [facility] MEDICARE Advance Directives * Full Code (Latest Code Status on File) Date Activated Date Inactivated Comments 04/15/2024 4:26 AM 04/19/2024 3:59 PM Question Answer Comments Patient has decision-making capacity? Yes Care Teams Clam Grader Relationship Specialty Start Date End Date Abel Parker MD [address] [place] [address] PCP - General 07/03/20
--- NOTE | 2024-12-24 08:19 | CT_ITS ---
FINAL REPORT TECHNIQUE: Thin section axial images were obtained through the abdomen and pelvis after contrast injection per CT angiogram protocol. Multiplanar reconstruction images were obtained from the axial data. This exam was performed with techniques to keep radiation dose as low as reasonably achievable. This includes automated exposure control, adjustment of the MA and KVP, and iterative reconstruction technique. CLINICAL HISTORY: ams, found down, unknown pathology COMPARISON: 12/01/2024 FINDINGS: CTA: No abdominal aortic aneurysm or aortic dissection. The celiac axis, superior mesenteric artery, and inferior mesenteric artery are patent without stenosis. The renal arteries are patent. The common iliac arteries and visualized portions of the internal and external iliac arteries are patent. No significant stenosis. NONVASCULAR: There is fatty infiltration of the liver. The gallbladder is absent. Bilateral adrenal nodules are unchanged. The solid abdominal organs are without acute abnormality. There is no evidence of bowel obstruction. No lymphadenopathy or free fluid. No acute osseous abnormality. There is a large amount of stool in the rectum. IMPRESSION: No evidence of stenosis or occlusion. Reviewed, Interpreted and Dictated by Leanne Barbosa MD Transcribed by Sylvia Marvin Authenticated and [facility]
--- NOTE | 2024-12-24 08:19 | CT_ITS ---
FINAL REPORT TECHNIQUE: Axial imaging of the chest is obtained after the administration of contrast. 3-D MIP reformatted images were also obtained and reviewed per PE protocol. This study was performed with techniques to keep radiation doses as low as reasonably achievable (ALARA). Individualized dose reduction techniques using automated exposure control or adjustment of mA and/or kV according to the patient's size were employed. CLINICAL HISTORY: hx PE, tachycarida, intermittent sob COMPARISON: 12/01/2024, 11/11/2024 FINDINGS: There has been no change in the segmental pulmonary embolism in the left lower lobe. No new pulmonary embolism is identified. There is no evidence of right heart strain. There is an ascending aortic aneurysm measuring 42 mm. There is no aortic dissection. There is an ET tube which terminates above the lita. There is no thoracic lymphadenopathy. There is no pleural or pericardial effusion. 5 mm nodule along the right minor fissure likely represents an intrafissural lymph node. There is bilateral lower lobe atelectasis which is unchanged. There is no new infiltrate. Limited imaging of the upper abdomen demonstrates stable bilateral adrenal nodules. There is no acute osseous abnormality. IMPRESSION: No change in segmental left lower lobe pulmonary embolism from November 11, 2024. Ascending aortic aneurysm. Stable bibasilar atelectasis. Reviewed, Interpreted and Dictated by Lita Barbosa MD Transcribed by Ranjana Hutton Authenticated and [facility]
[2024-12-24 08:27] LABS: Microscopic, Urine URINE MICROSCOPIC (MICROSCOPIC)
[2024-12-24 08:42] LABS: VBG HCO3 23.7 mmol/L (23-30); VBG PCO2 38.8 mmol/L (35-51); VBG PH 7.40 mmol/L (7.31-7.41); VBG PO2 38.3 mmol/L (28-40)
[2024-12-24 08:43] LABS: Lactate Venous 2.9 mmol/L (0.4-2.0)
[2024-12-24 08:46] LABS: Hematocrit 46.2 % (42.0-52.0); Hemoglobin 15.3 g/dL (14.1-18.0); Immature Granulocytes % 0.5 %; Mean Corpuscular HGB Conc 33.1 g/dL (31.8-35.4); Mean Corpuscular Hemoglobin 34.5 pg (27.0-31.2); Mean Corpuscular Volume 104.3 fl (80-94); Nucleated Red Blood Cells % 0 %; Platelet Count 205 K/mm3 (142-424); Red Blood Count 4.43 M/mm3 (4.60-6.20); Red Cell Distribution Width-SD 56.6 fL; White Blood Count 19.4 K/mm3 (4.8-10.8)
[2024-12-24] MEDS: MIDAZOLAM 2MG/2ML VIAL 1 MG IV ×3 (08:46→09:41)
[2024-12-24 08:57] LABS: Color,Urine YELLOW (Yellow); Glucose,Urine (UA) 3+ (Negative); Ketones,Urine 1+ (Negative); Leukocyte Esterase,Urine Negative (Negative); PH,Urine 5.5 (5.0-8.5); Protein,Urine 1+ (Negative); Specific Gravity, Urine 1.025 (1.005-1.030); Urobilinogen,Urine 0.2 EU/dl (0.2)
[2024-12-24 09:04] LABS: INR 1.03 (0.9-1.1); Prothrombin Time 11.4 seconds (10.1-12.5)
[2024-12-24 09:10] LABS: Alanine Aminotransferase 44 U/L (12-78); Albumin Level 4.7 g/dl (3.5-5.0); Albumin/Globulin Ratio 1.2 (1.1-1.8); Alkaline Phosphatase 113 U/L (38-126); Anion Gap 17.0 mEq/L (5-15); Aspartate Amino Transferase 95 U/L (17-59); Bilirubin,Total 1.6 mg/dl (0.2-1.3); Blood Urea Nitrogen 52 mg/dl (9-20); Calcium 10.3 mg/dl (8.4-10.2); Carbon Dioxide 25 mmol/L (22.0-30.0); Chloride 106 mmol/L (98-107); Creatinine Clearance Estimated 47 mL/min (50-200); Creatinine,Serum 1.90 mg/dl (0.66-1.25); Estimated Glomerular Filt Rate 35 ml/min (>60); GFR (African American) 42 ML/MIN (>60); Globulin 3.8 g/dL (1.3-3.2); Glucose 268 mg/dl (74-100); Lipase 43 U/L (23-300); Potassium 4.0 mmoL/L (3.5-5.1); Sodium 144 mmol/L (136-145); Total Protein,Serum 8.5 g/dl (6.3-8.2)
[2024-12-24 09:16] LABS: C-Reactive Protein 81.4 mg/L (0-4)
[2024-12-24 09:21] LABS: Creatine Kinase 2329 U/L (55-170)
[2024-12-24 09:21] LABS: Opiate Screen,Urine Negative ng/ml (<300)
[2024-12-24 09:22] LABS: Phencyclidine Screen,Urine Negative ng/ml (<25)
[2024-12-24 09:23] LABS: Amphetamine/Metha Screen,Urine Negative ng/ml (<1000)
[2024-12-24 09:24] LABS: Barbiturates Screen,Urine Negative ng/ml (<200); Benzodiazepines Screen,Urine Negative ng/ml (<200)
[2024-12-24 09:28] LABS: Methadone Screen,Urine Negative ng/ml (<300)
[2024-12-24 09:29] LABS: Troponin I 0.24 ng/ml (0.00-0.034)
[2024-12-24 09:30] LABS: NT Pro Brain Natriuretic Pep. 8700 pg/mL (0-450)
[2024-12-24 09:33] LABS: Bilirubin,Urine 1+ (Negative)
--- NOTE | 2024-12-24 09:38 | CT_ITS ---
FINAL REPORT TECHNIQUE: Thin section axial images were obtained from the aortic arch to the skull base after intravenous contrast injection per CTA protocol. Multiplanar reconstruction images were obtained. Exam was performed using dose reduction techniques and the ALARA principle. CLINICAL HISTORY: head bleed COMPARISON: 12/01/2024 FINDINGS: CTA NECK: Aortic arch: There is a normal three-vessel configuration to the aortic arch. There is no significant stenosis of the great vessels at their origins. Right carotid artery: The right common carotid artery is patent without stenosis. There is minimal calcified and noncalcified plaque at the carotid bulb. Less than 50% stenosis per NASCET criteria. Left carotid artery: The left common carotid artery is patent without stenosis. There is calcified and noncalcified plaque at the carotid bulb with less than 50% stenosis per NASCET criteria. Vertebral arteries: The vertebral arteries are patent. The right vertebral artery is small. This is likely congenital. Other soft tissues: The patient has likely had a right parotidectomy. IMPRESSION: No change since recent exam. Less than 50% stenosis of both the right and left internal carotid arteries. Patent vertebral arteries bilaterally. Authenticated and [facility]
--- NOTE | 2024-12-24 09:38 | CT_ITS ---
FINAL REPORT TECHNIQUE: Thin section axial images are obtained through the brain after intravenous contrast injection. Multiplanar reconstructions were obtained from the axial data. Exam was performed using dose reduction techniques such as automated exposure control, adjustment of the mA and kV according to patient size, and use of iterative reconstruction technique. CLINICAL HISTORY: concern for bleed FINDINGS: Bilateral cerebral hemorrhages are noted and similar to multiple CT heads performed earlier today. Calcified plaque is again noted in the cavernous portion of the right internal carotid artery. Degree of stenosis is unchanged. The bilateral anterior and middle cerebral arteries are patent without evidence of large vessel occlusion or significant stenosis. The intracranial portions of the vertebral arteries are patent. The basilar artery is patent. The posterior cerebral arteries are patent. No evidence of aneurysm or AVM. IMPRESSION: No evidence of significant stenosis, large vessel occlusion, or AVM. This is unchanged from recent exam. Authenticated and [facility]N
[2024-12-24] MEDS: HALOPERIDOL LACTATE 5 MG/ML VIAL 2 MG IV (09:42)
--- NOTE | 2024-12-24 09:44 | PC.NURSE ---
Called [facility]ATE Dowell per Dr Wong and left a message to call the ER
--- NOTE | 2024-12-24 09:55 | HMH.ITSTN ---
scans on hold, waiting on further instructions from ED physician
--- NOTE | 2024-12-24 09:58 | PC.NURSE ---
Ms Dowell called back and is speaking with Dr Wong at this time about this pt.
--- NOTE | 2024-12-24 10:00 | PC.NURSE ---
RT called to come down for the intubation of this pt
[2024-12-24 10:03] LABS: Coronavirus 19, PCR Not Detected (NotDetected); Influenza A, PCR Not Detected (NotDetected); Influenza B, PCR Not Detected (NotDetected)
[2024-12-24] MEDS: ETOMIDATE 40MG/20ML VIAL 30 MG IV (10:11)
[2024-12-24] MEDS: ROCURONIUM BROMIDE 50MG/5ML VIAL 100 MG IV (10:12)
--- NOTE | 2024-12-24 10:22 | CT_ITS ---
FINAL REPORT TECHNIQUE: Thin section axial images were obtained from skull base to vertex without contrast. Coronal reconstruction images were obtained from the axial data. Exam was performed using dose reduction techniques such as automated exposure control, adjustment of the mA and kV according to patient size, and use of iterative reconstruction technique. CLINICAL HISTORY: fall, head bleed COMPARISON: Earlier the same day. FINDINGS: Again seen are bilateral intraparenchymal and bilateral extra-axial hemorrhages. There are bilateral intraparenchymal hemorrhages involving the anterior temporal lobes as well as the inferior frontal lobes. The subdural hemorrhage on the right is now shown to be mixed density. The hemorrhage on the left measures up to 14 mm posteriorly. There is also subdural hemorrhage along the falx. Hypodensity surrounding the intraparenchymal hemorrhages is consistent with edema. The ventricles are small. Much better appreciated on this exam is a small amount of hemorrhage within the posterior horn of the left lateral ventricle. No hemorrhage is identified within the posterior fossa. The basilar cisterns are preserved. Again seen is a skull fracture of the midline occipital bone which extends to the posterior margin of the foramen magnum. There is a mucous retention cyst or polyp in the right maxillary sinus. Soft tissue edema of the occipital scalp is noted. IMPRESSION: 1. Bilateral intraparenchymal and extra-axial hemorrhages. 2. Intraventricular hemorrhage within the posterior horn of the left lateral ventricle. 3. Occipital skull fracture. Reviewed, Interpreted and Dictated by Leanne Barbosa MD Transcribed by Ranjana Hutton Authenticated and [facility]
--- NOTE | 2024-12-24 10:30 | PC.NURSE ---
Called [facility] per Dr Wong to transfer this pt for Bi-Lateral Subdural bleeds along with a Intraprenchymal hemmoraghe. Dr Wong is speaking with Dr Prakash at this time.
--- NOTE | 2024-12-24 10:40 | PC.NURSE ---
family @ bedside. explained pt would be transferred to [facility] via [facility].
[2024-12-24] MEDS: 0.9 % SODIUM CHLORIDE 50 ML VIAL IV ×2 (10:44)
[2024-12-24] MEDS: IOPAMIDOL-370 (76%);100ML BOTTLE 50 ML IV (10:44)
[2024-12-24] MEDS: IOPAMIDOL-370 (76%);100ML BOTTLE 100 ML IV (10:44)
[2024-12-24] MEDS: SODIUM CHLORIDE 0.9% 10ML SYR (RAD ONLY) 10 ML IV (10:44)
[2024-12-24 10:46] LABS: Bacteria,Urine 4+ /lpf
--- NOTE | 2024-12-24 10:46 | PC.NURSE ---
Called [facility] [employer] to check weather . Called back and sdvised that [facility] had a 22 min eta. [place] was notified
[2024-12-24] MEDS: levETIRAcetam 2,000 MG in 0.9 % SODIUM CHLORIDE 100 ML 240 MG IV (10:54)
--- NOTE | 2024-12-24 11:05 | PC.NURSE ---
[facility] has landed on the [facility]
[2024-12-24] MEDS: HUM PROTHROMBIN CPLX IV (11:07)
[2024-12-24] MEDS: [UNRECOGNIZED DRUG - OTHER] IV (11:07)
[2024-12-24 11:08] LABS: Lactate Venous 1.3 mmol/L (0.4-2.0); VBG HCO3 23.1 mmol/L (23-30); VBG PCO2 38.9 mmol/L (35-51); VBG PH 7.39 mmol/L (7.31-7.41); VBG PO2 83.2 mmol/L (28-40)
[2024-12-24] MEDS: NICARDIPINE HCL 25 MG in 0.9 % SODIUM CHLORIDE 240 ML 50 MG IV (11:15)
--- NOTE | 2024-12-24 11:45 | PC.NURSE ---
1011-Etomidate 30mg 119/97 1012-Rocuronium 100mg 152/83 7.5 tube 26 @the lip tube placement verified with Chest Xray 1022 propofol initiated @10mcg 168/94 108 heart rate
--- NOTE | 2024-12-24 12:09 | PC.NURSE ---
report called to Em @[facility]
[2024-12-24 12:43] LABS: Reflex Lactic Add Lactic Reflex
--- NOTE | 2024-12-27 06:36 | PC.NURSE ---
[facility], [facility] culture results given
--- OUTSIDE RECORDS SUMMARY | 2025-02-01 19:00 | XMS_ITS | Clinical Summary ---
Author Organization Unknown Care Team Providers Care Surveyor Helper Rod Name Role Phone LISA SHEA, ALFREDO Unavailable Unavailable URMILA PT, MELI Unavailable Unavailable RAHEEM NOTE SPECIALIST, MURTAZA Unavailable Unavailable WILLY OT, EMETERIO Unavailable Unavailable MOSHE RN, GODFREY Unavailable Unavailable MASSIMO REEDN, HORACE Unavailable Unav ailable Payers Payer Name Policy Type Policy Number Effective Date Expira tion Date [employer].MA.PPO.C.AUTH [id number] Problems Condition Name Condition Details Condition Category Status Onset Date Resolution Date Last Treatment Date Treating Clinician Comments PARKINSON'S DIS W/O DYSKINESIA, 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 2024-02 00:00: 00 HYP HRT AND CHR KDNY DIS W HRT FAIL AND STG 1-4/UNSP CHR KDNY Active 02-20 00:00: 00 ACUTE DIASTOLIC (CONGESTIVE) HEART FAILURE Active 2024-02 0 00:00: 00 CHRONIC SYSTOLIC (CONGESTIVE) HEART FAILURE Active 02-20 00:00: 00 CHRONIC KIDNEY DISEASE, STAGE 3A Active 02-20 00:00: 00 URINARY TRACT INFECTION, SITE NOT SPECIFIED Active 2024-02 00:00: 00 UNSP ESCHERICHIA COLI THE CAUSE OF DISEASES CLASSD ELSWHR Active 2024-02 00:00: 00 CHRONIC PULMONARY EMBOLISM Active 2024-02 00:00: 00 TYPE 2 DIABETES MELLITUS WITH DIABETIC NEUROPATHY, UNSP Active 02-20 00:00: 00 TYPE 2 DIABETES W DIABETIC PERIPHERAL ANGIOPATH W/O GANGRENE Active 02-20 00:00: 00 NON-ST ELEVATION (NSTEMI) MYOCARDIAL INFARCTION Active 2024-02 00:00: 00 ATHSCL HEART DISEASE OF [place] CORONARY ARTERY W/O ANG PCTRS Active 02-20 00:00: 00 PAROXYSMAL ATRIAL FIBRILLATION Active 02-20 00:00: 00 OTHER CHRONIC PAIN Active 02-20 00:00: 00 VENOUS INSUFFICIENC Y (CHRONIC) (PERIPHERAL) Active 2024-02 00:00: 00 REPEATED FALLS Active 2024-02 00:00: 00 ENCEPHALOPAT HY, UNSPECIFIED Active 2024-02 00:00: 00 DEPRESSION, UNSPECIFIED Active 02-20 00:00: 00 ANXIETY DISORDER, UNSPECIFIED Active 02-20 00:00: 00 NICOTINE DEPENDENCE, OTHER TOBACCO PRODUCT, UNCOMPLICATE D Active 02-20 00:00: 00 HYPERLIPIDEM IA, UNSPECIFIED Active 02-20 00:00: 00 HISTORY OF FALLING Active 2024-02 00:00: 00 CORRECTION (CURRENT) USE OF ANTICOAGULAN TS Active 2024-02 00:00: 00 PERSONAL HISTORY OF OTHER VENOUS THROMBOSIS AND EMBOLISM Active 02-20 00:00: 00 PRESENCE OF CARDIAC PACEMAKER Active 02-20 00:00: 00 Allergies, Adverse Reactions, Alerts Allergy Name Allergy Type Status Severity Reaction(s) Onset Date Inactive Date Treating Clinician Comments .ASPIRIN Propensity to adverse reactions Active 2024-11 14:24:0 2 Medications Ordered Medication Name Filled Medication Name Start Date Stop Date Current Medication? Ordering Clinician Indication Dosage Frequency Signature (SIG) Comments Components colestipol 1 gram tablet -20 00:00: 00 05-02 15:22 :51 No [id number] SUPP 1 tablet DAILY 1 tablet DAILY (route: oral) Med Classific ation: Cardiovas cular Therapy Agents Vital Signs Vital Name Observation Time Observation Value Commen ts Temperature 2024-12-18 15:00:00.000 98.7 [degF] Temperature 2024-12-18 14:04:00.000 98.7 [degF] Temperature 2024-12-12 15:55:00.000 97.6 [degF] Temperature 2024-12-12 14:09:00.000 98.3 [degF] Temperature 2024-12-05 14:24:00.000 99.4 [degF] BMI (%) 2024-12-05 14:18:18.000 32 kg/m2 Height 2024-12-05 14:18:10.000 72 [in_us] Pulse 2024-12-18 15:00:00.000 75 /min Pulse 2024-12-18 14:04:00.000 75 /min Pulse 2024-12-12 15:55:00.000 82 /min Pulse 2024-12-12 14:09:00.000 66 /min Pulse 2024-12-10 14:53:00.000 84 /min Pulse 2024-12-05 14:24:00.000 74 /min O2 Saturation (%) 2024-12-18 15:00:00.000 96 % O2 Saturation (%) 2024-12-18 14:04:00.000 96 % O2 Saturation (%) 2024-12-12 15:55:00.000 94 % O2 Saturation (%) 2024-12-12 14:09:00.000 99 % O2 Saturation (%) 2024-12-10 14:53:00.000 92 % Respirations 2024-12-18 15:00:00.000 16 /min Respirations 2024-12-18 14:04:00.000 16 /min Respirations 2024-12-12 15:55:00.000 16 /min Respirations 2024-12-12 14:09:00.000 18 /min Respirations 2024-12-10 14:53:00.000 18 /min Respirations 2024-12-05 14:24:00.000 18 /min Weight (lbs) 2024-12-05 14:18:18.000 236 [lb_av] Systolic Blood Pressure 2024-12-18 15:00:00.000 108 mm [Hg] Systolic Blood Pressure 2024-12-18 14:04:00.000 108 mm [Hg] Systolic Blood Pressure 2024-12-12 15:55:00.000 110 mm [Hg] Systolic Blood Pressure 2024-12-12 14:09:00.000 124 mm [Hg] Systolic Blood Pressure 2024-12-10 14:53:00.000 118 mm [Hg] Systolic Blood Pressure 2024-12-05 14:24:00.000 101 mm [Hg] Diastolic Blood Pressure 2024-12-18 15:00:00.000 60 mm [Hg] Diastolic Blood Pressure 2024-12-18 14:04:00.000 60 mm [Hg] Diastolic Blood Pressure 2024-12-12 15:55:00.000 60 mm [Hg] Diastolic Blood Pressure 2024-12-12 14:09:00.000 68 mm [Hg] Diastolic Blood Pressure 2024-12-10 14:53:00.000 64 mm [Hg] Diastolic Blood Pressure 2024-12-05 14:24:00.000 60 mm [Hg] Plan of Treatment Planned Activity Planned Date Details Comments Future Scheduled Test RN TO OBSE RVE, ASSESS, EVALUATE, AND DEVELOP AN INDIVIDUALIZED PLAN OF CARE. AGENCY MAY ACCEPT ORDERS FROM CONSULTING PHYSICIANS OBSERVE AND ASSESS, DINING ROOM MAID/WEB DESIGN SPECIALIST TO OBSERVE FOR RISK FOR FALLS AND INSTRUCT IN FALL PREVENTION, HOME SAFETY, MEDICATION MANAGEMENT, INFECTION PREVENTION, AND NUTRITION MANAGEMENT. RN/DINING ROOM MAID/WEB DESIGN SPECIALIST NURSE MAY PERFORM O2 SATURATION LEVEL ON ADMISSION AND PRN FOR RN TO ASSESS/DINING ROOM MAID TO OBSERVE PATIENT, WITH NOTIFICATION TO THE PHYSICIAN IF SATURATION IS 90% IN THE ABSENCE OF MORE SPECIFIC PARAMETERS FROM THE PHYSICIAN. AGENCY MAY PERFORM A RESUMPTION OF CARE VISIT FOLLOWING ANY HOSPITAL ADMISSION. RN/DINING ROOM MAID/WEB DESIGN SPECIALIST TO MONITOR CO-MORBID CONDITIONS LISTED ON THE PLAN OF CARE AND ANY NEW CONDITIONS THAT PRESENT THEMSELVES DURING THIS EPISODE TO IDENTIFY CHANGES AND INTERVENE TO MINIMIZE COMPLICATIONS. [code = RN TO OBSERVE, ASSESS, EVALUATE, AND DEVELOP AN INDIVIDUALIZED PLAN OF CARE. AGENCY MAY ACCEPT ORDERS FROM CONSULTING PHYSICIANS OBSERVE AND ASSESS, DINING ROOM MAID/WEB DESIGN SPECIALIST TO OBSERVE FOR RISK FOR FALLS AND INSTRUCT IN FALL PREVENTION, HOME SAFETY, MEDICATION MANAGEMENT, INFECTION PREVENTION, AND NUTRITION MANAGEMENT. RN/DINING ROOM MAID/WEB DESIGN SPECIALIST NURSE MAY PERFORM O2 SATURATION LEVEL ON ADMISSION AND PRN FOR RN TO ASSESS/DINING ROOM MAID TO OBSERVE PATIENT, WITH NOTIFICATION TO THE PHYSICIAN IF SATURATION IS 90% IN THE ABSENCE OF MORE SPECIFIC PARAMETERS FROM THE PHYSICIAN. AGENCY MAY PERFORM A RESUMPTION OF CARE VISIT FOLLOWING ANY HOSPITAL ADMISSION. RN/DINING ROOM MAID/WEB DESIGN SPECIALIST TO MONITOR CO-MORBID CONDITIONS LISTED ON THE PLAN OF CARE AND ANY NEW CONDITIONS THAT PRESENT THEMSELVES DURING THIS EPISODE TO IDENTIFY CHANGES AND INTERVENE TO MINIMIZE COMPLICATIONS.] Future Scheduled Test HEART FAIL URE MONITORING RN/WEB DESIGN SPECIALIST/DINING ROOM MAID TO MONITOR PATIENT FOR SIGNS AND SYMPTOMS OF HEART FAILURE EXACERBATION, MONITOR FOR ADHERENCE WITH MEDICATION AND HEART FAILURE MANAGEMENT REGIMEN. [code = HEART FAILURE MONITORING RN/WEB DESIGN SPECIALIST/DINING ROOM MAID TO MONITOR PATIENT FOR SIGNS AND SYMPTOMS OF HEART FAILURE EXACERBATION, MONITOR FOR ADHERENCE WITH MEDICATION AND HEART FAILURE MANAGEMENT REGIMEN.] Future Scheduled Test MEDICATION MANAGEMENT; RN/DINING ROOM MAID/WEB DESIGN SPECIALIST TO REVIEW MEDICATIONS FOR INTERACTIONS, EFFECTIVENESS OF DRUG THERAPY, AND SIGNS/SYMPTOMS OF ADVERSE REACTIONS. MAY INSTRUCT AND REINFORCE MEDICATION TEACHING RELATED TO THE USE OF MEDICATIONS, DOSAGE, FREQUENCY, PURPOSE, SIDE EFFECTS, AND TO REPORT COMPLICATIONS. [code = MEDICATION MANAGEMENT; RN/DINING ROOM MAID/WEB DESIGN SPECIALIST TO REVIEW MEDICATIONS FOR INTERACTIONS, EFFECTIVENESS OF DRUG THERAPY, AND SIGNS/SYMPTOMS OF ADVERSE REACTIONS. MAY INSTRUCT AND REINFORCE MEDICATION TEACHING RELATED TO THE USE OF MEDICATIONS, DOSAGE, FREQUENCY, PURPOSE, SIDE EFFECTS, AND TO REPORT COMPLICATIONS.] Future Scheduled Test RISK FOR H OSPITALIZATION; RN TO ASSESS/TEACH, WEB DESIGN SPECIALIST/DINING ROOM MAID TO OBSERVE/TEACH PATIENT/CAREGIVER ON RISK FOR HOSPITALIZATION/EMERGENCY ROOM VISITS, TEACH SIGNS AND SYMPTOMS THAT PUT PATIENT AT RISK, WHEN TO NOTIFY NURSE/PHYSICIAN OF COMPLICATIONS/DECLINE, AND WHEN TO CALL 911. [code = RISK FOR HOSPITALIZATION; RN TO ASSESS/TEACH, WEB DESIGN SPECIALIST/DINING ROOM MAID TO OBSERVE/TEACH PATIENT/CAREGIVER ON RISK FOR HOSPITALIZATION/EMERGENCY ROOM VISITS, TEACH SIGNS AND SYMPTOMS THAT PUT PATIENT AT RISK, WHEN TO NOTIFY NURSE/PHYSICIAN OF COMPLICATIONS/DECLINE, AND WHEN TO CALL 911.] Future Scheduled Test NEUROLOGIC AL SYSTEM MANAGEMENT; RN TO ASSESS AND TEACH, WEB DESIGN SPECIALIST/DINING ROOM MAID TO OBSERVE AND TEACH RELATED TO ALTERED NEUROLOGICAL STATUS TO MINIMIZE COMPLICATIONS AND REDUCE HOSPITALIZATION. [code = NEUROLOGICAL SYSTEM MANAGEMENT; RN TO ASSESS AND TEACH, WEB DESIGN SPECIALIST/DINING ROOM MAID TO OBSERVE AND TEACH RELATED TO ALTERED NEUROLOGICAL STATUS TO MINIMIZE COMPLICATIONS AND REDUCE HOSPITALIZATION.] Future Scheduled Test PARKINSON' S MANAGEMENT; RN/WEB DESIGN SPECIALIST/DINING ROOM MAID TO PROVIDE SKILLED TEACHING AND MANAGEMENT OF PARKINSON DISEASE FOR SELF-CARE. [code = PARKINSON'S MANAGEMENT; RN/WEB DESIGN SPECIALIST/DINING ROOM MAID TO PROVIDE SKILLED TEACHING AND MANAGEMENT OF PARKINSON DISEASE FOR SELF-CARE.] Future Scheduled Test FALL REDUC TION MANAGEMENT; RN TO ASSESS AND OBSERVE, DINING ROOM MAID/WEB DESIGN SPECIALIST TO OBSERVE FALL RISK FACTORS AND EDUCATE PATIENT/CAREGIVER ON STRATEGIES TO MINIMIZE THE RISK OF FALLING. [code = FALL REDUCTION MANAGEMENT; RN TO ASSESS AND OBSERVE, DINING ROOM MAID/WEB DESIGN SPECIALIST TO OBSERVE FALL RISK FACTORS AND EDUCATE PATIENT/CAREGIVER ON STRATEGIES TO MINIMIZE THE RISK OF FALLING.] Future Scheduled Test PHYSICAL T HERAPIST TO EVALUATE FOR GAIT AND BALANCE [code = PHYSICAL THERAPIST TO EVALUATE FOR GAIT AND BALANCE] Future Scheduled Test OCCUPATION AL THERAPIST TO EVALUATE FOR SAFETY IN ADLSM [code = OCCUPATIONAL THERAPIST TO EVALUATE FOR SAFETY IN ADLSM] Future Scheduled Test SPEECH THE RAPIST TO EVALUATE FOR COGNITION AND WEAKNENED SPEECH [code = SPEECH THERAPIST TO EVALUATE FOR COGNITION AND WEAKNENED SPEECH] Future Scheduled Test AGENCY MAY PERFORM A RESUMPTION OF CARE VISIT FOLLOWING ANY HOSPITAL ADMISSION. OT TO EVALUATE, OBSERVE / ASSESS, AND MONITOR, PANFILO TO OBSERVE AND MONITOR, PROVIDE SKILLED THERAPEUTIC INTERVENTION, ACTIVITY, EDUCATION, AND TRAINING TO ADDRESS;STRENGTH, BALANCE, ACTIVITY TOLERANCE, SELF CARE PERFORMANCE BATHING/SHOWERING (OT/PANFILO) DRESSING (OT/PANFILO) ACTIVITIES OF DAILY LIVING (OT/PANFILO) TOILET TRANSFER (OT/PANFILO) BATH/SHOWER TRANSFER (OT/CLAMP JIG ASSEMBLER) ITEM RETRIEVAL AND TRANSPORTATION (OT/CLAMP JIG ASSEMBLER) HOME ACTIVITY / EXERCISE PROGRAM (OT/CLAMP JIG ASSEMBLER) POSTURAL CONTROL/BALANCE (OT/CLAMP JIG ASSEMBLER) OT/CLAMP JIG ASSEMBLER MAY EDUCATE ON PAIN MANAGEMENT CLINICALLY INDICATED, INCLUDING NON-PHARMACOLOGICAL PAIN REDUCTION TECHNIQUES AND USE OF CRYOTHERAPY OR HEAT UP TO 20 MIN AT A TIME FOR PAIN MANAGEMENT OT / PANFILO TO IDENTIFY FALL RISK FACTORS; EDUCATE THE PATIENT/CAREGIVER ON WAYS TO REDUCE FALL RISK FACTORS AND ESTABLISH HOME EXERCISE PROGRAM TO MINIMIZE FALL RISK. MAY TEACH THE PATIENT FLOOR RECOVERY WHEN CLINICALLY APPROPRIATE. OT / CLAMP JIG ASSEMBLER TO EDUCATE ON PARKINSON S SELF MANAGEMENT [code = AGENCY MAY PERFORM A RESUMPTION OF CARE VISIT FOLLOWING ANY HOSPITAL ADMISSION. OT TO EVALUATE, OBSERVE / ASSESS, AND MONITOR, PANFILO TO OBSERVE AND MONITOR, PROVIDE SKILLED THERAPEUTIC INTERVENTION, ACTIVITY, EDUCATION, AND TRAINING TO ADDRESS;STRENGTH, BALANCE, ACTIVITY TOLERANCE, SELF CARE PERFORMANCE BATHING/SHOWERING (OT/PANFILO) DRESSING (OT/PANFILO) ACTIVITIES OF DAILY LIVING (OT/PANFILO) TOILET TRANSFER (OT/PANFILO) BATH/SHOWER TRANSFER (OT/PANFILO) ITEM RETRIEVAL AND TRANSPORTATION (OT/PANFILO) HOME ACTIVITY / EXERCISE PROGRAM (OT/PANFILO) POSTURAL CONTROL/BALANCE (OT/PANFILO) OT/PANFILO MAY EDUCATE ON PAIN MANAGEMENT CLINICALLY INDICATED, INCLUDING NON-PHARMACOLOGICAL PAIN REDUCTION TECHNIQUES AND USE OF CRYOTHERAPY OR HEAT UP TO 20 MIN AT A TIME FOR PAIN MANAGEMENT OT / CLAMP JIG ASSEMBLER TO IDENTIFY FALL RISK FACTORS; EDUCATE THE PATIENT/CAREGIVER ON WAYS TO REDUCE FALL RISK FACTORS AND ESTABLISH HOME EXERCISE PROGRAM TO MINIMIZE FALL RISK. MAY TEACH THE PATIENT FLOOR RECOVERY WHEN CLINICALLY APPROPRIATE. OT / CLAMP JIG ASSEMBLER TO EDUCATE ON PARKINSON S SELF MANAGEMENT] Future Scheduled Test AGENCY MAY PERFORM A RESUMPTION OF CARE VISIT FOLLOWING ANY HOSPITAL ADMISSION. PT TO EVALUATE, OBSERVE / ASSESS, AND MONITOR, NOTE SPECIALIST TO OBSERVE AND MONITOR, PROVIDE SKILLED THERAPEUTIC INTERVENTION, ACTIVITY, EDUCATION, AND TRAINING TO ADDRESS; PT/NOTE SPECIALIST TO PROVIDE GAIT TRAINING FOR IMPROVED MOBILITY AND /OR TO NORMALIZE GAIT PATTERN NEUROMUSCULAR RE-EDUCATION / BALANCE / POSTURAL CONTROL (PT) THERAPEUTIC EXERCISES AND ESTABLISHING A HOME EXERCISE PROGRAM (PT/NOTE SPECIALIST) SIT TO/FROM STAND TRANSFERS (PT/NOTE SPECIALIST) PT / NOTE SPECIALIST TO MONITOR AND EDUCATE ON OXYGEN SATURATION DURING ADLS/IADLS, NOTIFY PHYSICIAN AND/OR THE RN CLINICAL BILINGUAL NANNY FOR PHYSICIAN NOTIFICATION AND IF O2 SATS BELOW PHYSICIAN ORDERED PARAMETERS AFTER 10 MIN OF REST PT / NOTE SPECIALIST TO INSTRUCT PATIENT/CAREGIVER ON RISK FOR HOSPITALIZATION/EMERGENCY ROOM VISITS, TEACH SIGNS AND SYMPTOMS THAT PUT PATIENT AT RISK, WHEN TO NOTIFY NURSE/PHYSICIAN OF COMPLICATIONS/DECLINE, AND WHEN TO CALL 911. PT/NOTE SPECIALIST TO IDENTIFY FALL RISK FACTORS; EDUCATE THE PATIENT/CAREGIVER ON WAYS TO REDUCE FALL RISK FACTORS AND ESTABLISH HOME EXERCISE PROGRAM TO MINIMIZE FALL RISK. MAY TEACH THE PATIENT FLOOR RECOVERY WHEN CLINICALLY APPROPRIATE PT / NOTE SPECIALIST TO EDUCATE ON PARKINSON S SELF-MANAGEMENT [code = AGENCY MAY PERFORM A RESUMPTION OF CARE VISIT FOLLOWING ANY HOSPITAL ADMISSION. PT TO EVALUATE, OBSERVE / ASSESS, AND MONITOR, NOTE SPECIALIST TO OBSERVE AND MONITOR, PROVIDE SKILLED THERAPEUTIC INTERVENTION, ACTIVITY, EDUCATION, AND TRAINING TO ADDRESS; PT/NOTE SPECIALIST TO PROVIDE GAIT TRAINING FOR IMPROVED MOBILITY AND /OR TO NORMALIZE GAIT PATTERN NEUROMUSCULAR RE-EDUCATION / BALANCE / POSTURAL CONTROL (PT) THERAPEUTIC EXERCISES AND ESTABLISHING A HOME EXERCISE PROGRAM (PT/NOTE SPECIALIST) SIT TO/FROM STAND TRANSFERS (PT/NOTE SPECIALIST) PT / NOTE SPECIALIST TO MONITOR AND EDUCATE ON OXYGEN SATURATION DURING ADLS/IADLS, NOTIFY PHYSICIAN AND/OR THE RN CLINICAL BILINGUAL NANNY FOR PHYSICIAN NOTIFICATION AND IF O2 SATS BELOW PHYSICIAN ORDERED PARAMETERS AFTER 10 MIN OF REST PT / NOTE SPECIALIST TO INSTRUCT PATIENT/CAREGIVER ON RISK FOR HOSPITALIZATION/EMERGENCY ROOM VISITS, TEACH SIGNS AND SYMPTOMS THAT PUT PATIENT AT RISK, WHEN TO NOTIFY NURSE/PHYSICIAN OF COMPLICATIONS/DECLINE, AND WHEN TO CALL 911. PT/NOTE SPECIALIST TO IDENTIFY FALL RISK FACTORS; EDUCATE THE PATIENT/CAREGIVER ON WAYS TO REDUCE FALL RISK FACTORS AND ESTABLISH HOME EXERCISE PROGRAM TO MINIMIZE FALL RISK. MAY TEACH THE PATIENT FLOOR RECOVERY WHEN CLINICALLY APPROPRIATE PT / NOTE SPECIALIST TO EDUCATE ON PARKINSON S SELF-MANAGEMENT] Goal Patient Goal - TO BE STRONGE R Goal Provider Goal - A PLAN OF CARE WILL BE ESTABLISHED THAT MEETS THE PATIENT S NEEDS. PATIENT WILL DEMONSTRATE OXYGEN SATURATION WITHIN NORMAL LIMITS OR PATIENT S OPTIMAL LEVEL ESTABLISHED BY THE PHYSICIAN THROUGHOUT CARE. CHANGES TO CO-MORBID CONDITIONS AND ANY NEW CONDITIONS WILL BE IDENTIFIED AND REPORTED TO THE PHYSICIAN. Goal Provider Goal - HEART FAILURE CONDITION WILL BE CONTROLLED THROUGHOUT THE EPISODE. Goal Provider Goal - PATIENT/CAREGIVER TO VERBALIZE, AND CONSISTENTLY DEMONSTRATE EFFECTIVE, SAFE MANAGEMENT OF MEDICATION INCLUDING KNOWLEDGE OF EFFECTIVENESS, POTENTIAL SIDE EFFECTS AND DRUG REACTIONS AND WHEN TO CONTACT THE APPROPRIATE CARE PROVIDER. PATIENT/CAREGIVER WILL BE ABLE TO VERBALIZE UNDERSTANDING OF MEDICATION REGIMEN AND ACCURATELY TAKE MEDICATIONS PRESCRIBED WITHOUT ADVERSE EFFECTS BY 60 DAYS Goal Provider Goal - PATIENT/CAREGIVER WILL VERBALIZE UNDERSTANDING OF SIGNS AND SYMPTOMS THAT PUT THE PATIENT AT RISK FOR HOSPITALIZATION /EMERGENCY ROOM VISITS, WHEN TO NOTIFY NURSE/PHYSICIAN OF COMPLICATIONS/DECLINE AND WHEN TO CALL 911. Goal Provider Goal - PATIENT / CAREGIVER WILL VERBALIZE/DEMONSTRATE UNDERSTANDING OF MEASURES TO MANAGE ALTERED NEUROLOGICAL STATUS BY 60 DAYS Goal Provider Goal - PATIENT/CAREGIVER WILL VERBALIZE/DEMONSTRATE UNDERSTANDING OF CARE AND MANAGEMENT OF PARKINSON'S DISEASE BY 60 DAYS Goal Provider Goal - PATIENT/CAREGIVER WILL VERBALIZE/DEMONSTRATE UNDERSTANDING OF FALL RISK FACTORS AND IMPLEMENT STRATEGIES TO MINIMIZE FALL RISK. PATIENT/CAREGIVER WILL VERBALIZE/DEMONSTRATE AN ABILITY TO ADHERE TO FALL REDUCTION SELF-MANAGEMENT AND LIFE-STYLE CHANGES BY 60 DELMY Goal Provider Goal - Goal Provider Goal - Goal Provider Goal - Goal Provider Goal - OT STG: PATIENT WILL DEMONSTRATE IMPROVED ABILITY TO PERFORM BATHING/SHOWERING AND REDUCE CAREGIVER BURDEN FROM MINIMAL A TO SBA WITHIN 6 WEEKS OT LTG: PATIENT WILL DEMONSTRATE IMPROVED ABILITY TO PERFORM BATHING/SHOWERING AND REDUCE CAREGIVER BURDEN FROM MINIMAL A TO INDEPENDENT WITHIN 8 WEEKS OT STG: PATIENT WILL DEMONSTRATE IMPROVED ABILITY TO PERFORM LOWER BODY DRESSING TO REDUCE CAREGIVER BURDEN FROM MINIMAL A TO SBA WITHIN 6 WEEKS OT LTG: PATIENT WILL DEMONSTRATE IMPROVED ABILITY TO PERFORM LOWER BODY DRESSING TO REDUCE CAREGIVER BURDEN FROM MINIMAL A TO INDEPENDENT WITHIN 8 WEEKS OT LTG: PATIENT WILL DEMONSTRATE IMPROVEMENT IN MODIFIED SUZETTE INDEX SCORE FROM 81 TO 96 INDICATING DECREASED DEPENDENCY ON CAREGIVER ASSISTANCE WITH ACTIVITIES OF DAILY LIVING WITHIN 8 WEEKS OT LTG: PATIENT WILL DEMONSTRATE IMPROVED ABILITY TO PERFORM TOILET TRANSFERS TO REDUCE FALL RISK AND RISK OF INCONTINENCE AND UTI DEVELOPMENT FROM CGA TO INDEPENDENT WITHIN 4 WEEKS OT STG: PATIENT WILL DEMONSTRATE IMPROVED ABILITY AND SAFETY TO PERFORM SHOWER TRANSFERS FROM MINIMAL A TO SBA WITHIN 4 WEEKS OT LTG: PATIENT WILL DEMONSTRATE IMPROVED ABILITY AND SAFETY TO PERFORM SHOWER TRANSFERS FROM MINIMAL A TO INDEPENDENT WITHIN 6 WEEKS OT STG PATIENT WILL BE ABLE TO SAFELY RETRIEVE AND TRANSPORT ITEMS FOR ADL PERFORMANCE FROM MODERATE A TO SBA USING AD IN ORDER TO PERFORM ADLS WITHIN 6 WEEKS OT LTG: PATIENT WILL BE ABLE TO SAFELY RETRIEVE AND TRANSPORT ITEMS FOR ADL PERFORMANCE FROM MODERATE A TO INDEPENDENT USING AD IN ORDER TO PERFORM ADLS WITHIN 8 WEEKS OT STG: PATIENT WILL PERFORM HIS BILATERAL UPPER EXTREMITY STRENGTHENING HEP FROM DEPENDENT TO INDEPENDENT WITHIN 4 WEEKS OT LTG: PATIENT/CAREGIVER WILL BE ABLE TO DEMONSTRATE IMPROVED BUE STRENGTH FROM 3+/5 TO 4/5 WITHIN 8 WEEKS OT STG: PATIENT WILL DEMONSTRATE IMPROVED POSTURAL CONTROL AND DECREASED FALL RISK EVIDENCED BY AN IMPROVEMENT IN FUNCTIONAL REACH SCORE FROM 6 IN TO 9 IN WITHIN 6 WEEKS IN ORDER TO IMPROVE SAFE SELF CARE PERFORMANCE OT LTG: PATIENT WILL DEMONSTRATE IMPROVED POSTURAL CONTROL AND DECREASED FALL RISK EVIDENCED BY AN IMPROVEMENT IN FUNCTIONAL REACH SCORE FROM 6 IN TO 11 IN WITHIN 8 WEEKS IN ORDER TO IMPROVE SAFE SELF CARE PERFORMANCE OT LTG: PATIENT WILL DEMONSTRATE UNDERSTANDING OF PAIN MANAGEMENT TECHNIQUES EVIDENCED BY REDUCED PAIN IN BLES TO 03/01 OT LTG: PATIENT/CAREGIVER WILL BE ABLE TO IMPLEMENT RECOMMENDATIONS SPECIFIC TO FALL REDUCTION FOR IMPROVED ADL/IADL COMPLETION AND HOME SAFETY BY END OF EPISODE. OT GOAL: PATIENT/CAREGIVER WILL VERBALIZE UNDERSTANDING OF A PARKINSON'S SELF-MANAGEMENT AND LIFE-STYLE CHANGES BY END OF EPISODE. Goal Provider Goal - PT STG: PATIENT WILL DEMONSTRATE IMPROVED 6 MINUTE WALK TEST AMBULATION FROM 75 FT CGA TO 150 FT SBA WITH APPROPRIATE AD WITHIN 4 WEEKS. PT LTG: PATIENT WILL DEMONSTRATE IMPROVED 6 MINUTE WALK TEST AMBULATION FROM 75 FT CGA TO 500 FT IND WITH APPROPRIATE AD WITHIN 8 WEEKS. PT LTG: PATIENT WILL DEMONSTRATE REDUCED FALL RISK EVIDENCED BY TUG TEST (CUT SCORE >11 SECONDS INDICATES INCREASED FALL RISK) IMPROVING FROM UNABLE TO LESS THAN OR EQUAL TO 20 SECONDS WITHIN 8 WEEKS PT STG: PATIENT WILL DEMONSTRATE IMPROVED FUNCTIONAL STRENGTH EVIDENCED BY FIVE TIMES SIT TO STAND TEST (CUT SCORE >12 SECONDS INDICATES AN INCREASED FALL RISK) IMPROVING FROM 36 SECONDS TO LESS THAN OR EQUAL TO 30 SECONDS WITHIN 4 WEEKS IN ORDER TO DECREASE FALL RISK PT LTG: PATIENT WILL DEMONSTRATE IMPROVED FUNCTIONAL STRENGTH EVIDENCED BY FIVE TIMES SIT TO STAND TEST (CUT SCORE >12 SECONDS INDICATES AN INCREASED FALL RISK) IMPROVING FROM 36 SECONDS TO LESS THAN OR EQUAL TO 12 SECONDS WITHIN 8 WEEKS IN ORDER TO DECREASE FALL RISK PT LTG: PATIENT WILL DEMONSTRATE INDEPENDENCE AND COMPLIANCE WITH HEP WITHIN 4 WEEKS PT STG: PATIENT WILL DEMONSTRATE IMPROVED ABILITY TO PERFORM SIT TO/FROM STAND TRANSFERS TO REDUCE THE RISK OF SKIN BREAKDOWN AND REDUCE FALL RISK FROM MIN TO IND WITHIN 8 WEEKS PT LTG: PATIENT WILL MAINTAIN OXYGEN SATURATION WITHIN PHYSICIAN ORDERED PARAMETERS THROUGHOUT EPISODE OF CARE. PT GOAL: PATIENT/CAREGIVER WILL VERBALIZE UNDERSTANDING OF SIGNS AND SYMPTOMS THAT PUT THE PATIENT AT RISK FOR HOSPITALIZATION /EMERGENCY ROOM VISITS, WHEN TO NOTIFY NURSE/PHYSICIAN OF COMPLICATIONS/DECLINE AND WHEN TO CALL 911. PT LTG: PATIENT/CAREGIVER WILL DEMONSTRATE ADHERENCE TO FALL REDUCTION SELF-MANAGEMENT AND REDUCING FALL RISK FACTORS TO MINIMIZE FALL RISK BY END OF EPISODE. PT GOAL: PATIENT/CAREGIVER WILL VERBALIZE UNDERSTANDING OF A PARKINSON'S SELF-MANAGEMENT AND LIFE-STYLE CHANGES BY END OF EPISODE. Encounters Start Date/Time End Date/Time Encounter Type Admission Type Attending [facility] Care Facility Care Department Encounter ID Discharge Date Discharge Status Discharge Condition Discharge Reason Percent Goals Met 2024-12-05 00:00:00 2025-02-02 00:00:00 Outpatient MELI GUERRERO [facility] [id number] 36.00
== END 2024-12-24 12:10 | disposition other institution (70) ==
PROVIDERS: Emergency Provider Student in an Organized Health Care Education/Training Program; PCP Nurse Practitioner Family
DX: S06.369A Traumatic hemorrhage of cerebrum, unspecified, with loss of consciousness of unspecified duration, initial encounter (principal); S06.5X9A Traumatic subdural hemorrhage with loss of consciousness of unspecified duration, initial encounter; S02.119A Unspecified fracture of occiput, initial encounter for closed fracture; R41.82 Altered mental status, unspecified; I44.7 Left bundle-branch block, unspecified; I48.91 Unspecified atrial fibrillation; G20.A1 Parkinson's disease without dyskinesia, without mention of fluctuations; F02.811 Dementia in other diseases classified elsewhere, unspecified severity, with agitation; Z95.0 Presence of cardiac pacemaker
CPT/HCPCS: 70450; 70496; 70498; 71045; 71275; 72125; 74174; 80053; 80307; 81001; 82010; 82550; 82803; 83690; 83880; 84484; 85025; 85610; 86140; 87040; 87070; 87077; 87086; 87088; 87186; 87205; 87636; 93005; 96365; 96366; 96375; 96376; 99285; 99291; J1630; J1953; J2250; J2404; J2704; J7050; J7168; Q9967